=== PATIENT | male | born 1935 | race Caucasian/White ===

== ENCOUNTER 2018-08-02 17:05 | Inpatient (IN) | payer MEDICARE, OTHER ==
--- NOTE | 2018-08-02 17:33 | EDM.PDOC ---
ED HPI GENERAL MEDICAL PROBLEM - General Chief Complaint: General Stated Complaint: UNK Time Seen by Provider: 08/02/18 17:32 Source of Information: Reports: Patient History Limitations: Reports: No Limitations - History of Present Illness INITIAL COMMENTS - FREE TEXT/NARRATIVE: HISTORY AND PHYSICAL: History of present illness: Patient is an 83-year-old male presents to the ED today for concerns of generalized weakness. Patient seems morning when he woke up he was not able to walk because he felt so tired. He follows with Dr. Thomas in the cancer center would give him a liter of fluids and then some lab work from the cancer center. Dr. Thomas then told the patient to come to the ED to get admitted according to the patient. Patient states following the liter of fluid at the [facility] center he does feel better than he did this morning. Patient does have a history of colorectal cancer in which she is receiving chemotherapy. He denies fever, chills, abdominal pain, chest pain, shortness of breath, cough , nausea, vomiting. Review of systems: As per history of present illness and below otherwise all systems reviewed and negative. Past medical history: As per history of present illness and as reviewed below otherwise noncontributory. Surgical history: As per history of present illness and as reviewed below otherwise noncontributory. Social history: No reported history of drug or alcohol abuse. Family history: As per history of present illness and as reviewed below otherwise noncontributory. Physical exam: General: Patient sitting comfortably in no acute distress and nontoxic appearing HEENT: Atraumatic, normocephalic, pupils reactive, negative for conjunctival pallor or scleral icterus, mucous membranes moist, throat clear, neck supple, nontender, trachea midline. No meningeal signs. Lungs: Clear to auscultation, breath sounds equal bilaterally, chest nontender. Heart: S1S2, regular, negative for clicks, rubs. He does have a grade 3 systolic ejection murmur best heard at the right upper sternal border Abdomen: Soft, nondistended, nontender. Negative for masses or hepatosplenomegaly. Negative for costovertebral tenderness. No rigidity, rebound , guarding. Pelvis: Stable nontender. Genitourinary: Deferred. Rectal: Deferred. Extremities: Atraumatic, negative for cords or calf pain. Neurovascular unremarkable. Neuro: Awake, alert, oriented. Cranial nerves II through XII unremarkable. Cerebellum unremarkable. Motor and sensory unremarkable throughout. Exam nonfocal. Notes: His labs down at the cancer center showed hypokalemia. Will give potassium while here in the ER. Diagnostics: CBC, CMP, UA, EKG, chest x-ray, troponin Therapeutics: 1L Normal Saline 4mg Zofran IV 40mEq KlorCon PO Prescriptions: Impression: Hypokalemia Plan: [] Definitive disposition and diagnosis as appropriate pending reevaluation and review of above. - Related Data Allergies Allergy/AdvReac Type Severity Reaction Status Date / Time No Known Allergies Allergy Verified 08/02/18 17:36 Home Meds: Home Meds Losartan/Hydrochlorothiazide [Losartan-HCTZ 100-12.5 MG] 1 tab PO DAILY [History] Metoprolol Tartrate 50 mg PO BID 03/08/18 [History] Aspirin [Adult Aspirin] 81 mg PO ASDIRECTED 03/23/18 [History] Calcium Carbonate/Vitamin D3 [Calcium 600 + Vit D Tablet] 1 tab PO DAILY [History] Carboxymethylcellulos/Glycerin [Refresh Optive Gel Eye Drops] 1 applic EYEBOTH BEDTIME 03/23/18 [History] Dextran 70/Hypromellose [Artificial Tears] 1 drop EYEBOTH BID PRN 03/23/18 [ History] Erythromycin Base [Erythromycin 0.5% Ophth Oint] 1 applic EYEBOTH ASDIRECTED [History] Omeprazole 20 mg PO DAILY 03/23/18 [History] Potassium Chloride 8 meq PO DAILY 03/23/18 [History] hydroCHLOROthiazide [Hydrochlorothiazide] 100 mg PO BID 08/02/18 [History] Past Medical History HEENT History: Reports: Other (See Below) Other HEENT History: top and bottom denture Cardiovascular History: Reports: Heart Murmur, Hypertension Respiratory History: Reports: None Gastrointestinal History: Reports: None Genitourinary History: Reports: BPH, Prostate Disorder Musculoskeletal History: Reports: Other (See Below) Other Musculoskeletal History: polymyalgia rheumatica Neurological History: Reports: None Psychiatric History: Reports: None Endocrine/Metabolic History: Reports: None Hematologic History: Reports: Anemia Immunologic History: Reports: None Oncologic (Cancer) History: Reports: Basal Cell Carcinoma, Other (See Below) Other Oncologic History: 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 Dermatologic History: Reports: None - Infectious Disease History Infectious Disease History: Reports: Chicken Pox, Measles, Mumps - Past Surgical History Head Surgeries/Procedures: Reports: None HEENT Surgical History: Reports: Cataract Surgery Cardiovascular Surgical History: Reports: None GI Surgical History: Reports: Colonoscopy (x3), Hernia, Abdominal Male Surgical History: Reports: TURP-Transurethral Resection of Prostate, Vasectomy Dermatological Surgical History: Reports: Skin Biopsy Social & Family History - Family History Family Medical History: Unobtainable - Caffeine Use Caffeine Use: Reports: Coffee Course - Vital Signs Last Recorded V/S: Last Vital Signs Temp 98.1 F 08/02/18 17:32 Pulse 66 08/02/18 17:32 Resp 18 08/02/18 17:32 BP 109/40 L 08/02/18 17:32 Pulse Ox 98 08/02/18 17:32 - Orders/Labs/Meds Orders: Active Orders 24 hr Category Date Time Status EKG Documentation Completion [RC] STAT Care 08/02/18 17:43 Active Orthostatic Vital Signs [RC] ASDIRECTED Care 08/02/18 17:52 Active Chest 1V Frontal [CR] Stat Exams 08/02/18 17:46 Taken COMPREHENSIVE METABOLIC PN,CMP [CHEM] Stat Lab 08/02/18 18:14 Received TROPONIN I [CHEM] Stat Lab 08/02/18 18:14 Received UA RFX ANIBAL AND CULT IF INDIC [URIN] Stat Lab 08/02/18 17:52 Ordered Ondansetron [Zofran] Med 08/02/18 18:36 Once 4 mg IVPUSH ONETIME ONE Medication Orders Ondansetron HCl (Zofran) 4 mg IVPUSH ONETIME ONE Stop: 08/02/18 18:37 Labs: Laboratory Tests 08/02/18 Range/Units 18:14 WBC 4.15 (4.0-11.0) K/uL RBC 4.31 L (4.50-5.90) M/uL Hgb 9.8 L (13.0-17.0) g/dL Hct 30.6 L (38.0-50.0) % MCV 71.0 L (80.0-98.0) fL MCH 22.7 L (27.0-32.0) pg MCHC 32.0 (31.0-37.0) g/dL RDW Std Deviation 49.0 (28.0-62.0) fl RDW Coeff of Salvador 22 H (11.0-15.0) % Plt Count 236 (150-400) K/uL MPV 8.60 (7.40-12.00) fL Neut % (Auto) 69.3 (48.0-80.0) % Lymph % (Auto) 18.6 (16.0-40.0) % Schley % (Auto) 10.6 (0.0-15.0) % Eos % (Auto) 1.0 (0.0-7.0) % Baso % (Auto) 0.5 (0.0-1.5) % Neut # (Auto) 2.9 (1.4-5.7) K/uL Lymph # (Auto) 0.8 (0.6-2.4) K/uL Schley # (Auto) 0.4 (0.0-0.8) K/uL Eos # (Auto) 0.0 (0.0-0.7) K/uL Baso # (Auto) 0.0 (0.0-0.1) K/uL Nucleated RBC % 0.0 /100WBC Nucleated RBCs # 0 K/uL Meds: Medications Generic Name Dose Route Start Last Admin Trade Name Freq PRN Reason Stop Dose Admin Ondansetron HCl 4 mg 08/02/18 18:36 Zofran IVPUSH 08/02/18 18:37 ONETIME ONE Discontinued Medications Generic Name Dose Route Start Last Admin Trade Name Freq PRN Reason Stop Dose Admin Sodium Chloride 1,000 mls @ 999 mls/hr 08/02/18 17:37 08/02/18 18:32 Normal Saline IV 08/02/18 18:37 999 mls/hr STAT ONE Administration Potassium Chloride 40 meq 08/02/18 17:43 08/02/18 18:33 Klor-Con M20 PO 08/02/18 17:44 40 meq ONETIME ONE Administration Departure - Discharge Information Referrals: PCP,Unknown [Primary Care Provider] - Forms: ED Department Discharge - My Orders Last 24 Hours: My Active Orders 08/02/18 17:43 EKG Documentation Completion [RC] STAT 08/02/18 17:46 Chest 1V Frontal [CR] Stat 08/02/18 17:52 Orthostatic Vital Signs [RC] ASDIRECTED UA RFX ANIBAL AND CULT IF INDIC [URIN] Stat 08/02/18 18:14 COMPREHENSIVE METABOLIC PN,CMP [CHEM] Stat TROPONIN I [CHEM] Stat 08/02/18 18:36 Ondansetron [Zofran] 4 mg IVPUSH ONETIME ONE - Assessment/Plan Last 24 Hours: My Active Orders 08/02/18 17:43 EKG Documentation Completion [RC] STAT 08/02/18 17:46 Chest 1V Frontal [CR] Stat 08/02/18 17:52 Orthostatic Vital Signs [RC] ASDIRECTED UA RFX ANIBAL AND CULT IF INDIC [URIN] Stat 08/02/18 18:14 COMPREHENSIVE METABOLIC PN,CMP [CHEM] Stat TROPONIN I [CHEM] Stat 08/02/18 18:36 Ondansetron [Zofran] 4 mg IVPUSH ONETIME ONE
[2018-08-02] MEDS ORDERED: Sodium Chloride 0.9% 1,000 ML IV ONE (17:37)
[2018-08-02] MEDS ORDERED: Potassium Chloride 20 MEQ Tab.ER PO ONE (17:43)
[2018-08-02] MEDS ORDERED: Ondansetron 4 MG/2 ML SDV IVPUSH ONE (18:36)
--- NOTE | 2018-08-02 19:04 | CR ---
INDICATION: Pain and shortness of breath. TECHNIQUE: Chest 1 views COMPARISON: Chest x-ray 03/08/2018 FINDINGS: Cardiovascular and mediastinum: Normal heart size with atherosclerotic calcification. Lungs and pleural spaces: No pleural effusion or pneumothorax. Nodular density left midlung measuring 4 millimeters. This is indeterminate. Bones and soft tissues: No significant findings. IMPRESSION: No acute pulmonary consolidation. Incidental findings as noted above. Dictated by Horacio Hahn MD @ Aug 02 2018 7:02PM Signed by Dr. Horacio Hahn @ Aug 02 2018 7:03PM
[2018-08-02 19:28] LABS: CHLORIDE,CL 106 mmol/L (98-107); SODIUM,NA 142 mmol/L (136-148)
[2018-08-02] MEDS ORDERED: Potassium Chloride Riders 40 MEQ in Premix Bag 1 BAG IV ONE (19:31)
[2018-08-02] MEDS ORDERED: oxyCODONE 5 MG Tab PO PRN (20:34)
[2018-08-02] MEDS ORDERED: Acetaminophen 325 MG Tab PO PRN (20:34)
[2018-08-02] MEDS ORDERED: Temazepam 15 MG Cap PO PRN (20:35)
[2018-08-02] MEDS: Sodium Chloride 0.9% 1,000 ML IV SCH (20:56)
[2018-08-03] MEDS ORDERED: Potassium Chloride 20 MEQ Tab.ER PO ONE ×2 (08:25→12:00)
--- NOTE | 2018-08-03 08:32 | PCM.HP ---
<Kimberly Hinojosa - Last Filed: 08/03/18 08:27> H&P History of Present Illness - General Date of Service: 08/03/18 Admit Problem/Dx: Admission Diagnosis/Problem Admission Diagnosis/Problem Hypokalemia - History of Present Illness Initial Comments - Free Text/Narative: The patient is a 83 year old male who is undergoing chemotherapy for colorectal cancer who developed weakness, dizziness, and inability to walk yesterday. He was seen at the cancer center, where they lyubov labs and gave him 1 L of IVF. He was then sent to the ER for workup and treatment. He notes he has had trouble with weakness/ dizziness since starting his chemo pills 3 weeks ago but yesterday he was much worse. He also has associated nausea, vomiting, and diarrhea at times since starting that medication. He denies fever/chills, chest pain, shortness of breath, or abdominal pain. This morning he reports he feels a little better compared to yesterday. In the ER work up found MARGARITA, hypokalemia, and hyomagnesemia. He had a negative troponin. His CXR showed no acute cardiopulmonary process. He was started on IVF and he received a dose of potassium and Zofran. PCP-Dr. Watson Oncologist-Dr. Thomas - Related Data Allergies/Adverse Reactions: Allergies Allergy/AdvReac Type Severity Reaction Status Date / Time No Known Allergies Allergy Verified 08/02/18 17:36 Home Medications: Home Meds Losartan/Hydrochlorothiazide [Losartan-HCTZ 100-12.5 MG] 12.5 - 100 mg PO DAILY 03/08/18 [History] Metoprolol Tartrate 50 mg PO BID 03/08/18 [History] Aspirin [Adult Aspirin] 81 mg PO DAILY 03/23/18 [History] Calcium Carbonate/Vitamin D3 [Calcium 600 + Vit D Tablet] 1 tab PO DAILY [History] Carboxymethylcellulos/Glycerin [Refresh Optive Gel Eye Drops] 1 applic EYEBOTH BEDTIME 03/23/18 [History] Dextran 70/Hypromellose [Artificial Tears] 1 drop EYEBOTH BID PRN 03/23/18 [ History] Erythromycin Base [Erythromycin 0.5% Ophth Oint] 1 applic EYEBOTH ASDIRECTED [History] Omeprazole 20 mg PO DAILY 03/23/18 [History] Potassium Chloride 8 meq PO DAILY 03/23/18 [History] Loperamide [Imodium] 2 mg PO Q4H PRN 08/03/18 [History] Ondansetron [Zofran] 8 mg PO Q8H PRN 08/03/18 [History] Prochlorperazine [Compazine] 10 mg PO Q6H PRN 08/03/18 [History] hydrALAZINE [Apresoline] 100 mg PO BID 08/03/18 [History] Past Medical History HEENT History: Reports: Other (See Below) Other HEENT History: top and bottom denture Cardiovascular History: Reports: Heart Murmur, Hypertension Respiratory History: Reports: None Gastrointestinal History: Reports: None Genitourinary History: Reports: BPH, Prostate Disorder Musculoskeletal History: Reports: Other (See Below) Other Musculoskeletal History: polymyalgia rheumatica Neurological History: Reports: None Psychiatric History: Reports: None Endocrine/Metabolic History: Reports: None Hematologic History: Reports: Anemia Immunologic History: Reports: None Oncologic (Cancer) History: Reports: Basal Cell Carcinoma, Other (See Below) Other Oncologic History: 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 Dermatologic History: Reports: None - Infectious Disease History Infectious Disease History: Reports: Chicken Pox, Measles, Mumps - Past Surgical History Head Surgeries/Procedures: Reports: None HEENT Surgical History: Reports: Cataract Surgery Cardiovascular Surgical History: Reports: None GI Surgical History: Reports: Colonoscopy, Hernia, Abdominal Male Surgical History: Reports: TURP-Transurethral Resection of Prostate, Vasectomy Dermatological Surgical History: Reports: Skin Biopsy Social & Family History - Family History Family Medical History: Unobtainable - Tobacco Use Smoking Status *Q: Former Smoker Years of Tobacco use: 60 Packs/Tins Daily: 1 Used Tobacco, but Quit: Yes Month/Year Tobacco Last Used: 1963 - Caffeine Use Caffeine Use: Reports: Coffee - Recreational Drug Use Recreational Drug Use: No H&P Review of Systems - Review of Systems: Review Of Systems: See Below General: Reports: Weakness, Decreased Appetite. Denies: Fever, Chills HEENT: Reports: No Symptoms Pulmonary: Reports: No Symptoms Cardiovascular: Reports: No Symptoms Gastrointestinal: Reports: Diarrhea, Nausea, Vomiting. Denies: Abdominal Pain Genitourinary: Reports: No Symptoms Musculoskeletal: Reports: No Symptoms Skin: Reports: No Symptoms Psychiatric: Reports: No Symptoms Neurological: Reports: Dizziness Hematologic/Lymphatic: Reports: No Symptoms Immunologic: Reports: No Symptoms Exam - Exam Exam: See Below - Vital Signs Vital Signs: Last Vital Signs Temp 99.5 F 08/03/18 07:45 Pulse 109 H 08/03/18 07:45 Resp 18 08/03/18 07:45 BP 145/62 H 08/03/18 07:45 Pulse Ox 96 08/03/18 07:45 Orthostatic Blood Pressure [ 113/51 Standing] Orthostatic Blood Pressure [ 137/56 Sitting] Orthostatic Blood Pressure [ 137/54 Supine] Weight: 80.467 kg - Exam General: Alert, Oriented, Cooperative HEENT: Conjunctiva Clear, Mucosa Moist & [place], Posterior Pharynx Clear Neck: Supple Lungs: Clear to Auscultation, Normal Respiratory Effort Cardiovascular: Regular Rate, Regular Rhythm GI/Abdominal Exam: Normal Bowel Sounds, Soft, Non-Tender, No Distention Extremities: No Pedal Edema Skin: Warm, Dry Neuro Extensive - Mental Status: Alert, Oriented x3 Psychiatric: Alert, Normal Affect, Normal Mood - Patient Data Lab Results Last 24 hrs: Laboratory Results - last 24 hr 08/02/18 08/02/18 08/02/18 Range/Units 18:14 18:14 19:05 WBC 4.15 (4.0-11.0) K/uL RBC 4.31 L (4.50-5.90) M/uL Hgb 9.8 L (13.0-17.0) g/dL Hct 30.6 L (38.0-50.0) % MCV 71.0 L (80.0-98.0) fL MCH 22.7 L (27.0-32.0) pg MCHC 32.0 (31.0-37.0) g/dL RDW Std Deviation 49.0 (28.0-62.0) fl RDW Coeff of Salvador 22 H (11.0-15.0) % Plt Count 236 (150-400) K/uL MPV 8.60 (7.40-12.00) fL Neut % (Auto) 69.3 (48.0-80.0) % Lymph % (Auto) 18.6 (16.0-40.0) % Larue % (Auto) 10.6 (0.0-15.0) % Eos % (Auto) 1.0 (0.0-7.0) % Baso % (Auto) 0.5 (0.0-1.5) % Neut # (Auto) 2.9 (1.4-5.7) K/uL Lymph # (Auto) 0.8 (0.6-2.4) K/uL Larue # (Auto) 0.4 (0.0-0.8) K/uL Eos # (Auto) 0.0 (0.0-0.7) K/uL Baso # (Auto) 0.0 (0.0-0.1) K/uL Add Manual Diff Neutrophils % (Manual) (48.0-80.0) % Band Neutrophils % % Lymphocytes % (Manual) (16.0-40.0) % Monocytes % (Manual) (0.0-15.0) % Nucleated RBC % 0.0 /100WBC Absolute Seg Neuts (1.4-5.7) Band Neutrophils # Lymphocytes # (Manual) (0.6-2.4) Monocytes # (Manual) (0.0-0.8) Nucleated RBCs # 0 K/uL Sodium 142 (136-148) mmol/L Potassium 2.4 L* (3.5-5.1) mmol/L Chloride 106 (98-107) mmol/L Carbon Dioxide 22.6 (21.0-32.0) mmol/L BUN 36 H (7.0-18.0) mg/dL Creatinine 2.0 H (0.8-1.3) mg/dL Est Cr Clr Drug Dosing 27.99 mL/min Estimated GFR (MDRD) 32.1 ml/min Glucose 132 H (74-106) mg/dL Calcium 8.3 L (8.5-10.1) mg/dL Magnesium (1.8-2.4) mg/dL Total Bilirubin 0.5 (0.2-1.0) mg/dL AST 14 L (15-37) IU/L ALT 17 (14-63) IU/L Alkaline Phosphatase 62 (46-116) U/L Troponin I < 0.050 (0.000-0.056) ng/mL Total Protein 6.3 L (6.4-8.2) g/dL Albumin 2.6 L (3.4-5.0) g/dL Globulin 3.7 (2.6-4.0) g/dL Albumin/Globulin Ratio 0.7 L (0.9-1.6) Urine Color YELLOW Urine Appearance CLEAR Urine pH 5.5 (5.0-8.0) Ur Specific [place] 1.015 (1.001-1.035) Urine Protein 30 H (NEGATIVE) mg/dL Urine Glucose (UA) NEGATIVE (NEGATIVE) mg/dL Urine Ketones NEGATIVE (NEGATIVE) mg/dL Urine Occult Blood NEGATIVE (NEGATIVE) Urine Nitrite NEGATIVE (NEGATIVE) Urine Bilirubin NEGATIVE (NEGATIVE) Urine Urobilinogen 0.2 (<2.0) EU/dL Ur Leukocyte Esterase TRACE H (NEGATIVE) Urine RBC 3-5 (0-2/HPF) Urine WBC 6-8 (0-5/HPF) Ur Epithelial Cells MODERATE (NONE-FEW) Urine Bacteria FEW (NEGATIVE) 08/02/18 08/03/18 08/03/18 Range/Units 21:04 05:37 05:37 WBC 3.14 L (4.0-11.0) K/uL RBC 3.75 L (4.50-5.90) M/uL Hgb 8.6 L (13.0-17.0) g/dL Hct 26.9 L (38.0-50.0) % MCV 71.7 L (80.0-98.0) fL MCH 22.9 L (27.0-32.0) pg MCHC 32.0 (31.0-37.0) g/dL RDW Std Deviation 50.2 (28.0-62.0) fl RDW Coeff of Salvador 22 H (11.0-15.0) % Plt Count 175 (150-400) K/uL MPV 8.50 (7.40-12.00) fL Neut % (Auto) [employer] (48.0-80.0) % Lymph % (Auto) [employer] (16.0-40.0) % Larue % (Auto) [employer] (0.0-15.0) % Eos % (Auto) [employer] (0.0-7.0) % Baso % (Auto) [employer] (0.0-1.5) % Neut # (Auto) [employer] (1.4-5.7) K/uL Lymph # (Auto) [employer] (0.6-2.4) K/uL Larue # (Auto) [employer] (0.0-0.8) K/uL Eos # (Auto) [employer] (0.0-0.7) K/uL Baso # (Auto) [employer] (0.0-0.1) K/uL Add Manual Diff YES Neutrophils % (Manual) 29 L (48.0-80.0) % Band Neutrophils % 38 % Lymphocytes % (Manual) 20 (16.0-40.0) % Monocytes % (Manual) 13 (0.0-15.0) % Nucleated RBC % 0.0 /100WBC Absolute Seg Neuts 0.9 L (1.4-5.7) Band Neutrophils # 1.2 Lymphocytes # (Manual) 0.6 (0.6-2.4) Monocytes # (Manual) 0.4 (0.0-0.8) Nucleated RBCs # 0 K/uL Sodium 144 (136-148) mmol/L Potassium 2.6 L (3.5-5.1) mmol/L Chloride 110 H (98-107) mmol/L Carbon Dioxide 23.5 (21.0-32.0) mmol/L BUN 33 H (7.0-18.0) mg/dL Creatinine 1.7 H (0.8-1.3) mg/dL Est Cr Clr Drug Dosing 32.81 mL/min Estimated GFR (MDRD) 38.7 ml/min Glucose 127 H (74-106) mg/dL Calcium 7.7 L (8.5-10.1) mg/dL Magnesium 1.5 L 1.5 L (1.8-2.4) mg/dL Total Bilirubin (0.2-1.0) mg/dL AST (15-37) IU/L ALT (14-63) IU/L Alkaline Phosphatase (46-116) U/L Troponin I (0.000-0.056) ng/mL Total Protein (6.4-8.2) g/dL Albumin (3.4-5.0) g/dL Globulin (2.6-4.0) g/dL Albumin/Globulin Ratio (0.9-1.6) Urine Color Urine Appearance Urine pH (5.0-8.0) Ur Specific [place] (1.001-1.035) Urine Protein (NEGATIVE) mg/dL Urine Glucose (UA) (NEGATIVE) mg/dL Urine Ketones (NEGATIVE) mg/dL Urine Occult Blood (NEGATIVE) Urine Nitrite (NEGATIVE) Urine Bilirubin (NEGATIVE) Urine Urobilinogen (<2.0) EU/dL Ur Leukocyte Esterase (NEGATIVE) Urine RBC (0-2/HPF) Urine WBC (0-5/HPF) Ur Epithelial Cells (NONE-FEW) Urine Bacteria (NEGATIVE) Result Diagrams: 08/03/18 05:37 08/03/18 05:37 - Problem List (1) Hypomagnesemia SNOMED Code(s): 748128329 ICD Code: E83.42 - HYPOMAGNESEMIA Status: Acute Current Visit: Yes (2) Ambulatory dysfunction SNOMED Code(s): 104409505 ICD Code: R26.2 - DIFFICULTY IN WALKING, NOT ELSEWHERE CLASSIFIED Status: Acute Current Visit: Yes (3) MARGARITA (acute kidney injury) SNOMED Code(s): 07633212 ICD Code: N17.9 - ACUTE KIDNEY FAILURE, UNSPECIFIED Status: Acute Current Visit: Yes (4) Colorectal cancer SNOMED Code(s): 128929985 ICD Code: C19 - MALIGNANT NEOPLASM OF RECTOSIGMOID JUNCTION Status: Chronic Current Visit: No (5) Hypokalemia SNOMED Code(s): 55244342 ICD Code: E87.6 - HYPOKALEMIA Status: Acute Current Visit: Yes (6) Weakness generalized SNOMED Code(s): 90882812 ICD Code: R53.1 - WEAKNESS Status: Acute Current Visit: Yes Problem List Initiated/Reviewed/Updated: Yes Orders Last 24hrs: Active Orders 24 hr Category Date Time Status Patient Status [ADT] Stat ADT 08/02/18 19:36 Active EKG Documentation Completion [RC] STAT Care 08/02/18 17:43 Active Orthostatic Vital Signs [RC] ASDIRECTED Care 08/02/18 17:52 Active Telemetry Monitoring [Cardiac Monitoring] [RC] Q8H Care 08/02/18 20:35 Active Consult to Physical Therapy [PT Evaluation and Cons 08/03/18 08:26 Ordered Treatment] [CONS] Routine Regular Diet [DIET] Diet 08/03/18 Breakfast Active CULTURE URINE [RM] Stat Lab 08/02/18 19:05 Received Acetaminophen [Tylenol] Med 08/02/18 20:34 Active 650 mg PO Q4H PRN Potassium Chloride [Klor-Con M20] Med 08/03/18 08:25 Once 40 meq PO ONETIME ONE Potassium Chloride [Klor-Con M20] Med 08/03/18 12:00 Once 40 meq PO ONETIME ONE Sodium Chloride 0.9% [Normal Saline] 1,000 ml Med 08/02/18 20:45 Active IV ASDIRECTED Temazepam [Restoril] Med 08/02/18 20:35 Active 15 mg PO BEDTIME PRN oxyCODONE Med 08/02/18 20:34 Active 5 mg PO Q4H PRN Medication Orders Acetaminophen (Tylenol) 650 mg PO Q4H PRN PRN Reason: Pain Sodium Chloride (Normal Saline) 1,000 mls @ 75 mls/hr IV ASDIRECTED KATHERINE Last Admin: 08/02/18 20:56 Dose: 75 mls/hr Oxycodone HCl (Oxycodone) 5 mg PO Q4H PRN PRN Reason: Pain (moderate 4-6) Potassium Chloride (Klor-Con M20) 40 meq PO ONETIME ONE Stop: 08/03/18 08:26 Potassium Chloride (Klor-Con M20) 40 meq PO ONETIME ONE Stop: 08/03/18 12:01 Temazepam (Restoril) 15 mg PO BEDTIME PRN PRN Reason: Insomnia Assessment/Plan Comment:: 1. Admit observation 2. Code status- CPR ok, DNI 3. Vitals per routine 4. I/Os per routine 5. DVT prophylaxis with lovenox 6. Diet- regular 7. Weakness/ ambulatory dysfunction- PT evaluation/treatment ordered 8. Hypokalemia- will replace with 40 KCl now and 40 at noon. Recheck in AM 9. Hypomagnesemia- will replace with 2 grams today. Recheck in AM. 10. MARGARITA- continue IVF 11. Chronic conditions- HTN/GERD- hold HCTZ as that can cause hypokalemia but continue other home meds. <Srinivas Gresham - Last Filed: 08/03/18 12:58> H&P History of Present Illness - General Admit Problem/Dx: Admission Diagnosis/Problem Admission Diagnosis/Problem Hypokalemia - History of Present Illness Initial Comments - Free Text/Narative: I have examined the patient independently of Kimberly Hinojosa MD, medical center manager. I have discussed the case with her. I have reviewed and agree with the plan of care as outlined by her. Please see orders. Exam - Vital Signs Vital Signs: Last Vital Signs Temp 37.5 C 08/03/18 07:45 Pulse 109 H 08/03/18 10:13 Resp 18 08/03/18 07:45 BP 145/62 H 08/03/18 10:17 Pulse Ox 96 08/03/18 07:45 Orthostatic Blood Pressure [ 113/51 Standing] Orthostatic Blood Pressure [ 137/56 Sitting] Orthostatic Blood Pressure [ 137/54 Supine] - Patient Data Lab Results Last 24 hrs: Laboratory Results - last 24 hr 08/02/18 08/02/18 08/02/18 Range/Units 18:14 18:14 19:05 WBC 4.15 (4.0-11.0) K/uL RBC 4.31 L (4.50-5.90) M/uL Hgb 9.8 L (13.0-17.0) g/dL Hct 30.6 L (38.0-50.0) % MCV 71.0 L (80.0-98.0) fL MCH 22.7 L (27.0-32.0) pg MCHC 32.0 (31.0-37.0) g/dL RDW Std Deviation 49.0 (28.0-62.0) fl RDW Coeff of Salvador 22 H (11.0-15.0) % Plt Count 236 (150-400) K/uL MPV 8.60 (7.40-12.00) fL Neut % (Auto) 69.3 (48.0-80.0) % Lymph % (Auto) 18.6 (16.0-40.0) % Larue % (Auto) 10.6 (0.0-15.0) % Eos % (Auto) 1.0 (0.0-7.0) % Baso % (Auto) 0.5 (0.0-1.5) % Neut # (Auto) 2.9 (1.4-5.7) K/uL Lymph # (Auto) 0.8 (0.6-2.4) K/uL Larue # (Auto) 0.4 (0.0-0.8) K/uL Eos # (Auto) 0.0 (0.0-0.7) K/uL Baso # (Auto) 0.0 (0.0-0.1) K/uL Add Manual Diff Neutrophils % (Manual) (48.0-80.0) % Band Neutrophils % % Lymphocytes % (Manual) (16.0-40.0) % Monocytes % (Manual) (0.0-15.0) % Nucleated RBC % 0.0 /100WBC Absolute Seg Neuts (1.4-5.7) Band Neutrophils # Lymphocytes # (Manual) (0.6-2.4) Monocytes # (Manual) (0.0-0.8) Nucleated RBCs # 0 K/uL Sodium 142 (136-148) mmol/L Potassium 2.4 L* (3.5-5.1) mmol/L Chloride 106 (98-107) mmol/L Carbon Dioxide 22.6 (21.0-32.0) mmol/L BUN 36 H (7.0-18.0) mg/dL Creatinine 2.0 H (0.8-1.3) mg/dL Est Cr Clr Drug Dosing 27.99 mL/min Estimated GFR (MDRD) 32.1 ml/min Glucose 132 H (74-106) mg/dL Calcium 8.3 L (8.5-10.1) mg/dL Magnesium (1.8-2.4) mg/dL Total Bilirubin 0.5 (0.2-1.0) mg/dL AST 14 L (15-37) IU/L ALT 17 (14-63) IU/L Alkaline Phosphatase 62 (46-116) U/L Troponin I < 0.050 (0.000-0.056) ng/mL Total Protein 6.3 L (6.4-8.2) g/dL Albumin 2.6 L (3.4-5.0) g/dL Globulin 3.7 (2.6-4.0) g/dL Albumin/Globulin Ratio 0.7 L (0.9-1.6) Urine Color YELLOW Urine Appearance CLEAR Urine pH 5.5 (5.0-8.0) Ur Specific [place] 1.015 (1.001-1.035) Urine Protein 30 H (NEGATIVE) mg/dL Urine Glucose (UA) NEGATIVE (NEGATIVE) mg/dL Urine Ketones NEGATIVE (NEGATIVE) mg/dL Urine Occult Blood NEGATIVE (NEGATIVE) Urine Nitrite NEGATIVE (NEGATIVE) Urine Bilirubin NEGATIVE (NEGATIVE) Urine Urobilinogen 0.2 (<2.0) EU/dL Ur Leukocyte Esterase TRACE H (NEGATIVE) Urine RBC 3-5 (0-2/HPF) Urine WBC 6-8 (0-5/HPF) Ur Epithelial Cells MODERATE (NONE-FEW) Urine Bacteria FEW (NEGATIVE) 08/02/18 08/03/18 08/03/18 Range/Units 21:04 05:37 05:37 WBC 3.14 L (4.0-11.0) K/uL RBC 3.75 L (4.50-5.90) M/uL Hgb 8.6 L (13.0-17.0) g/dL Hct 26.9 L (38.0-50.0) % MCV 71.7 L (80.0-98.0) fL MCH 22.9 L (27.0-32.0) pg MCHC 32.0 (31.0-37.0) g/dL RDW Std Deviation 50.2 (28.0-62.0) fl RDW Coeff of Salvador 22 H (11.0-15.0) % Plt Count 175 (150-400) K/uL MPV 8.50 (7.40-12.00) fL Neut % (Auto) [employer] (48.0-80.0) % Lymph % (Auto) [employer] (16.0-40.0) % Larue % (Auto) [employer] (0.0-15.0) % Eos % (Auto) [employer] (0.0-7.0) % Baso % (Auto) [employer] (0.0-1.5) % Neut # (Auto) [employer] (1.4-5.7) K/uL Lymph # (Auto) [employer] (0.6-2.4) K/uL Larue # (Auto) [employer] (0.0-0.8) K/uL Eos # (Auto) [employer] (0.0-0.7) K/uL Baso # (Auto) [employer] (0.0-0.1) K/uL Add Manual Diff YES Neutrophils % (Manual) 29 L (48.0-80.0) % Band Neutrophils % 38 % Lymphocytes % (Manual) 20 (16.0-40.0) % Monocytes % (Manual) 13 (0.0-15.0) % Nucleated RBC % 0.0 /100WBC Absolute Seg Neuts 0.9 L (1.4-5.7) Band Neutrophils # 1.2 Lymphocytes # (Manual) 0.6 (0.6-2.4) Monocytes # (Manual) 0.4 (0.0-0.8) Nucleated RBCs # 0 K/uL Sodium 144 (136-148) mmol/L Potassium 2.6 L (3.5-5.1) mmol/L Chloride 110 H (98-107) mmol/L Carbon Dioxide 23.5 (21.0-32.0) mmol/L BUN 33 H (7.0-18.0) mg/dL Creatinine 1.7 H (0.8-1.3) mg/dL Est Cr Clr Drug Dosing 32.81 mL/min Estimated GFR (MDRD) 38.7 ml/min Glucose 127 H (74-106) mg/dL Calcium 7.7 L (8.5-10.1) mg/dL Magnesium 1.5 L 1.5 L (1.8-2.4) mg/dL Total Bilirubin (0.2-1.0) mg/dL AST (15-37) IU/L ALT (14-63) IU/L Alkaline Phosphatase (46-116) U/L Troponin I (0.000-0.056) ng/mL Total Protein (6.4-8.2) g/dL Albumin (3.4-5.0) g/dL Globulin (2.6-4.0) g/dL Albumin/Globulin Ratio (0.9-1.6) Urine Color Urine Appearance Urine pH (5.0-8.0) Ur Specific [place] (1.001-1.035) Urine Protein (NEGATIVE) mg/dL Urine Glucose (UA) (NEGATIVE) mg/dL Urine Ketones (NEGATIVE) mg/dL Urine Occult Blood (NEGATIVE) Urine Nitrite (NEGATIVE) Urine Bilirubin (NEGATIVE) Urine Urobilinogen (<2.0) EU/dL Ur Leukocyte Esterase (NEGATIVE) Urine RBC (0-2/HPF) Urine WBC (0-5/HPF) Ur Epithelial Cells (NONE-FEW) Urine Bacteria (NEGATIVE) Result Diagrams: 08/03/18 05:37 08/03/18 05:37 Orders Last 24hrs: Active Orders 24 hr Category Date Time Status Patient Status [ADT] Stat ADT 08/02/18 19:36 Active Intake and Output [RC] Q12H Care 08/03/18 10:52 Active Orthostatic Vital Signs [RC] ASDIRECTED Care 08/02/18 17:52 Active Telemetry Monitoring [Cardiac Monitoring] [RC] Q8H Care 08/02/18 20:35 Active Vital Signs [RC] Q4H Care 08/03/18 10:52 Active Consult to Physical Therapy [PT Evaluation and Cons 08/03/18 08:26 Active Treatment] [CONS] Routine Regular Diet [DIET] Diet 08/03/18 Breakfast Active BASIC METABOLIC PANEL,BMP [CHEM] AM Lab 08/04/18 05:11 Ordered CBC WITH AUTO DIFF [HEME] AM Lab 08/04/18 05:11 Ordered CDIFF TOX A+B [OP] Routine Lab 08/03/18 10:35 Received CULTURE STOOL + CAMPY+SHIGATOX [RM] Routine Lab 08/03/18 10:35 Received CULTURE URINE [RM] Stat Lab 08/02/18 19:05 Received MAGNESIUM [CHEM] AM Lab 08/04/18 05:11 Ordered WBC, STOOL [OP] Routine Lab 08/03/18 10:35 Received Acetaminophen [Tylenol] Med 08/02/18 20:34 Active 650 mg PO Q4H PRN Aspirin [Halfprin] Med 08/03/18 10:00 Active 81 mg PO DAILY Calcium Carbonate/Vitamin D3 [Caltrate 600+D 1500 MG- Med 08/03/18 09:00 Active 400 Units] 1 tab PO DAILY Carboxymethylcellulose Sodium [Refresh Plus 0.5%] Med 08/03/18 21:00 Active 0 each EYEBOTH BEDTIME Carboxymethylcellulose Sodium [Refresh Plus 0.5%] Med 08/03/18 08:38 Active 1 each EYEBOTH BID PRN Enoxaparin [Lovenox] Med 08/03/18 11:00 Active 30 mg SUBCUT Q24H Loperamide [Imodium] Med 08/03/18 10:44 Active 2 mg PO Q4H PRN Losartan [Cozaar] Med 08/03/18 09:00 Active 50 mg PO DAILY Metoprolol Tartrate [Lopressor] Med 08/03/18 09:00 Active 50 mg PO BID Omeprazole Med 08/03/18 09:00 Active 20 mg PO DAILY Ondansetron [Zofran] Med 08/03/18 10:46 Active 4 mg IVPUSH Q4H PRN Prochlorperazine [Compazine] Med 08/03/18 10:44 Active 10 mg PO Q6H PRN Sodium Chloride 0.9% [Normal Saline] 1,000 ml Med 08/02/18 20:45 Active IV ASDIRECTED Temazepam [Restoril] Med 08/02/18 20:35 Active 15 mg PO BEDTIME PRN oxyCODONE Med 08/02/18 20:34 Active 5 mg PO Q4H PRN Resuscitation Status Routine Resus Stat 08/03/18 10:52 Ordered Medication Orders Acetaminophen (Tylenol) 650 mg PO Q4H PRN PRN Reason: Pain Artificial Tears (Refresh Plus 0.5%) 0 each EYEBOTH BEDTIME KATHERINE Artificial Tears (Refresh Plus 0.5%) 1 each EYEBOTH BID PRN PRN Reason: Dry Eyes Aspirin (Halfprin) 81 mg PO DAILY [facility] Last Admin: 08/03/18 10:17 Dose: 81 mg Calcium Carbonate (Caltrate 600+D 1500 Mg-400 Units) 1 tab PO DAILY [facility] Last Admin: 08/03/18 10:16 Dose: 1 tab Enoxaparin Sodium (Lovenox) 30 mg SUBCUT Q24H [facility] Last Admin: 08/03/18 12:10 Dose: 30 mg Sodium Chloride (Normal Saline) 1,000 mls @ 75 mls/hr IV ASDIRECTED [facility] Last Admin: 08/03/18 12:14 Dose: 75 mls/hr Infusion: 08/03/18 10:16 Dose: 75 mls/hr Admin: 08/02/18 20:56 Dose: 75 mls/hr Loperamide HCl (Imodium) 2 mg PO Q4H PRN PRN Reason: Diarrhea Last Admin: 08/03/18 12:10 Dose: 2 mg Losartan Potassium (Cozaar) 50 mg PO DAILY [facility] Last Admin: 08/03/18 10:17 Dose: 50 mg Metoprolol Tartrate (Lopressor) 50 mg PO BID [facility] Last Admin: 08/03/18 10:13 Dose: 50 mg Omeprazole (Omeprazole) 20 mg PO DAILY [facility] Last Admin: 08/03/18 10:17 Dose: 20 mg Ondansetron HCl (Zofran) 4 mg IVPUSH Q4H PRN PRN Reason: Nausea/Vomiting Oxycodone HCl (Oxycodone) 5 mg PO Q4H PRN PRN Reason: Pain (moderate 4-6) Prochlorperazine Maleate (Compazine) 10 mg PO Q6H PRN PRN Reason: Nausea/Vomiting Temazepam (Restoril) 15 mg PO BEDTIME PRN PRN Reason: Insomnia
[2018-08-03] MEDS ORDERED: Aspirin 81 MG Tab.EC PO SCH (08:45)
[2018-08-03] MEDS: Metoprolol Tartrate 50 MG Tab PO SCH ×2 (10:13→21:12)
[2018-08-03] MEDS: Calcium Carbonate/Vitamin D3 1500 MG-400 Units Tab PO SCH (10:16)
[2018-08-03] MEDS: Losartan 50 MG Tab PO SCH (10:17)
[2018-08-03] MEDS: Aspirin 81 MG Tab.EC PO SCH (10:17)
[2018-08-03] MEDS: Omeprazole 20 MG Cap.CR PO SCH (10:17)
[2018-08-03] MEDS ORDERED: Prochlorperazine 10 MG Tab PO PRN (10:44)
[2018-08-03] MEDS: Loperamide 2 MG Cap PO PRN ×2 (12:10→17:52)
[2018-08-03] MEDS: Enoxaparin 30 MG/0.3 ML Syringe SUBCUT SCH (12:10)
[2018-08-03] MEDS: Sodium Chloride 0.9% 1,000 ML IV SCH (12:14)
[2018-08-03] MEDS ORDERED: Magnesium Sulfate/Water 2 GM in Premix Bag 1 BAG IV ONE (13:51)
[2018-08-03] MEDS: Ondansetron 4 MG/2 ML SDV IVPUSH PRN (14:42)
[2018-08-03] MEDS: Azithromycin 250 MG Tab PO SCH (15:49)
[2018-08-03] MEDS: Carboxymethylcellulose Sodium 0.5% Ophth Soln 0.4 ML UD Box of 30 EYEBOTH SCH (21:14)
[2018-08-04] MEDS: Sodium Chloride 0.9% 1,000 ML IV SCH ×2 (04:42→22:09)
[2018-08-04] MEDS ORDERED: Magnesium Sulfate/Water 2 GM in Premix Bag 1 BAG IV ONE (07:16)
--- NOTE | 2018-08-04 08:23 | PCM.PN ---
<Kimberly Hinojosa - Last Filed: 08/04/18 08:19> - General Info Date of Service: 08/04/18 Subjective Update: Patient reports he is feeling better. He still has diarrhea but he reports it has improved. He denies shortness of breath, chest pain, or abdominal pain. - Review of Systems General: Reports: No Symptoms HEENT: Reports: No Symptoms Pulmonary: Reports: No Symptoms Cardiovascular: Reports: No Symptoms Gastrointestinal: Reports: Diarrhea, Nausea. Denies: Abdominal Pain, Vomiting Genitourinary: Reports: No Symptoms Musculoskeletal: Reports: No Symptoms Skin: Reports: No Symptoms Neurological: Reports: No Symptoms Psychiatric: Reports: No Symptoms - Patient Data Vitals - Most Recent: Last Vital Signs Temp 99 F 08/04/18 04:00 Pulse 73 08/04/18 04:00 Resp 18 08/04/18 04:00 BP 141/72 H 08/04/18 04:00 Pulse Ox 96 08/04/18 04:00 Orthostatic Blood Pressure [ 113/51 Standing] Orthostatic Blood Pressure [ 137/56 Sitting] Orthostatic Blood Pressure [ 137/54 Supine] Weight - Most Recent: 80.467 kg I&O - Last 24 Hours: Intake & Output 08/03/18 08/04/18 08/04/18 22:59 06:59 14:59 Intake Total 800 1742 Output Total 600 600 Balance 200 1142 Lab Results Last 24 Hours: Laboratory Results - last 24 hr 08/04/18 08/04/18 Range/Units 04:55 04:55 WBC 3.38 L (4.0-11.0) K/uL RBC 3.70 L (4.50-5.90) M/uL Hgb 8.5 L (13.0-17.0) g/dL Hct 26.5 L (38.0-50.0) % MCV 71.6 L (80.0-98.0) fL MCH 23.0 L (27.0-32.0) pg MCHC 32.1 (31.0-37.0) g/dL RDW Std Deviation 49.9 (28.0-62.0) fl RDW Coeff of Salvador 22 H (11.0-15.0) % Plt Count 172 (150-400) K/uL MPV 8.20 (7.40-12.00) fL Add Manual Diff YES Neutrophils % (Manual) 27 L (48.0-80.0) % Band Neutrophils % 41 % Lymphocytes % (Manual) 28 (16.0-40.0) % Monocytes % (Manual) 3 (0.0-15.0) % Basophils % (Manual) 1 (0.0-1.5) % Nucleated RBC % 0.0 /100WBC Absolute Seg Neuts 0.9 L (1.4-5.7) Band Neutrophils # 1.4 Lymphocytes # (Manual) 0.9 (0.6-2.4) Monocytes # (Manual) 0.1 (0.0-0.8) Basophils # (Manual) 0.0 (0.0-0.1) Nucleated RBCs # 0 K/uL Sodium 143 (136-148) mmol/L Potassium 2.9 L (3.5-5.1) mmol/L Chloride 110 H (98-107) mmol/L Carbon Dioxide 23.4 (21.0-32.0) mmol/L BUN 23 H (7.0-18.0) mg/dL Creatinine 1.4 H (0.8-1.3) mg/dL Est Cr Clr Drug Dosing 39.85 mL/min Estimated GFR (MDRD) 48.4 ml/min Glucose 127 H (74-106) mg/dL Calcium 7.7 L (8.5-10.1) mg/dL Magnesium 1.7 L (1.8-2.4) mg/dL Hector Results Last 24 Hours: Microbiology 08/03/18 10:35 Campylobacter Antigen Assay - Final Stool / Feces Positive Campylobacter Ag Shiga Toxin I - Final NEGATIVE FOR SHIGA TOXIN 1 Shiga Toxin II - Final NEGATIVE FOR SHIGA TOXIN 2 08/03/18 10:35 Clostridium difficile Toxin A & B - Final Stool / Feces Negative for C.Diff Toxin/AG Stool for WBCs - Final POSITIVE FOR WBC'S Med Orders - Current: Current Medications Acetaminophen (Tylenol) 650 mg PO Q4H PRN PRN Reason: Pain Artificial Tears (Refresh Plus 0.5%) 0 each EYEBOTH BEDTIME KATHERINE Last Admin: 08/03/18 21:14 Dose: 1 drop Artificial Tears (Refresh Plus 0.5%) 1 each EYEBOTH BID PRN PRN Reason: Dry Eyes Aspirin (Halfprin) 81 mg PO DAILY KATHERINE Last Admin: 08/03/18 10:17 Dose: 81 mg Azithromycin (Zithromax) 500 mg PO Q24H [facility] Last Admin: 08/03/18 15:49 Dose: 500 mg Calcium Carbonate (Caltrate 600+D 1500 Mg-400 Units) 1 tab PO DAILY [facility] Last Admin: 08/03/18 10:16 Dose: 1 tab Enoxaparin Sodium (Lovenox) 30 mg SUBCUT Q24H [facility] Last Admin: 08/03/18 12:10 Dose: 30 mg Sodium Chloride (Normal Saline) 1,000 mls @ 75 mls/hr IV ASDIRECTED [facility] Last Admin: 08/04/18 04:42 Dose: 75 mls/hr Magnesium Sulfate 2 gm/ Premix 50 mls @ 25 mls/hr IV ONETIME ONE Stop: 08/04/18 09:15 Loperamide HCl (Imodium) 2 mg PO Q4H PRN PRN Reason: Diarrhea Last Admin: 08/03/18 17:52 Dose: 2 mg Losartan Potassium (Cozaar) 50 mg PO DAILY [facility] Last Admin: 08/03/18 10:17 Dose: 50 mg Metoprolol Tartrate (Lopressor) 50 mg PO BID [facility] Last Admin: 08/03/18 21:12 Dose: 50 mg Omeprazole (Omeprazole) 20 mg PO DAILY [facility] Last Admin: 08/03/18 10:17 Dose: 20 mg Ondansetron HCl (Zofran) 4 mg IVPUSH Q4H PRN PRN Reason: Nausea/Vomiting Last Admin: 08/03/18 14:42 Dose: 4 mg Oxycodone HCl (Oxycodone) 5 mg PO Q4H PRN PRN Reason: Pain (moderate 4-6) Potassium Chloride (Klor-Con M20) 40 meq PO ONETIME ONE Stop: 08/04/18 09:01 Potassium Chloride (Klor-Con M20) 40 meq PO ONETIME ONE Stop: 08/04/18 21:01 Prochlorperazine Maleate (Compazine) 10 mg PO Q6H PRN PRN Reason: Nausea/Vomiting Temazepam (Restoril) 15 mg PO BEDTIME PRN PRN Reason: Insomnia Discontinued Medications Aspirin (Halfprin) 81 mg PO ASDIRECTED [facility] Sodium Chloride (Normal Saline) 1,000 mls @ 999 mls/hr IV STAT ONE Stop: 08/02/18 18:37 Last Admin: 08/02/18 18:32 Dose: 999 mls/hr Potassium Chloride 40 meq/ (Premix) 100 mls @ 25 mls/hr IV ONETIME ONE Stop: 08/02/18 23:30 Last Admin: 08/02/18 20:55 Dose: 25 mls/hr Magnesium Sulfate 2 gm/ Premix 50 mls @ 25 mls/hr IV ONETIME ONE Stop: 08/03/18 15:50 Last Admin: 08/03/18 14:29 Dose: 25 mls/hr Ondansetron HCl (Zofran) 4 mg IVPUSH ONETIME ONE Stop: 08/02/18 18:37 Last Admin: 08/02/18 18:42 Dose: 4 mg Potassium Chloride (Klor-Con M20) 40 meq PO ONETIME ONE Stop: 08/02/18 17:44 Last Admin: 08/02/18 18:33 Dose: 40 meq Potassium Chloride (Klor-Con M20) 40 meq PO ONETIME ONE Stop: 08/03/18 08:26 Last Admin: 08/03/18 09:07 Dose: 40 meq Potassium Chloride (Klor-Con M20) 40 meq PO ONETIME ONE Stop: 08/03/18 12:01 Last Admin: 08/03/18 12:09 Dose: 40 meq Potassium Chloride (Klor-Con M20) 40 meq PO ONETIME ONE Stop: 08/04/18 15:01 - Exam General: Alert, Oriented, Cooperative Lungs: Clear to Auscultation, Normal Respiratory Effort Cardiovascular: Regular Rate, Regular Rhythm GI/Abdominal Exam: Normal Bowel Sounds, Soft, Non-Tender, No Distention Extremities: No Pedal Edema Skin: Warm, Dry Neurological: No New Focal Deficit Psy/Mental Status: Alert, Normal Affect, Normal Mood - Problem List & Annotations (1) Hypomagnesemia SNOMED Code(s): 740978874 Code(s): E83.42 - HYPOMAGNESEMIA Status: Acute Current Visit: Yes (2) Ambulatory dysfunction SNOMED Code(s): 200794319 Code(s): R26.2 - DIFFICULTY IN WALKING, NOT ELSEWHERE CLASSIFIED Status: Acute Current Visit: Yes (3) MARGARITA (acute kidney injury) SNOMED Code(s): 62171490 Code(s): N17.9 - ACUTE KIDNEY FAILURE, UNSPECIFIED Status: Acute Current Visit: Yes (4) Colorectal cancer SNOMED Code(s): 706887337 Code(s): C19 - MALIGNANT NEOPLASM OF RECTOSIGMOID JUNCTION Status: Chronic Current Visit: No (5) Hypokalemia SNOMED Code(s): 80073984 Code(s): E87.6 - HYPOKALEMIA Status: Acute Current Visit: Yes (6) Weakness generalized SNOMED Code(s): 47927273 Code(s): R53.1 - WEAKNESS Status: Acute Current Visit: Yes - Problem List Review Problem List Initiated/Reviewed/Updated: Yes - My Orders Last 24 Hours: My Active Orders 08/03/18 08:26 Consult to Physical Therapy [PT Evaluation and Treatment] [CONS] Routine 08/03/18 08:38 Carboxymethylcellulose Sodium [Refresh Plus 0.5%] 1 each EYEBOTH BID PRN 08/03/18 09:00 Calcium Carbonate/Vitamin D3 [Caltrate 600+D 1500 MG-400 Units] 1 tab PO DAILY Losartan [Cozaar] 50 mg PO DAILY Metoprolol Tartrate [Lopressor] 50 mg PO BID Omeprazole 20 mg PO DAILY 08/03/18 10:00 Aspirin [Halfprin] 81 mg PO DAILY 08/03/18 10:35 CULTURE STOOL + CAMPY+SHIGATOX [RM] Routine 08/03/18 10:44 Loperamide [Imodium] 2 mg PO Q4H PRN Prochlorperazine [Compazine] 10 mg PO Q6H PRN 08/03/18 10:46 Ondansetron [Zofran] 4 mg IVPUSH Q4H PRN 08/03/18 10:52 Intake and Output [RC] Q12H Vital Signs [RC] Q4H Resuscitation Status Routine 08/03/18 11:00 Enoxaparin [Lovenox] 30 mg SUBCUT Q24H 08/03/18 15:00 Azithromycin [Zithromax] 500 mg PO Q24H 08/03/18 21:00 Carboxymethylcellulose Sodium [Refresh Plus 0.5%] 0 each EYEBOTH BEDTIME 08/04/18 07:16 Magnesium Sulfate/Water [Magnesium Sulfate 2 GM in Water 50 ML] 2 gm Premix Bag 1 bag IV ONETIME 08/04/18 08:17 Patient Status [ADT] Routine 08/04/18 09:00 Potassium Chloride [Klor-Con M20] 40 meq PO ONETIME ONE 08/04/18 21:00 Potassium Chloride [Klor-Con M20] 40 meq PO ONETIME ONE - Plan Plan:: 1. Weakness/ ambulatory dysfunction- PT evaluation/treatment ordered 2. Hypokalemia- improved from 2.6 to 2.9, will replace with 40 mEq twice today and recheck in the AM. 3. Hypomagnesemia- improved from 1.5 to 1.7, will replace with 2 grams today. Recheck in AM. 4. MARGARITA- creatinine improved from 1.5 to 1.7, continue IVF 5. Diarrhea- positive for Campylobacter- treating with azithromycin 500 mg daily , Imodium for symptom control. 6. Chronic conditions- HTN/GERD- hold HCTZ as that can cause hypokalemia but continue other home meds. <Srinivas Gresham - Last Filed: 08/04/18 09:14> - General Info Subjective Update: I have examined the patient independently of Kimberly Hinojosa MD, resident. I have discussed the case with her. I have reviewed and agree with the plan of care as outlined by her. Please see orders. - Patient Data Vitals - Most Recent: Last Vital Signs Temp 37.1 C 08/04/18 08:00 Pulse 58 L 08/04/18 08:00 Resp 18 08/04/18 04:00 BP 126/59 L 08/04/18 08:32 Pulse Ox 97 08/04/18 08:00 Orthostatic Blood Pressure [ 113/51 Standing] Orthostatic Blood Pressure [ 137/56 Sitting] Orthostatic Blood Pressure [ 137/54 Supine] I&O - Last 24 Hours: Intake & Output 08/03/18 08/04/18 08/04/18 22:59 06:59 14:59 Intake Total 800 1742 50 Output Total 600 600 Balance 200 1142 50 Lab Results Last 24 Hours: Laboratory Results - last 24 hr 08/04/18 08/04/18 Range/Units 04:55 04:55 WBC 3.38 L (4.0-11.0) K/uL RBC 3.70 L (4.50-5.90) M/uL Hgb 8.5 L (13.0-17.0) g/dL Hct 26.5 L (38.0-50.0) % MCV 71.6 L (80.0-98.0) fL MCH 23.0 L (27.0-32.0) pg MCHC 32.1 (31.0-37.0) g/dL RDW Std Deviation 49.9 (28.0-62.0) fl RDW Coeff of Salvador 22 H (11.0-15.0) % Plt Count 172 (150-400) K/uL MPV 8.20 (7.40-12.00) fL Add Manual Diff YES Neutrophils % (Manual) 27 L (48.0-80.0) % Band Neutrophils % 41 % Lymphocytes % (Manual) 28 (16.0-40.0) % Monocytes % (Manual) 3 (0.0-15.0) % Basophils % (Manual) 1 (0.0-1.5) % Nucleated RBC % 0.0 /100WBC Absolute Seg Neuts 0.9 L (1.4-5.7) Band Neutrophils # 1.4 Lymphocytes # (Manual) 0.9 (0.6-2.4) Monocytes # (Manual) 0.1 (0.0-0.8) Basophils # (Manual) 0.0 (0.0-0.1) Nucleated RBCs # 0 K/uL Sodium 143 (136-148) mmol/L Potassium 2.9 L (3.5-5.1) mmol/L Chloride 110 H (98-107) mmol/L Carbon Dioxide 23.4 (21.0-32.0) mmol/L BUN 23 H (7.0-18.0) mg/dL Creatinine 1.4 H (0.8-1.3) mg/dL Est Cr Clr Drug Dosing 39.85 mL/min Estimated GFR (MDRD) 48.4 ml/min Glucose 127 H (74-106) mg/dL Calcium 7.7 L (8.5-10.1) mg/dL Magnesium 1.7 L (1.8-2.4) mg/dL Hector Results Last 24 Hours: Microbiology 08/02/18 19:05 Urine Culture - Final Urine, Clean Catch MIXED [place] 10,000-100,000 CFU/ML 08/03/18 10:35 Campylobacter Antigen Assay - Final Stool / Feces Positive Campylobacter Ag Shiga Toxin I - Final NEGATIVE FOR SHIGA TOXIN 1 Shiga Toxin II - Final NEGATIVE FOR SHIGA TOXIN 2 08/03/18 10:35 Clostridium difficile Toxin A & B - Final Stool / Feces Negative for C.Diff Toxin/AG Stool for WBCs - Final POSITIVE FOR WBC'S Med Orders - Current: Current Medications Acetaminophen (Tylenol) 650 mg PO Q4H PRN PRN Reason: Pain Artificial Tears (Refresh Plus 0.5%) 0 each EYEBOTH BEDTIME [facility] Last Admin: 08/03/18 21:14 Dose: 1 drop Artificial Tears (Refresh Plus 0.5%) 1 each EYEBOTH BID PRN PRN Reason: Dry Eyes Aspirin (Halfprin) 81 mg PO DAILY [facility] Last Admin: 08/04/18 08:28 Dose: 81 mg Azithromycin (Zithromax) 500 mg PO Q24H [facility] Last Admin: 08/03/18 15:49 Dose: 500 mg Calcium Carbonate (Caltrate 600+D 1500 Mg-400 Units) 1 tab PO DAILY [facility] Last Admin: 08/04/18 08:28 Dose: 1 tab Enoxaparin Sodium (Lovenox) 30 mg SUBCUT Q24H [facility] Last Admin: 08/03/18 12:10 Dose: 30 mg Sodium Chloride (Normal Saline) 1,000 mls @ 75 mls/hr IV ASDIRECTED [facility] Last Admin: 08/04/18 04:42 Dose: 75 mls/hr Magnesium Sulfate 2 gm/ Premix 50 mls @ 25 mls/hr IV ONETIME ONE Stop: 08/04/18 09:15 Last Admin: 08/04/18 08:29 Dose: 25 mls/hr Loperamide HCl (Imodium) 2 mg PO Q4H PRN PRN Reason: Diarrhea Last Admin: 08/03/18 17:52 Dose: 2 mg Losartan Potassium (Cozaar) 50 mg PO DAILY [facility] Last Admin: 08/04/18 08:32 Dose: 50 mg Metoprolol Tartrate (Lopressor) 50 mg PO BID [facility] Last Admin: 08/03/18 21:12 Dose: 50 mg Omeprazole (Omeprazole) 20 mg PO DAILY [facility] Last Admin: 08/04/18 08:28 Dose: 20 mg Ondansetron HCl (Zofran) 4 mg IVPUSH Q4H PRN PRN Reason: Nausea/Vomiting Last Admin: 08/03/18 14:42 Dose: 4 mg Oxycodone HCl (Oxycodone) 5 mg PO Q4H PRN PRN Reason: Pain (moderate 4-6) Potassium Chloride (Klor-Con M20) 40 meq PO ONETIME ONE Stop: 08/04/18 21:01 Prochlorperazine Maleate (Compazine) 10 mg PO Q6H PRN PRN Reason: Nausea/Vomiting Temazepam (Restoril) 15 mg PO BEDTIME PRN PRN Reason: Insomnia Discontinued Medications Aspirin (Halfprin) 81 mg PO ASDIRECTED KATHERINE Sodium Chloride (Normal Saline) 1,000 mls @ 999 mls/hr IV STAT ONE Stop: 08/02/18 18:37 Last Admin: 08/02/18 18:32 Dose: 999 mls/hr Potassium Chloride 40 meq/ (Premix) 100 mls @ 25 mls/hr IV ONETIME ONE Stop: 08/02/18 23:30 Last Admin: 08/02/18 20:55 Dose: 25 mls/hr Magnesium Sulfate 2 gm/ Premix 50 mls @ 25 mls/hr IV ONETIME ONE Stop: 08/03/18 15:50 Last Admin: 08/03/18 14:29 Dose: 25 mls/hr Ondansetron HCl (Zofran) 4 mg IVPUSH ONETIME ONE Stop: 08/02/18 18:37 Last Admin: 08/02/18 18:42 Dose: 4 mg Potassium Chloride (Klor-Con M20) 40 meq PO ONETIME ONE Stop: 08/02/18 17:44 Last Admin: 08/02/18 18:33 Dose: 40 meq Potassium Chloride (Klor-Con M20) 40 meq PO ONETIME ONE Stop: 08/03/18 08:26 Last Admin: 08/03/18 09:07 Dose: 40 meq Potassium Chloride (Klor-Con M20) 40 meq PO ONETIME ONE Stop: 08/03/18 12:01 Last Admin: 08/03/18 12:09 Dose: 40 meq Potassium Chloride (Klor-Con M20) 40 meq PO ONETIME ONE Stop: 08/04/18 09:01 Last Admin: 08/04/18 08:27 Dose: 40 meq Potassium Chloride (Klor-Con M20) 40 meq PO ONETIME ONE Stop: 08/04/18 15:01
[2018-08-04] MEDS: Calcium Carbonate/Vitamin D3 1500 MG-400 Units Tab PO SCH (08:28)
[2018-08-04] MEDS: Aspirin 81 MG Tab.EC PO SCH (08:28)
[2018-08-04] MEDS: Omeprazole 20 MG Cap.CR PO SCH (08:28)
[2018-08-04] MEDS: Losartan 50 MG Tab PO SCH (08:32)
[2018-08-04] MEDS ORDERED: Potassium Chloride 20 MEQ Tab.ER PO ONE ×3 (09:00→21:00)
--- NOTE | 2018-08-04 10:31 | PCM.SN ---
- Free Text/Narrative Note: Called by nursing as they have been unable to obtain PIV access. 20g PIV started to Rt AC. Secured with tape and tegaderm. Draws blood and flushes with ease. Pt tolerated placement well.
[2018-08-04] MEDS: Metoprolol Tartrate 50 MG Tab PO SCH ×3 (10:58→22:26)
[2018-08-04] MEDS: Enoxaparin 30 MG/0.3 ML Syringe SUBCUT SCH (11:11)
[2018-08-04] MEDS: Azithromycin 250 MG Tab PO SCH (14:46)
[2018-08-04] MEDS: Ondansetron 4 MG/2 ML SDV IVPUSH PRN ×2 (15:03→18:14)
[2018-08-04] MEDS: Loperamide 2 MG Cap PO PRN (16:01)
[2018-08-04] MEDS ORDERED: hydrALAZINE 20 MG/ML SDV IVPUSH PRN (18:28)
[2018-08-04] MEDS ORDERED: Promethazine 25 MG/ML SDV IM ONE ×2 (18:44→19:03)
[2018-08-04] MEDS: Carboxymethylcellulose Sodium 0.5% Ophth Soln 0.4 ML UD Box of 30 EYEBOTH SCH (20:31)
--- NOTE | 2018-08-05 07:59 | PCM.PN ---
<Kimberly Hinojosa - Last Filed: 08/05/18 08:10> - General Info Date of Service: 08/05/18 Subjective Update: Patient reports he is starting to fee better. Diarrhea is improving. He denies chest pain, shortness of breath but does have some occasional abdominal pain. He hasn't had much of an appetite but has been drinking Ensure clears. Doesn't think he is strong enough to go home yet. She has trouble getting up on his own and getting to the bathroom. - Review of Systems General: Reports: Weakness, Appetite. Denies: Fever HEENT: Reports: No Symptoms Pulmonary: Reports: No Symptoms Cardiovascular: Reports: No Symptoms Gastrointestinal: Reports: Abdominal Pain, Decreased Appetite, Diarrhea, Nausea Genitourinary: Reports: No Symptoms Musculoskeletal: Reports: No Symptoms Skin: Reports: No Symptoms Neurological: Reports: No Symptoms Psychiatric: Reports: No Symptoms - Patient Data Vitals - Most Recent: Last Vital Signs Temp 98.6 F 08/05/18 04:40 Pulse 63 08/05/18 04:40 Resp 19 08/05/18 04:40 BP 170/82 H 08/05/18 04:40 Pulse Ox 96 08/05/18 04:40 Orthostatic Blood Pressure [ 113/51 Standing] Orthostatic Blood Pressure [ 137/56 Sitting] Orthostatic Blood Pressure [ 137/54 Supine] Weight - Most Recent: 80.467 kg I&O - Last 24 Hours: Intake & Output 08/04/18 08/05/18 08/05/18 22:59 06:59 14:59 Intake Total 1092 1379 Output Total 450 100 Balance 642 1279 Lab Results Last 24 Hours: Laboratory Results - last 24 hr 08/05/18 08/05/18 Range/Units 06:10 06:10 WBC 5.30 (4.0-11.0) K/uL RBC 3.96 L (4.50-5.90) M/uL Hgb 9.0 L (13.0-17.0) g/dL Hct 28.4 L (38.0-50.0) % MCV 71.7 L (80.0-98.0) fL MCH 22.7 L (27.0-32.0) pg MCHC 31.7 (31.0-37.0) g/dL RDW Std Deviation 50.7 (28.0-62.0) fl RDW Coeff of Salvador 22 H (11.0-15.0) % Plt Count 217 (150-400) K/uL MPV 8.80 (7.40-12.00) fL Add Manual Diff YES Neutrophils % (Manual) 51 (48.0-80.0) % Band Neutrophils % 25 % Lymphocytes % (Manual) 21 (16.0-40.0) % Monocytes % (Manual) 3 (0.0-15.0) % Nucleated RBC % 0.0 /100WBC Absolute Seg Neuts 2.7 (1.4-5.7) Band Neutrophils # 1.3 Lymphocytes # (Manual) 1.1 (0.6-2.4) Monocytes # (Manual) 0.2 (0.0-0.8) Nucleated RBCs # 0 K/uL Sodium 147 (136-148) mmol/L Potassium 3.1 L (3.5-5.1) mmol/L Chloride 113 H (98-107) mmol/L Carbon Dioxide 24.0 (21.0-32.0) mmol/L BUN 19 H (7.0-18.0) mg/dL Creatinine 1.2 (0.8-1.3) mg/dL Est Cr Clr Drug Dosing 46.49 mL/min Estimated GFR (MDRD) 57.8 ml/min Glucose 138 H (74-106) mg/dL Calcium 7.9 L (8.5-10.1) mg/dL Magnesium 1.9 (1.8-2.4) mg/dL Hector Results Last 24 Hours: Microbiology 08/03/18 10:35 Stool Culture - Final Stool / Feces NO SALMONELLA, SHIGELLA,OR E.COLI O157 ISOLATED Campylobacter Antigen Assay - Final Positive Campylobacter Ag Shiga Toxin I - Final NEGATIVE FOR SHIGA TOXIN 1 Shiga Toxin II - Final NEGATIVE FOR SHIGA TOXIN 2 08/02/18 19:05 Urine Culture - Final Urine, Clean Catch MIXED CHAPINCITO 10,000-100,000 CFU/ML Med Orders - Current: Current Medications Acetaminophen (Tylenol) 650 mg PO Q4H PRN PRN Reason: Pain Artificial Tears (Refresh Plus 0.5%) 0 each EYEBOTH BEDTIME [facility]ATH[facility]INE Last Admin: 08/04/18 20:31 Dose: 1 drop Artificial Tears (Refresh Plus 0.5%) 1 each EYEBOTH BID PRN PRN Reason: Dry Eyes Aspirin (Halfprin) 81 mg PO DAILY [facility] Last Admin: 08/04/18 08:28 Dose: 81 mg Azithromycin (Zithromax) 500 mg PO Q24H [facility] Last Admin: 08/04/18 14:46 Dose: 500 mg Calcium Carbonate (Caltrate 600+D 1500 Mg-400 Units) 1 tab PO DAILY [facility] Last Admin: 08/04/18 08:28 Dose: 1 tab Enoxaparin Sodium (Lovenox) 30 mg SUBCUT Q24H [facility] Last Admin: 08/04/18 11:11 Dose: 30 mg Hydralazine HCl (Apresoline) 100 mg PO BID [facility] Sodium Chloride (Normal Saline) 1,000 mls @ 75 mls/hr IV ASDIRECTED [facility] Last Admin: 08/04/18 22:09 Dose: 75 mls/hr Loperamide HCl (Imodium) 2 mg PO Q4H PRN PRN Reason: Diarrhea Last Admin: 08/04/18 16:01 Dose: 2 mg Losartan Potassium (Cozaar) 50 mg PO DAILY [facility] Last Admin: 08/04/18 08:32 Dose: 50 mg Metoprolol Tartrate (Lopressor) 50 mg PO BID [facility] Last Admin: 08/04/18 22:26 Dose: 50 mg Omeprazole (Omeprazole) 20 mg PO DAILY [facility] Last Admin: 08/04/18 08:28 Dose: 20 mg Ondansetron HCl (Zofran) 4 mg IVPUSH Q4H PRN PRN Reason: Nausea/Vomiting Last Admin: 08/04/18 18:14 Dose: 4 mg Oxycodone HCl (Oxycodone) 5 mg PO Q4H PRN PRN Reason: Pain (moderate 4-6) Prochlorperazine Maleate (Compazine) 10 mg PO Q6H PRN PRN Reason: Nausea/Vomiting Temazepam (Restoril) 15 mg PO BEDTIME PRN PRN Reason: Insomnia Discontinued Medications Aspirin (Halfprin) 81 mg PO ASDIRECTED [facility] Hydralazine HCl (Apresoline) 10 mg IVPUSH Q4H PRN PRN Reason: Other Sodium Chloride (Normal Saline) 1,000 mls @ 999 mls/hr IV STAT ONE Stop: 08/02/18 18:37 Last Admin: 08/02/18 18:32 Dose: 999 mls/hr Potassium Chloride 40 meq/ (Premix) 100 mls @ 25 mls/hr IV ONETIME ONE Stop: 08/02/18 23:30 Last Admin: 08/02/18 20:55 Dose: 25 mls/hr Magnesium Sulfate 2 gm/ Premix 50 mls @ 25 mls/hr IV ONETIME ONE Stop: 08/03/18 15:50 Last Admin: 08/03/18 14:29 Dose: 25 mls/hr Magnesium Sulfate 2 gm/ Premix 50 mls @ 25 mls/hr IV ONETIME ONE Stop: 08/04/18 09:15 Last Admin: 08/04/18 08:29 Dose: 25 mls/hr Ondansetron HCl (Zofran) 4 mg IVPUSH ONETIME ONE Stop: 08/02/18 18:37 Last Admin: 08/02/18 18:42 Dose: 4 mg Potassium Chloride (Klor-Con M20) 40 meq PO ONETIME ONE Stop: 08/02/18 17:44 Last Admin: 08/02/18 18:33 Dose: 40 meq Potassium Chloride (Klor-Con M20) 40 meq PO ONETIME ONE Stop: 08/03/18 08:26 Last Admin: 08/03/18 09:07 Dose: 40 meq Potassium Chloride (Klor-Con M20) 40 meq PO ONETIME ONE Stop: 08/03/18 12:01 Last Admin: 08/03/18 12:09 Dose: 40 meq Potassium Chloride (Klor-Con M20) 40 meq PO ONETIME ONE Stop: 08/04/18 09:01 Last Admin: 08/04/18 08:27 Dose: 40 meq Potassium Chloride (Klor-Con M20) 40 meq PO ONETIME ONE Stop: 08/04/18 21:01 Last Admin: 08/04/18 20:30 Dose: 40 meq Potassium Chloride (Klor-Con M20) 40 meq PO ONETIME ONE Stop: 08/04/18 15:01 Promethazine HCl (Phenergan) 25 mg IM ONETIME ONE Stop: 08/04/18 18:45 Last Admin: 08/04/18 19:11 Dose: 25 mg Promethazine HCl (Phenergan) 25 mg IM ONETIME ONE Stop: 08/04/18 19:04 Last Admin: 08/04/18 19:13 Dose: Not Given - Exam General: Alert, Oriented, Cooperative Lungs: Clear to Auscultation, Normal Respiratory Effort Cardiovascular: Regular Rate, Regular Rhythm GI/Abdominal Exam: Normal Bowel Sounds, Soft, No Distention, Tender (slightly tender throughout) Extremities: No Pedal Edema Skin: Warm, Dry Neurological: No New Focal Deficit Psy/Mental Status: Alert, Normal Affect, Normal Mood - Problem List & Annotations (1) Hypomagnesemia SNOMED Code(s): 718162584 Code(s): E83.42 - HYPOMAGNESEMIA Status: Resolved Current Visit: Yes (2) Ambulatory dysfunction SNOMED Code(s): 225734588 Code(s): R26.2 - DIFFICULTY IN WALKING, NOT ELSEWHERE CLASSIFIED Status: Acute Current Visit: Yes (3) MARGARITA (acute kidney injury) SNOMED Code(s): 98889533 Code(s): N17.9 - ACUTE KIDNEY FAILURE, UNSPECIFIED Status: Resolved Current Visit: Yes (4) Colorectal cancer SNOMED Code(s): 120843611 Code(s): C19 - MALIGNANT NEOPLASM OF RECTOSIGMOID JUNCTION Status: Chronic Current Visit: No (5) Hypokalemia SNOMED Code(s): 14808744 Code(s): E87.6 - HYPOKALEMIA Status: Acute Current Visit: Yes (6) Weakness generalized SNOMED Code(s): 25700060 Code(s): R53.1 - WEAKNESS Status: Acute Current Visit: Yes - Problem List Review Problem List Initiated/Reviewed/Updated: Yes - My Orders Last 24 Hours: My Active Orders 08/04/18 08:17 Patient Status [ADT] Routine 08/05/18 09:00 hydrALAZINE [Apresoline] 100 mg PO BID 08/06/18 05:11 BASIC METABOLIC PANEL,BMP [CHEM] AM CBC WITH AUTO DIFF [HEME] AM MAGNESIUM [CHEM] AM 08/07/18 05:11 BASIC METABOLIC PANEL,BMP [CHEM] AM CBC WITH AUTO DIFF [HEME] AM MAGNESIUM [CHEM] AM - Plan Plan:: 1. Weakness/ ambulatory dysfunction- PT evaluation/treatment ordered 2. Hypokalemia- improved from 2.9 to 3.1, will replace with 40 mEq twice today and recheck in the AM. 3. Hypomagnesemia- resolved 4. MARGARITA- resolved 5. Diarrhea- positive for Campylobacter- improving-treating with azithromycin 500 mg daily, Imodium for symptom control. 6. Chronic conditions- HTN/GERD- hold HCTZ as that can cause hypokalemia but continue other home meds. Had some higher BPs, will restart some of his other home meds for better blood pressure control. <Srinivas Gresham - Last Filed: 08/05/18 10:42> - General Info Subjective Update: I have examined the patient independently of Kimberly Hinojosa DO, vice president medical affairs. I have discussed the case with her. I have reviewed and agree with the plan of care as outlined by her. Please see orders. Overall, improved. - Patient Data Vitals - Most Recent: Last Vital Signs Temp 37.0 C 08/05/18 04:40 Pulse 63 08/05/18 04:40 Resp 19 08/05/18 04:40 BP 170/82 H 08/05/18 04:40 Pulse Ox 96 08/05/18 04:40 Orthostatic Blood Pressure [ 113/51 Standing] Orthostatic Blood Pressure [ 137/56 Sitting] Orthostatic Blood Pressure [ 137/54 Supine] I&O - Last 24 Hours: Intake & Output 08/04/18 08/05/18 08/05/18 22:59 06:59 14:59 Intake Total 1092 1379 Output Total 450 100 Balance 642 1279 Lab Results Last 24 Hours: Laboratory Results - last 24 hr 08/05/18 08/05/18 Range/Units 06:10 06:10 WBC 5.30 (4.0-11.0) K/uL RBC 3.96 L (4.50-5.90) M/uL Hgb 9.0 L (13.0-17.0) g/dL Hct 28.4 L (38.0-50.0) % MCV 71.7 L (80.0-98.0) fL MCH 22.7 L (27.0-32.0) pg MCHC 31.7 (31.0-37.0) g/dL RDW Std Deviation 50.7 (28.0-62.0) fl RDW Coeff of Salvador 22 H (11.0-15.0) % Plt Count 217 (150-400) K/uL MPV 8.80 (7.40-12.00) fL Add Manual Diff YES Neutrophils % (Manual) 51 (48.0-80.0) % Band Neutrophils % 25 % Lymphocytes % (Manual) 21 (16.0-40.0) % Monocytes % (Manual) 3 (0.0-15.0) % Nucleated RBC % 0.0 /100WBC Absolute Seg Neuts 2.7 (1.4-5.7) Band Neutrophils # 1.3 Lymphocytes # (Manual) 1.1 (0.6-2.4) Monocytes # (Manual) 0.2 (0.0-0.8) Nucleated RBCs # 0 K/uL Sodium 147 (136-148) mmol/L Potassium 3.1 L (3.5-5.1) mmol/L Chloride 113 H (98-107) mmol/L Carbon Dioxide 24.0 (21.0-32.0) mmol/L BUN 19 H (7.0-18.0) mg/dL Creatinine 1.2 (0.8-1.3) mg/dL Est Cr Clr Drug Dosing 46.49 mL/min Estimated GFR (MDRD) 57.8 ml/min Glucose 138 H (74-106) mg/dL Calcium 7.9 L (8.5-10.1) mg/dL Magnesium 1.9 (1.8-2.4) mg/dL Hector Results Last 24 Hours: Microbiology 08/03/18 10:35 Stool Culture - Final Stool / Feces NO SALMONELLA, SHIGELLA,OR E.COLI O157 ISOLATED Campylobacter Antigen Assay - Final Positive Campylobacter Ag Shiga Toxin I - Final NEGATIVE FOR SHIGA TOXIN 1 Shiga Toxin II - Final NEGATIVE FOR SHIGA TOXIN 2 08/02/18 19:05 Urine Culture - Final Urine, Clean Catch MIXED [place]O 10,000-100,000 CFU/ML Med Orders - Current: Current Medications Acetaminophen (Tylenol) 650 mg PO Q4H PRN PRN Reason: Pain Artificial Tears (Refresh Plus 0.5%) 0 each EYEBOTH BEDTIME [facility] Last Admin: 08/04/18 20:31 Dose: 1 drop Artificial Tears (Refresh Plus 0.5%) 1 each EYEBOTH BID PRN PRN Reason: Dry Eyes Aspirin (Halfprin) 81 mg PO DAILY [facility] Last Admin: 08/04/18 08:28 Dose: 81 mg Azithromycin (Zithromax) 500 mg PO Q24H [facility] Last Admin: 08/04/18 14:46 Dose: 500 mg Calcium Carbonate (Caltrate 600+D 1500 Mg-400 Units) 1 tab PO DAILY [facility] Last Admin: 08/04/18 08:28 Dose: 1 tab Enoxaparin Sodium (Lovenox) 30 mg SUBCUT Q24H [facility] Last Admin: 08/04/18 11:11 Dose: 30 mg Hydralazine HCl (Apresoline) 100 mg PO BID [facility] Sodium Chloride (Normal Saline) 1,000 mls @ 75 mls/hr IV ASDIRECTED [facility] Last Admin: 08/04/18 22:09 Dose: 75 mls/hr Loperamide HCl (Imodium) 2 mg PO Q4H PRN PRN Reason: Diarrhea Last Admin: 08/04/18 16:01 Dose: 2 mg Losartan Potassium (Cozaar) 50 mg PO DAILY [facility] Last Admin: 08/04/18 08:32 Dose: 50 mg Metoprolol Tartrate (Lopressor) 50 mg PO BID [facility] Last Admin: 08/04/18 22:26 Dose: 50 mg Omeprazole (Omeprazole) 20 mg PO DAILY [facility] Last Admin: 08/04/18 08:28 Dose: 20 mg Ondansetron HCl (Zofran) 4 mg IVPUSH Q4H PRN PRN Reason: Nausea/Vomiting Last Admin: 08/05/18 08:55 Dose: 4 mg Oxycodone HCl (Oxycodone) 5 mg PO Q4H PRN PRN Reason: Pain (moderate 4-6) Potassium Chloride (Klor-Con M20) 40 meq PO ONETIME ONE Stop: 08/05/18 21:01 Prochlorperazine Maleate (Compazine) 10 mg PO Q6H PRN PRN Reason: Nausea/Vomiting Temazepam (Restoril) 15 mg PO BEDTIME PRN PRN Reason: Insomnia Discontinued Medications Aspirin (Halfprin) 81 mg PO ASDIRECTED [facility] Hydralazine HCl (Apresoline) 10 mg IVPUSH Q4H PRN PRN Reason: Other Sodium Chloride (Normal Saline) 1,000 mls @ 999 mls/hr IV STAT ONE Stop: 08/02/18 18:37 Last Admin: 08/02/18 18:32 Dose: 999 mls/hr Potassium Chloride 40 meq/ (Premix) 100 mls @ 25 mls/hr IV ONETIME ONE Stop: 08/02/18 23:30 Last Admin: 08/02/18 20:55 Dose: 25 mls/hr Magnesium Sulfate 2 gm/ Premix 50 mls @ 25 mls/hr IV ONETIME ONE Stop: 08/03/18 15:50 Last Admin: 08/03/18 14:29 Dose: 25 mls/hr Magnesium Sulfate 2 gm/ Premix 50 mls @ 25 mls/hr IV ONETIME ONE Stop: 08/04/18 09:15 Last Admin: 08/04/18 08:29 Dose: 25 mls/hr Ondansetron HCl (Zofran) 4 mg IVPUSH ONETIME ONE Stop: 08/02/18 18:37 Last Admin: 08/02/18 18:42 Dose: 4 mg Potassium Chloride (Klor-Con M20) 40 meq PO ONETIME ONE Stop: 08/02/18 17:44 Last Admin: 08/02/18 18:33 Dose: 40 meq Potassium Chloride (Klor-Con M20) 40 meq PO ONETIME ONE Stop: 08/03/18 08:26 Last Admin: 08/03/18 09:07 Dose: 40 meq Potassium Chloride (Klor-Con M20) 40 meq PO ONETIME ONE Stop: 08/03/18 12:01 Last Admin: 08/03/18 12:09 Dose: 40 meq Potassium Chloride (Klor-Con M20) 40 meq PO ONETIME ONE Stop: 08/04/18 09:01 Last Admin: 08/04/18 08:27 Dose: 40 meq Potassium Chloride (Klor-Con M20) 40 meq PO ONETIME ONE Stop: 08/04/18 21:01 Last Admin: 08/04/18 20:30 Dose: 40 meq Potassium Chloride (Klor-Con M20) 40 meq PO ONETIME ONE Stop: 08/04/18 15:01 Potassium Chloride (Klor-Con M20) 40 meq PO ONETIME ONE Stop: 08/05/18 09:01 Promethazine HCl (Phenergan) 25 mg IM ONETIME ONE Stop: 08/04/18 18:45 Last Admin: 08/04/18 19:11 Dose: 25 mg Promethazine HCl (Phenergan) 25 mg IM ONETIME ONE Stop: 08/04/18 19:04 Last Admin: 08/04/18 19:13 Dose: Not Given
[2018-08-05] MEDS: Ondansetron 4 MG/2 ML SDV IVPUSH PRN ×3 (08:55→21:01)
[2018-08-05] MEDS ORDERED: hydrALAZINE 25 MG Tab PO SCH (09:00)
[2018-08-05] MEDS ORDERED: Potassium Chloride 20 MEQ Tab.ER PO ONE (09:00)
[2018-08-05] MEDS: Omeprazole 20 MG Cap.CR PO SCH (11:38)
[2018-08-05] MEDS: Sodium Chloride 0.9% 1,000 ML IV SCH (11:46)
[2018-08-05] MEDS: Enoxaparin 30 MG/0.3 ML Syringe SUBCUT SCH (11:47)
[2018-08-05] MEDS: Loperamide 2 MG Cap PO PRN (11:47)
[2018-08-05] MEDS: Metoprolol Tartrate 50 MG Tab PO SCH ×2 (11:53→21:17)
[2018-08-05] MEDS: Calcium Carbonate/Vitamin D3 1500 MG-400 Units Tab PO SCH (11:59)
[2018-08-05] MEDS: Losartan 50 MG Tab PO SCH ×2 (12:00→12:19)
[2018-08-05] MEDS: Aspirin 81 MG Tab.EC PO SCH (12:00)
[2018-08-05] MEDS: Potassium Chloride 8 MEQ Tab.ER PO SCH (12:01)
[2018-08-05] MEDS: hydrALAZINE 20 MG/ML SDV IVPUSH PRN (14:37)
[2018-08-05] MEDS: Azithromycin 250 MG Tab PO SCH (15:43)
[2018-08-05] MEDS: Calcium Carbonate 500 MG Tab.Chew PO PRN ×2 (17:02→21:01)
[2018-08-05] MEDS ORDERED: Ondansetron 4 MG Tab.DIS PO PRN (19:57)
[2018-08-05] MEDS ORDERED: Potassium Chloride 8 MEQ Tab.ER PO ONE (21:00)
[2018-08-05] MEDS: Carboxymethylcellulose Sodium 0.5% Ophth Soln 0.4 ML UD Box of 30 EYEBOTH SCH (21:00)
[2018-08-06] MEDS: hydrALAZINE 20 MG/ML SDV IVPUSH PRN (04:13)
[2018-08-06 06:40] LABS: CHLORIDE,CL 114 mmol/L (98-107); SODIUM,NA 148 mmol/L (136-148)
[2018-08-06] MEDS: Omeprazole 20 MG Cap.CR PO SCH (06:41)
[2018-08-06] MEDS ORDERED: Magnesium Sulfate/Water 2 GM in Premix Bag 1 BAG IV ONE (06:43)
--- NOTE | 2018-08-06 07:53 | PCM.PN ---
- General Info Date of Service: 08/06/18 Admission Dx/Problem (Free Text): Admission Diagnosis/Problem Admission Diagnosis/Problem Hypokalemia, diarrhea, chemotherapy Subjective Update: The patient is an 83-year-old gentleman who was admitted to acute hospitalization on August 03, 2018 secondary to severe hypokalemia. The patient was also having significant issues with chemotherapy associated diarrhea. The patient was also found to be positive for Campylobacter and he is currently being treated with azithromycin. Today the patient says that he has lower abdominal pain however, his diarrhea is essentially resolved. The patient has denied any nausea or vomiting no dizziness or lightheadedness. Patient has been tolerating his diet. Functional Status: Reports: Pain Controlled. Denies: Tolerating Diet - Review of Systems General: Reports: Weakness, Fatigue HEENT: Reports: No Symptoms Pulmonary: Reports: No Symptoms Cardiovascular: Reports: No Symptoms Gastrointestinal: Reports: Abdominal Pain, Decreased Appetite Genitourinary: Reports: No Symptoms Musculoskeletal: Reports: No Symptoms Skin: Reports: No Symptoms Neurological: Reports: No Symptoms Psychiatric: Reports: No Symptoms - Patient Data Vitals - Most Recent: Last Vital Signs Temp 37.2 C 08/06/18 04:00 Pulse 71 08/06/18 04:00 Resp 18 08/06/18 04:00 BP 156/68 H 08/06/18 04:29 Pulse Ox 96 08/06/18 04:00 Orthostatic Blood Pressure [ 113/51 Standing] Orthostatic Blood Pressure [ 137/56 Sitting] Orthostatic Blood Pressure [ 137/54 Supine] Weight - Most Recent: 80.467 kg I&O - Last 24 Hours: Intake & Output 08/05/18 08/06/18 08/06/18 22:59 06:59 14:59 Intake Total 961 881 Output Total 400 500 Balance 561 381 Lab Results Last 24 Hours: Laboratory Results - last 24 hr 08/06/18 08/06/18 Range/Units 05:57 05:57 WBC 5.47 (4.0-11.0) K/uL RBC 4.26 L (4.50-5.90) M/uL Hgb 9.8 L (13.0-17.0) g/dL Hct 30.8 L (38.0-50.0) % MCV 72.3 L (80.0-98.0) fL MCH 23.0 L (27.0-32.0) pg MCHC 31.8 (31.0-37.0) g/dL RDW Std Deviation 52.7 (28.0-62.0) fl RDW Coeff of Salvador 23 H (11.0-15.0) % Plt Count 250 (150-400) K/uL MPV 9.10 (7.40-12.00) fL Add Manual Diff YES Neutrophils % (Manual) 60 (48.0-80.0) % Band Neutrophils % 15 % Lymphocytes % (Manual) 22 (16.0-40.0) % Monocytes % (Manual) 3 (0.0-15.0) % Nucleated RBC % 0.0 /100WBC Absolute Seg Neuts 3.3 (1.4-5.7) Band Neutrophils # 0.8 Lymphocytes # (Manual) 1.2 (0.6-2.4) Monocytes # (Manual) 0.2 (0.0-0.8) Nucleated RBCs # 0 K/uL Sodium 148 (136-148) mmol/L Potassium 3.7 (3.5-5.1) mmol/L Chloride 114 H (98-107) mmol/L Carbon Dioxide 25.6 (21.0-32.0) mmol/L BUN 21 H (7.0-18.0) mg/dL Creatinine 1.1 (0.8-1.3) mg/dL Est Cr Clr Drug Dosing 50.71 mL/min Estimated GFR (MDRD) > 60.0 ml/min Glucose 107 H (74-106) mg/dL Calcium 8.2 L (8.5-10.1) mg/dL Magnesium 1.7 L (1.8-2.4) mg/dL Hector Results Last 24 Hours: Microbiology 08/03/18 10:35 Stool Culture - Final Stool / Feces NO SALMONELLA, SHIGELLA,OR E.COLI O157 ISOLATED Campylobacter Antigen Assay - Final Positive Campylobacter Ag Shiga Toxin I - Final NEGATIVE FOR SHIGA TOXIN 1 Shiga Toxin II - Final NEGATIVE FOR SHIGA TOXIN 2 Med Orders - Current: Current Medications Acetaminophen (Tylenol) 650 mg PO Q4H PRN PRN Reason: Pain Last Admin: 08/06/18 04:24 Dose: 650 mg Artificial Tears (Refresh Plus 0.5%) 0 each EYEBOTH BEDTIME KATHERINE Last Admin: 08/05/18 21:00 Dose: 1 drop Artificial Tears (Refresh Plus 0.5%) 1 each EYEBOTH BID PRN PRN Reason: Dry Eyes Aspirin (Halfprin) 81 mg PO DAILY [facility] Last Admin: 08/05/18 12:00 Dose: Not Given Azithromycin (Zithromax) 500 mg PO Q24H [facility] Last Admin: 08/05/18 15:43 Dose: 500 mg Calcium Carbonate (Caltrate 600+D 1500 Mg-400 Units) 1 tab PO DAILY [facility] Last Admin: 08/05/18 11:59 Dose: Not Given Calcium Carbonate/Glycine (Tums) 1,000 mg PO Q2HR PRN PRN Reason: Indigestion Last Admin: 08/05/18 21:01 Dose: 1,000 mg Enoxaparin Sodium (Lovenox) 30 mg SUBCUT Q24H [facility] Last Admin: 08/05/18 11:47 Dose: 30 mg Hydralazine HCl (Apresoline) 10 mg IVPUSH Q4H PRN PRN Reason: Other Last Admin: 08/06/18 04:13 Dose: 10 mg Sodium Chloride (Normal Saline) 1,000 mls @ 75 mls/hr IV ASDIRECTED [facility] Last Admin: 08/05/18 11:46 Dose: 75 mls/hr Loperamide HCl (Imodium) 2 mg PO Q4H PRN PRN Reason: Diarrhea Last Admin: 08/05/18 11:47 Dose: 2 mg Losartan Potassium (Cozaar) 50 mg PO DAILY [facility] Last Admin: 08/05/18 12:19 Dose: 50 mg Metoprolol Tartrate (Lopressor) 50 mg PO BID [facility] Last Admin: 08/05/18 21:17 Dose: 50 mg Omeprazole (Omeprazole) 20 mg PO ACBREAKFAST [facility] Last Admin: 08/06/18 06:41 Dose: 20 mg Ondansetron HCl (Zofran) 4 mg IVPUSH Q4H PRN PRN Reason: Nausea/Vomiting Last Admin: 08/05/18 21:01 Dose: 4 mg Ondansetron HCl (Zofran Odt) 4 mg PO Q4H PRN PRN Reason: Nausea/Vomiting Oxycodone HCl (Oxycodone) 5 mg PO Q4H PRN PRN Reason: Pain (moderate 4-6) Potassium Chloride 8 (Meq Tab.Er) 5 each PO DAILY [facility] Last Admin: 08/05/18 12:01 Dose: 5 each Hydralazine 100 Mg (Tab) 1 each PO BID [facility] Last Admin: 08/05/18 21:00 Dose: 1 each Prochlorperazine Maleate (Compazine) 10 mg PO Q6H PRN PRN Reason: Nausea/Vomiting Temazepam (Restoril) 15 mg PO BEDTIME PRN PRN Reason: Insomnia Discontinued Medications Aspirin (Halfprin) 81 mg PO ASDIRECTED [facility] Hydralazine HCl (Apresoline) 10 mg IVPUSH Q4H PRN PRN Reason: Other Hydralazine HCl (Apresoline) 100 mg PO BID [facility] Last Admin: 08/05/18 11:55 Dose: 50 mg Sodium Chloride (Normal Saline) 1,000 mls @ 999 mls/hr IV STAT ONE Stop: 08/02/18 18:37 Last Admin: 08/02/18 18:32 Dose: 999 mls/hr Potassium Chloride 40 meq/ (Premix) 100 mls @ 25 mls/hr IV ONETIME ONE Stop: 08/02/18 23:30 Last Admin: 08/02/18 20:55 Dose: 25 mls/hr Magnesium Sulfate 2 gm/ Premix 50 mls @ 25 mls/hr IV ONETIME ONE Stop: 08/03/18 15:50 Last Admin: 08/03/18 14:29 Dose: 25 mls/hr Magnesium Sulfate 2 gm/ Premix 50 mls @ 25 mls/hr IV ONETIME ONE Stop: 08/04/18 09:15 Last Admin: 08/04/18 08:29 Dose: 25 mls/hr Magnesium Sulfate 2 gm/ Premix 50 mls @ 50 mls/hr IV ONETIME ONE Stop: 08/06/18 07:42 Omeprazole (Omeprazole) 20 mg PO DAILY [facility] Last Admin: 08/05/18 11:38 Dose: Not Given Ondansetron HCl (Zofran) 4 mg IVPUSH ONETIME ONE Stop: 08/02/18 18:37 Last Admin: 08/02/18 18:42 Dose: 4 mg Potassium Chloride 8 (Meq Tab.Er) 5 each PO ONETIME ONE Stop: 08/05/18 21:01 Last Admin: 08/05/18 21:00 Dose: 5 each Potassium Chloride (Klor-Con M20) 40 meq PO ONETIME ONE Stop: 08/02/18 17:44 Last Admin: 08/02/18 18:33 Dose: 40 meq Potassium Chloride (Klor-Con M20) 40 meq PO ONETIME ONE Stop: 08/03/18 08:26 Last Admin: 08/03/18 09:07 Dose: 40 meq Potassium Chloride (Klor-Con M20) 40 meq PO ONETIME ONE Stop: 08/03/18 12:01 Last Admin: 08/03/18 12:09 Dose: 40 meq Potassium Chloride (Klor-Con M20) 40 meq PO ONETIME ONE Stop: 08/04/18 09:01 Last Admin: 08/04/18 08:27 Dose: 40 meq Potassium Chloride (Klor-Con M20) 40 meq PO ONETIME ONE Stop: 08/04/18 21:01 Last Admin: 08/04/18 20:30 Dose: 40 meq Potassium Chloride (Klor-Con M20) 40 meq PO ONETIME ONE Stop: 08/04/18 15:01 Potassium Chloride (Klor-Con M20) 40 meq PO ONETIME ONE Stop: 08/05/18 09:01 Last Admin: 08/05/18 12:01 Dose: Not Given Promethazine HCl (Phenergan) 25 mg IM ONETIME ONE Stop: 08/04/18 18:45 Last Admin: 08/04/18 19:11 Dose: 25 mg Promethazine HCl (Phenergan) 25 mg IM ONETIME ONE Stop: 08/04/18 19:04 Last Admin: 08/04/18 19:13 Dose: Not Given - Exam Quality Assessment: No: Supplemental Oxygen General: Alert, Oriented, Cooperative, No Acute Distress HEENT: Pupils Equal, Pupils Reactive. No: Mucous Membr. Moist/Globe (Dry) Neck: Supple, Trachea Midline Lungs: Crackles Cardiovascular: Regular Rate, Regular Rhythm, Murmurs (Grade 3/6 holosystolic murmur) GI/Abdominal Exam: Normal Bowel Sounds, Soft, Non-Tender, No Distention (Male) Exam: Deferred Back Exam: No: Normal Inspection (Kyphosis, age-related changes) Extremities: Normal Inspection, No Pedal Edema Skin: Warm, Dry, Intact Neurological: No New Focal Deficit Psy/Mental Status: Alert, Normal Affect, Normal Mood - Problem List & Annotations (1) Campylobacter diarrhea SNOMED Code(s): 42151780 Code(s): A04.5 - CAMPYLOBACTER ENTERITIS Status: Acute Priority: High Current Visit: Yes (2) Hypomagnesemia SNOMED Code(s): 382337730 Code(s): E83.42 - HYPOMAGNESEMIA Status: Chronic Priority: High Current Visit: Yes Annotation/Comment:: Secondary to GI losses (3) MARGARITA (acute kidney injury) SNOMED Code(s): 48328269 Code(s): N17.9 - ACUTE KIDNEY FAILURE, UNSPECIFIED Status: Resolved Current Visit: Yes (4) Colorectal cancer SNOMED Code(s): 503741166 Code(s): C19 - MALIGNANT NEOPLASM OF RECTOSIGMOID JUNCTION Status: Chronic Priority: High Current Visit: No (5) Weakness generalized SNOMED Code(s): 79743195 Code(s): R53.1 - WEAKNESS Status: Chronic Priority: High Current Visit : Yes (6) Anemia of chronic disease SNOMED Code(s): 933820832 Code(s): D63.8 - ANEMIA IN OTHER CHRONIC DISEASES CLASSIFIED ELSEWHERE Status: Chronic Priority: High Current Visit: Yes - Problem List Review Problem List Initiated/Reviewed/Updated: Yes - Plan Plan:: 1. Weakness/ ambulatory dysfunction- PT evaluation/treatment ordered 2. Hypokalemia- improved from 2.9 to 3.1, will replace with 40 mEq twice today and recheck in the AM. 3. Hypomagnesemia- resolved 4. MARGARITA- resolved 5. Diarrhea- positive for Campylobacter- improving-treating with azithromycin 500 mg daily, Imodium for symptom control. 6. Chronic conditions- HTN/GERD- hold HCTZ as that can cause hypokalemia but continue other home meds. Had some higher BPs, will restart some of his other home meds for better blood pressure control. The patient is an 83-year-old gentleman who has been relatively slow to recover. He does have Campylobacter enteritis and he is still on azithromycin for this. The subcutaneous continued. Also the patient had been taking Imodium for diarrhea control and this is been discontinued as the patient is having some constipation. Because of his recent diarrhea I will hold any the laxatives for now. The patient also has been hypomagnesemic this morning and this has been replaced with 2 g of magnesium IV. Patient's renal function has improved significantly with resolution of his diarrhea. I will order plain films of the patient's abdomen to help exclude any concern for small bowel obstruction or worsening enteritis. The patient will be having his blood pressure and vital signs monitored every 4 hours his medication for his hypertension will be adjusted. The patient's hydrochlorothiazide is on hold for now. The patient is also anemic and a CBC and other laboratory testings have been ordered and the patient will be considered for transfusion if his hemoglobin drops below 7.0 g/ dL. The patient should be appropriate for discharge in 1-2 days depending upon symptomology.
[2018-08-06] MEDS: Metoprolol Tartrate 50 MG Tab PO SCH ×2 (09:44→22:00)
[2018-08-06] MEDS: Losartan 50 MG Tab PO SCH (09:45)
[2018-08-06] MEDS: Aspirin 81 MG Tab.EC PO SCH (09:46)
[2018-08-06] MEDS: Potassium Chloride 8 MEQ Tab.ER PO SCH (09:47)
[2018-08-06] MEDS: Calcium Carbonate/Vitamin D3 1500 MG-400 Units Tab PO SCH (09:47)
[2018-08-06] MEDS: Enoxaparin 30 MG/0.3 ML Syringe SUBCUT SCH (12:45)
[2018-08-06] MEDS: Azithromycin 250 MG Tab PO SCH (15:04)
[2018-08-06] MEDS: Sodium Chloride 0.9% 1,000 ML IV SCH (18:14)
--- NOTE | 2018-08-06 19:56 | CR ---
Indication: Abdominal pain Technique: KUB 2 view Comparison: None Findings/Impression: : Multiple loops of dilated small bowel reach a maximum diameter 4.0 cm. Findings are concerning for small bowel obstruction. No air seen within the colon. No free air or pneumatosis. Degenerative changes in the spine. Dictated by Stefani Beck MD @ Aug 06 2018 7:53PM Signed by Dr. Stefani Beck @ Aug 06 2018 7:55PM
[2018-08-06] MEDS: Ondansetron 4 MG/2 ML SDV IVPUSH PRN (21:57)
[2018-08-06] MEDS: Carboxymethylcellulose Sodium 0.5% Ophth Soln 0.4 ML UD Box of 30 EYEBOTH SCH (22:02)
[2018-08-07] MEDS: Ondansetron 4 MG/2 ML SDV IVPUSH PRN ×2 (02:25→23:10)
[2018-08-07] MEDS ORDERED: Furosemide 20 MG/2 ML VIAL IVPUSH ONE (05:48)
[2018-08-07] MEDS ORDERED: Clindamycin Phosphate in D5W 300 MG in Premix Bag 1 BAG IV SCH ×2 (06:00)
--- NOTE | 2018-08-07 06:04 | CR ---
INDICATION: Shortness of breath. Possible aspiration. COMPARISON: Portable chest dated 08/02/2018 TECHNIQUE: Portable AP erect chest performed at 5:24 a.m. FINDINGS: As compared to the recent exam dated 08/02/2018 there has been development of alveolar infiltrates within both lower lobes predominantly involving the superior segment and posterior basal segments. Lungs are otherwise clear. Radiographic findings could certainly indicate aspiration pneumonia. The heart, mediastinum and pulmonary vessels are of normal size. There is no evidence of pleural fluid. IMPRESSION: Lower lobe infiltrates consistent with aspiration pneumonia. Dictated by Villa Thompson MD @ Aug 07 2018 6:02AM Signed by Dr. Villa Thompson @ Aug 07 2018 6:02AM
[2018-08-07] MEDS: Omeprazole 20 MG Cap.CR PO SCH (06:38)
[2018-08-07] MEDS ORDERED: Piperacillin/Tazobactam 3.375 GM in Sodium Chloride 0.9% 50 ML IV SCH (07:00)
[2018-08-07] MEDS: Piperacillin/Tazobactam 3.375 GM in Sodium Chloride 0.9% 50 ML IV SCH ×3 (07:33→18:35)
[2018-08-07] MEDS ORDERED: Morphine 2 MG/ML Syringe IVPUSH PRN (07:35)
--- NOTE | 2018-08-07 08:31 | PCM.PN ---
<Kimberly Hinojosa - Last Filed: 08/07/18 08:32> - General Info Date of Service: 08/07/18 Subjective Update: The patient is a 83 year old male originally admitted for electrolyte imbalances , dehydration secondary to diarrhea and chemotherapy treatment. He was found to have Campylobacter and treated with Azithromycin. His diarrhea resolved and he states he hasn't had a bowel movement in the past 2 days. He thinks he was passing gas yesterday. He reports abdominal pain yesterday but better today. He was vomiting yesterday but none so far this morning. Yesterday x-ray of abdomen showed dilated small bowel loops. This morning, Dr. Gresham received a call from nursing about his vitals, he was hypotensive, tachycardiac, and now requiring oxygen. CXR was done and showed aspiration pneumonia. - Review of Systems General: Reports: No Symptoms HEENT: Reports: No Symptoms Pulmonary: Reports: Shortness of Breath Cardiovascular: Denies: Chest Pain Gastrointestinal: Reports: Abdominal Pain, Nausea. Denies: Diarrhea, Vomiting Genitourinary: Reports: No Symptoms Musculoskeletal: Reports: No Symptoms Skin: Reports: No Symptoms Neurological: Reports: No Symptoms Psychiatric: Reports: No Symptoms - Patient Data Vitals - Most Recent: Last Vital Signs Temp 97.8 F 08/07/18 07:12 Pulse 91 08/07/18 07:12 Resp 16 08/07/18 07:12 BP 104/56 L 08/07/18 07:12 Pulse Ox 97 08/07/18 07:12 Orthostatic Blood Pressure [ 113/51 Standing] Orthostatic Blood Pressure [ 137/56 Sitting] Orthostatic Blood Pressure [ 137/54 Supine] Weight - Most Recent: 80.467 kg I&O - Last 24 Hours: Intake & Output 08/06/18 08/07/18 08/07/18 22:59 06:59 14:59 Intake Total 850 1538 Output Total 800 830 Balance 50 708 Lab Results Last 24 Hours: Laboratory Results - last 24 hr 08/07/18 08/07/18 Range/Units 05:54 05:54 WBC 11.02 H (4.0-11.0) K/uL RBC 4.59 (4.50-5.90) M/uL Hgb 10.6 L (13.0-17.0) g/dL Hct 33.9 L (38.0-50.0) % MCV 73.9 L (80.0-98.0) fL MCH 23.1 L (27.0-32.0) pg MCHC 31.3 (31.0-37.0) g/dL RDW Std Deviation 52.7 (28.0-62.0) fl RDW Coeff of Salvador 24 H (11.0-15.0) % Plt Count 324 (150-400) K/uL MPV 9.40 (7.40-12.00) fL Add Manual Diff YES Neutrophils % (Manual) 47 L (48.0-80.0) % Band Neutrophils % 30 % Lymphocytes % (Manual) 20 (16.0-40.0) % Monocytes % (Manual) 2 (0.0-15.0) % Myelocytes % 1 % Nucleated RBC % 0.0 /100WBC Absolute Seg Neuts 5.2 (1.4-5.7) Band Neutrophils # 3.3 Lymphocytes # (Manual) 2.2 (0.6-2.4) Monocytes # (Manual) 0.2 (0.0-0.8) Absolute Myelocytes 0.1 Nucleated RBCs # 0 K/uL Sodium 149 H (136-148) mmol/L Potassium 4.2 (3.5-5.1) mmol/L Chloride 113 H (98-107) mmol/L Carbon Dioxide 23.8 (21.0-32.0) mmol/L BUN 29 H (7.0-18.0) mg/dL Creatinine 1.9 H (0.8-1.3) mg/dL Est Cr Clr Drug Dosing 29.36 mL/min Estimated GFR (MDRD) 34.0 ml/min Glucose 84 (74-106) mg/dL Calcium 8.2 L (8.5-10.1) mg/dL Magnesium 2.1 (1.8-2.4) mg/dL Med Orders - Current: Current Medications Acetaminophen (Tylenol) 650 mg PO Q4H PRN PRN Reason: Pain Last Admin: 08/06/18 04:24 Dose: 650 mg Artificial Tears (Refresh Plus 0.5%) 0 each EYEBOTH BEDTIME KATHERINE Last Admin: 08/06/18 22:02 Dose: 1 drop Artificial Tears (Refresh Plus 0.5%) 1 each EYEBOTH BID PRN PRN Reason: Dry Eyes Aspirin (Halfprin) 81 mg PO DAILY [facility] Last Admin: 08/06/18 09:46 Dose: 81 mg Calcium Carbonate (Caltrate 600+D 1500 Mg-400 Units) 1 tab PO DAILY [facility] Last Admin: 08/06/18 09:47 Dose: 1 tab Calcium Carbonate/Glycine (Tums) 1,000 mg PO Q2HR PRN PRN Reason: Indigestion Last Admin: 08/05/18 21:01 Dose: 1,000 mg Enoxaparin Sodium (Lovenox) 30 mg SUBCUT Q24H [facility] Last Admin: 08/06/18 12:45 Dose: 30 mg Hydralazine HCl (Apresoline) 10 mg IVPUSH Q4H PRN PRN Reason: Other Last Admin: 08/06/18 04:13 Dose: 10 mg Piperacillin Sod/Tazobactam (Sod 3.375 gm/ Sodium Chloride) 50 mls @ 100 mls/ hr IV Q6H [facility] Last Admin: 08/07/18 07:33 Dose: 100 mls/hr Clindamycin Phosphate 600 mg/ (Premix) 50 mls @ 150 mls/hr IV Q8H [facility] Sodium Chloride (Normal Saline) 1,000 mls @ 100 mls/hr IV STAT [facility] Losartan Potassium (Cozaar) 50 mg PO DAILY [facility] Last Admin: 08/06/18 09:45 Dose: 50 mg Metoprolol Tartrate (Lopressor) 50 mg PO BID [facility] Last Admin: 08/06/18 22:00 Dose: 50 mg Morphine Sulfate (Morphine) 2 mg IVPUSH Q2H PRN PRN Reason: Abdominal Pain Omeprazole (Omeprazole) 20 mg PO ACBREAKFAST [facility] Last Admin: 08/07/18 06:38 Dose: 20 mg Ondansetron HCl (Zofran) 4 mg IVPUSH Q4H PRN PRN Reason: Nausea/Vomiting Last Admin: 08/07/18 02:25 Dose: 4 mg Ondansetron HCl (Zofran Odt) 4 mg PO Q4H PRN PRN Reason: Nausea/Vomiting Oxycodone HCl (Oxycodone) 5 mg PO Q4H PRN PRN Reason: Pain (moderate 4-6) Potassium Chloride 8 (Meq Tab.Er) 5 each PO DAILY [facility] Last Admin: 08/06/18 09:47 Dose: 5 each Hydralazine 100 Mg (Tab) 1 each PO BID [facility] Last Admin: 08/06/18 22:01 Dose: 1 each Prochlorperazine Maleate (Compazine) 10 mg PO Q6H PRN PRN Reason: Nausea/Vomiting Temazepam (Restoril) 15 mg PO BEDTIME PRN PRN Reason: Insomnia Discontinued Medications Aspirin (Halfprin) 81 mg PO ASDIRECTED [facility] Azithromycin (Zithromax) 500 mg PO Q24H [facility] Last Admin: 08/06/18 15:04 Dose: 500 mg Furosemide (Lasix) 20 mg IVPUSH ONETIME ONE Stop: 08/07/18 05:49 Last Admin: 08/07/18 06:06 Dose: 20 mg Hydralazine HCl (Apresoline) 10 mg IVPUSH Q4H PRN PRN Reason: Other Hydralazine HCl (Apresoline) 100 mg PO BID [facility] Last Admin: 08/05/18 11:55 Dose: 50 mg Sodium Chloride (Normal Saline) 1,000 mls @ 999 mls/hr IV STAT ONE Stop: 08/02/18 18:37 Last Admin: 08/02/18 18:32 Dose: 999 mls/hr Potassium Chloride 40 meq/ (Premix) 100 mls @ 25 mls/hr IV ONETIME ONE Stop: 08/02/18 23:30 Last Admin: 08/02/18 20:55 Dose: 25 mls/hr Sodium Chloride (Normal Saline) 1,000 mls @ 75 mls/hr IV ASDIRECTED [facility] Last Admin: 08/06/18 18:14 Dose: 75 mls/hr Magnesium Sulfate 2 gm/ Premix 50 mls @ 25 mls/hr IV ONETIME ONE Stop: 08/03/18 15:50 Last Admin: 08/03/18 14:29 Dose: 25 mls/hr Magnesium Sulfate 2 gm/ Premix 50 mls @ 25 mls/hr IV ONETIME ONE Stop: 08/04/18 09:15 Last Admin: 08/04/18 08:29 Dose: 25 mls/hr Magnesium Sulfate 2 gm/ Premix 50 mls @ 50 mls/hr IV ONETIME ONE Stop: 08/06/18 07:42 Last Admin: 08/06/18 09:34 Dose: 50 mls/hr Piperacillin Sod/Tazobactam (Sod 3.375 gm/ Sodium Chloride) 50 mls @ 100 mls/ hr IV Q8H [facility] Clindamycin Phosphate 300 mg/ (Premix) 50 mls @ 150 mls/hr IV Q8H [facility] Last Admin: 08/07/18 06:42 Dose: 150 mls/hr Loperamide HCl (Imodium) 2 mg PO Q4H PRN PRN Reason: Diarrhea Last Admin: 08/05/18 11:47 Dose: 2 mg Omeprazole (Omeprazole) 20 mg PO DAILY [facility] Last Admin: 08/05/18 11:38 Dose: Not Given Ondansetron HCl (Zofran) 4 mg IVPUSH ONETIME ONE Stop: 08/02/18 18:37 Last Admin: 08/02/18 18:42 Dose: 4 mg Potassium Chloride 8 (Meq Tab.Er) 5 each PO ONETIME ONE Stop: 08/05/18 21:01 Last Admin: 08/05/18 21:00 Dose: 5 each Potassium Chloride (Klor-Con M20) 40 meq PO ONETIME ONE Stop: 08/02/18 17:44 Last Admin: 08/02/18 18:33 Dose: 40 meq Potassium Chloride (Klor-Con M20) 40 meq PO ONETIME ONE Stop: 08/03/18 08:26 Last Admin: 08/03/18 09:07 Dose: 40 meq Potassium Chloride (Klor-Con M20) 40 meq PO ONETIME ONE Stop: 08/03/18 12:01 Last Admin: 08/03/18 12:09 Dose: 40 meq Potassium Chloride (Klor-Con M20) 40 meq PO ONETIME ONE Stop: 08/04/18 09:01 Last Admin: 08/04/18 08:27 Dose: 40 meq Potassium Chloride (Klor-Con M20) 40 meq PO ONETIME ONE Stop: 08/04/18 21:01 Last Admin: 08/04/18 20:30 Dose: 40 meq Potassium Chloride (Klor-Con M20) 40 meq PO ONETIME ONE Stop: 08/04/18 15:01 Potassium Chloride (Klor-Con M20) 40 meq PO ONETIME ONE Stop: 08/05/18 09:01 Last Admin: 08/05/18 12:01 Dose: Not Given Promethazine HCl (Phenergan) 25 mg IM ONETIME ONE Stop: 08/04/18 18:45 Last Admin: 08/04/18 19:11 Dose: 25 mg Promethazine HCl (Phenergan) 25 mg IM ONETIME ONE Stop: 08/04/18 19:04 Last Admin: 08/04/18 19:13 Dose: Not Given - Exam Quality Assessment: Supplemental Oxygen General: Alert, Oriented, Cooperative Lungs: Normal Respiratory Effort, Rhonchi (left base) Cardiovascular: Regular Rate, Regular Rhythm, Murmurs GI/Abdominal Exam: Other (hypoactive bowel sounds in lower right quadrant, mildly tender to palpation) Skin: Warm, Dry Neurological: No New Focal Deficit Psy/Mental Status: Alert, Normal Affect, Normal Mood - Problem List & Annotations (1) Hypomagnesemia SNOMED Code(s): 582828906 Code(s): E83.42 - HYPOMAGNESEMIA Status: Chronic Priority: High Current Visit: Yes Annotation/Comment:: Secondary to GI losses (2) Ambulatory dysfunction SNOMED Code(s): 187792067 Code(s): R26.2 - DIFFICULTY IN WALKING, NOT ELSEWHERE CLASSIFIED Status: Acute Current Visit: Yes (3) MARGARITA (acute kidney injury) SNOMED Code(s): 08005554 Code(s): N17.9 - ACUTE KIDNEY FAILURE, UNSPECIFIED Status: Resolved Current Visit: Yes (4) Colorectal cancer SNOMED Code(s): 396548601 Code(s): C19 - MALIGNANT NEOPLASM OF RECTOSIGMOID JUNCTION Status: Chronic Priority: High Current Visit: No (5) Hypokalemia SNOMED Code(s): 22316803 Code(s): E87.6 - HYPOKALEMIA Status: Acute Current Visit: Yes (6) Weakness generalized SNOMED Code(s): 61736582 Code(s): R53.1 - WEAKNESS Status: Chronic Priority: High Current Visit : Yes (7) Dilated bowel SNOMED Code(s): 69487090 Code(s): CDC3289 - Status: Acute Current Visit: Yes (8) Aspiration pneumonia due to vomit SNOMED Code(s): 000147128 Code(s): J69.0 - PNEUMONITIS DUE TO INHALATION OF FOOD AND VOMIT Status: Acute Current Visit: Yes - Problem List Review Problem List Initiated/Reviewed/Updated: Yes - My Orders Last 24 Hours: My Active Orders 08/06/18 07:30 Omeprazole 20 mg PO ACBREAKFAST 08/07/18 07:35 Morphine 2 mg IVPUSH Q2H PRN 08/07/18 07:36 Notify Provider Consults [RC] ASDIRECTED Consult to Physician [CONS] Routine 08/07/18 07:45 Sodium Chloride 0.9% [Normal Saline] 1,000 ml IV STAT 08/07/18 08:00 Abdomen Pelvis wo Cont [CT] Stat 08/07/18 Lunch NPO Now [Nothing per Oral Now Diet] [DIET] - Plan Plan:: 1. Aspiration pneumonia- continue with Clindamycin and Zosyn, oxygen as needed. 2. Dilated small bowel loops concerning for obstruction vs ileus- will keep NPO , restart on IVF, IV morphine for pain and IV Zofran for nausea. Dr. Sewell consulted. Last bowel movement was 2 days ago but he thinks he was passing gas yesterday. Per Dr. Sewell's recommendation we will get a CT of the abdomen today. 3. Hypokalemia- resolved 4. Hypomagnesemia- resolved 5. MARGARITA- restart IVF 6. Diarrhea- positive for Campylobacter- resolved 7. Chronic conditions- HTN/GERD- <Srinivas Gresham - Last Filed: 08/07/18 12:19> - General Info Subjective Update: I have examined the patient independently of Kimberly Hinojosa DO, medical field representative. I have discussed the case with her. I have reviewed and agree with the plan of care as outlined by her. Will now treat for aspiration pneumonia and SBO. Change of antibiotics to Zosyn and clindamycin Please see orders. - Patient Data Vitals - Most Recent: Last Vital Signs Temp 36.7 C 08/07/18 11:17 Pulse 90 08/07/18 11:17 Resp 16 08/07/18 11:17 BP 118/74 08/07/18 11:17 Pulse Ox 98 08/07/18 11:17 Orthostatic Blood Pressure [ 113/51 Standing] Orthostatic Blood Pressure [ 137/56 Sitting] Orthostatic Blood Pressure [ 137/54 Supine] I&O - Last 24 Hours: Intake & Output 08/06/18 08/07/18 08/07/18 22:59 06:59 14:59 Intake Total 850 1538 Output Total 800 830 Balance 50 708 Lab Results Last 24 Hours: Laboratory Results - last 24 hr 08/07/18 08/07/18 Range/Units 05:54 05:54 WBC 11.02 H (4.0-11.0) K/uL RBC 4.59 (4.50-5.90) M/uL Hgb 10.6 L (13.0-17.0) g/dL Hct 33.9 L (38.0-50.0) % MCV 73.9 L (80.0-98.0) fL MCH 23.1 L (27.0-32.0) pg MCHC 31.3 (31.0-37.0) g/dL RDW Std Deviation 52.7 (28.0-62.0) fl RDW Coeff of Salvador 24 H (11.0-15.0) % Plt Count 324 (150-400) K/uL MPV 9.40 (7.40-12.00) fL Add Manual Diff YES Neutrophils % (Manual) 47 L (48.0-80.0) % Band Neutrophils % 30 % Lymphocytes % (Manual) 20 (16.0-40.0) % Monocytes % (Manual) 2 (0.0-15.0) % Myelocytes % 1 % Nucleated RBC % 0.0 /100WBC Absolute Seg Neuts 5.2 (1.4-5.7) Band Neutrophils # 3.3 Lymphocytes # (Manual) 2.2 (0.6-2.4) Monocytes # (Manual) 0.2 (0.0-0.8) Absolute Myelocytes 0.1 Nucleated RBCs # 0 K/uL Sodium 149 H (136-148) mmol/L Potassium 4.2 (3.5-5.1) mmol/L Chloride 113 H (98-107) mmol/L Carbon Dioxide 23.8 (21.0-32.0) mmol/L BUN 29 H (7.0-18.0) mg/dL Creatinine 1.9 H (0.8-1.3) mg/dL Est Cr Clr Drug Dosing 29.36 mL/min Estimated GFR (MDRD) 34.0 ml/min Glucose 84 (74-106) mg/dL Calcium 8.2 L (8.5-10.1) mg/dL Magnesium 2.1 (1.8-2.4) mg/dL Med Orders - Current: Current Medications Acetaminophen (Tylenol) 650 mg PO Q4H PRN PRN Reason: Pain Last Admin: 08/06/18 04:24 Dose: 650 mg Artificial Tears (Refresh Plus 0.5%) 0 each EYEBOTH BEDTIME [facility] Last Admin: 08/06/18 22:02 Dose: 1 drop Artificial Tears (Refresh Plus 0.5%) 1 each EYEBOTH BID PRN PRN Reason: Dry Eyes Aspirin (Halfprin) 81 mg PO DAILY [facility] Last Admin: 08/07/18 09:54 Dose: Not Given Calcium Carbonate/Glycine (Tums) 1,000 mg PO Q2HR PRN PRN Reason: Indigestion Last Admin: 08/05/18 21:01 Dose: 1,000 mg Calcium Citrate (Calcitrate + Vit D Cap (315 Mg/250 Units)) 2 each PO DAILY [facility] Enoxaparin Sodium (Lovenox) 30 mg SUBCUT Q24H [facility] Last Admin: 08/07/18 11:10 Dose: 30 mg Hydralazine HCl (Apresoline) 10 mg IVPUSH Q4H PRN PRN Reason: Other Last Admin: 08/06/18 04:13 Dose: 10 mg Piperacillin Sod/Tazobactam (Sod 3.375 gm/ Sodium Chloride) 50 mls @ 100 mls/ hr IV Q6H [facility] Last Admin: 08/07/18 07:33 Dose: 100 mls/hr Clindamycin Phosphate 600 mg/ (Premix) 50 mls @ 150 mls/hr IV Q8H [facility] Sodium Chloride (Normal Saline) 1,000 mls @ 100 mls/hr IV STAT [facility] Last Admin: 08/07/18 08:57 Dose: 100 mls/hr Losartan Potassium (Cozaar) 50 mg PO DAILY [facility] Last Admin: 08/07/18 09:53 Dose: Not Given Metoprolol Tartrate (Lopressor) 50 mg PO BID [facility] Last Admin: 08/07/18 09:55 Dose: Not Given Morphine Sulfate (Morphine) 2 mg IVPUSH Q2H PRN PRN Reason: Abdominal Pain Omeprazole (Omeprazole) 20 mg PO ACBREAKFAST [facility] Last Admin: 08/07/18 06:38 Dose: 20 mg Ondansetron HCl (Zofran) 4 mg IVPUSH Q4H PRN PRN Reason: Nausea/Vomiting Last Admin: 08/07/18 02:25 Dose: 4 mg Ondansetron HCl (Zofran Odt) 4 mg PO Q4H PRN PRN Reason: Nausea/Vomiting Oxycodone HCl (Oxycodone) 5 mg PO Q4H PRN PRN Reason: Pain (moderate 4-6) Potassium Chloride 8 (Meq Tab.Er) 5 each PO DAILY [facility] Last Admin: 08/07/18 09:56 Dose: Not Given Hydralazine 100 Mg (Tab) 1 each PO BID [facility] Last Admin: 08/07/18 09:55 Dose: Not Given Prochlorperazine Maleate (Compazine) 10 mg PO Q6H PRN PRN Reason: Nausea/Vomiting Temazepam (Restoril) 15 mg PO BEDTIME PRN PRN Reason: Insomnia Discontinued Medications Aspirin (Halfprin) 81 mg PO ASDIRECTED [facility] Azithromycin (Zithromax) 500 mg PO Q24H [facility] Last Admin: 08/06/18 15:04 Dose: 500 mg Calcium Carbonate (Caltrate 600+D 1500 Mg-400 Units) 1 tab PO DAILY [facility] Last Admin: 08/07/18 10:55 Dose: Not Given Furosemide (Lasix) 20 mg IVPUSH ONETIME ONE Stop: 08/07/18 05:49 Last Admin: 08/07/18 06:06 Dose: 20 mg Hydralazine HCl (Apresoline) 10 mg IVPUSH Q4H PRN PRN Reason: Other Hydralazine HCl (Apresoline) 100 mg PO BID [facility] Last Admin: 08/05/18 11:55 Dose: 50 mg Sodium Chloride (Normal Saline) 1,000 mls @ 999 mls/hr IV STAT ONE Stop: 08/02/18 18:37 Last Admin: 08/02/18 18:32 Dose: 999 mls/hr Potassium Chloride 40 meq/ (Premix) 100 mls @ 25 mls/hr IV ONETIME ONE Stop: 08/02/18 23:30 Last Admin: 08/02/18 20:55 Dose: 25 mls/hr Sodium Chloride (Normal Saline) 1,000 mls @ 75 mls/hr IV ASDIRECTED [facility] Last Admin: 08/06/18 18:14 Dose: 75 mls/hr Magnesium Sulfate 2 gm/ Premix 50 mls @ 25 mls/hr IV ONETIME ONE Stop: 08/03/18 15:50 Last Admin: 08/03/18 14:29 Dose: 25 mls/hr Magnesium Sulfate 2 gm/ Premix 50 mls @ 25 mls/hr IV ONETIME ONE Stop: 08/04/18 09:15 Last Admin: 08/04/18 08:29 Dose: 25 mls/hr Magnesium Sulfate 2 gm/ Premix 50 mls @ 50 mls/hr IV ONETIME ONE Stop: 08/06/18 07:42 Last Admin: 08/06/18 09:34 Dose: 50 mls/hr Piperacillin Sod/Tazobactam (Sod 3.375 gm/ Sodium Chloride) 50 mls @ 100 mls/ hr IV Q8H [facility] Last Admin: 08/07/18 09:50 Dose: Not Given Clindamycin Phosphate 300 mg/ (Premix) 50 mls @ 150 mls/hr IV Q8H [facility] Last Admin: 08/07/18 06:42 Dose: 150 mls/hr Loperamide HCl (Imodium) 2 mg PO Q4H PRN PRN Reason: Diarrhea Last Admin: 08/05/18 11:47 Dose: 2 mg Omeprazole (Omeprazole) 20 mg PO DAILY [facility] Last Admin: 08/05/18 11:38 Dose: Not Given Ondansetron HCl (Zofran) 4 mg IVPUSH ONETIME ONE Stop: 08/02/18 18:37 Last Admin: 08/02/18 18:42 Dose: 4 mg Potassium Chloride 8 (Meq Tab.Er) 5 each PO ONETIME ONE Stop: 08/05/18 21:01 Last Admin: 08/05/18 21:00 Dose: 5 each Potassium Chloride (Klor-Con M20) 40 meq PO ONETIME ONE Stop: 08/02/18 17:44 Last Admin: 08/02/18 18:33 Dose: 40 meq Potassium Chloride (Klor-Con M20) 40 meq PO ONETIME ONE Stop: 08/03/18 08:26 Last Admin: 08/03/18 09:07 Dose: 40 meq Potassium Chloride (Klor-Con M20) 40 meq PO ONETIME ONE Stop: 08/03/18 12:01 Last Admin: 08/03/18 12:09 Dose: 40 meq Potassium Chloride (Klor-Con M20) 40 meq PO ONETIME ONE Stop: 08/04/18 09:01 Last Admin: 08/04/18 08:27 Dose: 40 meq Potassium Chloride (Klor-Con M20) 40 meq PO ONETIME ONE Stop: 08/04/18 21:01 Last Admin: 08/04/18 20:30 Dose: 40 meq Potassium Chloride (Klor-Con M20) 40 meq PO ONETIME ONE Stop: 08/04/18 15:01 Potassium Chloride (Klor-Con M20) 40 meq PO ONETIME ONE Stop: 08/05/18 09:01 Last Admin: 08/05/18 12:01 Dose: Not Given Promethazine HCl (Phenergan) 25 mg IM ONETIME ONE Stop: 08/04/18 18:45 Last Admin: 08/04/18 19:11 Dose: 25 mg Promethazine HCl (Phenergan) 25 mg IM ONETIME ONE Stop: 08/04/18 19:04 Last Admin: 08/04/18 19:13 Dose: Not Given - Problem List & Annotations (1) Campylobacter diarrhea SNOMED Code(s): 48958767 Code(s): A04.5 - CAMPYLOBACTER ENTERITIS Status: Acute Priority: High Current Visit: Yes (2) Hypomagnesemia SNOMED Code(s): 342749218 Code(s): E83.42 - HYPOMAGNESEMIA Status: Chronic Priority: High Current Visit: Yes Annotation/Comment:: Secondary to GI losses (3) MARGARITA (acute kidney injury) SNOMED Code(s): 15662610 Code(s): N17.9 - ACUTE KIDNEY FAILURE, UNSPECIFIED Status: Resolved Current Visit: Yes (4) Colorectal cancer SNOMED Code(s): 164605036 Code(s): C19 - MALIGNANT NEOPLASM OF RECTOSIGMOID JUNCTION Status: Chronic Priority: High Current Visit: No (5) Weakness generalized SNOMED Code(s): 58811661 Code(s): R53.1 - WEAKNESS Status: Chronic Priority: High Current Visit : Yes (6) Anemia of chronic disease SNOMED Code(s): 027312747 Code(s): D63.8 - ANEMIA IN OTHER CHRONIC DISEASES CLASSIFIED ELSEWHERE Status: Chronic Priority: High Current Visit: Yes - My Orders Last 24 Hours: My Active Orders 08/07/18 04:56 EKG 12 Lead [EKG Documentation Completion] [RC] STAT 08/07/18 07:30 Piperacillin/Tazobactam [Piperacil-Tazobact] 3.375 gm Sodium Chloride 0.9% [ Normal Saline] 50 ml IV Q6H 08/07/18 14:00 Clindamycin Phosphate in D5W [Cleocin in D5W] 600 mg Premix Bag 1 bag IV Q8H
[2018-08-07] MEDS: Sodium Chloride 0.9% 1,000 ML IV SCH ×2 (08:57→20:30)
--- NOTE | 2018-08-07 09:04 | CT ---
CT of the abdomen and pelvis without contrast. HISTORY: Pain TECHNIQUE: Axial CT images were obtained of the abdomen and pelvis without contrast. Coronal and sagittal reconstructions obtained. Mild motion artifact noted throughout the abdomen. FINDINGS: Patchy infiltrate is noted within the lung bases with trace bilateral pleural effusions. Bilateral gynecomastia. The liver, spleen, adrenal glands, and pancreas appear unremarkable for noncontrast examination. The gallbladder appears normal. There is no bulky retroperitoneal lymphadenopathy. There is a small amount of abdominal ascites and free pelvic fluid. There are no calcifications noted within the kidneys or along the courses of the ureters bilaterally. There is moderately dilated small bowel measuring up to 3.8 cm. A definitive transition point is not noted. Anastomosis changes are noted at the ileocecal junction however there is a moderate amount of fluid and gas distal to this point. There is no bulky pelvic lymphadenopathy. The urinary bladder appears normal. The prostate is mildly prominent. The visualized osseous structures appear intact. IMPRESSION: 1. Moderately dilated loops of small bowel, most likely representing an ileus or partial bowel obstruction. 2. Small amount of abdominal ascites. 3. Infiltrate within the lung bases with small bilateral pleural effusions. Given the distribution consider aspiration pneumonitis.
[2018-08-07] MEDS: Losartan 50 MG Tab PO SCH (09:53)
[2018-08-07] MEDS: Aspirin 81 MG Tab.EC PO SCH (09:54)
[2018-08-07] MEDS: Metoprolol Tartrate 50 MG Tab PO SCH ×2 (09:55→20:39)
[2018-08-07] MEDS: Potassium Chloride 8 MEQ Tab.ER PO SCH (09:56)
[2018-08-07] MEDS: Calcium Carbonate/Vitamin D3 1500 MG-400 Units Tab PO SCH (10:55)
--- NOTE | 2018-08-07 11:08 | PCM.CONS ---
H&P History of Present Illness - General Date of Service: 08/07/18 Admit Problem/Dx: Admission Diagnosis/Problem Admission Diagnosis/Problem Hypokalemia, diarrhea, chemotherapy Source of Information: Patient History Limitations: Reports: No Limitations - History of Present Illness Initial Comments - Free Text/Narative: Patient is an 83-year-old male with a past medical history significant for colorectal cancer status post robotic-assisted left hemicolectomy. He tolerated the procedure well and did not need an ostomy. He had positive lymph nodes and so he is now taking adjuvant chemotherapy. He was on a second round of chemotherapy when he developed diarrhea. He was admitted to the medicine service with hypokalemia, hypomagnesemia, MARGARITA, and camphylobacter. He developed abdominal pain and vomiting yesterday and a 2 view KUB was performed. This showed dilated loops of bowel suggesting a possible SBO. CXR showed aspiration pneumonia. His last bowel movement was yesterday. He believes he was passing gas yesterday. This morning he feels better. He denies any abdominal pain. He has not passed gas or had a bowel movement. 0 Pain Score (Numeric/FACES): 0 - Related Data Allergies/Adverse Reactions: Allergies Allergy/AdvReac Type Severity Reaction Status Date / Time No Known Allergies Allergy Verified 08/02/18 17:36 Home Medications: Home Meds Losartan/Hydrochlorothiazide [Losartan-HCTZ 100-12.5 MG] 12.5 - 100 mg PO DAILY 03/08/18 [History] Metoprolol Tartrate 50 mg PO BID 03/08/18 [History] Aspirin [Adult Aspirin] 81 mg PO DAILY 03/23/18 [History] Calcium Carbonate/Vitamin D3 [Calcium 600 + Vit D Tablet] 1 tab PO DAILY [History] Carboxymethylcellulos/Glycerin [Refresh Optive Gel Eye Drops] 1 applic EYEBOTH BEDTIME 03/23/18 [History] Dextran 70/Hypromellose [Artificial Tears] 1 drop EYEBOTH BID PRN 03/23/18 [ History] Erythromycin Base [Erythromycin 0.5% Ophth Oint] 1 applic EYEBOTH ASDIRECTED [History] Omeprazole 20 mg PO DAILY 03/23/18 [History] Potassium Chloride 8 meq PO DAILY 03/23/18 [History] Loperamide [Imodium] 2 mg PO Q4H PRN 08/03/18 [History] Ondansetron [Zofran] 8 mg PO Q8H PRN 08/03/18 [History] Prochlorperazine [Compazine] 10 mg PO Q6H PRN 08/03/18 [History] hydrALAZINE [Apresoline] 100 mg PO BID 08/03/18 [History] Past Medical History HEENT History: Reports: Other (See Below) Other HEENT History: top and bottom denture Cardiovascular History: Reports: Heart Murmur, Hypertension Respiratory History: Reports: None Gastrointestinal History: Reports: None Genitourinary History: Reports: BPH, Prostate Disorder Musculoskeletal History: Reports: Other (See Below) Other Musculoskeletal History: polymyalgia rheumatica Neurological History: Reports: None Psychiatric History: Reports: None Endocrine/Metabolic History: Reports: None Hematologic History: Reports: Anemia Immunologic History: Reports: None Oncologic (Cancer) History: Reports: Basal Cell Carcinoma, Other (See Below) Other Oncologic History: 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 Dermatologic History: Reports: None - Infectious Disease History Infectious Disease History: Reports: Chicken Pox, Measles, Mumps - Past Surgical History Head Surgeries/Procedures: Reports: None HEENT Surgical History: Reports: Cataract Surgery Cardiovascular Surgical History: Reports: None GI Surgical History: Reports: Colonoscopy, Hernia, Abdominal Male Surgical History: Reports: TURP-Transurethral Resection of Prostate, Vasectomy Dermatological Surgical History: Reports: Skin Biopsy Social & Family History - Family History Family Medical History: Unobtainable - Tobacco Use Smoking Status *Q: Former Smoker Years of Tobacco use: 60 Packs/Tins Daily: 1 Used Tobacco, but Quit: Yes Month/Year Tobacco Last Used: 1963 - Caffeine Use Caffeine Use: Reports: Coffee - Recreational Drug Use Recreational Drug Use: No H&P Review of Systems - Review of Systems: Review Of Systems: ROS reveals no pertinent complaints other than HPI. Exam - Exam Exam: See Below - Vital Signs Vital Signs: Last Vital Signs Temp 36.6 C 08/07/18 10:26 Pulse 78 08/07/18 10:26 Resp 18 08/07/18 10:26 BP 102/52 L 08/07/18 10:26 Pulse Ox 98 08/07/18 10:26 Orthostatic Blood Pressure [ 113/51 Standing] Orthostatic Blood Pressure [ 137/56 Sitting] Orthostatic Blood Pressure [ 137/54 Supine] Weight: 80.467 kg - Exam General: Alert, Oriented HEENT: Conjunctiva Clear, Mucosa Moist & [place], Posterior Pharynx Clear Lungs: Clear to Auscultation, Normal Respiratory Effort Cardiovascular: Regular Rate, Regular Rhythm GI/Abdominal Exam: Soft, Non-Tender, No Distention, No Mass Extremities: Normal Inspection - Patient Data Lab Results Last 24 hrs: Laboratory Results - last 24 hr 08/07/18 08/07/18 Range/Units 05:54 05:54 WBC 11.02 H (4.0-11.0) K/uL RBC 4.59 (4.50-5.90) M/uL Hgb 10.6 L (13.0-17.0) g/dL Hct 33.9 L (38.0-50.0) % MCV 73.9 L (80.0-98.0) fL MCH 23.1 L (27.0-32.0) pg MCHC 31.3 (31.0-37.0) g/dL RDW Std Deviation 52.7 (28.0-62.0) fl RDW Coeff of [place] 24 H (11.0-15.0) % Plt Count 324 (150-400) K/uL MPV 9.40 (7.40-12.00) fL Add Manual Diff YES Neutrophils % (Manual) 47 L (48.0-80.0) % Band Neutrophils % 30 % Lymphocytes % (Manual) 20 (16.0-40.0) % Monocytes % (Manual) 2 (0.0-15.0) % Myelocytes % 1 % Nucleated RBC % 0.0 /100WBC Absolute Seg Neuts 5.2 (1.4-5.7) Band Neutrophils # 3.3 Lymphocytes # (Manual) 2.2 (0.6-2.4) Monocytes # (Manual) 0.2 (0.0-0.8) Absolute Myelocytes 0.1 Nucleated RBCs # 0 K/uL Sodium 149 H (136-148) mmol/L Potassium 4.2 (3.5-5.1) mmol/L Chloride 113 H (98-107) mmol/L Carbon Dioxide 23.8 (21.0-32.0) mmol/L BUN 29 H (7.0-18.0) mg/dL Creatinine 1.9 H (0.8-1.3) mg/dL Est Cr Clr Drug Dosing 29.36 mL/min Estimated GFR (MDRD) 34.0 ml/min Glucose 84 (74-106) mg/dL Calcium 8.2 L (8.5-10.1) mg/dL Magnesium 2.1 (1.8-2.4) mg/dL Result Diagrams: 08/07/18 05:54 08/07/18 05:54 Consult PN Assessment/Plan Procedures: Procedures ASSAY OF AMYLASE (03/08/18) ASSAY OF FERRITIN (06/14/18) ASSAY OF LIPASE (03/08/18) ASSAY OF TROPONIN QUANT (03/08/18) BLOOD CULTURE FOR BACTERIA (03/08/18) CARCINOEMBRYONIC ANTIGEN (06/14/18) COLONOSCOPY AND BIOPSY (03/28/18) COMPLETE CBC W/AUTO DIFF WBC (06/14/18) COMPREHEN METABOLIC PANEL (06/14/18) CT ANGIOGRAPHY CHEST (03/08/18) CT HEAD/BRAIN W/O DYE (03/08/18) EGD BIOPSY SINGLE/MULTIPLE (03/28/18) ELECTROCARDIOGRAM TRACING (03/08/18) EMERGENCY DEPT VISIT (03/08/18) FIBRIN DEGRADATION QUANT (03/08/18) GAIT TRAINING THERAPY (05/05/17) HYDRATE IV INFUSION ADD-ON (03/08/18) IRON BINDING TEST (06/14/18) MANUAL THERAPY 1/> REGIONS (05/05/17) METABOLIC PANEL TOTAL CA (03/08/18) PROTHROMBIN TIME (03/08/18) PT EVAL MOD COMPLEX 30 MIN (05/05/17) ROUTINE VENIPUNCTURE (06/14/18) THER/PROPH/DIAG INJ IV PUSH (03/08/18) THERAPEUTIC EXERCISES (05/05/17) TISSUE EXAM BY PATHOLOGIST (01/03/17) TX/PRO/DX INJ NEW DRUG ADDON (03/08/18) URINALYSIS AUTO W/SCOPE (03/08/18) X-RAY EXAM CHEST 1 VIEW (03/08/18) (1) Ileus SNOMED Code(s): 011834915 Code(s): K56.7 - ILEUS, UNSPECIFIED Current Visit: Yes Problem List Initiated/Reviewed/Updated: Yes Plan: CT scan of the abdomen pelvis show moderately dilated loops of bowel consistent with an ileus or partial small bowel obstruction. I reviewed the images myself and do not see a transition point. His anastomotic line appears widely patent. Given the patient's electrolyte abnormalities and concurrent infections, I feel he most likely has an ileus. Either way the patient should be treated with nothing by mouth, continued IV fluids, and ongoing electrolyte replacement. Once he starts passing gas and or having a bowel movement his diet can be advanced as tolerated. He is not vomiting at this time so does not require an NG tube. We'll continue to follow along.
[2018-08-07] MEDS: Enoxaparin 30 MG/0.3 ML Syringe SUBCUT SCH (11:10)
[2018-08-07] MEDS: Clindamycin Phosphate in D5W 600 MG in Premix Bag 1 BAG IV SCH ×4 (15:01→22:50)
[2018-08-07] MEDS ORDERED: Sodium Chloride 0.65% Nasal Spray 45 ML Bottle NAS PRN (19:25)
[2018-08-07] MEDS: Carboxymethylcellulose Sodium 0.5% Ophth Soln 0.4 ML UD Box of 30 EYEBOTH SCH (20:42)
[2018-08-08] MEDS: Piperacillin/Tazobactam 3.375 GM in Sodium Chloride 0.9% 50 ML IV SCH ×2 (01:30→07:30)
[2018-08-08] MEDS: Clindamycin Phosphate in D5W 600 MG in Premix Bag 1 BAG IV SCH ×2 (05:45)
[2018-08-08] MEDS: Omeprazole 20 MG Cap.CR PO SCH (07:35)
--- NOTE | 2018-08-08 08:38 | PCM.PN ---
- General Info Date of Service: 08/08/18 Subjective Update: The patient is a 83 year old male who over the weekend developed aspiration pneumonia and ileus vs partial bowel obstruction. He is down from 3 L of oxygen to 1 L. He denies chest pain, shortness of breath, or abdominal pain. He has had 2 bowel movements since yesterday. He does report that he feels weak. Later I was walking by his room, and found him on the ground, he was alert and oriented. He stated he was trying to get from the chair to the bed and fell. He denies hitting his head, losing consciousness, or any pain anywhere. With nursing assistance, we got him back up into the bed. - Review of Systems General: Reports: Weakness HEENT: Reports: No Symptoms Pulmonary: Reports: Wheezing Cardiovascular: Reports: No Symptoms Gastrointestinal: Denies: Abdominal Pain, Nausea, Vomiting Genitourinary: Reports: No Symptoms Musculoskeletal: Reports: No Symptoms Skin: Reports: No Symptoms Neurological: Reports: No Symptoms Psychiatric: Reports: No Symptoms - Patient Data Vitals - Most Recent: Last Vital Signs Temp 97.2 F 08/08/18 07:42 Pulse 121 H 08/08/18 07:42 Resp 26 H 08/08/18 07:42 BP 97/55 L 08/08/18 07:42 Pulse Ox 94 L 08/08/18 07:42 Orthostatic Blood Pressure [ 113/51 Standing] Orthostatic Blood Pressure [ 137/56 Sitting] Orthostatic Blood Pressure [ 137/54 Supine] Weight - Most Recent: 80.467 kg I&O - Last 24 Hours: Intake & Output 08/07/18 08/08/18 08/08/18 22:59 06:59 14:59 Intake Total 1092 200 Output Total 100 50 Balance 992 150 Lab Results Last 24 Hours: Laboratory Results - last 24 hr 08/08/18 08/08/18 Range/Units 05:20 05:20 WBC 6.05 (4.0-11.0) K/uL RBC 3.85 L (4.50-5.90) M/uL Hgb 8.9 L (13.0-17.0) g/dL Hct 28.3 L (38.0-50.0) % MCV 73.5 L (80.0-98.0) fL MCH 23.1 L (27.0-32.0) pg MCHC 31.4 (31.0-37.0) g/dL RDW Std Deviation 53.4 (28.0-62.0) fl RDW Coeff of [place] 24 H (11.0-15.0) % Plt Count 233 (150-400) K/uL MPV 8.80 (7.40-12.00) fL Add Manual Diff YES Neutrophils % (Manual) 23 L (48.0-80.0) % Band Neutrophils % 39 % Lymphocytes % (Manual) 26 (16.0-40.0) % Monocytes % (Manual) 9 (0.0-15.0) % Eosinophils % (Manual) 3 (0.0-7.0) % Nucleated RBC % 0.0 /100WBC Absolute Seg Neuts 1.4 (1.4-5.7) Band Neutrophils # 2.4 Lymphocytes # (Manual) 1.6 (0.6-2.4) Monocytes # (Manual) 0.5 (0.0-0.8) Eosinophils # (Manual) 0.2 (0.0-0.7) Nucleated RBCs # 0 K/uL Sodium 149 H (136-148) mmol/L Potassium 4.2 (3.5-5.1) mmol/L Chloride 114 H (98-107) mmol/L Carbon Dioxide 24.0 (21.0-32.0) mmol/L BUN 44 H (7.0-18.0) mg/dL Creatinine 2.1 H (0.8-1.3) mg/dL Est Cr Clr Drug Dosing 24.86 mL/min Estimated GFR (MDRD) 30.3 ml/min Glucose 92 (74-106) mg/dL Calcium 8.0 L (8.5-10.1) mg/dL Magnesium 2.1 (1.8-2.4) mg/dL Med Orders - Current: Current Medications Acetaminophen (Tylenol) 650 mg PO Q4H PRN PRN Reason: Pain Last Admin: 08/06/18 04:24 Dose: 650 mg Albuterol/Ipratropium (Duoneb 3.0-0.5 Mg/3 Ml) 3 ml NEB Q4HRRT KATHERINE Artificial Tears (Refresh Plus 0.5%) 0 each EYEBOTH BEDTIME KATHERINE Last Admin: 08/07/18 20:42 Dose: 1 drop Artificial Tears (Refresh Plus 0.5%) 1 each EYEBOTH BID PRN PRN Reason: Dry Eyes Aspirin (Halfprin) 81 mg PO DAILY [facility] Last Admin: 08/07/18 09:54 Dose: Not Given Calcium Carbonate/Glycine (Tums) 1,000 mg PO Q2HR PRN PRN Reason: Indigestion Last Admin: 08/05/18 21:01 Dose: 1,000 mg Calcium Citrate (Calcitrate + Vit D Cap (315 Mg/250 Units)) 2 each PO DAILY [facility] Enoxaparin Sodium (Lovenox) 30 mg SUBCUT Q24H [facility] Last Admin: 08/07/18 11:10 Dose: 30 mg Piperacillin Sod/Tazobactam (Sod 3.375 gm/ Sodium Chloride) 50 mls @ 100 mls/ hr IV Q6H [facility] Last Admin: 08/08/18 07:30 Dose: 100 mls/hr Clindamycin Phosphate 600 mg/ (Premix) 50 mls @ 150 mls/hr IV Q8H [facility] Last Admin: 08/08/18 05:45 Dose: 150 mls/hr Sodium Chloride (Normal Saline) 1,000 mls @ 100 mls/hr IV STAT [facility] Last Admin: 08/07/18 20:30 Dose: 100 mls/hr Losartan Potassium (Cozaar) 50 mg PO DAILY [facility] Last Admin: 08/07/18 09:53 Dose: Not Given Metoprolol Tartrate (Lopressor) 50 mg PO BID [facility] Last Admin: 08/07/18 20:39 Dose: 50 mg Morphine Sulfate (Morphine) 2 mg IVPUSH Q2H PRN PRN Reason: Abdominal Pain Omeprazole (Omeprazole) 20 mg PO ACBREAKFAST [facility] Last Admin: 08/08/18 07:35 Dose: Not Given Ondansetron HCl (Zofran) 4 mg IVPUSH Q4H PRN PRN Reason: Nausea/Vomiting Last Admin: 08/07/18 23:10 Dose: 4 mg Ondansetron HCl (Zofran Odt) 4 mg PO Q4H PRN PRN Reason: Nausea/Vomiting Oxycodone HCl (Oxycodone) 5 mg PO Q4H PRN PRN Reason: Pain (moderate 4-6) Potassium Chloride 8 (Meq Tab.Er) 5 each PO DAILY [facility] Last Admin: 08/07/18 09:56 Dose: Not Given Hydralazine 100 Mg (Tab) 1 each PO BID [facility] Last Admin: 08/07/18 20:43 Dose: 1 each Prochlorperazine Maleate (Compazine) 10 mg PO Q6H PRN PRN Reason: Nausea/Vomiting Sodium Chloride ([place] Nasal [facility]) 0 ml ANUEL DAILY PRN PRN Reason: Nasal Dryness Temazepam (Restoril) 15 mg PO BEDTIME PRN PRN Reason: Insomnia Discontinued Medications Aspirin (Halfprin) 81 mg PO ASDIRECTED [facility] Azithromycin (Zithromax) 500 mg PO Q24H [facility] Last Admin: 08/06/18 15:04 Dose: 500 mg Calcium Carbonate (Caltrate 600+D 1500 Mg-400 Units) 1 tab PO DAILY [facility] Last Admin: 08/07/18 10:55 Dose: Not Given Furosemide (Lasix) 20 mg IVPUSH ONETIME ONE Stop: 08/07/18 05:49 Last Admin: 08/07/18 06:06 Dose: 20 mg Hydralazine HCl (Apresoline) 10 mg IVPUSH Q4H PRN PRN Reason: Other Hydralazine HCl (Apresoline) 100 mg PO BID [facility] Last Admin: 08/05/18 11:55 Dose: 50 mg Hydralazine HCl (Apresoline) 10 mg IVPUSH Q4H PRN PRN Reason: Other Last Admin: 08/06/18 04:13 Dose: 10 mg Sodium Chloride (Normal Saline) 1,000 mls @ 999 mls/hr IV STAT ONE Stop: 08/02/18 18:37 Last Admin: 08/02/18 18:32 Dose: 999 mls/hr Potassium Chloride 40 meq/ (Premix) 100 mls @ 25 mls/hr IV ONETIME ONE Stop: 08/02/18 23:30 Last Admin: 08/02/18 20:55 Dose: 25 mls/hr Sodium Chloride (Normal Saline) 1,000 mls @ 75 mls/hr IV ASDIRECTED [facility] Last Admin: 08/06/18 18:14 Dose: 75 mls/hr Magnesium Sulfate 2 gm/ Premix 50 mls @ 25 mls/hr IV ONETIME ONE Stop: 08/03/18 15:50 Last Admin: 03/28/19 14:29 Dose: 25 mls/hr Magnesium Sulfate 2 gm/ Premix 50 mls @ 25 mls/hr IV ONETIME ONE Stop: 08/04/18 09:15 Last Admin: 08/04/18 08:29 Dose: 25 mls/hr Magnesium Sulfate 2 gm/ Premix 50 mls @ 50 mls/hr IV ONETIME ONE Stop: 08/06/18 07:42 Last Admin: 08/06/18 09:34 Dose: 50 mls/hr Piperacillin Sod/Tazobactam (Sod 3.375 gm/ Sodium Chloride) 50 mls @ 100 mls/ hr IV Q8H [facility] Last Admin: 08/07/18 09:50 Dose: Not Given Clindamycin Phosphate 300 mg/ (Premix) 50 mls @ 150 mls/hr IV Q8H KATHERINE Last Admin: 08/07/18 06:42 Dose: 150 mls/hr Loperamide HCl (Imodium) 2 mg PO Q4H PRN PRN Reason: Diarrhea Last Admin: 08/05/18 11:47 Dose: 2 mg Omeprazole (Omeprazole) 20 mg PO DAILY [facility] Last Admin: 08/05/18 11:38 Dose: Not Given Ondansetron HCl (Zofran) 4 mg IVPUSH ONETIME ONE Stop: 08/02/18 18:37 Last Admin: 08/02/18 18:42 Dose: 4 mg Potassium Chloride 8 (Meq Tab.Er) 5 each PO ONETIME ONE Stop: 08/05/18 21:01 Last Admin: 08/05/18 21:00 Dose: 5 each Potassium Chloride (Klor-Con M20) 40 meq PO ONETIME ONE Stop: 08/02/18 17:44 Last Admin: 08/02/18 18:33 Dose: 40 meq Potassium Chloride (Klor-Con M20) 40 meq PO ONETIME ONE Stop: 08/03/18 08:26 Last Admin: 08/03/18 09:07 Dose: 40 meq Potassium Chloride (Klor-Con M20) 40 meq PO ONETIME ONE Stop: 08/03/18 12:01 Last Admin: 08/03/18 12:09 Dose: 40 meq Potassium Chloride (Klor-Con M20) 40 meq PO ONETIME ONE Stop: 08/04/18 09:01 Last Admin: 08/04/18 08:27 Dose: 40 meq Potassium Chloride (Klor-Con M20) 40 meq PO ONETIME ONE Stop: 08/04/18 21:01 Last Admin: 08/04/18 20:30 Dose: 40 meq Potassium Chloride (Klor-Con M20) 40 meq PO ONETIME ONE Stop: 08/04/18 15:01 Potassium Chloride (Klor-Con M20) 40 meq PO ONETIME ONE Stop: 08/05/18 09:01 Last Admin: 08/05/18 12:01 Dose: Not Given Promethazine HCl (Phenergan) 25 mg IM ONETIME ONE Stop: 08/04/18 18:45 Last Admin: 08/04/18 19:11 Dose: 25 mg Promethazine HCl (Phenergan) 25 mg IM ONETIME ONE Stop: 08/04/18 19:04 Last Admin: 08/04/18 19:13 Dose: Not Given - Exam Quality Assessment: Supplemental Oxygen General: Alert, Oriented, Cooperative Lungs: Rhonchi, Wheezing. No: Normal Respiratory Effort Cardiovascular: Regular Rate, Regular Rhythm GI/Abdominal Exam: Normal Bowel Sounds, Soft, Non-Tender, No Distention Extremities: No Pedal Edema Skin: Warm, Dry Neurological: No New Focal Deficit Psy/Mental Status: Alert, Normal Affect, Normal Mood - Problem List & Annotations (1) Hypomagnesemia SNOMED Code(s): 499977424 Code(s): E83.42 - HYPOMAGNESEMIA Status: Chronic Priority: High Current Visit: Yes Annotation/Comment:: Secondary to GI losses (2) Ambulatory dysfunction SNOMED Code(s): 512077155 Code(s): R26.2 - DIFFICULTY IN WALKING, NOT ELSEWHERE CLASSIFIED Status: Acute Current Visit: Yes (3) MARGARITA (acute kidney injury) SNOMED Code(s): 91221862 Code(s): N17.9 - ACUTE KIDNEY FAILURE, UNSPECIFIED Status: Resolved Current Visit: Yes (4) Colorectal cancer SNOMED Code(s): 830755799 Code(s): C19 - MALIGNANT NEOPLASM OF RECTOSIGMOID JUNCTION Status: Chronic Priority: High Current Visit: No (5) Hypokalemia SNOMED Code(s): 32664938 Code(s): E87.6 - HYPOKALEMIA Status: Acute Current Visit: Yes (6) Weakness generalized SNOMED Code(s): 35291603 Code(s): R53.1 - WEAKNESS Status: Chronic Priority: High Current Visit : Yes (7) Dilated bowel SNOMED Code(s): 66500571 Code(s): UDW6736 - Status: Acute Current Visit: Yes (8) Aspiration pneumonia due to vomit SNOMED Code(s): 154627563 Code(s): J69.0 - PNEUMONITIS DUE TO INHALATION OF FOOD AND VOMIT Status: Acute Current Visit: Yes - Problem List Review Problem List Initiated/Reviewed/Updated: Yes - My Orders Last 24 Hours: My Active Orders 08/07/18 07:35 Morphine 2 mg IVPUSH Q2H PRN 08/07/18 07:36 Notify Provider Consults [RC] ASDIRECTED Consult to Physician [CONS] Routine 08/07/18 07:45 Sodium Chloride 0.9% [Normal Saline] 1,000 ml IV STAT 08/07/18 Lunch NPO Now [Nothing per Oral Now Diet] [DIET] 08/08/18 08:21 RT Aerosol Therapy [RC] ASDIRECTED 08/08/18 09:00 Calcium Citrate/Vitamin D3 [Calcitrate + Vit D Cap (315 MG/250 UNITS)] 2 each PO DAILY 08/08/18 10:00 Albuterol/Ipratropium [DuoNeb 3.0-0.5 MG/3 ML] 3 ml NEB Q4HRRT 08/09/18 05:11 BASIC METABOLIC PANEL,BMP [CHEM] AM CBC WITH AUTO DIFF [HEME] AM 08/10/18 05:11 BASIC METABOLIC PANEL,BMP [CHEM] AM CBC WITH AUTO DIFF [HEME] AM 08/11/18 05:11 BASIC METABOLIC PANEL,BMP [CHEM] AM CBC WITH AUTO DIFF [HEME] AM - Plan Plan:: 1. Aspiration pneumonia- will switch from Zosyn and Clindamycin to Flagyl and Rocephin, oxygen as needed. He was wheezing on exam so I will add duonebs. 2. Dilated small bowel loops concerning for obstruction vs ileus- resolved, patient has had 2 bowel movements, and denies abdominal pain. Will advance diet as tolerated. 3. MARGARITA- worsening, creatinine up from 1.9 to 2.1 and BUN up from 29 to 44, despite IVF yesterday. Nursing reports large amount of urine incontinent diapers but estimate total volume of 150. CT yesterday of ab/pelvis saw a mildly prominent prostate, no hydronephrosis, or problems with bladder. His kidney function may be worse from hypotension, will stop nephrotoxic agents. 4. Fall from chair- patient was evaluated post fall and was alert and oriented. He denies any pain. Will monitor for acute changes. 5. HTN- holding blood pressure meds at current due to low pressure readings
[2018-08-08] MEDS ORDERED: cefTRIAXone 1 GM in Premix Bag 1 BAG IV SCH (10:00)
[2018-08-08] MEDS ORDERED: metroNIDAZOLE/Normal Saline 500 MG in Premix Bag 1 BAG IV SCH (12:00)
[2018-08-08] MEDS: Calcium Citrate/Vitamin D3 Tablet PO SCH (12:23)
[2018-08-08] MEDS: Potassium Chloride 8 MEQ Tab.ER PO SCH (12:25)
[2018-08-08] MEDS: Albuterol/Ipratropium 3.0-0.5 MG/3 ML Neb Soln NEB SCH ×4 (12:50→21:05)
[2018-08-08] MEDS: Aspirin 81 MG Tab.EC PO SCH (12:54)
[2018-08-08] MEDS: Metoprolol Tartrate 50 MG Tab PO SCH (15:25)
[2018-08-08] MEDS: Losartan 50 MG Tab PO SCH (15:25)
[2018-08-08] MEDS: Heparin Sodium 5,000 Units/ML Vial SUBCUT SCH ×2 (15:26→21:08)
[2018-08-08] MEDS: cefTRIAXone 1 GM in Premix Bag 1 BAG IV SCH (17:10)
[2018-08-08] MEDS: metroNIDAZOLE/Normal Saline 500 MG in Premix Bag 1 BAG IV SCH (18:31)
[2018-08-08] MEDS: Carboxymethylcellulose Sodium 0.5% Ophth Soln 0.4 ML UD Box of 30 EYEBOTH SCH (21:00)
[2018-08-08] MEDS: Sodium Chloride 0.9% 1,000 ML IV SCH (22:55)
[2018-08-09] MEDS: Albuterol/Ipratropium 3.0-0.5 MG/3 ML Neb Soln NEB SCH ×6 (01:33→21:19)
[2018-08-09] MEDS: metroNIDAZOLE/Normal Saline 500 MG in Premix Bag 1 BAG IV SCH ×3 (02:00→18:24)
[2018-08-09] MEDS: Heparin Sodium 5,000 Units/ML Vial SUBCUT SCH ×3 (05:20→21:22)
[2018-08-09] MEDS: Metoprolol Tartrate 50 MG Tab PO SCH ×3 (05:24→21:20)
[2018-08-09] MEDS: Omeprazole 20 MG Cap.CR PO SCH (06:30)
[2018-08-09] MEDS: Calcium Citrate/Vitamin D3 Tablet PO SCH (08:06)
[2018-08-09] MEDS: Aspirin 81 MG Tab.EC PO SCH ×2 (08:07→08:12)
--- NOTE | 2018-08-09 08:30 | PCM.PN ---
- General Info Date of Service: 08/09/18 Subjective Update: The patient reports he feels much better today. Overnight his HR increased to the 120-130s. EKG was done and showed sinus tachy with PVC and RBBB. Yesterday he had lower blood pressure so his blood pressure meds were held. His blood pressure is climbing. He is still requiring oxygen but states he doesn't feel as short of breath. The patient, for the first time in days feels like eating. Speech therapy needs to evaluate him due to his risk of aspirating. He denies chest pain, abdominal pain, or fever/chills. - Review of Systems General: Reports: No Symptoms HEENT: Reports: No Symptoms Pulmonary: Reports: Cough. Denies: Shortness of Breath Cardiovascular: Reports: No Symptoms Gastrointestinal: Reports: No Symptoms Genitourinary: Reports: No Symptoms Musculoskeletal: Reports: No Symptoms Skin: Reports: No Symptoms Neurological: Reports: No Symptoms Psychiatric: Reports: No Symptoms - Patient Data Vitals - Most Recent: Last Vital Signs Temp 97 F 08/09/18 07:20 Pulse 96 08/09/18 08:07 Resp 16 08/09/18 07:20 BP 177/72 H 08/09/18 08:07 Pulse Ox 98 08/09/18 07:20 Orthostatic Blood Pressure [ 113/51 Standing] Orthostatic Blood Pressure [ 137/56 Sitting] Orthostatic Blood Pressure [ 137/54 Supine] Weight - Most Recent: 80.467 kg I&O - Last 24 Hours: Intake & Output 08/08/18 08/09/18 08/09/18 22:59 06:59 14:59 Intake Total 200 Output Total 150 Balance 50 Lab Results Last 24 Hours: Laboratory Results - last 24 hr 08/09/18 08/09/18 Range/Units 05:38 05:38 WBC 4.39 (4.0-11.0) K/uL RBC 3.33 L (4.50-5.90) M/uL Hgb 7.7 L (13.0-17.0) g/dL Hct 24.3 L (38.0-50.0) % MCV 73.0 L (80.0-98.0) fL MCH 23.1 L (27.0-32.0) pg MCHC 31.7 (31.0-37.0) g/dL RDW Std Deviation 53.7 (28.0-62.0) fl RDW Coeff of [place] 24 H (11.0-15.0) % Plt Count 225 (150-400) K/uL MPV 8.60 (7.40-12.00) fL Add Manual Diff YES Neutrophils % (Manual) 29 L (48.0-80.0) % Band Neutrophils % 23 % Lymphocytes % (Manual) 34 (16.0-40.0) % Monocytes % (Manual) 13 (0.0-15.0) % Eosinophils % (Manual) 1 (0.0-7.0) % Nucleated RBC % 0.0 /100WBC Absolute Seg Neuts 1.3 L (1.4-5.7) Band Neutrophils # 1.0 Lymphocytes # (Manual) 1.5 (0.6-2.4) Monocytes # (Manual) 0.6 (0.0-0.8) Eosinophils # (Manual) 0.0 (0.0-0.7) Nucleated RBCs # 0 K/uL Sodium 152 H (136-148) mmol/L Potassium 3.5 (3.5-5.1) mmol/L Chloride 116 H (98-107) mmol/L Carbon Dioxide 21.5 (21.0-32.0) mmol/L BUN 40 H (7.0-18.0) mg/dL Creatinine 1.8 H (0.8-1.3) mg/dL Est Cr Clr Drug Dosing 29.00 mL/min Estimated GFR (MDRD) 36.2 ml/min Glucose 91 (74-106) mg/dL Calcium 7.3 L (8.5-10.1) mg/dL Med Orders - Current: Current Medications Acetaminophen (Tylenol) 650 mg PO Q4H PRN PRN Reason: Pain Last Admin: 08/06/18 04:24 Dose: 650 mg Albuterol/Ipratropium (Duoneb 3.0-0.5 Mg/3 Ml) 3 ml NEB Q4HRRT KATHERINE Last Admin: 08/09/18 05:44 Dose: 3 ml Artificial Tears (Refresh Plus 0.5%) 0 each EYEBOTH BEDTIME KATHERINE Last Admin: 08/08/18 21:00 Dose: 1 drop Artificial Tears (Refresh Plus 0.5%) 1 each EYEBOTH BID PRN PRN Reason: Dry Eyes Aspirin (Halfprin) 81 mg PO DAILY [facility] Last Admin: 08/09/18 08:12 Dose: Not Given Calcium Carbonate/Glycine (Tums) 1,000 mg PO Q2HR PRN PRN Reason: Indigestion Last Admin: 08/05/18 21:01 Dose: 1,000 mg Calcium Citrate (Calcitrate + Vit D Cap (315 Mg/250 Units)) 2 each PO DAILY [facility] Last Admin: 08/09/18 08:06 Dose: Not Given Heparin Sodium (Porcine) (Heparin Sodium) 5,000 units SUBCUT Q8H [facility] Last Admin: 08/09/18 05:20 Dose: 5,000 units Sodium Chloride (Normal Saline) 1,000 mls @ 100 mls/hr IV STAT [facility] Last Admin: 08/08/18 22:55 Dose: 100 mls/hr Ceftriaxone Sodium/Dextrose 1 (gm/ Premix) 50 mls @ 100 mls/hr IV Q24H [facility] Last Admin: 08/08/18 17:10 Dose: 100 mls/hr Metronidazole 500 mg/ Premix 100 mls @ 100 mls/hr IV Q8H [facility] Last Admin: 08/09/18 02:00 Dose: 100 mls/hr Metoprolol Tartrate (Lopressor) 50 mg PO BID [facility] Last Admin: 08/09/18 08:07 Dose: 50 mg Morphine Sulfate (Morphine) 2 mg IVPUSH Q2H PRN PRN Reason: Abdominal Pain Omeprazole (Omeprazole) 20 mg PO ACBREAKFAST [facility] Last Admin: 08/09/18 06:30 Dose: Not Given Ondansetron HCl (Zofran) 4 mg IVPUSH Q4H PRN PRN Reason: Nausea/Vomiting Last Admin: 08/07/18 23:10 Dose: 4 mg Ondansetron HCl (Zofran Odt) 4 mg PO Q4H PRN PRN Reason: Nausea/Vomiting Oxycodone HCl (Oxycodone) 5 mg PO Q4H PRN PRN Reason: Pain (moderate 4-6) Potassium Chloride 8 (Meq Tab.Er) 5 each PO DAILY [facility] Last Admin: 08/08/18 12:25 Dose: Not Given Hydralazine 100 Mg (Tab) 1 each PO BID [facility] Last Admin: 08/09/18 08:08 Dose: 1 each Prochlorperazine Maleate (Compazine) 10 mg PO Q6H PRN PRN Reason: Nausea/Vomiting Sodium Chloride ([place] Nasal [place]) 0 ml ANUEL DAILY PRN PRN Reason: Nasal Dryness Temazepam (Restoril) 15 mg PO BEDTIME PRN PRN Reason: Insomnia Discontinued Medications Aspirin (Halfprin) 81 mg PO ASDIRECTED [facility] Azithromycin (Zithromax) 500 mg PO Q24H [facility] Last Admin: 08/06/18 15:04 Dose: 500 mg Calcium Carbonate (Caltrate 600+D 1500 Mg-400 Units) 1 tab PO DAILY [facility] Last Admin: 08/07/18 10:55 Dose: Not Given Enoxaparin Sodium (Lovenox) 30 mg SUBCUT Q24H [facility] Last Admin: 08/07/18 11:10 Dose: 30 mg Furosemide (Lasix) 20 mg IVPUSH ONETIME ONE Stop: 08/07/18 05:49 Last Admin: 08/07/18 06:06 Dose: 20 mg Hydralazine HCl (Apresoline) 10 mg IVPUSH Q4H PRN PRN Reason: Other Hydralazine HCl (Apresoline) 100 mg PO BID [facility] Last Admin: 08/05/18 11:55 Dose: 50 mg Hydralazine HCl (Apresoline) 10 mg IVPUSH Q4H PRN PRN Reason: Other Last Admin: 08/06/18 04:13 Dose: 10 mg Sodium Chloride (Normal Saline) 1,000 mls @ 999 mls/hr IV STAT ONE Stop: 08/02/18 18:37 Last Admin: 08/02/18 18:32 Dose: 999 mls/hr Potassium Chloride 40 meq/ (Premix) 100 mls @ 25 mls/hr IV ONETIME ONE Stop: 08/02/18 23:30 Last Admin: 08/02/18 20:55 Dose: 25 mls/hr Sodium Chloride (Normal Saline) 1,000 mls @ 75 mls/hr IV ASDIRECTED [facility] Last Admin: 08/06/18 18:14 Dose: 75 mls/hr Magnesium Sulfate 2 gm/ Premix 50 mls @ 25 mls/hr IV ONETIME ONE Stop: 08/03/18 15:50 Last Admin: 08/03/18 14:29 Dose: 25 mls/hr Magnesium Sulfate 2 gm/ Premix 50 mls @ 25 mls/hr IV ONETIME ONE Stop: 08/04/18 09:15 Last Admin: 08/04/18 08:29 Dose: 25 mls/hr Magnesium Sulfate 2 gm/ Premix 50 mls @ 50 mls/hr IV ONETIME ONE Stop: 08/06/18 07:42 Last Admin: 08/06/18 09:34 Dose: 50 mls/hr Piperacillin Sod/Tazobactam (Sod 3.375 gm/ Sodium Chloride) 50 mls @ 100 mls/ hr IV Q8H [facility] Last Admin: 08/07/18 09:50 Dose: Not Given Clindamycin Phosphate 300 mg/ (Premix) 50 mls @ 150 mls/hr IV Q8H [facility] Last Admin: 08/07/18 06:42 Dose: 150 mls/hr Piperacillin Sod/Tazobactam (Sod 3.375 gm/ Sodium Chloride) 50 mls @ 100 mls/ hr IV Q6H [facility] Last Admin: 08/08/18 07:30 Dose: 100 mls/hr Clindamycin Phosphate 600 mg/ (Premix) 50 mls @ 150 mls/hr IV Q8H [facility] Last Admin: 08/08/18 05:45 Dose: 150 mls/hr Ceftriaxone Sodium/Dextrose 1 (gm/ Premix) 50 mls @ 100 mls/hr IV Q24H [facility] Last Admin: 08/08/18 17:49 Dose: Not Given Metronidazole 500 mg/ Premix 100 mls @ 100 mls/hr IV Q8H [facility] Last Admin: 08/08/18 17:49 Dose: Not Given Loperamide HCl (Imodium) 2 mg PO Q4H PRN PRN Reason: Diarrhea Last Admin: 08/05/18 11:47 Dose: 2 mg Losartan Potassium (Cozaar) 50 mg PO DAILY [facility] Last Admin: 08/08/18 15:25 Dose: Not Given Metoprolol Tartrate (Lopressor) 50 mg PO BID [facility] Last Admin: 08/08/18 15:25 Dose: Not Given Omeprazole (Omeprazole) 20 mg PO DAILY [facility] Last Admin: 08/05/18 11:38 Dose: Not Given Ondansetron HCl (Zofran) 4 mg IVPUSH ONETIME ONE Stop: 08/02/18 18:37 Last Admin: 08/02/18 18:42 Dose: 4 mg Potassium Chloride 8 (Meq Tab.Er) 5 each PO ONETIME ONE Stop: 08/05/18 21:01 Last Admin: 08/05/18 21:00 Dose: 5 each Potassium Chloride (Klor-Con M20) 40 meq PO ONETIME ONE Stop: 08/02/18 17:44 Last Admin: 08/02/18 18:33 Dose: 40 meq Potassium Chloride (Klor-Con M20) 40 meq PO ONETIME ONE Stop: 08/03/18 08:26 Last Admin: 08/03/18 09:07 Dose: 40 meq Potassium Chloride (Klor-Con M20) 40 meq PO ONETIME ONE Stop: 08/03/18 12:01 Last Admin: 08/03/18 12:09 Dose: 40 meq Potassium Chloride (Klor-Con M20) 40 meq PO ONETIME ONE Stop: 08/04/18 09:01 Last Admin: 08/04/18 08:27 Dose: 40 meq Potassium Chloride (Klor-Con M20) 40 meq PO ONETIME ONE Stop: 08/04/18 21:01 Last Admin: 08/04/18 20:30 Dose: 40 meq Potassium Chloride (Klor-Con M20) 40 meq PO ONETIME ONE Stop: 08/04/18 15:01 Potassium Chloride (Klor-Con M20) 40 meq PO ONETIME ONE Stop: 08/05/18 09:01 Last Admin: 08/05/18 12:01 Dose: Not Given Promethazine HCl (Phenergan) 25 mg IM ONETIME ONE Stop: 08/04/18 18:45 Last Admin: 08/04/18 19:11 Dose: 25 mg Promethazine HCl (Phenergan) 25 mg IM ONETIME ONE Stop: 08/04/18 19:04 Last Admin: 08/04/18 19:13 Dose: Not Given - Exam Quality Assessment: Supplemental Oxygen General: Alert, Oriented, Cooperative Lungs: Normal Respiratory Effort, Rhonchi (bases right>left) Cardiovascular: Regular Rate, Regular Rhythm GI/Abdominal Exam: Normal Bowel Sounds, Soft, Non-Tender, No Distention Extremities: No Pedal Edema Skin: Warm, Dry Neurological: No New Focal Deficit Psy/Mental Status: Alert, Normal Affect, Normal Mood - Problem List & Annotations (1) Hypomagnesemia SNOMED Code(s): 770483928 Code(s): E83.42 - HYPOMAGNESEMIA Status: Chronic Priority: High Current Visit: Yes Annotation/Comment:: Secondary to GI losses (2) Ambulatory dysfunction SNOMED Code(s): 948943865 Code(s): R26.2 - DIFFICULTY IN WALKING, NOT ELSEWHERE CLASSIFIED Status: Acute Current Visit: Yes (3) MARGARITA (acute kidney injury) SNOMED Code(s): 24860980 Code(s): N17.9 - ACUTE KIDNEY FAILURE, UNSPECIFIED Status: Resolved Current Visit: Yes (4) Colorectal cancer SNOMED Code(s): 036596794 Code(s): C19 - MALIGNANT NEOPLASM OF RECTOSIGMOID JUNCTION Status: Chronic Priority: High Current Visit: No (5) Hypokalemia SNOMED Code(s): 89852237 Code(s): E87.6 - HYPOKALEMIA Status: Acute Current Visit: Yes (6) Weakness generalized SNOMED Code(s): 05613528 Code(s): R53.1 - WEAKNESS Status: Chronic Priority: High Current Visit : Yes (7) Dilated bowel SNOMED Code(s): 43301835 Code(s): DUX6385 - Status: Acute Current Visit: Yes (8) Aspiration pneumonia due to vomit SNOMED Code(s): 299773217 Code(s): J69.0 - PNEUMONITIS DUE TO INHALATION OF FOOD AND VOMIT Status: Acute Current Visit: Yes - Problem List Review Problem List Initiated/Reviewed/Updated: Yes - My Orders Last 24 Hours: My Active Orders 08/08/18 08:21 RT Aerosol Therapy [RC] ASDIRECTED 08/08/18 09:00 Calcium Citrate/Vitamin D3 [Calcitrate + Vit D Cap (315 MG/250 UNITS)] 2 each PO DAILY 08/08/18 10:00 Albuterol/Ipratropium [DuoNeb 3.0-0.5 MG/3 ML] 3 ml NEB Q4HRRT 08/08/18 11:15 PICC Line Insertion [CR] Routine 08/08/18 13:51 Consult to Speech Language Pathology [[employer]ES [employer]ENT Evaluation and Treatment] [CONS] Routine 08/10/18 05:11 BASIC METABOLIC PANEL,BMP [CHEM] AM CBC WITH AUTO DIFF [HEME] AM 08/11/18 05:11 BASIC METABOLIC PANEL,BMP [CHEM] AM CBC WITH AUTO DIFF [HEME] AM - Plan Plan:: 1. Aspiration pneumonia- continue Flagyl and Rocephin, oxygen as needed. Will have speech therapy evaluate him for aspiration risk. 2. MARGARITA- improving creatinine down from 2.1 to 1.8 and BUN down from 44 to 40. He is becoming hypernatremic and hyperchloremic- so we will switch fluids to D5W and recheck BMP this evening. 3. HTN- Blood pressure increased from yesterday. Metoprolol restarted, will continue to monitor BP and HR 4. Anemia- will check iron studies, if low will start on iron supplementation. We watch H/H and transfuse if Hgb drops below 7.
--- NOTE | 2018-08-09 08:33 | CR ---
EXAMINATION: Fluoro and ultrasound guided left-sided PICC line placement. HISTORY: PICC line. TECHNIQUE/FINDINGS: After written informed consent was obtained from the patient using ultrasound and Fluoro guidance under aseptic conditions utilizing 1% lidocaine as local anesthesia left cephalic vein was accessed and 5 [place] PICC catheter was deployed with its tip in the distal superior vena cava. The catheter flushes and withdraws blood well. The catheter is flushed with the diluted heparin. The catheter secured well. IMPRESSION: Successful Fluoro and ultrasound guided PICC line placement.
[2018-08-09] MEDS: Dextrose 5% in Water 1,000 ML IV SCH ×2 (09:15→23:32)
[2018-08-09] MEDS: Potassium Chloride 8 MEQ Tab.ER PO SCH (09:17)
[2018-08-09] MEDS: Carboxymethylcellulose Sodium 0.5% Ophth Soln 0.4 ML UD Box of 30 EYEBOTH PRN (09:30)
[2018-08-09] MEDS: Ferrous Sulfate 325 MG Tab PO SCH ×2 (11:53→16:42)
--- NOTE | 2018-08-09 14:23 | CR ---
EXAMINATION: Oropharyngeal video swallow study. HISTORY: Aspiration pneumonia COMPARISON: None TECHNIQUE: Lateral images obtained, speech pathologist present, various barium consistencies provided. FINDINGS: There is adequate bolus formation and transfer. There is decreased epiglottic inversion with adequate tracheal elevation. There is deep penetration with thin and thick liquids without definite aspiration. This did not improve with the chin to technique. Honey thickened collections were better tolerated as were solids and applesauce. IMPRESSION: 1. Deep penetration noted with with thinner consistencies. Please see speech pathology report for full details.
[2018-08-09] MEDS: cefTRIAXone 1 GM in Premix Bag 1 BAG IV SCH (16:38)
[2018-08-09] MEDS: Carboxymethylcellulose Sodium 0.5% Ophth Soln 0.4 ML UD Box of 30 EYEBOTH SCH (21:21)
[2018-08-10] MEDS: Albuterol/Ipratropium 3.0-0.5 MG/3 ML Neb Soln NEB SCH ×5 (02:52→23:29)
[2018-08-10] MEDS: metroNIDAZOLE/Normal Saline 500 MG in Premix Bag 1 BAG IV SCH ×3 (02:52→18:12)
[2018-08-10] MEDS: Heparin Sodium 5,000 Units/ML Vial SUBCUT SCH ×3 (05:02→21:07)
[2018-08-10] MEDS: Omeprazole 20 MG Cap.CR PO SCH (06:51)
[2018-08-10] MEDS: Metoprolol Tartrate 50 MG Tab PO SCH ×2 (08:06→20:49)
[2018-08-10] MEDS: Ferrous Sulfate 325 MG Tab PO SCH ×3 (08:06→16:42)
[2018-08-10] MEDS: Aspirin 81 MG Tab.EC PO SCH (08:07)
[2018-08-10] MEDS: Potassium Chloride 8 MEQ Tab.ER PO SCH (08:07)
[2018-08-10] MEDS: Calcium Citrate/Vitamin D3 Tablet PO SCH (08:37)
--- NOTE | 2018-08-10 08:49 | PCM.PN ---
- General Info Date of Service: 08/10/18 Subjective Update: The patient reports he feels much better today. He was sitting up in his chair off oxygen. He denies chest pain, shortness of breath, or abdominal pain. His only complaint today is diarrhea. - Review of Systems General: Reports: No Symptoms HEENT: Reports: No Symptoms Pulmonary: Reports: No Symptoms Cardiovascular: Reports: No Symptoms Gastrointestinal: Reports: Diarrhea Genitourinary: Reports: No Symptoms Musculoskeletal: Reports: No Symptoms Skin: Reports: No Symptoms Neurological: Reports: No Symptoms Psychiatric: Reports: No Symptoms - Patient Data Vitals - Most Recent: Last Vital Signs Temp 97 F 08/10/18 08:03 Pulse 89 08/10/18 08:06 Resp 20 08/10/18 08:03 BP 108/64 08/10/18 08:06 Pulse Ox 98 08/10/18 08:03 Orthostatic Blood Pressure [ 113/51 Standing] Orthostatic Blood Pressure [ 137/56 Sitting] Orthostatic Blood Pressure [ 137/54 Supine] Weight - Most Recent: 80.467 kg I&O - Last 24 Hours: Intake & Output 08/09/18 08/10/18 08/10/18 22:59 06:59 14:59 Intake Total 728 1289 Output Total 20 Balance 708 1289 Lab Results Last 24 Hours: Laboratory Results - last 24 hr 08/09/18 08/09/18 08/09/18 Range/Units 05:37 08:22 16:15 WBC (4.0-11.0) K/uL RBC (4.50-5.90) M/uL Hgb (13.0-17.0) g/dL Hct (38.0-50.0) % MCV (80.0-98.0) fL MCH (27.0-32.0) pg MCHC (31.0-37.0) g/dL RDW Std Deviation (28.0-62.0) fl RDW Coeff of Salvador (11.0-15.0) % Plt Count (150-400) K/uL MPV (7.40-12.00) fL Add Manual Diff Neutrophils % (Manual) (48.0-80.0) % Band Neutrophils % % Lymphocytes % (Manual) (16.0-40.0) % Monocytes % (Manual) (0.0-15.0) % Eosinophils % (Manual) (0.0-7.0) % Nucleated RBC % /100WBC Absolute Seg Neuts (1.4-5.7) Band Neutrophils # Lymphocytes # (Manual) (0.6-2.4) Monocytes # (Manual) (0.0-0.8) Eosinophils # (Manual) (0.0-0.7) Nucleated RBCs # K/uL Sodium Cancelled 150 H Potassium Cancelled 3.7 Chloride Cancelled 115 H Carbon Dioxide Cancelled 21.7 BUN Cancelled 37 H Creatinine Cancelled 1.8 H Est Cr Clr Drug Dosing Cancelled 29.00 Estimated GFR (MDRD) Cancelled 36.2 Glucose Cancelled 131 H Calcium Cancelled 7.8 L Magnesium (1.8-2.4) mg/dL Iron 7 L (50-175) ug/dL TIBC 137 L (250-450) ug/dL % Saturation 5.11 L (20-55) % Ferritin 327 (26-388) ng/mL 08/10/18 08/10/18 08/10/18 Range/Units 05:00 05:00 05:00 WBC 5.31 (4.0-11.0) K/uL RBC 3.26 L (4.50-5.90) M/uL Hgb 7.5 L (13.0-17.0) g/dL Hct 23.8 L (38.0-50.0) % MCV 73.0 L (80.0-98.0) fL MCH 23.0 L (27.0-32.0) pg MCHC 31.5 (31.0-37.0) g/dL RDW Std Deviation 56.5 (28.0-62.0) fl RDW Coeff of Salvador 24 H (11.0-15.0) % Plt Count 217 (150-400) K/uL MPV 8.70 (7.40-12.00) fL Add Manual Diff YES Neutrophils % (Manual) 45 L (48.0-80.0) % Band Neutrophils % 24 % Lymphocytes % (Manual) 20 (16.0-40.0) % Monocytes % (Manual) 9 (0.0-15.0) % Eosinophils % (Manual) 2 (0.0-7.0) % Nucleated RBC % 0.0 /100WBC Absolute Seg Neuts 2.4 (1.4-5.7) Band Neutrophils # 1.3 Lymphocytes # (Manual) 1.1 (0.6-2.4) Monocytes # (Manual) 0.5 (0.0-0.8) Eosinophils # (Manual) 0.1 (0.0-0.7) Nucleated RBCs # 0 K/uL Sodium 148 Potassium 3.2 L Chloride 115 H Carbon Dioxide 22.8 BUN 31 H Creatinine 1.5 H Est Cr Clr Drug Dosing 34.80 Estimated GFR (MDRD) 44.7 Glucose 142 H Calcium 7.5 L Magnesium 2.0 (1.8-2.4) mg/dL Iron (50-175) ug/dL TIBC (250-450) ug/dL % Saturation (20-55) % Ferritin (26-388) ng/mL Hector Results Last 24 Hours: Microbiology 08/09/18 23:44 Clostridium difficile Toxin A & B - Final Stool / Feces Negative for C.Diff Toxin/AG Stool for WBCs - Final POSITIVE FOR WBC'S 08/09/18 23:44 Campylobacter Antigen Assay - Final Stool / Feces NEGATIVE [facility] Med Orders - Current: Current Medications Acetaminophen (Tylenol) 650 mg PO Q4H PRN PRN Reason: Pain Last Admin: 08/06/18 04:24 Dose: 650 mg Albuterol/Ipratropium (Duoneb 3.0-0.5 Mg/3 Ml) 3 ml NEB Q4HRRT [facility] Last Admin: 08/10/18 05:02 Dose: 3 ml Artificial Tears (Refresh Plus 0.5%) 0 each EYEBOTH BEDTIME [facility] Last Admin: 08/09/18 21:21 Dose: 1 drop Artificial Tears (Refresh Plus 0.5%) 1 each EYEBOTH BID PRN PRN Reason: Dry Eyes Last Admin: 08/09/18 09:30 Dose: 1 drop Aspirin (Halfprin) 81 mg PO DAILY [facility] Last Admin: 08/10/18 08:07 Dose: 81 mg Calcium Carbonate/Glycine (Tums) 1,000 mg PO Q2HR PRN PRN Reason: Indigestion Last Admin: 08/05/18 21:01 Dose: 1,000 mg Calcium Citrate (Calcitrate + Vit D Cap (315 Mg/250 Units)) 2 each PO DAILY [facility] Last Admin: 08/10/18 08:37 Dose: Not Given Ferrous Sulfate (Ferrous Sulfate) 325 mg PO TIDMEALS [facility] Last Admin: 08/10/18 08:06 Dose: 325 mg Heparin Sodium (Porcine) (Heparin Sodium) 5,000 units SUBCUT Q8H [facility] Last Admin: 08/10/18 05:02 Dose: 5,000 units Ceftriaxone Sodium/Dextrose 1 (gm/ Premix) 50 mls @ 100 mls/hr IV Q24H [facility] Last Admin: 08/09/18 16:38 Dose: 100 mls/hr Metronidazole 500 mg/ Premix 100 mls @ 100 mls/hr IV Q8H [facility] Last Admin: 08/10/18 02:52 Dose: 100 mls/hr Dextrose/Water (Dextrose 5% In Water) 1,000 mls @ 100 mls/hr IV ASDIRECTED [facility] Last Admin: 08/09/18 23:32 Dose: 100 mls/hr Metoprolol Tartrate (Lopressor) 50 mg PO BID [facility] Last Admin: 08/10/18 08:06 Dose: 50 mg Morphine Sulfate (Morphine) 2 mg IVPUSH Q2H PRN PRN Reason: Abdominal Pain Omeprazole (Omeprazole) 20 mg PO ACBREAKFAST [facility] Last Admin: 08/10/18 06:51 Dose: 20 mg Ondansetron HCl (Zofran) 4 mg IVPUSH Q4H PRN PRN Reason: Nausea/Vomiting Last Admin: 08/07/18 23:10 Dose: 4 mg Ondansetron HCl (Zofran Odt) 4 mg PO Q4H PRN PRN Reason: Nausea/Vomiting Oxycodone HCl (Oxycodone) 5 mg PO Q4H PRN PRN Reason: Pain (moderate 4-6) Potassium Chloride 8 (Meq Tab.Er) 5 each PO DAILY [facility] Last Admin: 08/10/18 08:07 Dose: 5 each Prochlorperazine Maleate (Compazine) 10 mg PO Q6H PRN PRN Reason: Nausea/Vomiting Last Admin: 08/09/18 12:06 Dose: 10 mg Sodium Chloride ([place] Nasal [place]) 0 ml ANUEL DAILY PRN PRN Reason: Nasal Dryness Temazepam (Restoril) 15 mg PO BEDTIME PRN PRN Reason: Insomnia Discontinued Medications Aspirin (Halfprin) 81 mg PO ASDIRECTED [facility] Azithromycin (Zithromax) 500 mg PO Q24H [facility] Last Admin: 08/06/18 15:04 Dose: 500 mg Calcium Carbonate (Caltrate 600+D 1500 Mg-400 Units) 1 tab PO DAILY [facility] Last Admin: 08/07/18 10:55 Dose: Not Given Enoxaparin Sodium (Lovenox) 30 mg SUBCUT Q24H [facility] Last Admin: 08/07/18 11:10 Dose: 30 mg Furosemide (Lasix) 20 mg IVPUSH ONETIME ONE Stop: 08/07/18 05:49 Last Admin: 08/07/18 06:06 Dose: 20 mg Hydralazine HCl (Apresoline) 10 mg IVPUSH Q4H PRN PRN Reason: Other Hydralazine HCl (Apresoline) 100 mg PO BID [facility] Last Admin: 08/05/18 11:55 Dose: 50 mg Hydralazine HCl (Apresoline) 10 mg IVPUSH Q4H PRN PRN Reason: Other Last Admin: 08/06/18 04:13 Dose: 10 mg Sodium Chloride (Normal Saline) 1,000 mls @ 999 mls/hr IV STAT ONE Stop: 08/02/18 18:37 Last Admin: 08/02/18 18:32 Dose: 999 mls/hr Potassium Chloride 40 meq/ (Premix) 100 mls @ 25 mls/hr IV ONETIME ONE Stop: 08/02/18 23:30 Last Admin: 08/02/18 20:55 Dose: 25 mls/hr Sodium Chloride (Normal Saline) 1,000 mls @ 75 mls/hr IV ASDIRECTED [facility] Last Admin: 08/06/18 18:14 Dose: 75 mls/hr Magnesium Sulfate 2 gm/ Premix 50 mls @ 25 mls/hr IV ONETIME ONE Stop: 08/03/18 15:50 Last Admin: 08/03/18 14:29 Dose: 25 mls/hr Magnesium Sulfate 2 gm/ Premix 50 mls @ 25 mls/hr IV ONETIME ONE Stop: 08/04/18 09:15 Last Admin: 08/04/18 08:29 Dose: 25 mls/hr Magnesium Sulfate 2 gm/ Premix 50 mls @ 50 mls/hr IV ONETIME ONE Stop: 08/06/18 07:42 Last Admin: 08/06/18 09:34 Dose: 50 mls/hr Piperacillin Sod/Tazobactam (Sod 3.375 gm/ Sodium Chloride) 50 mls @ 100 mls/ hr IV Q8H [facility] Last Admin: 08/07/18 09:50 Dose: Not Given Clindamycin Phosphate 300 mg/ (Premix) 50 mls @ 150 mls/hr IV Q8H [facility] Last Admin: 08/07/18 06:42 Dose: 150 mls/hr Piperacillin Sod/Tazobactam (Sod 3.375 gm/ Sodium Chloride) 50 mls @ 100 mls/ hr IV Q6H [facility] Last Admin: 08/08/18 07:30 Dose: 100 mls/hr Clindamycin Phosphate 600 mg/ (Premix) 50 mls @ 150 mls/hr IV Q8H [facility] Last Admin: 08/08/18 05:45 Dose: 150 mls/hr Sodium Chloride (Normal Saline) 1,000 mls @ 100 mls/hr IV STAT [facility] Last Admin: 08/08/18 22:55 Dose: 100 mls/hr Ceftriaxone Sodium/Dextrose 1 (gm/ Premix) 50 mls @ 100 mls/hr IV Q24H [facility] Last Admin: 08/08/18 17:49 Dose: Not Given Metronidazole 500 mg/ Premix 100 mls @ 100 mls/hr IV Q8H [facility] Last Admin: 08/08/18 17:49 Dose: Not Given Loperamide HCl (Imodium) 2 mg PO Q4H PRN PRN Reason: Diarrhea Last Admin: 08/05/18 11:47 Dose: 2 mg Losartan Potassium (Cozaar) 50 mg PO DAILY [facility] Last Admin: 08/08/18 15:25 Dose: Not Given Metoprolol Tartrate (Lopressor) 50 mg PO BID [facility] Last Admin: 08/08/18 15:25 Dose: Not Given Omeprazole (Omeprazole) 20 mg PO DAILY [facility] Last Admin: 08/05/18 11:38 Dose: Not Given Ondansetron HCl (Zofran) 4 mg IVPUSH ONETIME ONE Stop: 08/02/18 18:37 Last Admin: 08/02/18 18:42 Dose: 4 mg Potassium Chloride 8 (Meq Tab.Er) 5 each PO ONETIME ONE Stop: 08/05/18 21:01 Last Admin: 08/05/18 21:00 Dose: 5 each Hydralazine 100 Mg (Tab) 1 each PO BID [facility]ATHERINE Last Admin: 08/10/18 08:26 Dose: Not Given Potassium Chloride (Klor-Con M20) 40 meq PO ONETIME ONE Stop: 08/02/18 17:44 Last Admin: 08/02/18 18:33 Dose: 40 meq Potassium Chloride (Klor-Con M20) 40 meq PO ONETIME ONE Stop: 08/03/18 08:26 Last Admin: 08/03/18 09:07 Dose: 40 meq Potassium Chloride (Klor-Con M20) 40 meq PO ONETIME ONE Stop: 08/03/18 12:01 Last Admin: 08/03/18 12:09 Dose: 40 meq Potassium Chloride (Klor-Con M20) 40 meq PO ONETIME ONE Stop: 08/04/18 09:01 Last Admin: 08/04/18 08:27 Dose: 40 meq Potassium Chloride (Klor-Con M20) 40 meq PO ONETIME ONE Stop: 08/04/18 21:01 Last Admin: 08/04/18 20:30 Dose: 40 meq Potassium Chloride (Klor-Con M20) 40 meq PO ONETIME ONE Stop: 08/04/18 15:01 Potassium Chloride (Klor-Con M20) 40 meq PO ONETIME ONE Stop: 08/05/18 09:01 Last Admin: 08/05/18 12:01 Dose: Not Given Promethazine HCl (Phenergan) 25 mg IM ONETIME ONE Stop: 08/04/18 18:45 Last Admin: 08/04/18 19:11 Dose: 25 mg Promethazine HCl (Phenergan) 25 mg IM ONETIME ONE Stop: 08/04/18 19:04 Last Admin: 08/04/18 19:13 Dose: Not Given - Exam General: Alert, Oriented, Cooperative Lungs: Normal Respiratory Effort, Rhonchi (left base) Cardiovascular: Regular Rate, Regular Rhythm GI/Abdominal Exam: Normal Bowel Sounds, Soft, Non-Tender, No Distention Extremities: No Pedal Edema Skin: Warm, Dry, Intact Neurological: No New Focal Deficit Psy/Mental Status: Alert, Normal Affect, Normal Mood - Problem List & Annotations (1) Hypomagnesemia SNOMED Code(s): 316503617 Code(s): E83.42 - HYPOMAGNESEMIA Status: Chronic Priority: High Current Visit: Yes Annotation/Comment:: Secondary to GI losses (2) Ambulatory dysfunction SNOMED Code(s): 829586851 Code(s): R26.2 - DIFFICULTY IN WALKING, NOT ELSEWHERE CLASSIFIED Status: Acute Current Visit: Yes (3) MARGARITA (acute kidney injury) SNOMED Code(s): 30016002 Code(s): N17.9 - ACUTE KIDNEY FAILURE, UNSPECIFIED Status: Resolved Current Visit: Yes (4) Colorectal cancer SNOMED Code(s): 681438501 Code(s): C19 - MALIGNANT NEOPLASM OF RECTOSIGMOID JUNCTION Status: Chronic Priority: High Current Visit: No (5) Hypokalemia SNOMED Code(s): 45114919 Code(s): E87.6 - HYPOKALEMIA Status: Acute Current Visit: Yes (6) Weakness generalized SNOMED Code(s): 39187060 Code(s): R53.1 - WEAKNESS Status: Chronic Priority: High Current Visit : Yes (7) Dilated bowel SNOMED Code(s): 05069577 Code(s): DMB3492 - Status: Acute Current Visit: Yes (8) Aspiration pneumonia due to vomit SNOMED Code(s): 157166161 Code(s): J69.0 - PNEUMONITIS DUE TO INHALATION OF FOOD AND VOMIT Status: Acute Current Visit: Yes - Problem List Review Problem List Initiated/Reviewed/Updated: Yes - My Orders Last 24 Hours: My Active Orders 08/09/18 12:00 Ferrous Sulfate 325 mg PO TIDMEALS 08/09/18 23:44 CULTURE STOOL + CAMPY+SHIGATOX [RM] Routine 08/11/18 05:11 BASIC METABOLIC PANEL,BMP [CHEM] AM CBC WITH AUTO DIFF [HEME] AM - Plan Plan:: 1. Aspiration pneumonia- continue Flagyl and Rocephin, patient is off oxygen. Speech therapy evaluated him and he had a barium swallow study. It was recommended that he have a regular diet with honey thickened liquids and take pills with applesauce. They recommended repeat barium swallow study in 2-3 weeks to reassess. 2. MARGARITA- improving creatinine down from1.8 to 1.5 and BUN down from 40 to 31. Continue D5W until hypernatremia and hyperchloremia resolves. It is improving. 3. HTN- Metoprolol ordered, will continue to monitor BP and HR 4. Anemia-H/H stable, continue iron supplements. We watch H/H and transfuse if Hgb drops below 7. 5. Diarrhea- rechecked stool studies, positive for WBCs but negative for C.diff and Campylobacter. Shiga still pending. 6. Hypokalemia- will check a magnesium level. He was given his home dose of potassium this morning. He missed his dose yesterday as he was being evaluated for aspiration.
[2018-08-10] MEDS: Dextrose 5% in Water 1,000 ML IV SCH ×2 (11:04→23:29)
[2018-08-10] MEDS ORDERED: Loperamide 2 MG Cap PO PRN (11:19)
[2018-08-10] MEDS: Carboxymethylcellulose Sodium 0.5% Ophth Soln 0.4 ML UD Box of 30 EYEBOTH PRN (16:42)
[2018-08-10] MEDS: cefTRIAXone 1 GM in Premix Bag 1 BAG IV SCH (16:45)
[2018-08-10] MEDS: Carboxymethylcellulose Sodium 0.5% Ophth Soln 0.4 ML UD Box of 30 EYEBOTH SCH (20:50)
[2018-08-11] MEDS: metroNIDAZOLE/Normal Saline 500 MG in Premix Bag 1 BAG IV SCH ×3 (03:19→17:52)
[2018-08-11] MEDS: Albuterol/Ipratropium 3.0-0.5 MG/3 ML Neb Soln NEB SCH ×4 (06:09→23:43)
[2018-08-11] MEDS: Heparin Sodium 5,000 Units/ML Vial SUBCUT SCH ×3 (06:12→22:55)
[2018-08-11] MEDS: Omeprazole 20 MG Cap.CR PO SCH ×2 (06:38→08:41)
[2018-08-11] MEDS: Metoprolol Tartrate 50 MG Tab PO SCH ×2 (08:41→21:02)
[2018-08-11] MEDS: Calcium Citrate/Vitamin D3 Tablet PO SCH (08:42)
[2018-08-11] MEDS: Potassium Chloride 8 MEQ Tab.ER PO SCH (08:42)
[2018-08-11] MEDS: Aspirin 81 MG Tab.EC PO SCH (08:42)
[2018-08-11] MEDS: Ferrous Sulfate 325 MG Tab PO SCH ×3 (08:42→17:19)
--- NOTE | 2018-08-11 09:00 | PCM.PN ---
- General Info Date of Service: 08/11/18 Subjective Update: The patient feels worse today, he had diarrhea all day yesterday and last night and he started vomiting this morning. He denies abdominal pain, shortness of breath, or chest pain. He feels like his abdomen is a little more distended and he doesn't think he has had a bowel movement since last night. Per nursing overnight he had 4 bowel movements. On labs this morning it appears that his glucose was 523 but they did not flush his PICC where D5W was running. Bedside accucheck showed a blood sugar of 132. - Review of Systems General: Reports: No Symptoms HEENT: Reports: No Symptoms Pulmonary: Reports: No Symptoms Cardiovascular: Reports: No Symptoms Gastrointestinal: Reports: Diarrhea, Vomiting. Denies: Abdominal Pain Genitourinary: Reports: No Symptoms Musculoskeletal: Reports: No Symptoms Skin: Reports: No Symptoms Neurological: Reports: No Symptoms Psychiatric: Reports: No Symptoms - Patient Data Vitals - Most Recent: Last Vital Signs Temp 97.6 F 08/11/18 08:00 Pulse 106 H 08/11/18 08:41 Resp 19 08/11/18 08:00 BP 146/77 H 08/11/18 08:41 Pulse Ox 97 08/11/18 08:00 Orthostatic Blood Pressure [ 113/51 Standing] Orthostatic Blood Pressure [ 137/56 Sitting] Orthostatic Blood Pressure [ 137/54 Supine] Weight - Most Recent: 80.467 kg I&O - Last 24 Hours: Intake & Output 08/10/18 08/11/18 08/11/18 22:59 06:59 14:59 Intake Total 749 1035 Balance 749 1035 Lab Results Last 24 Hours: Laboratory Results - last 24 hr 08/11/18 08/11/18 08/11/18 Range/Units 05:58 05:58 05:58 WBC 9.39 (4.0-11.0) K/uL RBC 3.58 L (4.50-5.90) M/uL Hgb 8.2 L (13.0-17.0) g/dL Hct 26.5 L (38.0-50.0) % MCV 74.0 L (80.0-98.0) fL MCH 22.9 L (27.0-32.0) pg MCHC 30.9 L (31.0-37.0) g/dL RDW Std Deviation 59.8 (28.0-62.0) fl RDW Coeff of [place] 24 H (11.0-15.0) % Plt Count 221 (150-400) K/uL MPV 9.40 (7.40-12.00) fL Add Manual Diff YES Neutrophils % (Manual) 63 (48.0-80.0) % Band Neutrophils % 20 % Lymphocytes % (Manual) 6 L (16.0-40.0) % Monocytes % (Manual) 10 (0.0-15.0) % Eosinophils % (Manual) 1 (0.0-7.0) % Nucleated RBC % 0.0 /100WBC Absolute Seg Neuts 5.9 H (1.4-5.7) Band Neutrophils # 1.9 Lymphocytes # (Manual) 0.6 (0.6-2.4) Monocytes # (Manual) 0.9 H (0.0-0.8) Eosinophils # (Manual) 0.1 (0.0-0.7) Nucleated RBCs # 0 K/uL Sodium 132 L (136-148) mmol/L Potassium 3.2 L (3.5-5.1) mmol/L Chloride 103 (98-107) mmol/L Carbon Dioxide 20.0 L (21.0-32.0) mmol/L BUN 18 (7.0-18.0) mg/dL Creatinine 1.5 H (0.8-1.3) mg/dL Est Cr Clr Drug Dosing 34.80 mL/min Estimated GFR (MDRD) 44.7 ml/min Glucose 523 H* (74-106) mg/dL Calcium 7.1 L (8.5-10.1) mg/dL Magnesium 1.7 L (1.8-2.4) mg/dL Hector Results Last 24 Hours: Microbiology 08/09/18 23:44 Campylobacter Antigen Assay - Final Stool / Feces NEGATIVE CAMPYLOBACTER AG Shiga Toxin I - Final NEGATIVE FOR SHIGA TOXIN 1 Shiga Toxin II - Final NEGATIVE FOR SHIGA TOXIN 2 Med Orders - Current: Current Medications Acetaminophen (Tylenol) 650 mg PO Q4H PRN PRN Reason: Pain Last Admin: 08/06/18 04:24 Dose: 650 mg Albuterol/Ipratropium (Duoneb 3.0-0.5 Mg/3 Ml) 3 ml NEB Q6HRRT [facility] Last Admin: 08/11/18 06:09 Dose: 3 ml Artificial Tears (Refresh Plus 0.5%) 0 each EYEBOTH BEDTIME [facility] Last Admin: 08/10/18 20:50 Dose: 1 drop Artificial Tears (Refresh Plus 0.5%) 1 each EYEBOTH BID PRN PRN Reason: Dry Eyes Last Admin: 08/10/18 16:42 Dose: 1 drop Aspirin (Halfprin) 81 mg PO DAILY [facility] Last Admin: 08/11/18 08:42 Dose: 81 mg Calcium Carbonate/Glycine (Tums) 1,000 mg PO Q2HR PRN PRN Reason: Indigestion Last Admin: 08/05/18 21:01 Dose: 1,000 mg Calcium Citrate (Calcitrate + Vit D Cap (315 Mg/250 Units)) 2 each PO DAILY [facility] Last Admin: 08/11/18 08:42 Dose: Not Given Ferrous Sulfate (Ferrous Sulfate) 325 mg PO TIDMEALS [facility] Last Admin: 08/11/18 08:42 Dose: 325 mg Heparin Sodium (Porcine) (Heparin Sodium) 5,000 units SUBCUT Q8H [facility] Last Admin: 08/11/18 06:12 Dose: 5,000 units Ceftriaxone Sodium/Dextrose 1 (gm/ Premix) 50 mls @ 100 mls/hr IV Q24H [facility] Last Admin: 08/10/18 16:45 Dose: 100 mls/hr Metronidazole 500 mg/ Premix 100 mls @ 100 mls/hr IV Q8H [facility] Last Admin: 08/11/18 03:19 Dose: 100 mls/hr Loperamide HCl (Imodium) 2 mg PO BID PRN PRN Reason: Diarrhea Last Admin: 08/10/18 11:46 Dose: 2 mg Metoprolol Tartrate (Lopressor) 50 mg PO BID [facility] Last Admin: 08/11/18 08:41 Dose: 50 mg Morphine Sulfate (Morphine) 2 mg IVPUSH Q2H PRN PRN Reason: Abdominal Pain Omeprazole (Omeprazole) 20 mg PO ACBREAKFAST [facility] Last Admin: 08/11/18 08:41 Dose: 20 mg Ondansetron HCl (Zofran) 4 mg IVPUSH Q4H PRN PRN Reason: Nausea/Vomiting Last Admin: 08/07/18 23:10 Dose: 4 mg Ondansetron HCl (Zofran Odt) 4 mg PO Q4H PRN PRN Reason: Nausea/Vomiting Oxycodone HCl (Oxycodone) 5 mg PO Q4H PRN PRN Reason: Pain (moderate 4-6) Potassium Chloride 8 (Meq Tab.Er) 5 each PO DAILY [facility] Last Admin: 08/11/18 08:42 Dose: 5 each Prochlorperazine Maleate (Compazine) 10 mg PO Q6H PRN PRN Reason: Nausea/Vomiting Last Admin: 08/09/18 12:06 Dose: 10 mg Sodium Chloride ([place] Nasal [place]) 0 ml ANUEL DAILY PRN PRN Reason: Nasal Dryness Temazepam (Restoril) 15 mg PO BEDTIME PRN PRN Reason: Insomnia Discontinued Medications Albuterol/Ipratropium (Duoneb 3.0-0.5 Mg/3 Ml) 3 ml NEB Q4HRRT [facility] Last Admin: 08/10/18 10:10 Dose: 3 ml Aspirin (Halfprin) 81 mg PO ASDIRECTED [facility] Azithromycin (Zithromax) 500 mg PO Q24H [facility] Last Admin: 08/06/18 15:04 Dose: 500 mg Calcium Carbonate (Caltrate 600+D 1500 Mg-400 Units) 1 tab PO DAILY [facility] Last Admin: 08/07/18 10:55 Dose: Not Given Enoxaparin Sodium (Lovenox) 30 mg SUBCUT Q24H [facility] Last Admin: 08/07/18 11:10 Dose: 30 mg Furosemide (Lasix) 20 mg IVPUSH ONETIME ONE Stop: 08/07/18 05:49 Last Admin: 08/07/18 06:06 Dose: 20 mg Hydralazine HCl (Apresoline) 10 mg IVPUSH Q4H PRN PRN Reason: Other Hydralazine HCl (Apresoline) 100 mg PO BID [facility] Last Admin: 08/05/18 11:55 Dose: 50 mg Hydralazine HCl (Apresoline) 10 mg IVPUSH Q4H PRN PRN Reason: Other Last Admin: 08/06/18 04:13 Dose: 10 mg Sodium Chloride (Normal Saline) 1,000 mls @ 999 mls/hr IV STAT ONE Stop: 08/02/18 18:37 Last Admin: 08/02/18 18:32 Dose: 999 mls/hr Potassium Chloride 40 meq/ (Premix) 100 mls @ 25 mls/hr IV ONETIME ONE Stop: 08/02/18 23:30 Last Admin: 08/02/18 20:55 Dose: 25 mls/hr Sodium Chloride (Normal Saline) 1,000 mls @ 75 mls/hr IV ASDIRECTED [facility] Last Admin: 08/06/18 18:14 Dose: 75 mls/hr Magnesium Sulfate 2 gm/ Premix 50 mls @ 25 mls/hr IV ONETIME ONE Stop: 08/03/18 15:50 Last Admin: 08/03/18 14:29 Dose: 25 mls/hr Magnesium Sulfate 2 gm/ Premix 50 mls @ 25 mls/hr IV ONETIME ONE Stop: 08/04/18 09:15 Last Admin: 08/04/18 08:29 Dose: 25 mls/hr Magnesium Sulfate 2 gm/ Premix 50 mls @ 50 mls/hr IV ONETIME ONE Stop: 08/06/18 07:42 Last Admin: 08/06/18 09:34 Dose: 50 mls/hr Piperacillin Sod/Tazobactam (Sod 3.375 gm/ Sodium Chloride) 50 mls @ 100 mls/ hr IV Q8H [facility] Last Admin: 08/07/18 09:50 Dose: Not Given Clindamycin Phosphate 300 mg/ (Premix) 50 mls @ 150 mls/hr IV Q8H [facility] Last Admin: 08/07/18 06:42 Dose: 150 mls/hr Piperacillin Sod/Tazobactam (Sod 3.375 gm/ Sodium Chloride) 50 mls @ 100 mls/ hr IV Q6H [facility] Last Admin: 08/08/18 07:30 Dose: 100 mls/hr Clindamycin Phosphate 600 mg/ (Premix) 50 mls @ 150 mls/hr IV Q8H [facility] Last Admin: 08/08/18 05:45 Dose: 150 mls/hr Sodium Chloride (Normal Saline) 1,000 mls @ 100 mls/hr IV STAT [facility] Last Admin: 08/08/18 22:55 Dose: 100 mls/hr Ceftriaxone Sodium/Dextrose 1 (gm/ Premix) 50 mls @ 100 mls/hr IV Q24H [facility] Last Admin: 08/08/18 17:49 Dose: Not Given Metronidazole 500 mg/ Premix 100 mls @ 100 mls/hr IV Q8H [facility] Last Admin: 08/08/18 17:49 Dose: Not Given Dextrose/Water (Dextrose 5% In Water) 1,000 mls @ 100 mls/hr IV ASDIRECTED [facility] Last Admin: 08/10/18 23:29 Dose: 100 mls/hr Loperamide HCl (Imodium) 2 mg PO Q4H PRN PRN Reason: Diarrhea Last Admin: 08/05/18 11:47 Dose: 2 mg Losartan Potassium (Cozaar) 50 mg PO DAILY [facility] Last Admin: 08/08/18 15:25 Dose: Not Given Metoprolol Tartrate (Lopressor) 50 mg PO BID [facility] Last Admin: 08/08/18 15:25 Dose: Not Given Omeprazole (Omeprazole) 20 mg PO DAILY [facility] Last Admin: 08/05/18 11:38 Dose: Not Given Ondansetron HCl (Zofran) 4 mg IVPUSH ONETIME ONE Stop: 08/02/18 18:37 Last Admin: 08/02/18 18:42 Dose: 4 mg Potassium Chloride 8 (Meq Tab.Er) 5 each PO ONETIME ONE Stop: 08/05/18 21:01 Last Admin: 08/05/18 21:00 Dose: 5 each Hydralazine 100 Mg (Tab) 1 each PO BID [facility] Last Admin: 08/10/18 08:26 Dose: Not Given Potassium Chloride (Klor-Con M20) 40 meq PO ONETIME ONE Stop: 08/02/18 17:44 Last Admin: 08/02/18 18:33 Dose: 40 meq Potassium Chloride (Klor-Con M20) 40 meq PO ONETIME ONE Stop: 08/03/18 08:26 Last Admin: 08/03/18 09:07 Dose: 40 meq Potassium Chloride (Klor-Con M20) 40 meq PO ONETIME ONE Stop: 08/03/18 12:01 Last Admin: 08/03/18 12:09 Dose: 40 meq Potassium Chloride (Klor-Con M20) 40 meq PO ONETIME ONE Stop: 08/04/18 09:01 Last Admin: 08/04/18 08:27 Dose: 40 meq Potassium Chloride (Klor-Con M20) 40 meq PO ONETIME ONE Stop: 08/04/18 21:01 Last Admin: 08/04/18 20:30 Dose: 40 meq Potassium Chloride (Klor-Con M20) 40 meq PO ONETIME ONE Stop: 08/04/18 15:01 Potassium Chloride (Klor-Con M20) 40 meq PO ONETIME ONE Stop: 08/05/18 09:01 Last Admin: 08/05/18 12:01 Dose: Not Given Promethazine HCl (Phenergan) 25 mg IM ONETIME ONE Stop: 08/04/18 18:45 Last Admin: 08/04/18 19:11 Dose: 25 mg Promethazine HCl (Phenergan) 25 mg IM ONETIME ONE Stop: 08/04/18 19:04 Last Admin: 08/04/18 19:13 Dose: Not Given - Exam General: Alert, Oriented, Cooperative Lungs: Clear to Auscultation, Normal Respiratory Effort Cardiovascular: Regular Rate, Regular Rhythm GI/Abdominal Exam: Normal Bowel Sounds, Non-Tender, Distended Extremities: No Pedal Edema Skin: Warm, Dry Neurological: No New Focal Deficit Psy/Mental Status: Alert, Normal Affect, Normal Mood - Problem List & Annotations (1) Hypomagnesemia SNOMED Code(s): 014229562 Code(s): E83.42 - HYPOMAGNESEMIA Status: Chronic Priority: High Current Visit: Yes Annotation/Comment:: Secondary to GI losses (2) Ambulatory dysfunction SNOMED Code(s): 210604018 Code(s): R26.2 - DIFFICULTY IN WALKING, NOT ELSEWHERE CLASSIFIED Status: Acute Current Visit: Yes (3) MARGARITA (acute kidney injury) SNOMED Code(s): 43094802 Code(s): N17.9 - ACUTE KIDNEY FAILURE, UNSPECIFIED Status: Resolved Current Visit: Yes (4) Colorectal cancer SNOMED Code(s): 689015497 Code(s): C19 - MALIGNANT NEOPLASM OF RECTOSIGMOID JUNCTION Status: Chronic Priority: High Current Visit: No (5) Hypokalemia SNOMED Code(s): 19026810 Code(s): E87.6 - HYPOKALEMIA Status: Acute Current Visit: Yes (6) Weakness generalized SNOMED Code(s): 87187028 Code(s): R53.1 - WEAKNESS Status: Chronic Priority: High Current Visit : Yes (7) Dilated bowel SNOMED Code(s): 98363243 Code(s): NQH4888 - Status: Acute Current Visit: Yes (8) Aspiration pneumonia due to vomit SNOMED Code(s): 352651818 Code(s): J69.0 - PNEUMONITIS DUE TO INHALATION OF FOOD AND VOMIT Status: Acute Current Visit: Yes - Problem List Review Problem List Initiated/Reviewed/Updated: Yes - My Orders Last 24 Hours: My Active Orders 08/10/18 11:19 Loperamide [Imodium] 2 mg PO BID PRN 08/10/18 18:00 Albuterol/Ipratropium [DuoNeb 3.0-0.5 MG/3 ML] 3 ml NEB Q6HRRT - Plan Plan:: 1. Aspiration pneumonia- continue Flagyl and Rocephin, patient is off oxygen. Speech therapy evaluated him and he had a barium swallow study. It was recommended that he have a regular diet with honey thickened liquids and take pills with applesauce. They recommended repeat barium swallow study in 2-3 weeks to reassess. 2. MARGARITA- worsening, Cr increased from 1.5 to 1.7. Hypernatremia/hyperchloremia improved so we will switch him back to normal saline. 3. HTN- Metoprolol ordered, will continue to monitor BP and HR 4. Anemia-H/H stable, continue iron supplements. We watch H/H and transfuse if Hgb drops below 7. 5. Diarrhea- resolved,rechecked stool studies, positive for WBCs but negative for C.diff, Camplyobacter, and Shiga. He now reports he hasn't had a bowel movement since yesterday and his abdomen is more distended, will get a x-ray of the abdomen.
--- NOTE | 2018-08-11 14:27 | CR ---
EXAMINATION: Abdomen HISTORY: Pain COMPARISON: CT 08/07/2018 TECHNIQUE: AP and upright views FINDINGS: There are prominently dilated loops of small bowel noted. There is a small amount of stool and gas within the colon and rectum. Gaseous distention of the stomach. No free air under the diaphragm. No organomegaly. No abnormal calcifications project over the kidneys. Diverticulosis. IMPRESSION: 1. Notably dilated loops of small bowel consistent with a bowel obstruction or possibly an ileus.
--- NOTE | 2018-08-11 16:33 | PCM.CONSN ---
- General Info Date of Service: 08/11/18 Admission Dx/Problem (Free Text): Patient seen earlier this week by Dr. Sewell for a possible SBO. Was admitted with acute kidney injury, dehydration and diarrhea. Has had an up and down course since admission. Diarrhea has subsided but patient became more distended today. +/- increasing abdominal pain. Patient states he is passing gas. Asked to see him today because of increasing distension. X-rays today show a very dilated stomach and dilated small bowel. Differential diagnosis offered was SBO vs ileus. Functional Status: Reports: Pain Controlled, Ambulating (poorly) - Review of Systems General: Reports: Weakness, Fatigue, Malaise. Denies: Fever, Chills HEENT: Reports: No Symptoms Pulmonary: Reports: Shortness of Breath, Cough (recently had developed an aspiration pneumonia) Cardiovascular: Denies: Chest Pain Gastrointestinal: Reports: Decreased Appetite, Diarrhea, Difficulty Swallowing, Flatus. Denies: Constipation, Hematochezia, Melena Genitourinary: Reports: No Symptoms Musculoskeletal: Reports: No Symptoms Skin: Reports: Pallor. Denies: Cyanosis, Jaundice, Mottled, Diaphoresis Neurological: Denies: Confusion, Dizziness Psychiatric: Denies: Confusion, Depression - Patient Data Vitals - Most Recent: Last Vital Signs Temp 96.7 F 08/11/18 12:00 Pulse 102 H 08/11/18 12:00 Resp 18 08/11/18 12:00 BP 128/67 08/11/18 12:00 Pulse Ox 95 08/11/18 12:00 Orthostatic Blood Pressure [ 113/51 Standing] Orthostatic Blood Pressure [ 137/56 Sitting] Orthostatic Blood Pressure [ 137/54 Supine] Weight - Most Recent: 177 lb 6.4 oz I&O - Last 24 Hours: Intake & Output 08/11/18 08/11/18 08/11/18 03:59 11:59 19:59 Intake Total 1035 0 Output Total 700 Balance 1035 -700 Lab Results Last 24 Hours: Laboratory Results - last 24 hr 08/11/18 08/11/18 08/11/18 Range/Units 05:58 05:58 05:58 WBC 9.39 (4.0-11.0) K/uL RBC 3.58 L (4.50-5.90) M/uL Hgb 8.2 L (13.0-17.0) g/dL Hct 26.5 L (38.0-50.0) % MCV 74.0 L (80.0-98.0) fL MCH 22.9 L (27.0-32.0) pg MCHC 30.9 L (31.0-37.0) g/dL RDW Std Deviation 59.8 (28.0-62.0) fl RDW Coeff of Salvador 24 H (11.0-15.0) % Plt Count 221 (150-400) K/uL MPV 9.40 (7.40-12.00) fL Add Manual Diff YES Neutrophils % (Manual) 63 (48.0-80.0) % Band Neutrophils % 20 % Lymphocytes % (Manual) 6 L (16.0-40.0) % Monocytes % (Manual) 10 (0.0-15.0) % Eosinophils % (Manual) 1 (0.0-7.0) % Nucleated RBC % 0.0 /100WBC Absolute Seg Neuts 5.9 H (1.4-5.7) Band Neutrophils # 1.9 Lymphocytes # (Manual) 0.6 (0.6-2.4) Monocytes # (Manual) 0.9 H (0.0-0.8) Eosinophils # (Manual) 0.1 (0.0-0.7) Nucleated RBCs # 0 K/uL Sodium 132 L (136-148) mmol/L Potassium 3.2 L (3.5-5.1) mmol/L Chloride 103 (98-107) mmol/L Carbon Dioxide 20.0 L (21.0-32.0) mmol/L BUN 18 (7.0-18.0) mg/dL Creatinine 1.5 H (0.8-1.3) mg/dL Est Cr Clr Drug Dosing 34.80 mL/min Estimated GFR (MDRD) 44.7 ml/min Glucose 523 H* (74-106) mg/dL POC Glucose (60-110) mg/dL Calcium 7.1 L (8.5-10.1) mg/dL Magnesium 1.7 L (1.8-2.4) mg/dL 08/11/18 08/11/18 Range/Units 07:01 11:31 WBC (4.0-11.0) K/uL RBC (4.50-5.90) M/uL Hgb (13.0-17.0) g/dL Hct (38.0-50.0) % MCV (80.0-98.0) fL MCH (27.0-32.0) pg MCHC (31.0-37.0) g/dL RDW Std Deviation (28.0-62.0) fl RDW Coeff of Salvador (11.0-15.0) % Plt Count (150-400) K/uL MPV (7.40-12.00) fL Add Manual Diff Neutrophils % (Manual) (48.0-80.0) % Band Neutrophils % % Lymphocytes % (Manual) (16.0-40.0) % Monocytes % (Manual) (0.0-15.0) % Eosinophils % (Manual) (0.0-7.0) % Nucleated RBC % /100WBC Absolute Seg Neuts (1.4-5.7) Band Neutrophils # Lymphocytes # (Manual) (0.6-2.4) Monocytes # (Manual) (0.0-0.8) Eosinophils # (Manual) (0.0-0.7) Nucleated RBCs # K/uL Sodium 144 (136-148) mmol/L Potassium 3.8 (3.5-5.1) mmol/L Chloride 113 H (98-107) mmol/L Carbon Dioxide 20.5 L (21.0-32.0) mmol/L BUN 21 H (7.0-18.0) mg/dL Creatinine 1.7 H (0.8-1.3) mg/dL Est Cr Clr Drug Dosing 30.71 mL/min Estimated GFR (MDRD) 38.7 ml/min Glucose 107 H (74-106) mg/dL POC Glucose 133 H (60-110) mg/dL Calcium 7.6 L (8.5-10.1) mg/dL Magnesium (1.8-2.4) mg/dL Hector Results Last 24 Hours: Microbiology 08/09/18 23:44 Stool Culture - Final Stool / Feces NO SALMONELLA, SHIGELLA,OR E.COLI O157 ISOLATED Campylobacter Antigen Assay - Final NEGATIVE CAMPYLOBACTER AG Shiga Toxin I - Final NEGATIVE FOR SHIGA TOXIN 1 Shiga Toxin II - Final NEGATIVE FOR SHIGA TOXIN 2 Med Orders - Current: Current Medications Acetaminophen (Tylenol) 650 mg PO Q4H PRN PRN Reason: Pain Last Admin: 08/06/18 04:24 Dose: 650 mg Albuterol/Ipratropium (Duoneb 3.0-0.5 Mg/3 Ml) 3 ml NEB Q6HRRT [facility] Last Admin: 08/11/18 12:13 Dose: 3 ml Artificial Tears (Refresh Plus 0.5%) 0 each EYEBOTH BEDTIME [facility] Last Admin: 08/10/18 20:50 Dose: 1 drop Artificial Tears (Refresh Plus 0.5%) 1 each EYEBOTH BID PRN PRN Reason: Dry Eyes Last Admin: 08/10/18 16:42 Dose: 1 drop Aspirin (Halfprin) 81 mg PO DAILY [facility] Last Admin: 08/11/18 08:42 Dose: 81 mg Calcium Carbonate/Glycine (Tums) 1,000 mg PO Q2HR PRN PRN Reason: Indigestion Last Admin: 08/05/18 21:01 Dose: 1,000 mg Calcium Citrate (Calcitrate + Vit D Cap (315 Mg/250 Units)) 2 each PO DAILY [facility] Last Admin: 08/11/18 08:42 Dose: Not Given Ferrous Sulfate (Ferrous Sulfate) 325 mg PO TIDMEALS [facility] Last Admin: 08/11/18 12:30 Dose: 325 mg Heparin Sodium (Porcine) (Heparin Sodium) 5,000 units SUBCUT Q8H [facility] Last Admin: 08/11/18 14:33 Dose: 5,000 units Ceftriaxone Sodium/Dextrose 1 (gm/ Premix) 50 mls @ 100 mls/hr IV Q24H [facility] Last Admin: 08/10/18 16:45 Dose: 100 mls/hr Metronidazole 500 mg/ Premix 100 mls @ 100 mls/hr IV Q8H [facility] Last Admin: 08/11/18 09:58 Dose: 100 mls/hr Metoprolol Tartrate (Lopressor) 50 mg PO BID [facility] Last Admin: 08/11/18 08:41 Dose: 50 mg Morphine Sulfate (Morphine) 2 mg IVPUSH Q2H PRN PRN Reason: Abdominal Pain Omeprazole (Omeprazole) 20 mg PO ACBREAKFAST [facility] Last Admin: 08/11/18 08:41 Dose: 20 mg Ondansetron HCl (Zofran) 4 mg IVPUSH Q4H PRN PRN Reason: Nausea/Vomiting Last Admin: 08/07/18 23:10 Dose: 4 mg Ondansetron HCl (Zofran Odt) 4 mg PO Q4H PRN PRN Reason: Nausea/Vomiting Oxycodone HCl (Oxycodone) 5 mg PO Q4H PRN PRN Reason: Pain (moderate 4-6) Potassium Chloride 8 (Meq Tab.Er) 5 each PO DAILY [facility] Last Admin: 08/11/18 08:42 Dose: 5 each Prochlorperazine Maleate (Compazine) 10 mg PO Q6H PRN PRN Reason: Nausea/Vomiting Last Admin: 08/09/18 12:06 Dose: 10 mg Sodium Chloride (Sylvarena Nasal Gepp) 0 ml ANUEL DAILY PRN PRN Reason: Nasal Dryness Temazepam (Restoril) 15 mg PO BEDTIME PRN PRN Reason: Insomnia Discontinued Medications Albuterol/Ipratropium (Duoneb 3.0-0.5 Mg/3 Ml) 3 ml NEB Q4HRRT [facility] Last Admin: 08/10/18 10:10 Dose: 3 ml Aspirin (Halfprin) 81 mg PO ASDIRECTED [facility] Azithromycin (Zithromax) 500 mg PO Q24H [facility] Last Admin: 08/06/18 15:04 Dose: 500 mg Calcium Carbonate (Caltrate 600+D 1500 Mg-400 Units) 1 tab PO DAILY [facility] Last Admin: 08/07/18 10:55 Dose: Not Given Enoxaparin Sodium (Lovenox) 30 mg SUBCUT Q24H [facility] Last Admin: 08/07/18 11:10 Dose: 30 mg Furosemide (Lasix) 20 mg IVPUSH ONETIME ONE Stop: 08/07/18 05:49 Last Admin: 08/07/18 06:06 Dose: 20 mg Hydralazine HCl (Apresoline) 10 mg IVPUSH Q4H PRN PRN Reason: Other Hydralazine HCl (Apresoline) 100 mg PO BID [facility] Last Admin: 08/05/18 11:55 Dose: 50 mg Hydralazine HCl (Apresoline) 10 mg IVPUSH Q4H PRN PRN Reason: Other Last Admin: 08/06/18 04:13 Dose: 10 mg Sodium Chloride (Normal Saline) 1,000 mls @ 999 mls/hr IV STAT ONE Stop: 08/02/18 18:37 Last Admin: 08/02/18 18:32 Dose: 999 mls/hr Potassium Chloride 40 meq/ (Premix) 100 mls @ 25 mls/hr IV ONETIME ONE Stop: 08/02/18 23:30 Last Admin: 08/02/18 20:55 Dose: 25 mls/hr Sodium Chloride (Normal Saline) 1,000 mls @ 75 mls/hr IV ASDIRECTED [facility] Last Admin: 08/06/18 18:14 Dose: 75 mls/hr Magnesium Sulfate 2 gm/ Premix 50 mls @ 25 mls/hr IV ONETIME ONE Stop: 08/03/18 15:50 Last Admin: 08/03/18 14:29 Dose: 25 mls/hr Magnesium Sulfate 2 gm/ Premix 50 mls @ 25 mls/hr IV ONETIME ONE Stop: 08/04/18 09:15 Last Admin: 08/04/18 08:29 Dose: 25 mls/hr Magnesium Sulfate 2 gm/ Premix 50 mls @ 50 mls/hr IV ONETIME ONE Stop: 08/06/18 07:42 Last Admin: 08/06/18 09:34 Dose: 50 mls/hr Piperacillin Sod/Tazobactam (Sod 3.375 gm/ Sodium Chloride) 50 mls @ 100 mls/ hr IV Q8H [facility] Last Admin: 08/07/18 09:50 Dose: Not Given Clindamycin Phosphate 300 mg/ (Premix) 50 mls @ 150 mls/hr IV Q8H [facility] Last Admin: 08/07/18 06:42 Dose: 150 mls/hr Piperacillin Sod/Tazobactam (Sod 3.375 gm/ Sodium Chloride) 50 mls @ 100 mls/ hr IV Q6H [facility] Last Admin: 08/08/18 07:30 Dose: 100 mls/hr Clindamycin Phosphate 600 mg/ (Premix) 50 mls @ 150 mls/hr IV Q8H [facility] Last Admin: 08/08/18 05:45 Dose: 150 mls/hr Sodium Chloride (Normal Saline) 1,000 mls @ 100 mls/hr IV STAT [facility] Last Admin: 08/08/18 22:55 Dose: 100 mls/hr Ceftriaxone Sodium/Dextrose 1 (gm/ Premix) 50 mls @ 100 mls/hr IV Q24H [facility] Last Admin: 08/08/18 17:49 Dose: Not Given Metronidazole 500 mg/ Premix 100 mls @ 100 mls/hr IV Q8H [facility] Last Admin: 08/08/18 17:49 Dose: Not Given Dextrose/Water (Dextrose 5% In Water) 1,000 mls @ 100 mls/hr IV ASDIRECTED [facility] Last Admin: 08/10/18 23:29 Dose: 100 mls/hr Loperamide HCl (Imodium) 2 mg PO Q4H PRN PRN Reason: Diarrhea Last Admin: 08/05/18 11:47 Dose: 2 mg Loperamide HCl (Imodium) 2 mg PO BID PRN PRN Reason: Diarrhea Last Admin: 08/10/18 11:46 Dose: 2 mg Losartan Potassium (Cozaar) 50 mg PO DAILY [facility] Last Admin: 08/08/18 15:25 Dose: Not Given Metoprolol Tartrate (Lopressor) 50 mg PO BID [facility] Last Admin: 08/08/18 15:25 Dose: Not Given Omeprazole (Omeprazole) 20 mg PO DAILY [facility] Last Admin: 08/05/18 11:38 Dose: Not Given Ondansetron HCl (Zofran) 4 mg IVPUSH ONETIME ONE Stop: 08/02/18 18:37 Last Admin: 08/02/18 18:42 Dose: 4 mg Potassium Chloride 8 (Meq Tab.Er) 5 each PO ONETIME ONE Stop: 08/05/18 21:01 Last Admin: 08/05/18 21:00 Dose: 5 each Hydralazine 100 Mg (Tab) 1 each PO BID [facility] Last Admin: 08/10/18 08:26 Dose: Not Given Potassium Chloride (Klor-Con M20) 40 meq PO ONETIME ONE Stop: 08/02/18 17:44 Last Admin: 08/02/18 18:33 Dose: 40 meq Potassium Chloride (Klor-Con M20) 40 meq PO ONETIME ONE Stop: 08/03/18 08:26 Last Admin: 08/03/18 09:07 Dose: 40 meq Potassium Chloride (Klor-Con M20) 40 meq PO ONETIME ONE Stop: 08/03/18 12:01 Last Admin: 08/03/18 12:09 Dose: 40 meq Potassium Chloride (Klor-Con M20) 40 meq PO ONETIME ONE Stop: 08/04/18 09:01 Last Admin: 08/04/18 08:27 Dose: 40 meq Potassium Chloride (Klor-Con M20) 40 meq PO ONETIME ONE Stop: 08/04/18 21:01 Last Admin: 08/04/18 20:30 Dose: 40 meq Potassium Chloride (Klor-Con M20) 40 meq PO ONETIME ONE Stop: 08/04/18 15:01 Potassium Chloride (Klor-Con M20) 40 meq PO ONETIME ONE Stop: 08/05/18 09:01 Last Admin: 08/05/18 12:01 Dose: Not Given Promethazine HCl (Phenergan) 25 mg IM ONETIME ONE Stop: 08/04/18 18:45 Last Admin: 08/04/18 19:11 Dose: 25 mg Promethazine HCl (Phenergan) 25 mg IM ONETIME ONE Stop: 08/04/18 19:04 Last Admin: 08/04/18 19:13 Dose: Not Given - Exam Quality Assessment: Supplemental Oxygen, Central Line/PICC General: Alert, Oriented, Cooperative, Mild Distress HEENT: Pupils Equal, Pupils Reactive. No: Scleral Icterus Neck: Supple Lungs: Crackles (breath sounds are shallow) Cardiovascular: Regular Rate, Regular Rhythm, Tachycardia GI/Abdominal Exam: Soft, Non-Tender, Distended, Abnormal Bowel Sounds (very hypoactive. No rushes or tinkles.). No: Guarding, Rigid, Rebound (Male) Exam: No Hernia Back Exam: Normal Inspection Extremities: Normal Inspection Skin: Warm, Dry, Intact Wound/Incisions: Healing Well Neurological: No New Focal Deficit Psy/Mental Status: Alert, Normal Affect, Normal Mood Consult PN Assessment/Plan Procedures: Procedures ASSAY OF AMYLASE (03/08/18) ASSAY OF FERRITIN (06/14/18) ASSAY OF LIPASE (03/08/18) ASSAY OF TROPONIN QUANT (03/08/18) BLOOD CULTURE FOR BACTERIA (03/08/18) CARCINOEMBRYONIC ANTIGEN (06/14/18) COLONOSCOPY AND BIOPSY (03/28/18) COMPLETE CBC W/AUTO DIFF WBC (07/19/18) COMPREHEN METABOLIC PANEL (07/19/18) CT ANGIOGRAPHY CHEST (03/08/18) CT HEAD/BRAIN W/O DYE (03/08/18) EGD BIOPSY SINGLE/MULTIPLE (03/28/18) ELECTROCARDIOGRAM TRACING (03/08/18) EMERGENCY DEPT VISIT (03/08/18) FIBRIN DEGRADATION QUANT (03/08/18) GAIT TRAINING THERAPY (05/05/17) HYDRATE IV INFUSION ADD-ON (03/08/18) IRON BINDING TEST (06/14/18) MANUAL THERAPY 1/> REGIONS (05/05/17) METABOLIC PANEL TOTAL CA (03/08/18) PROTHROMBIN TIME (03/08/18) PT EVAL MOD COMPLEX 30 MIN (05/05/17) ROUTINE VENIPUNCTURE (07/19/18) THER/PROPH/DIAG INJ IV PUSH (03/08/18) THERAPEUTIC EXERCISES (05/05/17) TISSUE EXAM BY PATHOLOGIST (01/03/17) TX/PRO/DX INJ NEW DRUG ADDON (03/08/18) URINALYSIS AUTO W/SCOPE (03/08/18) X-RAY EXAM CHEST 1 VIEW (03/08/18) (1) Ambulatory dysfunction SNOMED Code(s): 437904513 Code(s): R26.2 - DIFFICULTY IN WALKING, NOT ELSEWHERE CLASSIFIED Priority: Medium Current Visit: Yes (2) Dilated bowel SNOMED Code(s): 74730340 Code(s): BWV1847 - Priority: High Current Visit: Yes (3) Ileus SNOMED Code(s): 118135574 Code(s): K56.7 - ILEUS, UNSPECIFIED Priority: High Current Visit: Yes Problem List Initiated/Reviewed/Updated: Yes Plan: At this time, I favor the diagnosis of an ileus. His stomach is quite distended and I think would benefit from placement of an NG tube. Would hold off on a CT scan for the time being. Would recheck lab and x-ray in the morning. Patient is a very poor surgical candidate and not likely to be a candidate for surgery here if that becomes necessary.
[2018-08-11] MEDS ORDERED: Phenol 1.4% Oral Spray 177 ML Bottle MUCMEM PRN (17:04)
[2018-08-11] MEDS: cefTRIAXone 1 GM in Premix Bag 1 BAG IV SCH (17:05)
--- NOTE | 2018-08-11 18:05 | CR ---
Indication: NG-tube placement. Technique: An AP view of the abdomen was obtained. The current study is dated 1720 hours. Comparison: Study from earlier today. Findings: A feeding tube is now identified with the tip overlying the distal stomach/proximal duodenum. The visualized bowel gas pattern is nonobstructive. Impression: NG tube identified with its tip at the level of the distal stomach/proximal duodenum. Dictated by Martina Salinas MD @ Aug 11 2018 6:02PM Signed by Dr. Martina Salinas @ Aug 11 2018 6:03PM
[2018-08-11] MEDS: Sodium Chloride 0.9% 1,000 ML IV SCH (21:08)
[2018-08-11] MEDS: Carboxymethylcellulose Sodium 0.5% Ophth Soln 0.4 ML UD Box of 30 EYEBOTH SCH (21:10)
[2018-08-12] MEDS: metroNIDAZOLE/Normal Saline 500 MG in Premix Bag 1 BAG IV SCH ×3 (03:38→18:32)
[2018-08-12] MEDS: Albuterol/Ipratropium 3.0-0.5 MG/3 ML Neb Soln NEB SCH ×4 (06:09→23:40)
[2018-08-12] MEDS: Heparin Sodium 5,000 Units/ML Vial SUBCUT SCH ×3 (06:29→21:37)
[2018-08-12] MEDS: Sodium Chloride 0.9% 1,000 ML IV SCH (08:19)
[2018-08-12] MEDS: Omeprazole 20 MG Cap.CR PO SCH ×2 (09:15→15:43)
[2018-08-12] MEDS: Ferrous Sulfate 325 MG Tab PO SCH ×5 (09:15→18:34)
[2018-08-12] MEDS: Metoprolol Tartrate 50 MG Tab PO SCH ×3 (09:15→21:35)
[2018-08-12] MEDS: Aspirin 81 MG Tab.EC PO SCH ×2 (09:15→15:43)
[2018-08-12] MEDS: Potassium Chloride 8 MEQ Tab.ER PO SCH ×2 (09:17→15:44)
[2018-08-12] MEDS: Calcium Citrate/Vitamin D3 Tablet PO SCH (09:19)
--- NOTE | 2018-08-12 09:27 | PCM.PN ---
- General Info Date of Service: 08/12/18 Subjective Update: Yesterday the patient developed vomiting and abdominal distension again. X-ray found an ileus vs obstruction. Dr. Shanks was consulted and recommended placing a NG tube. This was placed and produced 700 mL of gastric contents overnight. Patient reports improvement in nausea,vomiting and abdominal distention today. Nursing reports several small bowel movements overnight. Patient denies chest pain or shortness of breath. - Review of Systems General: Reports: No Symptoms HEENT: Reports: No Symptoms Pulmonary: Reports: No Symptoms Cardiovascular: Reports: No Symptoms Gastrointestinal: Reports: No Symptoms Genitourinary: Reports: No Symptoms Musculoskeletal: Reports: No Symptoms Skin: Reports: No Symptoms Neurological: Reports: No Symptoms Psychiatric: Reports: No Symptoms - Patient Data Vitals - Most Recent: Last Vital Signs Temp 97.8 F 08/12/18 08:00 Pulse 94 08/12/18 09:15 Resp 18 08/12/18 08:00 BP 119/57 L 08/12/18 09:15 Pulse Ox 95 08/12/18 08:00 Orthostatic Blood Pressure [ 113/51 Standing] Orthostatic Blood Pressure [ 137/56 Sitting] Orthostatic Blood Pressure [ 137/54 Supine] Weight - Most Recent: 80.467 kg I&O - Last 24 Hours: Intake & Output 08/11/18 08/12/18 08/12/18 22:59 06:59 14:59 Intake Total 0 100 Output Total 700 700 Balance -700 -600 Lab Results Last 24 Hours: Laboratory Results - last 24 hr 08/11/18 08/11/18 Range/Units 07:01 11:31 Sodium 144 (136-148) mmol/L Potassium 3.8 (3.5-5.1) mmol/L Chloride 113 H (98-107) mmol/L Carbon Dioxide 20.5 L (21.0-32.0) mmol/L BUN 21 H (7.0-18.0) mg/dL Creatinine 1.7 H (0.8-1.3) mg/dL Est Cr Clr Drug Dosing 30.71 mL/min Estimated GFR (MDRD) 38.7 ml/min Glucose 107 H (74-106) mg/dL POC Glucose 133 H (60-110) mg/dL Calcium 7.6 L (8.5-10.1) mg/dL Hector Results Last 24 Hours: Microbiology 08/09/18 23:44 Stool Culture - Final Stool / Feces NO SALMONELLA, SHIGELLA,OR E.COLI O157 ISOLATED Campylobacter Antigen Assay - Final NEGATIVE CAMPYLOBACTER AG Shiga Toxin I - Final NEGATIVE FOR SHIGA TOXIN 1 Shiga Toxin II - Final NEGATIVE FOR SHIGA TOXIN 2 Med Orders - Current: Current Medications Acetaminophen (Tylenol) 650 mg PO Q4H PRN PRN Reason: Pain Last Admin: 08/06/18 04:24 Dose: 650 mg Albuterol/Ipratropium (Duoneb 3.0-0.5 Mg/3 Ml) 3 ml NEB Q6HRRT [facility] Last Admin: 08/12/18 06:09 Dose: 3 ml Artificial Tears (Refresh Plus 0.5%) 0 each EYEBOTH BEDTIME [facility] Last Admin: 08/11/18 21:10 Dose: 1 drop Artificial Tears (Refresh Plus 0.5%) 1 each EYEBOTH BID PRN PRN Reason: Dry Eyes Last Admin: 08/10/18 16:42 Dose: 1 drop Aspirin (Halfprin) 81 mg PO DAILY [facility] Last Admin: 08/12/18 09:15 Dose: 81 mg Calcium Carbonate/Glycine (Tums) 1,000 mg PO Q2HR PRN PRN Reason: Indigestion Last Admin: 08/05/18 21:01 Dose: 1,000 mg Calcium Citrate (Calcitrate + Vit D Cap (315 Mg/250 Units)) 2 each PO DAILY [facility] Last Admin: 08/12/18 09:19 Dose: Not Given Ferrous Sulfate (Ferrous Sulfate) 325 mg PO TIDMEALS [facility] Last Admin: 08/12/18 09:15 Dose: 325 mg Heparin Sodium (Porcine) (Heparin Sodium) 5,000 units SUBCUT Q8H [facility] Last Admin: 08/12/18 06:29 Dose: 5,000 units Ceftriaxone Sodium/Dextrose 1 (gm/ Premix) 50 mls @ 100 mls/hr IV Q24H [facility] Last Admin: 08/11/18 17:05 Dose: 100 mls/hr Metronidazole 500 mg/ Premix 100 mls @ 100 mls/hr IV Q8H [facility] Last Admin: 08/12/18 03:38 Dose: 100 mls/hr Sodium Chloride (Normal Saline) 1,000 mls @ 100 mls/hr IV ASDIRECTED [facility] Last Admin: 08/12/18 08:19 Dose: 100 mls/hr Metoprolol Tartrate (Lopressor) 50 mg PO BID [facility] Last Admin: 08/12/18 09:15 Dose: 50 mg Morphine Sulfate (Morphine) 2 mg IVPUSH Q2H PRN PRN Reason: Abdominal Pain Omeprazole (Omeprazole) 20 mg PO ACBREAKFAST [facility] Last Admin: 08/12/18 09:15 Dose: 20 mg Ondansetron HCl (Zofran) 4 mg IVPUSH Q4H PRN PRN Reason: Nausea/Vomiting Last Admin: 08/07/18 23:10 Dose: 4 mg Ondansetron HCl (Zofran Odt) 4 mg PO Q4H PRN PRN Reason: Nausea/Vomiting Oxycodone HCl (Oxycodone) 5 mg PO Q4H PRN PRN Reason: Pain (moderate 4-6) Potassium Chloride 8 (Meq Tab.Er) 5 each PO DAILY [facility] Last Admin: 08/12/18 09:17 Dose: 5 each Phenol/Menthol (Chloraseptic Throat [place]) 5 ml MUCMEM Q2H PRN PRN Reason: sore throat Last Admin: 08/11/18 18:00 Dose: 2 sprays Prochlorperazine Maleate (Compazine) 10 mg PO Q6H PRN PRN Reason: Nausea/Vomiting Last Admin: 08/09/18 12:06 Dose: 10 mg Sodium Chloride ([place] Nasal [place]) 0 ml ANUEL DAILY PRN PRN Reason: Nasal Dryness Temazepam (Restoril) 15 mg PO BEDTIME PRN PRN Reason: Insomnia Discontinued Medications Albuterol/Ipratropium (Duoneb 3.0-0.5 Mg/3 Ml) 3 ml NEB Q4HRRT [facility] Last Admin: 08/10/18 10:10 Dose: 3 ml Aspirin (Halfprin) 81 mg PO ASDIRECTED [facility] Azithromycin (Zithromax) 500 mg PO Q24H [facility] Last Admin: 08/06/18 15:04 Dose: 500 mg Calcium Carbonate (Caltrate 600+D 1500 Mg-400 Units) 1 tab PO DAILY [facility] Last Admin: 08/07/18 10:55 Dose: Not Given Enoxaparin Sodium (Lovenox) 30 mg SUBCUT Q24H [facility] Last Admin: 08/07/18 11:10 Dose: 30 mg Furosemide (Lasix) 20 mg IVPUSH ONETIME ONE Stop: 08/07/18 05:49 Last Admin: 08/07/18 06:06 Dose: 20 mg Hydralazine HCl (Apresoline) 10 mg IVPUSH Q4H PRN PRN Reason: Other Hydralazine HCl (Apresoline) 100 mg PO BID [facility] Last Admin: 08/05/18 11:55 Dose: 50 mg Hydralazine HCl (Apresoline) 10 mg IVPUSH Q4H PRN PRN Reason: Other Last Admin: 08/06/18 04:13 Dose: 10 mg Sodium Chloride (Normal Saline) 1,000 mls @ 999 mls/hr IV STAT ONE Stop: 08/02/18 18:37 Last Admin: 08/02/18 18:32 Dose: 999 mls/hr Potassium Chloride 40 meq/ (Premix) 100 mls @ 25 mls/hr IV ONETIME ONE Stop: 08/02/18 23:30 Last Admin: 08/02/18 20:55 Dose: 25 mls/hr Sodium Chloride (Normal Saline) 1,000 mls @ 75 mls/hr IV ASDIRECTED [facility] Last Admin: 08/06/18 18:14 Dose: 75 mls/hr Magnesium Sulfate 2 gm/ Premix 50 mls @ 25 mls/hr IV ONETIME ONE Stop: 08/03/18 15:50 Last Admin: 08/03/18 14:29 Dose: 25 mls/hr Magnesium Sulfate 2 gm/ Premix 50 mls @ 25 mls/hr IV ONETIME ONE Stop: 08/04/18 09:15 Last Admin: 08/04/18 08:29 Dose: 25 mls/hr Magnesium Sulfate 2 gm/ Premix 50 mls @ 50 mls/hr IV ONETIME ONE Stop: 08/06/18 07:42 Last Admin: 08/06/18 09:34 Dose: 50 mls/hr Piperacillin Sod/Tazobactam (Sod 3.375 gm/ Sodium Chloride) 50 mls @ 100 mls/ hr IV Q8H [facility] Last Admin: 08/07/18 09:50 Dose: Not Given Clindamycin Phosphate 300 mg/ (Premix) 50 mls @ 150 mls/hr IV Q8H [facility] Last Admin: 08/07/18 06:42 Dose: 150 mls/hr Piperacillin Sod/Tazobactam (Sod 3.375 gm/ Sodium Chloride) 50 mls @ 100 mls/ hr IV Q6H [facility] Last Admin: 08/08/18 07:30 Dose: 100 mls/hr Clindamycin Phosphate 600 mg/ (Premix) 50 mls @ 150 mls/hr IV Q8H [facility] Last Admin: 08/08/18 05:45 Dose: 150 mls/hr Sodium Chloride (Normal Saline) 1,000 mls @ 100 mls/hr IV STAT [facility] Last Admin: 08/08/18 22:55 Dose: 100 mls/hr Ceftriaxone Sodium/Dextrose 1 (gm/ Premix) 50 mls @ 100 mls/hr IV Q24H [facility] Last Admin: 08/08/18 17:49 Dose: Not Given Metronidazole 500 mg/ Premix 100 mls @ 100 mls/hr IV Q8H [facility] Last Admin: 08/08/18 17:49 Dose: Not Given Dextrose/Water (Dextrose 5% In Water) 1,000 mls @ 100 mls/hr IV ASDIRECTED [facility] Last Admin: 08/10/18 23:29 Dose: 100 mls/hr Loperamide HCl (Imodium) 2 mg PO Q4H PRN PRN Reason: Diarrhea Last Admin: 08/05/18 11:47 Dose: 2 mg Loperamide HCl (Imodium) 2 mg PO BID PRN PRN Reason: Diarrhea Last Admin: 08/10/18 11:46 Dose: 2 mg Losartan Potassium (Cozaar) 50 mg PO DAILY [facility] Last Admin: 08/08/18 15:25 Dose: Not Given Metoprolol Tartrate (Lopressor) 50 mg PO BID [facility] Last Admin: 08/08/18 15:25 Dose: Not Given Omeprazole (Omeprazole) 20 mg PO DAILY [facility] Last Admin: 08/05/18 11:38 Dose: Not Given Ondansetron HCl (Zofran) 4 mg IVPUSH ONETIME ONE Stop: 08/02/18 18:37 Last Admin: 08/02/18 18:42 Dose: 4 mg Potassium Chloride 8 (Meq Tab.Er) 5 each PO ONETIME ONE Stop: 08/05/18 21:01 Last Admin: 08/05/18 21:00 Dose: 5 each Hydralazine 100 Mg (Tab) 1 each PO BID [facility] Last Admin: 08/10/18 08:26 Dose: Not Given Potassium Chloride (Klor-Con M20) 40 meq PO ONETIME ONE Stop: 08/02/18 17:44 Last Admin: 08/02/18 18:33 Dose: 40 meq Potassium Chloride (Klor-Con M20) 40 meq PO ONETIME ONE Stop: 08/03/18 08:26 Last Admin: 08/03/18 09:07 Dose: 40 meq Potassium Chloride (Klor-Con M20) 40 meq PO ONETIME ONE Stop: 08/03/18 12:01 Last Admin: 08/03/18 12:09 Dose: 40 meq Potassium Chloride (Klor-Con M20) 40 meq PO ONETIME ONE Stop: 08/04/18 09:01 Last Admin: 08/04/18 08:27 Dose: 40 meq Potassium Chloride (Klor-Con M20) 40 meq PO ONETIME ONE Stop: 08/04/18 21:01 Last Admin: 08/04/18 20:30 Dose: 40 meq Potassium Chloride (Klor-Con M20) 40 meq PO ONETIME ONE Stop: 08/04/18 15:01 Potassium Chloride (Klor-Con M20) 40 meq PO ONETIME ONE Stop: 08/05/18 09:01 Last Admin: 08/05/18 12:01 Dose: Not Given Promethazine HCl (Phenergan) 25 mg IM ONETIME ONE Stop: 08/04/18 18:45 Last Admin: 08/04/18 19:11 Dose: 25 mg Promethazine HCl (Phenergan) 25 mg IM ONETIME ONE Stop: 08/04/18 19:04 Last Admin: 08/04/18 19:13 Dose: Not Given - Exam Quality Assessment: No: Supplemental Oxygen General: Alert, Oriented, Cooperative HEENT: Other (NG in place) Lungs: Normal Respiratory Effort, Rhonchi (bases) Cardiovascular: Regular Rate, Regular Rhythm GI/Abdominal Exam: Soft, Non-Tender, No Distention, Abnormal Bowel Sounds (no bowel sounds in upper [place] but present in lower quadrants) Extremities: No Pedal Edema Skin: Warm, Dry Neurological: No New Focal Deficit Psy/Mental Status: Alert, Normal Affect, Normal Mood - Problem List & Annotations (1) Hypomagnesemia SNOMED Code(s): 816407022 Code(s): E83.42 - HYPOMAGNESEMIA Status: Chronic Priority: High Current Visit: Yes Annotation/Comment:: Secondary to GI losses (2) Ambulatory dysfunction SNOMED Code(s): 211547493 Code(s): R26.2 - DIFFICULTY IN WALKING, NOT ELSEWHERE CLASSIFIED Status: Acute Priority: Medium Current Visit: Yes (3) MARGARITA (acute kidney injury) SNOMED Code(s): 37396934 Code(s): N17.9 - ACUTE KIDNEY FAILURE, UNSPECIFIED Status: Resolved Current Visit: Yes (4) Colorectal cancer SNOMED Code(s): 064318671 Code(s): C19 - MALIGNANT NEOPLASM OF RECTOSIGMOID JUNCTION Status: Chronic Priority: High Current Visit: No (5) Hypokalemia SNOMED Code(s): 21389535 Code(s): E87.6 - HYPOKALEMIA Status: Acute Current Visit: Yes (6) Weakness generalized SNOMED Code(s): 57802988 Code(s): R53.1 - WEAKNESS Status: Chronic Priority: High Current Visit : Yes (7) Dilated bowel SNOMED Code(s): 48024953 Code(s): HUT7548 - Status: Acute Priority: High Current Visit: Yes (8) Aspiration pneumonia due to vomit SNOMED Code(s): 640365090 Code(s): J69.0 - PNEUMONITIS DUE TO INHALATION OF FOOD AND VOMIT Status: Acute Current Visit: Yes - Problem List Review Problem List Initiated/Reviewed/Updated: Yes - My Orders Last 24 Hours: My Active Orders 08/11/18 15:22 Notify Provider Consults [RC] ASDIRECTED Consult to Physician [CONS] Routine 08/11/18 15:47 NG [Nasogastric Orogastric Tube Insertion] [OM.PC] Routine 08/11/18 17:04 Phenol [Chloraseptic Throat [place]] 5 ml MUCMEM Q2H PRN 08/11/18 18:30 Sodium Chloride 0.9% [Normal Saline] 1,000 ml IV ASDIRECTED 08/11/18 Dinner NPO Now [Nothing per Oral Now Diet] [DIET] 08/12/18 08:00 Abdomen 2V AP Flat Upright [CR] Timed 08/12/18 08:50 BASIC METABOLIC PANEL,BMP [CHEM] Urgent CBC WITH AUTO DIFF [HEME] Urgent MAGNESIUM [CHEM] Urgent - Plan Plan:: 1. Aspiration pneumonia- continue Flagyl and Rocephin, patient is off oxygen. Speech therapy evaluated him and he had a barium swallow study. It was recommended that he have a regular diet with honey thickened liquids and take pills with applesauce. They recommended repeat barium swallow study in 2-3 weeks to reassess. 2. Dilated small bowel loops concerning for ileus- Dr. Shanks saw the patient this morning and believes we can discontinue the NG tube and restart diet. Patient has an aspiration risk so he will be started on full liquid diet with honey thickened liquids. Will advance slowly. 3. MARGARITA- no improvement in BUN/Cr but patient became hypernatremia and hyperchloremic again, will switch from NS to D5W 4. HTN- Metoprolol ordered, will continue to monitor BP and HR 5. Anemia-H/H stable, continue iron supplements. We watch H/H and transfuse if Hgb drops below 7.
--- NOTE | 2018-08-12 09:32 | CR ---
Indication: Follow-up ileus versus obstruction. Technique: AP supine and upright views of the abdomen and pelvis were obtained. Comparison: August 11, 2014. Findings: An NG tube is identified with the tip most likely within the duodenum. Contrast is identified within the stomach. Again, gas-filled loops of small large bowel are identified. These findings are most suggestive of an ileus. Air is identified within the rectal vault. No free air is identified. Impression: Findings most consistent with an ileus. Dictated by Martina Salinas MD @ Aug 12 2018 9:30AM Signed by Dr. Martina Salinas @ Aug 12 2018 9:31AM
--- NOTE | 2018-08-12 11:24 | PCM.CONSN ---
- General Info Date of Service: 08/12/18 Admission Dx/Problem (Free Text): Abdominal distension. MARGARITA. Dehydration. Subjective Update: Patient states he feels "75%" better than yesterday. States he is passing gas per rectum. NG tube in place. Functional Status: Reports: Pain Controlled - Review of Systems General: Reports: Weakness, Fatigue, Appetite. Denies: Fever, Malaise, Chills, Night Sweats HEENT: Reports: No Symptoms Pulmonary: Denies: Shortness of Breath, Pleuritic Chest Pain, Cough Cardiovascular: Denies: Chest Pain Gastrointestinal: Reports: Decreased Appetite, Flatus. Denies: Abdominal Pain, Constipation, Diarrhea, Difficulty Swallowing, Hematochezia, Melena, Nausea, Vomiting Genitourinary: Reports: No Symptoms Musculoskeletal: Reports: No Symptoms Skin: Reports: No Symptoms Neurological: Reports: No Symptoms Psychiatric: Reports: No Symptoms - Patient Data Vitals - Most Recent: Last Vital Signs Temp 97.8 F 08/12/18 08:00 Pulse 94 08/12/18 08:00 Resp 18 08/12/18 08:00 BP 119/57 L 08/12/18 08:00 Pulse Ox 95 08/12/18 08:00 Orthostatic Blood Pressure [ 113/51 Standing] Orthostatic Blood Pressure [ 137/56 Sitting] Orthostatic Blood Pressure [ 137/54 Supine] Weight - Most Recent: 177 lb 6.4 oz I&O - Last 24 Hours: Intake & Output 08/11/18 08/12/18 08/12/18 19:59 03:59 11:59 Intake Total 0 100 Output Total 700 700 Balance -700 -600 Lab Results Last 24 Hours: Laboratory Results - last 24 hr 08/11/18 08/11/18 08/12/18 Range/Units 07:01 11:31 08:50 WBC 5.79 (4.0-11.0) K/uL RBC 3.21 L (4.50-5.90) M/uL Hgb 7.4 L (13.0-17.0) g/dL Hct 24.0 L (38.0-50.0) % MCV 74.8 L (80.0-98.0) fL MCH 23.1 L (27.0-32.0) pg MCHC 30.8 L (31.0-37.0) g/dL RDW Std Deviation 63.0 H (28.0-62.0) fl RDW Coeff of Salvador 25 H (11.0-15.0) % Plt Count 164 (150-400) K/uL MPV 9.30 (7.40-12.00) fL Add Manual Diff YES Neutrophils % (Manual) 74 (48.0-80.0) % Band Neutrophils % 7 % Lymphocytes % (Manual) 10 L (16.0-40.0) % Monocytes % (Manual) 6 (0.0-15.0) % Eosinophils % (Manual) 3 (0.0-7.0) % Nucleated RBC % 0.0 /100WBC Absolute Seg Neuts 4.3 (1.4-5.7) Band Neutrophils # 0.4 Lymphocytes # (Manual) 0.6 (0.6-2.4) Monocytes # (Manual) 0.3 (0.0-0.8) Eosinophils # (Manual) 0.2 (0.0-0.7) Nucleated RBCs # 0 K/uL Sodium 144 (136-148) mmol/L Potassium 3.8 (3.5-5.1) mmol/L Chloride 113 H (98-107) mmol/L Carbon Dioxide 20.5 L (21.0-32.0) mmol/L BUN 21 H (7.0-18.0) mg/dL Creatinine 1.7 H (0.8-1.3) mg/dL Est Cr Clr Drug Dosing 30.71 mL/min Estimated GFR (MDRD) 38.7 ml/min Glucose 107 H (74-106) mg/dL POC Glucose 133 H (60-110) mg/dL Calcium 7.6 L (8.5-10.1) mg/dL Magnesium (1.8-2.4) mg/dL 08/12/18 Range/Units 08:50 WBC (4.0-11.0) K/uL RBC (4.50-5.90) M/uL Hgb (13.0-17.0) g/dL Hct (38.0-50.0) % MCV (80.0-98.0) fL MCH (27.0-32.0) pg MCHC (31.0-37.0) g/dL RDW Std Deviation (28.0-62.0) fl RDW Coeff of Salvador (11.0-15.0) % Plt Count (150-400) K/uL MPV (7.40-12.00) fL Add Manual Diff Neutrophils % (Manual) (48.0-80.0) % Band Neutrophils % % Lymphocytes % (Manual) (16.0-40.0) % Monocytes % (Manual) (0.0-15.0) % Eosinophils % (Manual) (0.0-7.0) % Nucleated RBC % /100WBC Absolute Seg Neuts (1.4-5.7) Band Neutrophils # Lymphocytes # (Manual) (0.6-2.4) Monocytes # (Manual) (0.0-0.8) Eosinophils # (Manual) (0.0-0.7) Nucleated RBCs # K/uL Sodium 150 H (136-148) mmol/L Potassium 3.7 (3.5-5.1) mmol/L Chloride 117 H (98-107) mmol/L Carbon Dioxide 21.3 (21.0-32.0) mmol/L BUN 24 H (7.0-18.0) mg/dL Creatinine 1.7 H (0.8-1.3) mg/dL Est Cr Clr Drug Dosing 30.71 mL/min Estimated GFR (MDRD) 38.7 ml/min Glucose 93 (74-106) mg/dL POC Glucose (60-110) mg/dL Calcium 7.5 L (8.5-10.1) mg/dL Magnesium 1.8 (1.8-2.4) mg/dL Hector Results Last 24 Hours: Microbiology 08/09/18 23:44 Stool Culture - Final Stool / Feces NO SALMONELLA, SHIGELLA,OR E.COLI O157 ISOLATED Campylobacter Antigen Assay - Final NEGATIVE CAMPYLOBACTER AG Shiga Toxin I - Final NEGATIVE FOR SHIGA TOXIN 1 Shiga Toxin II - Final NEGATIVE FOR SHIGA TOXIN 2 Med Orders - Current: Current Medications Acetaminophen (Tylenol) 650 mg PO Q4H PRN PRN Reason: Pain Last Admin: 08/06/18 04:24 Dose: 650 mg Albuterol/Ipratropium (Duoneb 3.0-0.5 Mg/3 Ml) 3 ml NEB Q6HRRT KATHERINE Last Admin: 08/12/18 06:09 Dose: 3 ml Artificial Tears (Refresh Plus 0.5%) 0 each EYEBOTH BEDTIME [facility] Last Admin: 08/11/18 21:10 Dose: 1 drop Artificial Tears (Refresh Plus 0.5%) 1 each EYEBOTH BID PRN PRN Reason: Dry Eyes Last Admin: 08/10/18 16:42 Dose: 1 drop Aspirin (Halfprin) 81 mg PO DAILY [facility] Last Admin: 08/11/18 08:42 Dose: 81 mg Calcium Carbonate/Glycine (Tums) 1,000 mg PO Q2HR PRN PRN Reason: Indigestion Last Admin: 08/05/18 21:01 Dose: 1,000 mg Calcium Citrate (Calcitrate + Vit D Cap (315 Mg/250 Units)) 2 each PO DAILY [facility] Last Admin: 08/12/18 09:19 Dose: Not Given Ferrous Sulfate (Ferrous Sulfate) 325 mg PO TIDMEALS [facility] Last Admin: 08/11/18 17:19 Dose: Not Given Heparin Sodium (Porcine) (Heparin Sodium) 5,000 units SUBCUT Q8H [facility] Last Admin: 08/12/18 06:29 Dose: 5,000 units Ceftriaxone Sodium/Dextrose 1 (gm/ Premix) 50 mls @ 100 mls/hr IV Q24H [facility] Last Admin: 08/11/18 17:05 Dose: 100 mls/hr Metronidazole 500 mg/ Premix 100 mls @ 100 mls/hr IV Q8H [facility] Last Admin: 08/12/18 10:18 Dose: 100 mls/hr Dextrose/Water (Dextrose 5% In Water) 1,000 mls @ 100 mls/hr IV ASDIRECTED [facility] Metoprolol Tartrate (Lopressor) 50 mg PO BID [facility] Last Admin: 08/11/18 21:02 Dose: Not Given Morphine Sulfate (Morphine) 2 mg IVPUSH Q2H PRN PRN Reason: Abdominal Pain Omeprazole (Omeprazole) 20 mg PO ACBREAKFAST [facility] Last Admin: 08/11/18 08:41 Dose: 20 mg Ondansetron HCl (Zofran) 4 mg IVPUSH Q4H PRN PRN Reason: Nausea/Vomiting Last Admin: 08/07/18 23:10 Dose: 4 mg Ondansetron HCl (Zofran Odt) 4 mg PO Q4H PRN PRN Reason: Nausea/Vomiting Oxycodone HCl (Oxycodone) 5 mg PO Q4H PRN PRN Reason: Pain (moderate 4-6) Potassium Chloride 8 (Meq Tab.Er) 5 each PO DAILY [facility] Last Admin: 08/11/18 08:42 Dose: 5 each Phenol/Menthol (Chloraseptic Throat [place]) 5 ml MUCMEM Q2H PRN PRN Reason: sore throat Last Admin: 08/11/18 18:00 Dose: 2 sprays Prochlorperazine Maleate (Compazine) 10 mg PO Q6H PRN PRN Reason: Nausea/Vomiting Last Admin: 08/09/18 12:06 Dose: 10 mg Sodium Chloride ([place] Nasal [place]) 0 ml ANUEL DAILY PRN PRN Reason: Nasal Dryness Temazepam (Restoril) 15 mg PO BEDTIME PRN PRN Reason: Insomnia Discontinued Medications Albuterol/Ipratropium (Duoneb 3.0-0.5 Mg/3 Ml) 3 ml NEB Q4HRRT [facility] Last Admin: 08/10/18 10:10 Dose: 3 ml Aspirin (Halfprin) 81 mg PO ASDIRECTED [facility] Azithromycin (Zithromax) 500 mg PO Q24H [facility] Last Admin: 08/06/18 15:04 Dose: 500 mg Calcium Carbonate (Caltrate 600+D 1500 Mg-400 Units) 1 tab PO DAILY [facility] Last Admin: 08/07/18 10:55 Dose: Not Given Enoxaparin Sodium (Lovenox) 30 mg SUBCUT Q24H [facility] Last Admin: 08/07/18 11:10 Dose: 30 mg Furosemide (Lasix) 20 mg IVPUSH ONETIME ONE Stop: 08/07/18 05:49 Last Admin: 08/07/18 06:06 Dose: 20 mg Hydralazine HCl (Apresoline) 10 mg IVPUSH Q4H PRN PRN Reason: Other Hydralazine HCl (Apresoline) 100 mg PO BID [facility] Last Admin: 08/05/18 11:55 Dose: 50 mg Hydralazine HCl (Apresoline) 10 mg IVPUSH Q4H PRN PRN Reason: Other Last Admin: 08/06/18 04:13 Dose: 10 mg Sodium Chloride (Normal Saline) 1,000 mls @ 999 mls/hr IV STAT ONE Stop: 08/02/18 18:37 Last Admin: 08/02/18 18:32 Dose: 999 mls/hr Potassium Chloride 40 meq/ (Premix) 100 mls @ 25 mls/hr IV ONETIME ONE Stop: 08/02/18 23:30 Last Admin: 08/02/18 20:55 Dose: 25 mls/hr Sodium Chloride (Normal Saline) 1,000 mls @ 75 mls/hr IV ASDIRECTED [facility] Last Admin: 08/06/18 18:14 Dose: 75 mls/hr Magnesium Sulfate 2 gm/ Premix 50 mls @ 25 mls/hr IV ONETIME ONE Stop: 08/03/18 15:50 Last Admin: 08/03/18 14:29 Dose: 25 mls/hr Magnesium Sulfate 2 gm/ Premix 50 mls @ 25 mls/hr IV ONETIME ONE Stop: 08/04/18 09:15 Last Admin: 08/04/18 08:29 Dose: 25 mls/hr Magnesium Sulfate 2 gm/ Premix 50 mls @ 50 mls/hr IV ONETIME ONE Stop: 08/06/18 07:42 Last Admin: 08/06/18 09:34 Dose: 50 mls/hr Piperacillin Sod/Tazobactam (Sod 3.375 gm/ Sodium Chloride) 50 mls @ 100 mls/ hr IV Q8H [facility] Last Admin: 08/07/18 09:50 Dose: Not Given Clindamycin Phosphate 300 mg/ (Premix) 50 mls @ 150 mls/hr IV Q8H [facility] Last Admin: 08/07/18 06:42 Dose: 150 mls/hr Piperacillin Sod/Tazobactam (Sod 3.375 gm/ Sodium Chloride) 50 mls @ 100 mls/ hr IV Q6H [facility] Last Admin: 08/08/18 07:30 Dose: 100 mls/hr Clindamycin Phosphate 600 mg/ (Premix) 50 mls @ 150 mls/hr IV Q8H [facility] Last Admin: 08/08/18 05:45 Dose: 150 mls/hr Sodium Chloride (Normal Saline) 1,000 mls @ 100 mls/hr IV STAT [facility] Last Admin: 08/08/18 22:55 Dose: 100 mls/hr Ceftriaxone Sodium/Dextrose 1 (gm/ Premix) 50 mls @ 100 mls/hr IV Q24H [facility] Last Admin: 04/02/19 17:49 Dose: Not Given Metronidazole 500 mg/ Premix 100 mls @ 100 mls/hr IV Q8H [facility] Last Admin: 08/08/18 17:49 Dose: Not Given Dextrose/Water (Dextrose 5% In Water) 1,000 mls @ 100 mls/hr IV ASDIRECTED [facility] Last Admin: 08/10/18 23:29 Dose: 100 mls/hr Sodium Chloride (Normal Saline) 1,000 mls @ 100 mls/hr IV ASDIRECTED [facility] Last Admin: 08/12/18 08:19 Dose: 100 mls/hr Loperamide HCl (Imodium) 2 mg PO Q4H PRN PRN Reason: Diarrhea Last Admin: 08/05/18 11:47 Dose: 2 mg Loperamide HCl (Imodium) 2 mg PO BID PRN PRN Reason: Diarrhea Last Admin: 08/10/18 11:46 Dose: 2 mg Losartan Potassium (Cozaar) 50 mg PO DAILY [facility] Last Admin: 08/08/18 15:25 Dose: Not Given Metoprolol Tartrate (Lopressor) 50 mg PO BID [facility] Last Admin: 08/08/18 15:25 Dose: Not Given Omeprazole (Omeprazole) 20 mg PO DAILY [facility] Last Admin: 08/05/18 11:38 Dose: Not Given Ondansetron HCl (Zofran) 4 mg IVPUSH ONETIME ONE Stop: 08/02/18 18:37 Last Admin: 08/02/18 18:42 Dose: 4 mg Potassium Chloride 8 (Meq Tab.Er) 5 each PO ONETIME ONE Stop: 08/05/18 21:01 Last Admin: 08/05/18 21:00 Dose: 5 each Hydralazine 100 Mg (Tab) 1 each PO BID [facility] Last Admin: 08/10/18 08:26 Dose: Not Given Potassium Chloride (Klor-Con M20) 40 meq PO ONETIME ONE Stop: 08/02/18 17:44 Last Admin: 08/02/18 18:33 Dose: 40 meq Potassium Chloride (Klor-Con M20) 40 meq PO ONETIME ONE Stop: 08/03/18 08:26 Last Admin: 08/03/18 09:07 Dose: 40 meq Potassium Chloride (Klor-Con M20) 40 meq PO ONETIME ONE Stop: 08/03/18 12:01 Last Admin: 08/03/18 12:09 Dose: 40 meq Potassium Chloride (Klor-Con M20) 40 meq PO ONETIME ONE Stop: 08/04/18 09:01 Last Admin: 08/04/18 08:27 Dose: 40 meq Potassium Chloride (Klor-Con M20) 40 meq PO ONETIME ONE Stop: 08/04/18 21:01 Last Admin: 08/04/18 20:30 Dose: 40 meq Potassium Chloride (Klor-Con M20) 40 meq PO ONETIME ONE Stop: 08/04/18 15:01 Potassium Chloride (Klor-Con M20) 40 meq PO ONETIME ONE Stop: 08/05/18 09:01 Last Admin: 08/05/18 12:01 Dose: Not Given Promethazine HCl (Phenergan) 25 mg IM ONETIME ONE Stop: 08/04/18 18:45 Last Admin: 08/04/18 19:11 Dose: 25 mg Promethazine HCl (Phenergan) 25 mg IM ONETIME ONE Stop: 08/04/18 19:04 Last Admin: 08/04/18 19:13 Dose: Not Given - Exam General: Alert, Oriented, Cooperative, No Acute Distress HEENT: Pupils Equal, Pupils Reactive. No: Scleral Icterus Neck: Supple Lungs: Clear to Auscultation, Normal Respiratory Effort Cardiovascular: Regular Rate, Regular Rhythm, No Murmurs. No: Tachycardia GI/Abdominal Exam: Soft, Non-Tender, No Distention, Abnormal Bowel Sounds ( still quite hypoactive). No: Guarding, Rigid, Rebound (Male) Exam: No Hernia Back Exam: Normal Inspection, Full Range of Motion Extremities: Normal Inspection, Normal Range of Motion Skin: Warm, Dry, Intact Neurological: No New Focal Deficit Psy/Mental Status: Alert, Normal Affect, Normal Mood Consult PN Assessment/Plan Procedures: Procedures ASSAY OF AMYLASE (03/08/18) ASSAY OF FERRITIN (06/14/18) ASSAY OF LIPASE (03/08/18) ASSAY OF TROPONIN QUANT (03/08/18) BLOOD CULTURE FOR BACTERIA (03/08/18) CARCINOEMBRYONIC ANTIGEN (06/14/18) COLONOSCOPY AND BIOPSY (03/28/18) COMPLETE CBC W/AUTO DIFF WBC (07/19/18) COMPREHEN METABOLIC PANEL (07/19/18) CT ANGIOGRAPHY CHEST (03/08/18) CT HEAD/BRAIN W/O DYE (03/08/18) EGD BIOPSY SINGLE/MULTIPLE (03/28/18) ELECTROCARDIOGRAM TRACING (03/08/18) EMERGENCY DEPT VISIT (03/08/18) FIBRIN DEGRADATION QUANT (03/08/18) GAIT TRAINING THERAPY (05/05/17) HYDRATE IV INFUSION ADD-ON (03/08/18) IRON BINDING TEST (06/14/18) MANUAL THERAPY 1/> REGIONS (05/05/17) METABOLIC PANEL TOTAL CA (03/08/18) PROTHROMBIN TIME (03/08/18) PT EVAL MOD COMPLEX 30 MIN (05/05/17) ROUTINE VENIPUNCTURE (07/19/18) THER/PROPH/DIAG INJ IV PUSH (03/08/18) THERAPEUTIC EXERCISES (05/05/17) TISSUE EXAM BY PATHOLOGIST (01/03/17) TX/PRO/DX INJ NEW DRUG ADDON (03/08/18) URINALYSIS AUTO W/SCOPE (03/08/18) X-RAY EXAM CHEST 1 VIEW (03/08/18) (1) Ambulatory dysfunction SNOMED Code(s): 134478857 Code(s): R26.2 - DIFFICULTY IN WALKING, NOT ELSEWHERE CLASSIFIED Priority: Medium Current Visit: Yes (2) Dilated bowel SNOMED Code(s): 62598539 Code(s): VAL2520 - Priority: High Current Visit: Yes (3) Ileus SNOMED Code(s): 193346262 Code(s): K56.7 - ILEUS, UNSPECIFIED Priority: High Current Visit: Yes Problem List Initiated/Reviewed/Updated: Yes Plan: Abdominal films reviewed--there is air in the transverse colon and rectum. No significant gastric distension. Still has some dilated loops of small bowel but improved from yesterday. Note Hgb down to 7.4. NG output 700 mls. Clinically he does appear improved. Consider removing his NG tube and starting diet recommended given his recent aspiration.
[2018-08-12] MEDS: Dextrose 5% in Water 1,000 ML IV SCH (11:38)
[2018-08-12] MEDS: cefTRIAXone 1 GM in Premix Bag 1 BAG IV SCH (15:44)
[2018-08-12] MEDS: Carboxymethylcellulose Sodium 0.5% Ophth Soln 0.4 ML UD Box of 30 EYEBOTH SCH (21:36)
[2018-08-13] MEDS: metroNIDAZOLE/Normal Saline 500 MG in Premix Bag 1 BAG IV SCH ×3 (02:39→18:25)
[2018-08-13] MEDS: Albuterol/Ipratropium 3.0-0.5 MG/3 ML Neb Soln NEB SCH ×3 (06:05→17:21)
[2018-08-13] MEDS: Omeprazole 20 MG Cap.CR PO SCH (06:43)
[2018-08-13] MEDS: Heparin Sodium 5,000 Units/ML Vial SUBCUT SCH ×3 (06:43→21:04)
[2018-08-13] MEDS: Metoprolol Tartrate 50 MG Tab PO SCH ×2 (08:10→20:57)
[2018-08-13] MEDS: Aspirin 81 MG Tab.EC PO SCH (08:11)
[2018-08-13] MEDS: Potassium Chloride 8 MEQ Tab.ER PO SCH (08:11)
[2018-08-13] MEDS: Calcium Citrate/Vitamin D3 Tablet PO SCH (08:11)
[2018-08-13] MEDS: Ferrous Sulfate 325 MG Tab PO SCH ×3 (08:11→17:04)
[2018-08-13] MEDS ORDERED: Potassium Chloride 20 MEQ Tab.ER PO ONE (09:18)
[2018-08-13] MEDS ORDERED: Magnesium Sulfate/Water 2 GM in Premix Bag 1 BAG IV ONE (09:18)
[2018-08-13] MEDS: Dextrose 5% in Water 1,000 ML IV SCH (10:10)
--- NOTE | 2018-08-13 10:14 | PCM.PN ---
- General Info Date of Service: 08/13/18 - Review of Systems Systems Review Comment:: had several loose stools last night. Feeling better. no abdominal pain. - Patient Data Vitals - Most Recent: Last Vital Signs Temp 36.5 C 08/13/18 08:00 Pulse 72 08/13/18 08:10 Resp 18 08/13/18 08:00 BP 127/60 08/13/18 08:10 Pulse Ox 94 L 08/13/18 04:00 Orthostatic Blood Pressure [ 113/51 Standing] Orthostatic Blood Pressure [ 137/56 Sitting] Orthostatic Blood Pressure [ 137/54 Supine] Weight - Most Recent: 80.467 kg I&O - Last 24 Hours: Intake & Output 08/12/18 08/13/18 08/13/18 22:59 06:59 14:59 Intake Total 300 1429 Output Total 550 1006 Balance -250 423 Lab Results Last 24 Hours: Laboratory Results - last 24 hr 08/13/18 08/13/18 Range/Units 06:20 06:20 WBC 7.10 (4.0-11.0) K/uL RBC 3.24 L (4.50-5.90) M/uL Hgb 7.4 L (13.0-17.0) g/dL Hct 24.1 L (38.0-50.0) % MCV 74.4 L (80.0-98.0) fL MCH 22.8 L (27.0-32.0) pg MCHC 30.7 L (31.0-37.0) g/dL RDW Std Deviation 65.6 H (28.0-62.0) fl RDW Coeff of [place] 25 H (11.0-15.0) % Plt Count 157 (150-400) K/uL MPV 9.20 (7.40-12.00) fL Add Manual Diff YES Neutrophils % (Manual) 66 (48.0-80.0) % Band Neutrophils % 10 % Lymphocytes % (Manual) 19 (16.0-40.0) % Monocytes % (Manual) 5 (0.0-15.0) % Nucleated RBC % 0.0 /100WBC Absolute Seg Neuts 4.7 (1.4-5.7) Band Neutrophils # 0.7 Lymphocytes # (Manual) 1.3 (0.6-2.4) Monocytes # (Manual) 0.4 (0.0-0.8) Nucleated RBCs # 0 K/uL Sodium 144 (136-148) mmol/L Potassium 3.3 L (3.5-5.1) mmol/L Chloride 113 H (98-107) mmol/L Carbon Dioxide 23.8 (21.0-32.0) mmol/L BUN 15 (7.0-18.0) mg/dL Creatinine 1.4 H (0.8-1.3) mg/dL Est Cr Clr Drug Dosing 37.29 mL/min Estimated GFR (MDRD) 48.4 ml/min Glucose 129 H (74-106) mg/dL Calcium 7.2 L (8.5-10.1) mg/dL Magnesium 1.5 L (1.8-2.4) mg/dL Med Orders - Current: Current Medications Acetaminophen (Tylenol) 650 mg PO Q4H PRN PRN Reason: Pain Last Admin: 08/06/18 04:24 Dose: 650 mg Albuterol/Ipratropium (Duoneb 3.0-0.5 Mg/3 Ml) 3 ml NEB Q6HRRT [facility] Last Admin: 08/13/18 06:05 Dose: 3 ml Artificial Tears (Refresh Plus 0.5%) 0 each EYEBOTH BEDTIME [facility] Last Admin: 08/12/18 21:36 Dose: 1 drop Artificial Tears (Refresh Plus 0.5%) 1 each EYEBOTH BID PRN PRN Reason: Dry Eyes Last Admin: 08/10/18 16:42 Dose: 1 drop Aspirin (Halfprin) 81 mg PO DAILY [facility] Last Admin: 08/13/18 08:11 Dose: 81 mg Calcium Carbonate/Glycine (Tums) 1,000 mg PO Q2HR PRN PRN Reason: Indigestion Last Admin: 08/05/18 21:01 Dose: 1,000 mg Calcium Citrate (Calcitrate + Vit D Cap (315 Mg/250 Units)) 2 each PO DAILY [facility] Last Admin: 08/13/18 08:11 Dose: Not Given Ferrous Sulfate (Ferrous Sulfate) 325 mg PO TIDMEALS [facility] Last Admin: 08/13/18 08:11 Dose: 325 mg Heparin Sodium (Porcine) (Heparin Sodium) 5,000 units SUBCUT Q8H [facility] Last Admin: 08/13/18 06:43 Dose: 5,000 units Ceftriaxone Sodium/Dextrose 1 (gm/ Premix) 50 mls @ 100 mls/hr IV Q24H [facility] Last Admin: 08/12/18 15:44 Dose: 100 mls/hr Metronidazole 500 mg/ Premix 100 mls @ 100 mls/hr IV Q8H [facility] Last Admin: 08/13/18 02:39 Dose: 100 mls/hr Dextrose/Water (Dextrose 5% In Water) 1,000 mls @ 100 mls/hr IV ASDIRECTED [facility] Last Infusion: 08/12/18 23:23 Dose: Infused Magnesium Sulfate 2 gm/ Premix 50 mls @ 50 mls/hr IV ONETIME ONE Stop: 08/13/18 10:17 Last Admin: 08/13/18 10:04 Dose: 50 mls/hr Metoprolol Tartrate (Lopressor) 50 mg PO BID [facility] Last Admin: 08/13/18 08:10 Dose: 50 mg Morphine Sulfate (Morphine) 2 mg IVPUSH Q2H PRN PRN Reason: Abdominal Pain Omeprazole (Omeprazole) 20 mg PO ACBREAKFAST [facility] Last Admin: 08/13/18 06:43 Dose: 20 mg Ondansetron HCl (Zofran) 4 mg IVPUSH Q4H PRN PRN Reason: Nausea/Vomiting Last Admin: 08/07/18 23:10 Dose: 4 mg Ondansetron HCl (Zofran Odt) 4 mg PO Q4H PRN PRN Reason: Nausea/Vomiting Oxycodone HCl (Oxycodone) 5 mg PO Q4H PRN PRN Reason: Pain (moderate 4-6) Potassium Chloride 8 (Meq Tab.Er) 5 each PO DAILY [facility] Last Admin: 08/13/18 08:11 Dose: 5 each Phenol/Menthol (Chloraseptic Throat [place]) 5 ml MUCMEM Q2H PRN PRN Reason: sore throat Last Admin: 08/11/18 18:00 Dose: 2 sprays Prochlorperazine Maleate (Compazine) 10 mg PO Q6H PRN PRN Reason: Nausea/Vomiting Last Admin: 08/09/18 12:06 Dose: 10 mg Sodium Chloride ([place] Nasal [place]) 0 ml ANULE DAILY PRN PRN Reason: Nasal Dryness Temazepam (Restoril) 15 mg PO BEDTIME PRN PRN Reason: Insomnia Discontinued Medications Albuterol/Ipratropium (Duoneb 3.0-0.5 Mg/3 Ml) 3 ml NEB Q4HRRT [facility] Last Admin: 08/10/18 10:10 Dose: 3 ml Aspirin (Halfprin) 81 mg PO ASDIRECTED [facility] Azithromycin (Zithromax) 500 mg PO Q24H [facility] Last Admin: 08/06/18 15:04 Dose: 500 mg Calcium Carbonate (Caltrate 600+D 1500 Mg-400 Units) 1 tab PO DAILY [facility] Last Admin: 08/07/18 10:55 Dose: Not Given Enoxaparin Sodium (Lovenox) 30 mg SUBCUT Q24H [facility] Last Admin: 08/07/18 11:10 Dose: 30 mg Furosemide (Lasix) 20 mg IVPUSH ONETIME ONE Stop: 08/07/18 05:49 Last Admin: 08/07/18 06:06 Dose: 20 mg Hydralazine HCl (Apresoline) 10 mg IVPUSH Q4H PRN PRN Reason: Other Hydralazine HCl (Apresoline) 100 mg PO BID [facility] Last Admin: 08/05/18 11:55 Dose: 50 mg Hydralazine HCl (Apresoline) 10 mg IVPUSH Q4H PRN PRN Reason: Other Last Admin: 08/06/18 04:13 Dose: 10 mg Sodium Chloride (Normal Saline) 1,000 mls @ 999 mls/hr IV STAT ONE Stop: 08/02/18 18:37 Last Admin: 08/02/18 18:32 Dose: 999 mls/hr Potassium Chloride 40 meq/ (Premix) 100 mls @ 25 mls/hr IV ONETIME ONE Stop: 08/02/18 23:30 Last Admin: 08/02/18 20:55 Dose: 25 mls/hr Sodium Chloride (Normal Saline) 1,000 mls @ 75 mls/hr IV ASDIRECTED [facility] Last Admin: 08/06/18 18:14 Dose: 75 mls/hr Magnesium Sulfate 2 gm/ Premix 50 mls @ 25 mls/hr IV ONETIME ONE Stop: 08/03/18 15:50 Last Admin: 08/03/18 14:29 Dose: 25 mls/hr Magnesium Sulfate 2 gm/ Premix 50 mls @ 25 mls/hr IV ONETIME ONE Stop: 08/04/18 09:15 Last Admin: 08/04/18 08:29 Dose: 25 mls/hr Magnesium Sulfate 2 gm/ Premix 50 mls @ 50 mls/hr IV ONETIME ONE Stop: 08/06/18 07:42 Last Admin: 08/06/18 09:34 Dose: 50 mls/hr Piperacillin Sod/Tazobactam (Sod 3.375 gm/ Sodium Chloride) 50 mls @ 100 mls/ hr IV Q8H [facility] Last Admin: 08/07/18 09:50 Dose: Not Given Clindamycin Phosphate 300 mg/ (Premix) 50 mls @ 150 mls/hr IV Q8H [facility] Last Admin: 08/07/18 06:42 Dose: 150 mls/hr Piperacillin Sod/Tazobactam (Sod 3.375 gm/ Sodium Chloride) 50 mls @ 100 mls/ hr IV Q6H [facility] Last Admin: 08/08/18 07:30 Dose: 100 mls/hr Clindamycin Phosphate 600 mg/ (Premix) 50 mls @ 150 mls/hr IV Q8H [facility] Last Admin: 08/08/18 05:45 Dose: 150 mls/hr Sodium Chloride (Normal Saline) 1,000 mls @ 100 mls/hr IV STAT [facility] Last Admin: 08/08/18 22:55 Dose: 100 mls/hr Ceftriaxone Sodium/Dextrose 1 (gm/ Premix) 50 mls @ 100 mls/hr IV Q24H [facility] Last Admin: 08/08/18 17:49 Dose: Not Given Metronidazole 500 mg/ Premix 100 mls @ 100 mls/hr IV Q8H [facility] Last Admin: 08/08/18 17:49 Dose: Not Given Dextrose/Water (Dextrose 5% In Water) 1,000 mls @ 100 mls/hr IV ASDIRECTED [facility] Last Admin: 08/10/18 23:29 Dose: 100 mls/hr Sodium Chloride (Normal Saline) 1,000 mls @ 100 mls/hr IV ASDIRECTED [facility] Last Admin: 08/12/18 08:19 Dose: 100 mls/hr Loperamide HCl (Imodium) 2 mg PO Q4H PRN PRN Reason: Diarrhea Last Admin: 08/05/18 11:47 Dose: 2 mg Loperamide HCl (Imodium) 2 mg PO BID PRN PRN Reason: Diarrhea Last Admin: 08/10/18 11:46 Dose: 2 mg Losartan Potassium (Cozaar) 50 mg PO DAILY [facility] Last Admin: 08/08/18 15:25 Dose: Not Given Metoprolol Tartrate (Lopressor) 50 mg PO BID [facility] Last Admin: 08/08/18 15:25 Dose: Not Given Omeprazole (Omeprazole) 20 mg PO DAILY [facility] Last Admin: 08/05/18 11:38 Dose: Not Given Ondansetron HCl (Zofran) 4 mg IVPUSH ONETIME ONE Stop: 08/02/18 18:37 Last Admin: 08/02/18 18:42 Dose: 4 mg Potassium Chloride 8 (Meq Tab.Er) 5 each PO ONETIME ONE Stop: 08/05/18 21:01 Last Admin: 08/05/18 21:00 Dose: 5 each Hydralazine 100 Mg (Tab) 1 each PO BID [facility] Last Admin: 08/10/18 08:26 Dose: Not Given Potassium Chloride (Klor-Con M20) 40 meq PO ONETIME ONE Stop: 08/02/18 17:44 Last Admin: 08/02/18 18:33 Dose: 40 meq Potassium Chloride (Klor-Con M20) 40 meq PO ONETIME ONE Stop: 08/03/18 08:26 Last Admin: 08/03/18 09:07 Dose: 40 meq Potassium Chloride (Klor-Con M20) 40 meq PO ONETIME ONE Stop: 08/03/18 12:01 Last Admin: 08/03/18 12:09 Dose: 40 meq Potassium Chloride (Klor-Con M20) 40 meq PO ONETIME ONE Stop: 08/04/18 09:01 Last Admin: 08/04/18 08:27 Dose: 40 meq Potassium Chloride (Klor-Con M20) 40 meq PO ONETIME ONE Stop: 08/04/18 21:01 Last Admin: 08/04/18 20:30 Dose: 40 meq Potassium Chloride (Klor-Con M20) 40 meq PO ONETIME ONE Stop: 08/04/18 15:01 Potassium Chloride (Klor-Con M20) 40 meq PO ONETIME ONE Stop: 08/05/18 09:01 Last Admin: 08/05/18 12:01 Dose: Not Given Potassium Chloride (Klor-Con M20) 40 meq PO ONETIME ONE Stop: 08/13/18 09:19 Last Admin: 08/13/18 10:01 Dose: 40 meq Promethazine HCl (Phenergan) 25 mg IM ONETIME ONE Stop: 08/04/18 18:45 Last Admin: 08/04/18 19:11 Dose: 25 mg Promethazine HCl (Phenergan) 25 mg IM ONETIME ONE Stop: 08/04/18 19:04 Last Admin: 08/04/18 19:13 Dose: Not Given - Exam General: Alert, Oriented Lungs: Clear to Auscultation, Normal Respiratory Effort Cardiovascular: Regular Rate, Regular Rhythm GI/Abdominal Exam: Normal Bowel Sounds, Soft, Non-Tender Extremities: Non-Tender, No Pedal Edema Skin: Warm, Dry, Intact - Problem List Review Problem List Initiated/Reviewed/Updated: Yes - My Orders Last 24 Hours: My Active Orders 08/13/18 09:18 Magnesium Sulfate/Water [Magnesium Sulfate 2 GM in Water 50 ML] 2 gm Premix Bag 1 bag IV ONETIME 08/13/18 Lunch Regular Diet [DIET] - Plan Plan:: 1. Aspiration pneumonia- continue Flagyl and Rocephin, patient is off oxygen. 2. Dilated small bowel loops concerning for ileus- resolving, will advance to regular diet 3. MARGARITA- continue IV fluids will switch to 1/2NS 5. Anemia-H/H stable, continue iron supplements. We watch H/H and transfuse if Hgb drops below 7.
--- NOTE | 2018-08-13 11:33 | PCM.CONSN ---
- General Info Date of Service: 08/13/18 Admission Dx/Problem (Free Text): Abdominal distension. MARGARITA. Dehydration. Subjective Update: Patient states he is feeling much better. He denies nausea or vomiting. He is passing gas and has had multiple diarrheal stools. No bleeding. Functional Status: Reports: Pain Controlled, Tolerating Diet, Ambulating, Urinating. Denies: New Symptoms - Review of Systems General: Reports: Weakness, Appetite (Slowly improving). Denies: Fever, Chills , Night Sweats HEENT: Reports: No Symptoms Pulmonary: Denies: Shortness of Breath, Cough Cardiovascular: Denies: Chest Pain Gastrointestinal: Reports: Diarrhea, Flatus. Denies: Abdominal Pain, Constipation, Decreased Appetite, Difficulty Swallowing, Hematochezia, Melena, Nausea, Vomiting Genitourinary: Denies: Dysuria, Frequency, Burning, Pain, Urgency Musculoskeletal: Reports: No Symptoms Skin: Reports: No Symptoms Neurological: Reports: No Symptoms Psychiatric: Reports: No Symptoms - Patient Data Vitals - Most Recent: Last Vital Signs Temp 97.7 F 08/13/18 08:00 Pulse 72 08/13/18 08:10 Resp 18 08/13/18 08:00 BP 127/60 08/13/18 08:10 Pulse Ox 94 L 08/13/18 04:00 Orthostatic Blood Pressure [ 113/51 Standing] Orthostatic Blood Pressure [ 137/56 Sitting] Orthostatic Blood Pressure [ 137/54 Supine] Weight - Most Recent: 177 lb 6.4 oz I&O - Last 24 Hours: Intake & Output 08/12/18 08/13/18 08/13/18 19:59 03:59 11:59 Intake Total 300 2479 Output Total 550 1006 Balance -250 1473 Lab Results Last 24 Hours: Laboratory Results - last 24 hr 08/13/18 08/13/18 Range/Units 06:20 06:20 WBC 7.10 (4.0-11.0) K/uL RBC 3.24 L (4.50-5.90) M/uL Hgb 7.4 L (13.0-17.0) g/dL Hct 24.1 L (38.0-50.0) % MCV 74.4 L (80.0-98.0) fL MCH 22.8 L (27.0-32.0) pg MCHC 30.7 L (31.0-37.0) g/dL RDW Std Deviation 65.6 H (28.0-62.0) fl RDW Coeff of [place] 25 H (11.0-15.0) % Plt Count 157 (150-400) K/uL MPV 9.20 (7.40-12.00) fL Add Manual Diff YES Neutrophils % (Manual) 66 (48.0-80.0) % Band Neutrophils % 10 % Lymphocytes % (Manual) 19 (16.0-40.0) % Monocytes % (Manual) 5 (0.0-15.0) % Nucleated RBC % 0.0 /100WBC Absolute Seg Neuts 4.7 (1.4-5.7) Band Neutrophils # 0.7 Lymphocytes # (Manual) 1.3 (0.6-2.4) Monocytes # (Manual) 0.4 (0.0-0.8) Nucleated RBCs # 0 K/uL Sodium 144 (136-148) mmol/L Potassium 3.3 L (3.5-5.1) mmol/L Chloride 113 H (98-107) mmol/L Carbon Dioxide 23.8 (21.0-32.0) mmol/L BUN 15 (7.0-18.0) mg/dL Creatinine 1.4 H (0.8-1.3) mg/dL Est Cr Clr Drug Dosing 37.29 mL/min Estimated GFR (MDRD) 48.4 ml/min Glucose 129 H (74-106) mg/dL Calcium 7.2 L (8.5-10.1) mg/dL Magnesium 1.5 L (1.8-2.4) mg/dL Med Orders - Current: Current Medications Acetaminophen (Tylenol) 650 mg PO Q4H PRN PRN Reason: Pain Last Admin: 08/06/18 04:24 Dose: 650 mg Albuterol/Ipratropium (Duoneb 3.0-0.5 Mg/3 Ml) 3 ml NEB Q6HRRT KATHERINE Last Admin: 08/13/18 06:05 Dose: 3 ml Artificial Tears (Refresh Plus 0.5%) 0 each EYEBOTH BEDTIME KATHERINE Last Admin: 08/12/18 21:36 Dose: 1 drop Artificial Tears (Refresh Plus 0.5%) 1 each EYEBOTH BID PRN PRN Reason: Dry Eyes Last Admin: 08/10/18 16:42 Dose: 1 drop Aspirin (Halfprin) 81 mg PO DAILY [facility] Last Admin: 08/13/18 08:11 Dose: 81 mg Calcium Carbonate/Glycine (Tums) 1,000 mg PO Q2HR PRN PRN Reason: Indigestion Last Admin: 08/05/18 21:01 Dose: 1,000 mg Calcium Citrate (Calcitrate + Vit D Cap (315 Mg/250 Units)) 2 each PO DAILY [facility] Last Admin: 08/13/18 08:11 Dose: Not Given Ferrous Sulfate (Ferrous Sulfate) 325 mg PO TIDMEALS [facility] Last Admin: 08/13/18 11:26 Dose: 325 mg Heparin Sodium (Porcine) (Heparin Sodium) 5,000 units SUBCUT Q8H [facility] Last Admin: 08/13/18 06:43 Dose: 5,000 units Ceftriaxone Sodium/Dextrose 1 (gm/ Premix) 50 mls @ 100 mls/hr IV Q24H [facility] Last Admin: 08/12/18 15:44 Dose: 100 mls/hr Metronidazole 500 mg/ Premix 100 mls @ 100 mls/hr IV Q8H [facility] Last Admin: 08/13/18 11:24 Dose: 100 mls/hr Sodium Chloride (Sodium Chloride 0.45%) 1,000 mls @ 50 mls/hr IV ASDIRECTED [facility] Metoprolol Tartrate (Lopressor) 50 mg PO BID [facility] Last Admin: 08/13/18 08:10 Dose: 50 mg Morphine Sulfate (Morphine) 2 mg IVPUSH Q2H PRN PRN Reason: Abdominal Pain Omeprazole (Omeprazole) 20 mg PO ACBREAKFAST [facility] Last Admin: 08/13/18 06:43 Dose: 20 mg Ondansetron HCl (Zofran) 4 mg IVPUSH Q4H PRN PRN Reason: Nausea/Vomiting Last Admin: 08/07/18 23:10 Dose: 4 mg Ondansetron HCl (Zofran Odt) 4 mg PO Q4H PRN PRN Reason: Nausea/Vomiting Oxycodone HCl (Oxycodone) 5 mg PO Q4H PRN PRN Reason: Pain (moderate 4-6) Potassium Chloride 8 (Meq Tab.Er) 5 each PO DAILY [facility] Last Admin: 08/13/18 08:11 Dose: 5 each Phenol/Menthol (Chloraseptic Throat [place]) 5 ml MUCMEM Q2H PRN PRN Reason: sore throat Last Admin: 08/11/18 18:00 Dose: 2 sprays Prochlorperazine Maleate (Compazine) 10 mg PO Q6H PRN PRN Reason: Nausea/Vomiting Last Admin: 08/09/18 12:06 Dose: 10 mg Sodium Chloride ([place] Nasal [place]) 0 ml ANUEL DAILY PRN PRN Reason: Nasal Dryness Temazepam (Restoril) 15 mg PO BEDTIME PRN PRN Reason: Insomnia Discontinued Medications Albuterol/Ipratropium (Duoneb 3.0-0.5 Mg/3 Ml) 3 ml NEB Q4HRRT [facility] Last Admin: 08/10/18 10:10 Dose: 3 ml Aspirin (Halfprin) 81 mg PO ASDIRECTED [facility] Azithromycin (Zithromax) 500 mg PO Q24H [facility] Last Admin: 08/06/18 15:04 Dose: 500 mg Calcium Carbonate (Caltrate 600+D 1500 Mg-400 Units) 1 tab PO DAILY [facility] Last Admin: 08/07/18 10:55 Dose: Not Given Enoxaparin Sodium (Lovenox) 30 mg SUBCUT Q24H [facility] Last Admin: 08/07/18 11:10 Dose: 30 mg Furosemide (Lasix) 20 mg IVPUSH ONETIME ONE Stop: 08/07/18 05:49 Last Admin: 08/07/18 06:06 Dose: 20 mg Hydralazine HCl (Apresoline) 10 mg IVPUSH Q4H PRN PRN Reason: Other Hydralazine HCl (Apresoline) 100 mg PO BID [facility] Last Admin: 08/05/18 11:55 Dose: 50 mg Hydralazine HCl (Apresoline) 10 mg IVPUSH Q4H PRN PRN Reason: Other Last Admin: 08/06/18 04:13 Dose: 10 mg Sodium Chloride (Normal Saline) 1,000 mls @ 999 mls/hr IV STAT ONE Stop: 08/02/18 18:37 Last Admin: 08/02/18 18:32 Dose: 999 mls/hr Potassium Chloride 40 meq/ (Premix) 100 mls @ 25 mls/hr IV ONETIME ONE Stop: 08/02/18 23:30 Last Admin: 08/02/18 20:55 Dose: 25 mls/hr Sodium Chloride (Normal Saline) 1,000 mls @ 75 mls/hr IV ASDIRECTED [facility] Last Admin: 08/06/18 18:14 Dose: 75 mls/hr Magnesium Sulfate 2 gm/ Premix 50 mls @ 25 mls/hr IV ONETIME ONE Stop: 08/03/18 15:50 Last Admin: 08/03/18 14:29 Dose: 25 mls/hr Magnesium Sulfate 2 gm/ Premix 50 mls @ 25 mls/hr IV ONETIME ONE Stop: 08/04/18 09:15 Last Admin: 08/04/18 08:29 Dose: 25 mls/hr Magnesium Sulfate 2 gm/ Premix 50 mls @ 50 mls/hr IV ONETIME ONE Stop: 08/06/18 07:42 Last Admin: 08/06/18 09:34 Dose: 50 mls/hr Piperacillin Sod/Tazobactam (Sod 3.375 gm/ Sodium Chloride) 50 mls @ 100 mls/ hr IV Q8H [facility] Last Admin: 08/07/18 09:50 Dose: Not Given Clindamycin Phosphate 300 mg/ (Premix) 50 mls @ 150 mls/hr IV Q8H [facility] Last Admin: 08/07/18 06:42 Dose: 150 mls/hr Piperacillin Sod/Tazobactam (Sod 3.375 gm/ Sodium Chloride) 50 mls @ 100 mls/ hr IV Q6H [facility] Last Admin: 08/08/18 07:30 Dose: 100 mls/hr Clindamycin Phosphate 600 mg/ (Premix) 50 mls @ 150 mls/hr IV Q8H [facility] Last Admin: 08/08/18 05:45 Dose: 150 mls/hr Sodium Chloride (Normal Saline) 1,000 mls @ 100 mls/hr IV STAT [facility] Last Admin: 08/08/18 22:55 Dose: 100 mls/hr Ceftriaxone Sodium/Dextrose 1 (gm/ Premix) 50 mls @ 100 mls/hr IV Q24H [facility] Last Admin: 08/08/18 17:49 Dose: Not Given Metronidazole 500 mg/ Premix 100 mls @ 100 mls/hr IV Q8H [facility] Last Admin: 08/08/18 17:49 Dose: Not Given Dextrose/Water (Dextrose 5% In Water) 1,000 mls @ 100 mls/hr IV ASDIRECTED [facility] Last Admin: 08/10/18 23:29 Dose: 100 mls/hr Sodium Chloride (Normal Saline) 1,000 mls @ 100 mls/hr IV ASDIRECTED [facility] Last Admin: 08/12/18 08:19 Dose: 100 mls/hr Dextrose/Water (Dextrose 5% In Water) 1,000 mls @ 50 mls/hr IV ASDIRECTED [facility] Last Admin: 08/13/18 10:10 Dose: 100 mls/hr Magnesium Sulfate 2 gm/ Premix 50 mls @ 50 mls/hr IV ONETIME ONE Stop: 08/13/18 10:17 Last Admin: 08/13/18 10:04 Dose: 50 mls/hr Loperamide HCl (Imodium) 2 mg PO Q4H PRN PRN Reason: Diarrhea Last Admin: 08/05/18 11:47 Dose: 2 mg Loperamide HCl (Imodium) 2 mg PO BID PRN PRN Reason: Diarrhea Last Admin: 08/10/18 11:46 Dose: 2 mg Losartan Potassium (Cozaar) 50 mg PO DAILY [facility] Last Admin: 08/08/18 15:25 Dose: Not Given Metoprolol Tartrate (Lopressor) 50 mg PO BID [facility] Last Admin: 08/08/18 15:25 Dose: Not Given Omeprazole (Omeprazole) 20 mg PO DAILY [facility] Last Admin: 08/05/18 11:38 Dose: Not Given Ondansetron HCl (Zofran) 4 mg IVPUSH ONETIME ONE Stop: 08/02/18 18:37 Last Admin: 08/02/18 18:42 Dose: 4 mg Potassium Chloride 8 (Meq Tab.Er) 5 each PO ONETIME ONE Stop: 08/05/18 21:01 Last Admin: 08/05/18 21:00 Dose: 5 each Hydralazine 100 Mg (Tab) 1 each PO BID [facility] Last Admin: 08/10/18 08:26 Dose: Not Given Potassium Chloride (Klor-Con M20) 40 meq PO ONETIME ONE Stop: 08/02/18 17:44 Last Admin: 08/02/18 18:33 Dose: 40 meq Potassium Chloride (Klor-Con M20) 40 meq PO ONETIME ONE Stop: 08/03/18 08:26 Last Admin: 08/03/18 09:07 Dose: 40 meq Potassium Chloride (Klor-Con M20) 40 meq PO ONETIME ONE Stop: 08/03/18 12:01 Last Admin: 08/03/18 12:09 Dose: 40 meq Potassium Chloride (Klor-Con M20) 40 meq PO ONETIME ONE Stop: 08/04/18 09:01 Last Admin: 08/04/18 08:27 Dose: 40 meq Potassium Chloride (Klor-Con M20) 40 meq PO ONETIME ONE Stop: 08/04/18 21:01 Last Admin: 08/04/18 20:30 Dose: 40 meq Potassium Chloride (Klor-Con M20) 40 meq PO ONETIME ONE Stop: 08/04/18 15:01 Potassium Chloride (Klor-Con M20) 40 meq PO ONETIME ONE Stop: 08/05/18 09:01 Last Admin: 08/05/18 12:01 Dose: Not Given Potassium Chloride (Klor-Con M20) 40 meq PO ONETIME ONE Stop: 08/13/18 09:19 Last Admin: 08/13/18 10:01 Dose: 40 meq Promethazine HCl (Phenergan) 25 mg IM ONETIME ONE Stop: 08/04/18 18:45 Last Admin: 08/04/18 19:11 Dose: 25 mg Promethazine HCl (Phenergan) 25 mg IM ONETIME ONE Stop: 08/04/18 19:04 Last Admin: 08/04/18 19:13 Dose: Not Given - Exam Quality Assessment: DVT Prophylaxis. No: Supplemental Oxygen General: Alert, Oriented, Cooperative, No Acute Distress HEENT: Pupils Equal, Pupils Reactive. No: Scleral Icterus Neck: Supple Lungs: Clear to Auscultation, Normal Respiratory Effort Cardiovascular: Regular Rate, Regular Rhythm, No Murmurs GI/Abdominal Exam: Soft, Non-Tender, No Distention, Abnormal Bowel Sounds ( Bowel sounds are slowly improving. No high-pitched tinkles or rushes.). No: Guarding, Rigid, Rebound (Male) Exam: No Hernia Back Exam: Normal Inspection Extremities: Normal Inspection Skin: Warm, Dry, Intact Neurological: No New Focal Deficit Psy/Mental Status: Alert, Normal Affect, Normal Mood Consult PN Assessment/Plan Procedures: Procedures ASSAY OF AMYLASE (03/08/18) ASSAY OF FERRITIN (06/14/18) ASSAY OF LIPASE (03/08/18) ASSAY OF TROPONIN QUANT (03/08/18) BLOOD CULTURE FOR BACTERIA (03/08/18) CARCINOEMBRYONIC ANTIGEN (06/14/18) COLONOSCOPY AND BIOPSY (03/28/18) COMPLETE CBC W/AUTO DIFF WBC (07/19/18) COMPREHEN METABOLIC PANEL (07/19/18) CT ANGIOGRAPHY CHEST (03/08/18) CT HEAD/BRAIN W/O DYE (03/08/18) EGD BIOPSY SINGLE/MULTIPLE (03/28/18) ELECTROCARDIOGRAM TRACING (03/08/18) EMERGENCY DEPT VISIT (03/08/18) FIBRIN DEGRADATION QUANT (03/08/18) GAIT TRAINING THERAPY (05/05/17) HYDRATE IV INFUSION ADD-ON (03/08/18) IRON BINDING TEST (06/14/18) MANUAL THERAPY 1/> REGIONS (05/05/17) METABOLIC PANEL TOTAL CA (03/08/18) PROTHROMBIN TIME (03/08/18) PT EVAL MOD COMPLEX 30 MIN (05/05/17) ROUTINE VENIPUNCTURE (07/19/18) THER/PROPH/DIAG INJ IV PUSH (03/08/18) THERAPEUTIC EXERCISES (05/05/17) TISSUE EXAM BY PATHOLOGIST (01/03/17) TX/PRO/DX INJ NEW DRUG ADDON (03/08/18) URINALYSIS AUTO W/SCOPE (03/08/18) X-RAY EXAM CHEST 1 VIEW (03/08/18) (1) Ambulatory dysfunction SNOMED Code(s): 014287451 Code(s): R26.2 - DIFFICULTY IN WALKING, NOT ELSEWHERE CLASSIFIED Priority: Medium Current Visit: Yes (2) Dilated bowel SNOMED Code(s): 70305543 Code(s): KRS9006 - Priority: High Current Visit: Yes (3) Ileus SNOMED Code(s): 531673115 Code(s): K56.7 - ILEUS, UNSPECIFIED Priority: High Current Visit: Yes Problem List Initiated/Reviewed/Updated: Yes Plan: Patient does seem to be slowly improving. No further episodes of nausea or vomiting. States he is passing gas and has had several loose stools. Agree with advancing his diet and his activity level. At this point, I see no indication that he will require surgical intervention.
[2018-08-13] MEDS: Sodium Chloride 0.45% 1,000 ML IV SCH (13:25)
[2018-08-13] MEDS: cefTRIAXone 1 GM in Premix Bag 1 BAG IV SCH (17:05)
[2018-08-13] MEDS: Carboxymethylcellulose Sodium 0.5% Ophth Soln 0.4 ML UD Box of 30 EYEBOTH SCH (20:57)
[2018-08-14] MEDS: Albuterol/Ipratropium 3.0-0.5 MG/3 ML Neb Soln NEB SCH ×3 (00:38→11:12)
[2018-08-14] MEDS: metroNIDAZOLE/Normal Saline 500 MG in Premix Bag 1 BAG IV SCH ×3 (02:48→18:15)
[2018-08-14] MEDS: Heparin Sodium 5,000 Units/ML Vial SUBCUT SCH ×3 (06:38→21:31)
[2018-08-14] MEDS: Omeprazole 20 MG Cap.CR PO SCH (06:38)
--- NOTE | 2018-08-14 07:15 | PCM.PN ---
- General Info Date of Service: 08/14/18 - Review of Systems Systems Review Comment:: patient had four loose stools in past 12 hours, feeling better. - Patient Data Vitals - Most Recent: Last Vital Signs Temp 36.2 C 08/14/18 03:35 Pulse 72 08/14/18 03:35 Resp 20 08/14/18 03:35 BP 126/52 L 08/14/18 03:35 Pulse Ox 93 L 08/14/18 03:35 Orthostatic Blood Pressure [ 113/51 Standing] Orthostatic Blood Pressure [ 137/56 Sitting] Orthostatic Blood Pressure [ 137/54 Supine] Weight - Most Recent: 80.467 kg I&O - Last 24 Hours: Intake & Output 08/13/18 08/14/18 08/14/18 22:59 06:59 14:59 Intake Total 550 961 Balance 550 961 Lab Results Last 24 Hours: Laboratory Results - last 24 hr 08/13/18 08/14/18 08/14/18 Range/Units 06:20 05:53 05:53 WBC 7.10 5.48 (4.0-11.0) K/uL RBC 3.24 L 3.21 L (4.50-5.90) M/uL Hgb 7.4 L 7.4 L (13.0-17.0) g/dL Hct 24.1 L 24.0 L (38.0-50.0) % MCV 74.4 L 74.8 L (80.0-98.0) fL MCH 22.8 L 23.1 L (27.0-32.0) pg MCHC 30.7 L 30.8 L (31.0-37.0) g/dL RDW Std Deviation 65.6 H 66.7 H (28.0-62.0) fl RDW Coeff of Salvador 25 H 26 H (11.0-15.0) % Plt Count 157 158 (150-400) K/uL MPV 9.20 9.00 (7.40-12.00) fL Add Manual Diff YES YES Neutrophils % (Manual) 66 78 (48.0-80.0) % Band Neutrophils % 10 % Lymphocytes % (Manual) 19 16 (16.0-40.0) % Monocytes % (Manual) 5 5 (0.0-15.0) % Eosinophils % (Manual) 1 (0.0-7.0) % Nucleated RBC % 0.0 0.0 /100WBC Absolute Seg Neuts 4.7 4.3 (1.4-5.7) Band Neutrophils # 0.7 Lymphocytes # (Manual) 1.3 0.9 (0.6-2.4) Monocytes # (Manual) 0.4 0.3 (0.0-0.8) Eosinophils # (Manual) 0.1 (0.0-0.7) Nucleated RBCs # 0 0 K/uL Sodium 144 (136-148) mmol/L Potassium 3.9 (3.5-5.1) mmol/L Chloride 114 H (98-107) mmol/L Carbon Dioxide 23.0 (21.0-32.0) mmol/L BUN 11 (7.0-18.0) mg/dL Creatinine 1.4 H (0.8-1.3) mg/dL Est Cr Clr Drug Dosing 37.29 mL/min Estimated GFR (MDRD) 48.4 ml/min Glucose 115 H (74-106) mg/dL Calcium 7.3 L (8.5-10.1) mg/dL Med Orders - Current: Current Medications Acetaminophen (Tylenol) 650 mg PO Q4H PRN PRN Reason: Pain Last Admin: 08/06/18 04:24 Dose: 650 mg Albuterol/Ipratropium (Duoneb 3.0-0.5 Mg/3 Ml) 3 ml NEB Q6HRRT [facility] Last Admin: 08/14/18 06:09 Dose: 3 ml Artificial Tears (Refresh Plus 0.5%) 0 each EYEBOTH BEDTIME [facility] Last Admin: 08/13/18 20:57 Dose: 1 drop Artificial Tears (Refresh Plus 0.5%) 1 each EYEBOTH BID PRN PRN Reason: Dry Eyes Last Admin: 08/10/18 16:42 Dose: 1 drop Aspirin (Halfprin) 81 mg PO DAILY [facility] Last Admin: 08/13/18 08:11 Dose: 81 mg Calcium Carbonate/Glycine (Tums) 1,000 mg PO Q2HR PRN PRN Reason: Indigestion Last Admin: 08/05/18 21:01 Dose: 1,000 mg Calcium Citrate (Calcitrate + Vit D Cap (315 Mg/250 Units)) 2 each PO DAILY [facility] Last Admin: 08/13/18 08:11 Dose: Not Given Ferrous Sulfate (Ferrous Sulfate) 325 mg PO TIDMEALS [facility] Last Admin: 08/13/18 17:04 Dose: 325 mg Heparin Sodium (Porcine) (Heparin Sodium) 5,000 units SUBCUT Q8H [facility] Last Admin: 08/14/18 06:38 Dose: 5,000 units Ceftriaxone Sodium/Dextrose 1 (gm/ Premix) 50 mls @ 100 mls/hr IV Q24H [facility] Last Admin: 08/13/18 17:05 Dose: 100 mls/hr Metronidazole 500 mg/ Premix 100 mls @ 100 mls/hr IV Q8H [facility] Last Admin: 08/14/18 02:48 Dose: 100 mls/hr Sodium Chloride (Sodium Chloride 0.45%) 1,000 mls @ 50 mls/hr IV ASDIRECTED [facility] Last Admin: 08/13/18 13:25 Dose: 50 mls/hr Metoprolol Tartrate (Lopressor) 50 mg PO BID [facility] Last Admin: 08/13/18 20:57 Dose: 50 mg Morphine Sulfate (Morphine) 2 mg IVPUSH Q2H PRN PRN Reason: Abdominal Pain Omeprazole (Omeprazole) 20 mg PO ACBREAKFAST [facility] Last Admin: 08/14/18 06:38 Dose: 20 mg Ondansetron HCl (Zofran) 4 mg IVPUSH Q4H PRN PRN Reason: Nausea/Vomiting Last Admin: 08/07/18 23:10 Dose: 4 mg Ondansetron HCl (Zofran Odt) 4 mg PO Q4H PRN PRN Reason: Nausea/Vomiting Oxycodone HCl (Oxycodone) 5 mg PO Q4H PRN PRN Reason: Pain (moderate 4-6) Potassium Chloride 8 (Meq Tab.Er) 5 each PO DAILY [facility] Last Admin: 08/13/18 08:11 Dose: 5 each Phenol/Menthol (Chloraseptic Throat Capron) 5 ml MUCMEM Q2H PRN PRN Reason: sore throat Last Admin: 08/11/18 18:00 Dose: 2 sprays Prochlorperazine Maleate (Compazine) 10 mg PO Q6H PRN PRN Reason: Nausea/Vomiting Last Admin: 08/09/18 12:06 Dose: 10 mg Sodium Chloride ([place]ina Nasal Capron) 0 ml ANUEL DAILY PRN PRN Reason: Nasal Dryness Temazepam (Restoril) 15 mg PO BEDTIME PRN PRN Reason: Insomnia Discontinued Medications Albuterol/Ipratropium (Duoneb 3.0-0.5 Mg/3 Ml) 3 ml NEB Q4HRRT [facility] Last Admin: 08/10/18 10:10 Dose: 3 ml Aspirin (Halfprin) 81 mg PO ASDIRECTED [facility] Azithromycin (Zithromax) 500 mg PO Q24H [facility] Last Admin: 08/06/18 15:04 Dose: 500 mg Calcium Carbonate (Caltrate 600+D 1500 Mg-400 Units) 1 tab PO DAILY [facility] Last Admin: 08/07/18 10:55 Dose: Not Given Enoxaparin Sodium (Lovenox) 30 mg SUBCUT Q24H [facility] Last Admin: 08/07/18 11:10 Dose: 30 mg Furosemide (Lasix) 20 mg IVPUSH ONETIME ONE Stop: 08/07/18 05:49 Last Admin: 08/07/18 06:06 Dose: 20 mg Hydralazine HCl (Apresoline) 10 mg IVPUSH Q4H PRN PRN Reason: Other Hydralazine HCl (Apresoline) 100 mg PO BID [facility] Last Admin: 08/05/18 11:55 Dose: 50 mg Hydralazine HCl (Apresoline) 10 mg IVPUSH Q4H PRN PRN Reason: Other Last Admin: 08/06/18 04:13 Dose: 10 mg Sodium Chloride (Normal Saline) 1,000 mls @ 999 mls/hr IV STAT ONE Stop: 08/02/18 18:37 Last Admin: 08/02/18 18:32 Dose: 999 mls/hr Potassium Chloride 40 meq/ (Premix) 100 mls @ 25 mls/hr IV ONETIME ONE Stop: 08/02/18 23:30 Last Admin: 08/02/18 20:55 Dose: 25 mls/hr Sodium Chloride (Normal Saline) 1,000 mls @ 75 mls/hr IV ASDIRECTED [facility] Last Admin: 08/06/18 18:14 Dose: 75 mls/hr Magnesium Sulfate 2 gm/ Premix 50 mls @ 25 mls/hr IV ONETIME ONE Stop: 08/03/18 15:50 Last Admin: 08/03/18 14:29 Dose: 25 mls/hr Magnesium Sulfate 2 gm/ Premix 50 mls @ 25 mls/hr IV ONETIME ONE Stop: 08/04/18 09:15 Last Admin: 08/04/18 08:29 Dose: 25 mls/hr Magnesium Sulfate 2 gm/ Premix 50 mls @ 50 mls/hr IV ONETIME ONE Stop: 08/06/18 07:42 Last Admin: 08/06/18 09:34 Dose: 50 mls/hr Piperacillin Sod/Tazobactam (Sod 3.375 gm/ Sodium Chloride) 50 mls @ 100 mls/ hr IV Q8H [facility] Last Admin: 08/07/18 09:50 Dose: Not Given Clindamycin Phosphate 300 mg/ (Premix) 50 mls @ 150 mls/hr IV Q8H [facility] Last Admin: 08/07/18 06:42 Dose: 150 mls/hr Piperacillin Sod/Tazobactam (Sod 3.375 gm/ Sodium Chloride) 50 mls @ 100 mls/ hr IV Q6H [facility] Last Admin: 08/08/18 07:30 Dose: 100 mls/hr Clindamycin Phosphate 600 mg/ (Premix) 50 mls @ 150 mls/hr IV Q8H [facility] Last Admin: 08/08/18 05:45 Dose: 150 mls/hr Sodium Chloride (Normal Saline) 1,000 mls @ 100 mls/hr IV STAT [facility] Last Admin: 08/08/18 22:55 Dose: 100 mls/hr Ceftriaxone Sodium/Dextrose 1 (gm/ Premix) 50 mls @ 100 mls/hr IV Q24H [facility] Last Admin: 08/08/18 17:49 Dose: Not Given Metronidazole 500 mg/ Premix 100 mls @ 100 mls/hr IV Q8H [facility] Last Admin: 08/08/18 17:49 Dose: Not Given Dextrose/Water (Dextrose 5% In Water) 1,000 mls @ 100 mls/hr IV ASDIRECTED [facility] Last Admin: 08/10/18 23:29 Dose: 100 mls/hr Sodium Chloride (Normal Saline) 1,000 mls @ 100 mls/hr IV ASDIRECTED [facility] Last Admin: 08/12/18 08:19 Dose: 100 mls/hr Dextrose/Water (Dextrose 5% In Water) 1,000 mls @ 50 mls/hr IV ASDIRECTED [facility] Last Admin: 08/13/18 10:10 Dose: 100 mls/hr Magnesium Sulfate 2 gm/ Premix 50 mls @ 50 mls/hr IV ONETIME ONE Stop: 08/13/18 10:17 Last Admin: 08/13/18 10:04 Dose: 50 mls/hr Loperamide HCl (Imodium) 2 mg PO Q4H PRN PRN Reason: Diarrhea Last Admin: 08/05/18 11:47 Dose: 2 mg Loperamide HCl (Imodium) 2 mg PO BID PRN PRN Reason: Diarrhea Last Admin: 08/10/18 11:46 Dose: 2 mg Losartan Potassium (Cozaar) 50 mg PO DAILY [facility] Last Admin: 08/08/18 15:25 Dose: Not Given Metoprolol Tartrate (Lopressor) 50 mg PO BID [facility] Last Admin: 08/08/18 15:25 Dose: Not Given Omeprazole (Omeprazole) 20 mg PO DAILY [facility] Last Admin: 08/05/18 11:38 Dose: Not Given Ondansetron HCl (Zofran) 4 mg IVPUSH ONETIME ONE Stop: 08/02/18 18:37 Last Admin: 08/02/18 18:42 Dose: 4 mg Potassium Chloride 8 (Meq Tab.Er) 5 each PO ONETIME ONE Stop: 08/05/18 21:01 Last Admin: 08/05/18 21:00 Dose: 5 each Hydralazine 100 Mg (Tab) 1 each PO BID [facility] Last Admin: 08/10/18 08:26 Dose: Not Given Potassium Chloride (Klor-Con M20) 40 meq PO ONETIME ONE Stop: 08/02/18 17:44 Last Admin: 08/02/18 18:33 Dose: 40 meq Potassium Chloride (Klor-Con M20) 40 meq PO ONETIME ONE Stop: 08/03/18 08:26 Last Admin: 08/03/18 09:07 Dose: 40 meq Potassium Chloride (Klor-Con M20) 40 meq PO ONETIME ONE Stop: 08/03/18 12:01 Last Admin: 08/03/18 12:09 Dose: 40 meq Potassium Chloride (Klor-Con M20) 40 meq PO ONETIME ONE Stop: 08/04/18 09:01 Last Admin: 08/04/18 08:27 Dose: 40 meq Potassium Chloride (Klor-Con M20) 40 meq PO ONETIME ONE Stop: 08/04/18 21:01 Last Admin: 08/04/18 20:30 Dose: 40 meq Potassium Chloride (Klor-Con M20) 40 meq PO ONETIME ONE Stop: 08/04/18 15:01 Potassium Chloride (Klor-Con M20) 40 meq PO ONETIME ONE Stop: 08/05/18 09:01 Last Admin: 08/05/18 12:01 Dose: Not Given Potassium Chloride (Klor-Con M20) 40 meq PO ONETIME ONE Stop: 08/13/18 09:19 Last Admin: 08/13/18 10:01 Dose: 40 meq Promethazine HCl (Phenergan) 25 mg IM ONETIME ONE Stop: 08/04/18 18:45 Last Admin: 08/04/18 19:11 Dose: 25 mg Promethazine HCl (Phenergan) 25 mg IM ONETIME ONE Stop: 08/04/18 19:04 Last Admin: 08/04/18 19:13 Dose: Not Given - Exam General: Alert, Oriented Lungs: Clear to Auscultation, Normal Respiratory Effort Cardiovascular: Regular Rate, Regular Rhythm GI/Abdominal Exam: Normal Bowel Sounds, Soft, Non-Tender, No Distention Extremities: Non-Tender, No Pedal Edema Skin: Warm, Dry, Intact - Problem List Review Problem List Initiated/Reviewed/Updated: Yes - My Orders Last 24 Hours: My Active Orders 08/13/18 10:15 Sodium Chloride 0.45% 1,000 ml IV ASDIRECTED 08/13/18 15:34 May Shower [RC] ASDIRECTED 08/13/18 20:32 Discontinue Telemetry Monitoring [Cardiac Monitoring Discontinue] [RC] Click to Edit 08/13/18 Lunch Regular Diet [DIET] 08/15/18 05:11 BASIC METABOLIC PANEL,BMP [CHEM] AM CBC WITH AUTO DIFF [HEME] AM 08/16/18 05:11 BASIC METABOLIC PANEL,BMP [CHEM] AM CBC WITH AUTO DIFF [HEME] AM - Plan Plan:: 83 yo male who was admitted for dehydration, MARGARITA likely from diarrhea illness with campylobacter with complications of aspiration pneumonia and ileus. Will continue antibiotics for his pneumonia. His ileus is resolving but would avoid antimotility agents if his diarrhea would return. Patient is on IV fluids of 1/ 2NS. Discharge to [facility] is likely in the next few days.
[2018-08-14] MEDS: Ferrous Sulfate 325 MG Tab PO SCH ×3 (08:37→17:17)
[2018-08-14] MEDS: Aspirin 81 MG Tab.EC PO SCH (08:38)
[2018-08-14] MEDS: Metoprolol Tartrate 50 MG Tab PO SCH ×2 (08:38→21:30)
[2018-08-14] MEDS: Potassium Chloride 8 MEQ Tab.ER PO SCH (08:42)
[2018-08-14] MEDS: Calcium Citrate 950 MG Tab PO SCH (11:04)
[2018-08-14] MEDS ORDERED: Albuterol/Ipratropium 3.0-0.5 MG/3 ML Neb Soln NEB PRN (12:10)
[2018-08-14] MEDS: Calcium Citrate/Vitamin D3 Tablet PO SCH (14:37)
[2018-08-14] MEDS: Sodium Chloride 0.45% 1,000 ML IV SCH (15:31)
[2018-08-14] MEDS: cefTRIAXone 1 GM in Premix Bag 1 BAG IV SCH (17:09)
[2018-08-14] MEDS: Carboxymethylcellulose Sodium 0.5% Ophth Soln 0.4 ML UD Box of 30 EYEBOTH SCH (21:32)
[2018-08-15] MEDS ORDERED: metroNIDAZOLE/Normal Saline 0 ML ONE (02:22)
[2018-08-15] MEDS: metroNIDAZOLE/Normal Saline 500 MG in Premix Bag 1 BAG IV SCH ×3 (03:26→17:45)
[2018-08-15] MEDS: Heparin Sodium 5,000 Units/ML Vial SUBCUT SCH ×3 (06:29→21:36)
[2018-08-15] MEDS: Omeprazole 20 MG Cap.CR PO SCH (06:29)
[2018-08-15] MEDS: Ferrous Sulfate 325 MG Tab PO SCH ×3 (08:14→17:45)
[2018-08-15] MEDS: Aspirin 81 MG Tab.EC PO SCH (08:15)
[2018-08-15] MEDS: Metoprolol Tartrate 50 MG Tab PO SCH ×3 (08:16→21:40)
[2018-08-15] MEDS: Calcium Citrate 950 MG Tab PO SCH (08:17)
[2018-08-15] MEDS: Potassium Chloride 8 MEQ Tab.ER PO SCH (08:18)
--- NOTE | 2018-08-15 11:04 | PCM.PN ---
- General Info Date of Service: 08/15/18 Admission Dx/Problem (Free Text): Complicated medical history. aspiration PNA, SBO/ileus. Subjective Update: Still with diarrhea and loose stools. The patient is very weak. The patient's daughter also says that he has not wanting to move much or get into chair. Functional Status: Reports: Pain Controlled - Review of Systems General: Reports: Weakness, Fatigue, Malaise HEENT: Reports: No Symptoms Pulmonary: Reports: No Symptoms Cardiovascular: Reports: No Symptoms Gastrointestinal: Reports: Diarrhea Genitourinary: Reports: No Symptoms Musculoskeletal: Reports: No Symptoms Skin: Reports: No Symptoms Neurological: Reports: Weakness (Generalized) Psychiatric: Reports: No Symptoms - Patient Data Vitals - Most Recent: Last Vital Signs Temp 36.7 C 08/15/18 07:41 Pulse 74 08/15/18 10:36 Resp 16 08/15/18 07:41 BP 142/60 H 08/15/18 10:36 Pulse Ox 94 L 08/15/18 07:41 Orthostatic Blood Pressure [ 113/51 Standing] Orthostatic Blood Pressure [ 137/56 Sitting] Orthostatic Blood Pressure [ 137/54 Supine] Weight - Most Recent: 80.467 kg I&O - Last 24 Hours: Intake & Output 08/14/18 08/15/18 08/15/18 22:59 06:59 14:59 Intake Total 977 1039 Output Total 200 Balance 777 1039 Lab Results Last 24 Hours: Laboratory Results - last 24 hr 08/15/18 08/15/18 Range/Units 06:27 06:27 WBC 7.70 (4.0-11.0) K/uL RBC 3.57 L (4.50-5.90) M/uL Hgb 8.4 L (13.0-17.0) g/dL Hct 27.2 L (38.0-50.0) % MCV 76.2 L (80.0-98.0) fL MCH 23.5 L (27.0-32.0) pg MCHC 30.9 L (31.0-37.0) g/dL RDW Std Deviation 69.2 H (28.0-62.0) fl RDW Coeff of Salvador 26 H (11.0-15.0) % Plt Count 201 (150-400) K/uL MPV 9.30 (7.40-12.00) fL Add Manual Diff YES Neutrophils % (Manual) 62 (48.0-80.0) % Band Neutrophils % 15 % Lymphocytes % (Manual) 18 (16.0-40.0) % Monocytes % (Manual) 2 (0.0-15.0) % Basophils % (Manual) 1 (0.0-1.5) % Metamyelocytes % 2 % Nucleated RBC % 0.0 /100WBC Absolute Seg Neuts 4.8 (1.4-5.7) Band Neutrophils # 1.2 Lymphocytes # (Manual) 1.4 (0.6-2.4) Monocytes # (Manual) 0.2 (0.0-0.8) Basophils # (Manual) 0.1 (0.0-0.1) Absolute Metamyelocyte 0.2 Nucleated RBCs # 0 K/uL Sodium 146 (136-148) mmol/L Potassium 4.0 (3.5-5.1) mmol/L Chloride 114 H (98-107) mmol/L Carbon Dioxide 24.2 (21.0-32.0) mmol/L BUN 8 (7.0-18.0) mg/dL Creatinine 1.4 H (0.8-1.3) mg/dL Est Cr Clr Drug Dosing 37.29 mL/min Estimated GFR (MDRD) 48.4 ml/min Glucose 136 H (74-106) mg/dL Calcium 7.5 L (8.5-10.1) mg/dL Med Orders - Current: Current Medications Acetaminophen (Tylenol) 650 mg PO Q4H PRN PRN Reason: Pain Last Admin: 08/06/18 04:24 Dose: 650 mg Albuterol/Ipratropium (Duoneb 3.0-0.5 Mg/3 Ml) 3 ml NEB Q6HRRT PRN PRN Reason: SOB/wheezing Artificial Tears (Refresh Plus 0.5%) 0 each EYEBOTH BEDTIME KATHERINE Last Admin: 08/14/18 21:32 Dose: 1 drop Artificial Tears (Refresh Plus 0.5%) 1 each EYEBOTH BID PRN PRN Reason: Dry Eyes Last Admin: 08/10/18 16:42 Dose: 1 drop Aspirin (Halfprin) 81 mg PO DAILY KATHERINE Last Admin: 08/15/18 08:15 Dose: 81 mg Calcium Carbonate/Glycine (Tums) 1,000 mg PO Q2HR PRN PRN Reason: Indigestion Last Admin: 08/05/18 21:01 Dose: 1,000 mg Calcium Citrate (Calcitrate) 1,900 mg PO DAILY [facility] Last Admin: 08/15/18 08:17 Dose: 1,900 mg Cholestyramine Resin (Cholestyramine Light) 4 gm PO BID [facility] Ferrous Sulfate (Ferrous Sulfate) 325 mg PO TIDMEALS [facility] Last Admin: 08/15/18 08:14 Dose: 325 mg Heparin Sodium (Porcine) (Heparin Sodium) 5,000 units SUBCUT Q8H [facility] Last Admin: 08/15/18 06:29 Dose: 5,000 units Ceftriaxone Sodium/Dextrose 1 (gm/ Premix) 50 mls @ 100 mls/hr IV Q24H [facility] Last Admin: 08/14/18 17:09 Dose: 100 mls/hr Metronidazole 500 mg/ Premix 100 mls @ 100 mls/hr IV Q8H [facility] Last Admin: 08/15/18 10:37 Dose: 100 mls/hr Sodium Chloride (Sodium Chloride 0.45%) 1,000 mls @ 50 mls/hr IV ASDIRECTED [facility] Last Admin: 08/14/18 15:31 Dose: 50 mls/hr Metoprolol Tartrate (Lopressor) 50 mg PO BID [facility] Last Admin: 08/15/18 10:36 Dose: 50 mg Morphine Sulfate (Morphine) 2 mg IVPUSH Q2H PRN PRN Reason: Abdominal Pain Omeprazole (Omeprazole) 20 mg PO ACBREAKFAST [facility] Last Admin: 08/15/18 06:29 Dose: 20 mg Ondansetron HCl (Zofran) 4 mg IVPUSH Q4H PRN PRN Reason: Nausea/Vomiting Last Admin: 08/07/18 23:10 Dose: 4 mg Ondansetron HCl (Zofran Odt) 4 mg PO Q4H PRN PRN Reason: Nausea/Vomiting Oxycodone HCl (Oxycodone) 5 mg PO Q4H PRN PRN Reason: Pain (moderate 4-6) Potassium Chloride 8 (Meq Tab.Er) 5 each PO DAILY [facility] Last Admin: 08/15/18 08:18 Dose: 5 each Phenol/Menthol (Chloraseptic Throat [place]) 5 ml MUCMEM Q2H PRN PRN Reason: sore throat Last Admin: 08/11/18 18:00 Dose: 2 sprays Prochlorperazine Maleate (Compazine) 10 mg PO Q6H PRN PRN Reason: Nausea/Vomiting Last Admin: 08/09/18 12:06 Dose: 10 mg Sodium Chloride ([place] Nasal [place]) 0 ml ANUEL DAILY PRN PRN Reason: Nasal Dryness Temazepam (Restoril) 15 mg PO BEDTIME PRN PRN Reason: Insomnia Discontinued Medications Albuterol/Ipratropium (Duoneb 3.0-0.5 Mg/3 Ml) 3 ml NEB Q4HRRT [facility] Last Admin: 08/10/18 10:10 Dose: 3 ml Albuterol/Ipratropium (Duoneb 3.0-0.5 Mg/3 Ml) 3 ml NEB Q6HRRT [facility] Last Admin: 08/14/18 11:12 Dose: 3 ml Aspirin (Halfprin) 81 mg PO ASDIRECTED [facility] Azithromycin (Zithromax) 500 mg PO Q24H [facility] Last Admin: 08/06/18 15:04 Dose: 500 mg Calcium Carbonate (Caltrate 600+D 1500 Mg-400 Units) 1 tab PO DAILY [facility] Last Admin: 08/07/18 10:55 Dose: Not Given Calcium Citrate (Calcitrate + Vit D Cap (315 Mg/250 Units)) 2 each PO DAILY [facility] Last Admin: 08/14/18 14:37 Dose: Not Given Enoxaparin Sodium (Lovenox) 30 mg SUBCUT Q24H [facility] Last Admin: 08/07/18 11:10 Dose: 30 mg Furosemide (Lasix) 20 mg IVPUSH ONETIME ONE Stop: 08/07/18 05:49 Last Admin: 08/07/18 06:06 Dose: 20 mg Hydralazine HCl (Apresoline) 10 mg IVPUSH Q4H PRN PRN Reason: Other Hydralazine HCl (Apresoline) 100 mg PO BID [facility] Last Admin: 08/05/18 11:55 Dose: 50 mg Hydralazine HCl (Apresoline) 10 mg IVPUSH Q4H PRN PRN Reason: Other Last Admin: 08/06/18 04:13 Dose: 10 mg Sodium Chloride (Normal Saline) 1,000 mls @ 999 mls/hr IV STAT ONE Stop: 08/02/18 18:37 Last Admin: 08/02/18 18:32 Dose: 999 mls/hr Potassium Chloride 40 meq/ (Premix) 100 mls @ 25 mls/hr IV ONETIME ONE Stop: 08/02/18 23:30 Last Admin: 08/02/18 20:55 Dose: 25 mls/hr Sodium Chloride (Normal Saline) 1,000 mls @ 75 mls/hr IV ASDIRECTED [facility] Last Admin: 08/06/18 18:14 Dose: 75 mls/hr Magnesium Sulfate 2 gm/ Premix 50 mls @ 25 mls/hr IV ONETIME ONE Stop: 08/03/18 15:50 Last Admin: 08/03/18 14:29 Dose: 25 mls/hr Magnesium Sulfate 2 gm/ Premix 50 mls @ 25 mls/hr IV ONETIME ONE Stop: 08/04/18 09:15 Last Admin: 08/04/18 08:29 Dose: 25 mls/hr Magnesium Sulfate 2 gm/ Premix 50 mls @ 50 mls/hr IV ONETIME ONE Stop: 08/06/18 07:42 Last Admin: 08/06/18 09:34 Dose: 50 mls/hr Piperacillin Sod/Tazobactam (Sod 3.375 gm/ Sodium Chloride) 50 mls @ 100 mls/ hr IV Q8H [facility] Last Admin: 08/07/18 09:50 Dose: Not Given Clindamycin Phosphate 300 mg/ (Premix) 50 mls @ 150 mls/hr IV Q8H [facility] Last Admin: 08/07/18 06:42 Dose: 150 mls/hr Piperacillin Sod/Tazobactam (Sod 3.375 gm/ Sodium Chloride) 50 mls @ 100 mls/ hr IV Q6H [facility] Last Admin: 08/08/18 07:30 Dose: 100 mls/hr Clindamycin Phosphate 600 mg/ (Premix) 50 mls @ 150 mls/hr IV Q8H [facility] Last Admin: 08/08/18 05:45 Dose: 150 mls/hr Sodium Chloride (Normal Saline) 1,000 mls @ 100 mls/hr IV STAT [facility] Last Admin: 08/08/18 22:55 Dose: 100 mls/hr Ceftriaxone Sodium/Dextrose 1 (gm/ Premix) 50 mls @ 100 mls/hr IV Q24H [facility] Last Admin: 08/08/18 17:49 Dose: Not Given Metronidazole 500 mg/ Premix 100 mls @ 100 mls/hr IV Q8H [facility] Last Admin: 08/08/18 17:49 Dose: Not Given Dextrose/Water (Dextrose 5% In Water) 1,000 mls @ 100 mls/hr IV ASDIRECTED [facility] Last Admin: 08/10/18 23:29 Dose: 100 mls/hr Sodium Chloride (Normal Saline) 1,000 mls @ 100 mls/hr IV ASDIRECTED [facility] Last Admin: 08/12/18 08:19 Dose: 100 mls/hr Dextrose/Water (Dextrose 5% In Water) 1,000 mls @ 50 mls/hr IV ASDIRECTED [facility] Last Admin: 08/13/18 10:10 Dose: 100 mls/hr Magnesium Sulfate 2 gm/ Premix 50 mls @ 50 mls/hr IV ONETIME ONE Stop: 08/13/18 10:17 Last Admin: 08/13/18 10:04 Dose: 50 mls/hr Metronidazole (Flagyl 500 Mg In Ns 100 Ml) Confirm Administered Dose 100 mls @ as directed .ROUTE .STK-MED ONE Stop: 08/15/18 02:23 Last Admin: 08/15/18 04:44 Dose: Not Given Loperamide HCl (Imodium) 2 mg PO Q4H PRN PRN Reason: Diarrhea Last Admin: 08/05/18 11:47 Dose: 2 mg Loperamide HCl (Imodium) 2 mg PO BID PRN PRN Reason: Diarrhea Last Admin: 08/10/18 11:46 Dose: 2 mg Losartan Potassium (Cozaar) 50 mg PO DAILY [facility] Last Admin: 08/08/18 15:25 Dose: Not Given Metoprolol Tartrate (Lopressor) 50 mg PO BID [facility] Last Admin: 08/08/18 15:25 Dose: Not Given Omeprazole (Omeprazole) 20 mg PO DAILY [facility] Last Admin: 08/05/18 11:38 Dose: Not Given Ondansetron HCl (Zofran) 4 mg IVPUSH ONETIME ONE Stop: 08/02/18 18:37 Last Admin: 08/02/18 18:42 Dose: 4 mg Potassium Chloride 8 (Meq Tab.Er) 5 each PO ONETIME ONE Stop: 08/05/18 21:01 Last Admin: 08/05/18 21:00 Dose: 5 each Hydralazine 100 Mg (Tab) 1 each PO BID KATHERINE Last Admin: 08/10/18 08:26 Dose: Not Given Potassium Chloride (Klor-Con M20) 40 meq PO ONETIME ONE Stop: 08/02/18 17:44 Last Admin: 08/02/18 18:33 Dose: 40 meq Potassium Chloride (Klor-Con M20) 40 meq PO ONETIME ONE Stop: 08/03/18 08:26 Last Admin: 08/03/18 09:07 Dose: 40 meq Potassium Chloride (Klor-Con M20) 40 meq PO ONETIME ONE Stop: 08/03/18 12:01 Last Admin: 08/03/18 12:09 Dose: 40 meq Potassium Chloride (Klor-Con M20) 40 meq PO ONETIME ONE Stop: 08/04/18 09:01 Last Admin: 08/04/18 08:27 Dose: 40 meq Potassium Chloride (Klor-Con M20) 40 meq PO ONETIME ONE Stop: 08/04/18 21:01 Last Admin: 08/04/18 20:30 Dose: 40 meq Potassium Chloride (Klor-Con M20) 40 meq PO ONETIME ONE Stop: 08/04/18 15:01 Potassium Chloride (Klor-Con M20) 40 meq PO ONETIME ONE Stop: 08/05/18 09:01 Last Admin: 08/05/18 12:01 Dose: Not Given Potassium Chloride (Klor-Con M20) 40 meq PO ONETIME ONE Stop: 08/13/18 09:19 Last Admin: 08/13/18 10:01 Dose: 40 meq Promethazine HCl (Phenergan) 25 mg IM ONETIME ONE Stop: 08/04/18 18:45 Last Admin: 08/04/18 19:11 Dose: 25 mg Promethazine HCl (Phenergan) 25 mg IM ONETIME ONE Stop: 08/04/18 19:04 Last Admin: 08/04/18 19:13 Dose: Not Given - Exam Quality Assessment: No: Supplemental Oxygen General: Alert, Oriented, Cooperative, Other (Eating) HEENT: Pupils Equal, Pupils Reactive. No: Mucous Membr. Moist/[place] (Dry) Neck: Supple, Trachea Midline Lungs: Clear to Auscultation, Normal Respiratory Effort Cardiovascular: Regular Rate, Regular Rhythm GI/Abdominal Exam: Normal Bowel Sounds, Soft, Non-Tender, No Distention (Male) Exam: Deferred Back Exam: No: Normal Inspection (Kyphosis) Extremities: Normal Inspection, No Pedal Edema Skin: Warm, Dry, Intact Neurological: No New Focal Deficit Psy/Mental Status: Alert, Normal Affect - Problem List & Annotations (1) Diarrhea of presumed infectious origin SNOMED Code(s): 14366001 Code(s): R19.7 - DIARRHEA, UNSPECIFIED Status: Chronic Priority: High Current Visit: Yes Annotation/Comment:: Fecal WBCs noted (2) Campylobacter diarrhea SNOMED Code(s): 23772003 Code(s): A04.5 - CAMPYLOBACTER ENTERITIS Status: Resolved Priority: High Current Visit: Yes (3) Hypomagnesemia SNOMED Code(s): 061203138 Code(s): E83.42 - HYPOMAGNESEMIA Status: Chronic Priority: High Current Visit: Yes Annotation/Comment:: Secondary to GI losses (4) MARGARITA (acute kidney injury) SNOMED Code(s): 69788841 Code(s): N17.9 - ACUTE KIDNEY FAILURE, UNSPECIFIED Status: Resolved Current Visit: Yes (5) Colorectal cancer SNOMED Code(s): 907283856 Code(s): C19 - MALIGNANT NEOPLASM OF RECTOSIGMOID [place]CTION Status: Chronic Priority: High Current Visit: No (6) Weakness generalized SNOMED Code(s): 87331271 Code(s): R53.1 - WEAKNESS Status: Chronic Priority: High Current Visit : Yes (7) Anemia of chronic disease SNOMED Code(s): 056117385 Code(s): D63.8 - ANEMIA IN OTHER CHRONIC DISEASES CLASSIFIED ELSEWHERE Status: Chronic Priority: High Current Visit: Yes - Problem List Review Problem List Initiated/Reviewed/Updated: Yes - My Orders Last 24 Hours: My Active Orders 08/15/18 21:00 Cholestyramine/Aspartame [Cholestyramine Light] 4 gm PO BID - Plan Plan:: The patient is an 83 year-old man who was admitted two weeks ago secondary to severe diarrhea with electrolyte abnormalities including severe hypokalemia. He also has had multiple medical problems including aspiration PNA and small bowel obstruction. He is still having problems with diarrhea and antimotiltity agents are not recommended. I have chosen Questran to help with bowel secretions to slow stool. The patient's repeat Campylobacter antigen is negative. The patient' s diarrhea or loose stools can be secondary to his chemotherapy. The patient should be transferred to [facility] in order to help improve his physical conditioning prior to returning home. Laboratory studies been ordered.
[2018-08-15] MEDS: Sodium Chloride 0.45% 1,000 ML IV SCH (13:43)
[2018-08-15] MEDS: cefTRIAXone 1 GM in Premix Bag 1 BAG IV SCH (16:33)
[2018-08-15] MEDS: Carboxymethylcellulose Sodium 0.5% Ophth Soln 0.4 ML UD Box of 30 EYEBOTH SCH (21:41)
[2018-08-15] MEDS: Cholestyramine/Aspartame Powder 239.4 GM Jar PO SCH (22:15)
[2018-08-16] MEDS: metroNIDAZOLE/Normal Saline 500 MG in Premix Bag 1 BAG IV SCH ×2 (02:05→10:23)
[2018-08-16] MEDS: Heparin Sodium 5,000 Units/ML Vial SUBCUT SCH ×2 (06:36→14:46)
[2018-08-16] MEDS: Omeprazole 20 MG Cap.CR PO SCH (06:37)
--- NOTE | 2018-08-16 08:53 | PCM.DCSUM1 ---
Discharge Summary - Hospital Course HPI Initial Comments: Was admitted due to diarrhea and electrolyte abnormalities. Diagnosis: Stroke: No - Discharge Data Discharge Date: 08/16/18 Discharge Disposition: DC/Tfer to SNF 03 Condition: Fair - Discharge Diagnosis/Problem(s) (1) Anemia of chronic disease SNOMED Code(s): 224284574 ICD Code: D63.8 - ANEMIA IN OTHER CHRONIC DISEASES CLASSIFIED ELSEWHERE Status: Chronic Priority: High Current Visit: Yes (2) Weakness generalized SNOMED Code(s): 14912433 ICD Code: R53.1 - WEAKNESS Status: Chronic Priority: High Current Visit : Yes (3) Diarrhea of presumed infectious origin SNOMED Code(s): 46910320 ICD Code: R19.7 - DIARRHEA, UNSPECIFIED Status: Chronic Priority: High Current Visit: Yes (4) Campylobacter diarrhea SNOMED Code(s): 13814767 ICD Code: A04.5 - CAMPYLOBACTER ENTERITIS Status: Resolved Priority: High Current Visit: Yes (5) Hypomagnesemia SNOMED Code(s): 128614317 ICD Code: E83.42 - HYPOMAGNESEMIA Status: Chronic Priority: High Current Visit: Yes Problem Details: Secondary to GI losses (6) Colorectal cancer SNOMED Code(s): 961806410 ICD Code: C19 - MALIGNANT NEOPLASM OF RECTOSIGMOID JUNCTION Status: Chronic Priority: High Current Visit: No (7) CKD stage G3b/A2, GFR 30-44 and albumin creatinine ratio 30-299 mg/g SNOMED Code(s): 261542204, 257961374 ICD Code: N18.3 - CHRONIC KIDNEY DISEASE, STAGE 3 (MODERATE) Status: Chronic Priority: High Current Visit: Yes - Patient Summary/Data Consults: Consultations 08/03/18 08:26 Consult to Physical Therapy [PT Evaluation and Treatment] [CONS] Routine 08/07/18 07:36 Consult to Physician [CONS] Routine 08/08/18 13:51 Consult to Speech Language Pathology [WAREHOUSE ORDER PULLER Evaluation and Treatment] [CONS] Routine 08/11/18 15:22 Consult to Physician [CONS] Routine Hospital Course: The patient is an 83-year-old gentleman who was admitted on August 03, 2018 primarily secondary to severe hypokalemia. The patient had been undergoing chemotherapy for colorectal cancer and he also has developed severe diarrhea and he had multiple electrolyte abnormalities that were secondary to GI loss. He otherwise is medically complex. Throughout the entire course of hospitalization the patient had remained weak and fatigued and had difficulty in ambulating secondary to weakness. Initially the patient had been seen in the cancer center and had been given the patient 1 L of fluids to help him and he was sent to the emergency department for workup and had been subsequently admitted through the emergency department. Additionally, the patient's potassium was noted to be at 2.4 mmol per liter with EKG changes and he had been kept on telemetry for this. The patient's magnesium had also been replaced as this had remained low to normal throughout the hospitalization. Due to the fluid loss for the diarrhea the patient was also noted to be dehydrated and he had been fluid resuscitated using normal saline. The patient had stool samples which were tested improved to be negative for C. difficile colitis however, there were positive for Campylobacter. The patient had been treated with azithromycin as had been recommended in the literature. He also had been provided Imodium initially to help with his symptom control. On August 07, 2018 the patient was consulted with surgeon secondary to abdominal pain and dilated loops of bowel on x-ray suggesting a possible small bowel obstruction. The patient then was treated nothing by mouth and did not require an NG tube for decompression. The patient also had been vomiting at one point and had aspirated and as a result of this he had been treated for aspiration pneumonia. The patient tolerated antibiotics for the aspiration pneumonia. His white blood cell count had remained normal. Video swallow study was obtained on August 09, 2018 which showed deep penetration with some thinner consistencies. The patient also had been on a mechanically soft diet because of this. He tolerated this well and did not have any further incidences of aspiration. Evaluation by surgeon with regards to possible small bowel obstruction had indicated that this had resolved and Imodium would not be used to control his symptoms. Questran was ordered to help slow the patient's secretory diarrhea. This was thought to be secondary to chemotherapy. The patient overall had some improvement in his symptoms. As a result of this his diet was tolerated when advanced. The patient had been anemic through hospitalization and he had not required blood transfusion. The patient's hemoglobin on discharge was 7.7 g/dL and he was asymptomatic with this. The patient previously had been on iron at 325 mg and this was continued. A follow-up of the patient's Campylobacter showed that the antigen was negative. He was also slightly hypomagnesemic and he had been placed on magnesium oxide 400 mg by mouth daily. The patient is to continue to follow-up with his primary care physician as well as his oncologist. The patient also had been hemodynamically stable through his 2 weeks of hospitalization. The patient also had been referred to physical/ occupational therapy in order to improve his ADLs as well as strengthening. The patient had been tolerating his diet and he has been recommended to continue with his diet as tolerated to be soft and mechanical. He is also to work with physical therapy for activity as tolerated. The patient is stable and he has been recommended for transfer to [facility] for rehabilitation and eventual return to home. The patient is also listed as a full resuscitative code. - Patient Instructions Diet: GI Soft/Low Residue/Low Fiber Fluid Restriction: 2000 mL Activity: As Tolerated Notify Provider of: Fever, Increased Pain - Discharge Plan *PRESCRIPTION DRUG MONITORING PROGRAM REVIEWED*: No *COPY OF PRESCRIPTION DRUG MONITORING REPORT IN PATIENT TYSHAWN: No Prescriptions/Med Rec: Cholestyramine/Aspartame [Cholestyramine Light] 4 gm PO BID #60 jar Magnesium Oxide [Magnesium] 200 mg PO DAILY #30 tab.chew Home Medications: Home Meds Losartan/Hydrochlorothiazide [Losartan-HCTZ 100-12.5 MG] 12.5 - 100 mg PO DAILY 03/08/18 [History] Metoprolol Tartrate 50 mg PO BID 03/08/18 [History] Calcium Carbonate/Vitamin D3 [Calcium 600 + Vit D Tablet] 1 tab PO DAILY [History] Carboxymethylcellulos/Glycerin [Refresh Optive Gel Eye Drops] 1 applic EYEBOTH BEDTIME 03/23/18 [History] Dextran 70/Hypromellose [Artificial Tears] 1 drop EYEBOTH BID PRN 03/23/18 [ History] Erythromycin Base [Erythromycin 0.5% Ophth Oint] 1 applic EYEBOTH ASDIRECTED [History] Potassium Chloride 8 meq PO DAILY 03/23/18 [History] hydrALAZINE [Apresoline] 100 mg PO BID 08/03/18 [History] Albuterol/Ipratropium [DuoNeb 3.0-0.5 MG/3 ML] 3 ml NEB Q6HRRT PRN neb [Rx] Aspirin [Halfprin] 81 mg PO DAILY tab.ec 08/16/18 [Rx] Cholestyramine/Aspartame [Cholestyramine Light] 4 gm PO BID #60 jar 08/16/18 [Rx ] Ferrous Sulfate 325 mg PO TIDMEALS tablet 08/16/18 [Rx] Magnesium Oxide [Magnesium] 200 mg PO DAILY #30 tab.chew 08/16/18 [Rx] Metoprolol Tartrate [Lopressor] 50 mg PO BID tablet 08/16/18 [Rx] Omeprazole 20 mg PO ACBREAKFAST cap.cr 08/16/18 [Rx] Phenol [Chloraseptic Throat [place]] 5 ml MUCMEM Q2H PRN bottle 08/16/18 [Rx] Other Amb Orders: OT Evaluation and Treatment [CONS] Location: None Selected PT Evaluation and Treatment [CONS] Location: None Selected Oxygen Therapy Mode: Room Air Referrals: [facility] [Outside] Cole Watson MD [Ordering Only Provider] - 08/23/18 2:00 pm (Arrive 15 minutes early with a photo ID and insurance card) - Discharge Summary/Plan Comment DC Time >30 min.: Yes - General Info Date of Service: 08/16/18 Admission Dx/Problem (Free Text: Diarrhea along with severe metabolic abnormalities Subjective Update: Better, weak Functional Status: Reports: Pain Controlled, Tolerating Diet - Review of Systems General: Reports: Weakness, Fatigue HEENT: Reports: No Symptoms Pulmonary: Reports: No Symptoms Cardiovascular: Reports: No Symptoms Gastrointestinal: Reports: No Symptoms Genitourinary: Reports: No Symptoms Musculoskeletal: Reports: No Symptoms Skin: Reports: No Symptoms Neurological: Reports: No Symptoms Psychiatric: Reports: No Symptoms - Patient Data Vitals - Most Recent: Last Vital Signs Temp 36.4 C 08/16/18 04:00 Pulse 61 08/16/18 04:00 Resp 20 08/16/18 04:00 BP 112/57 L 08/16/18 04:00 Pulse Ox 94 L 08/16/18 04:00 Orthostatic Blood Pressure [ 113/51 Standing] Orthostatic Blood Pressure [ 137/56 Sitting] Orthostatic Blood Pressure [ 137/54 Supine] Weight - Most Recent: 80.467 kg I&O - Last 24 hours: Intake & Output 08/15/18 08/16/18 08/16/18 22:59 06:59 14:59 Intake Total 980 500 Output Total 400 219 Balance 580 281 Lab Results - Last 24 hrs: Laboratory Results - last 24 hr 08/16/18 08/16/18 Range/Units 04:37 04:37 WBC 6.45 (4.0-11.0) K/uL RBC 3.32 L (4.50-5.90) M/uL Hgb 7.7 L (13.0-17.0) g/dL Hct 25.9 L (38.0-50.0) % MCV 78.0 L (80.0-98.0) fL MCH 23.2 L (27.0-32.0) pg MCHC 29.7 L (31.0-37.0) g/dL RDW Std Deviation 71.3 H (28.0-62.0) fl RDW Coeff of Salvador 26 H (11.0-15.0) % Plt Count 207 (150-400) K/uL MPV 9.60 (7.40-12.00) fL Add Manual Diff YES Neutrophils % (Manual) 53 (48.0-80.0) % Band Neutrophils % 17 % Lymphocytes % (Manual) 19 (16.0-40.0) % Monocytes % (Manual) 6 (0.0-15.0) % Eosinophils % (Manual) 2 (0.0-7.0) % Basophils % (Manual) 1 (0.0-1.5) % Metamyelocytes % 1 % Myelocytes % 1 % Nucleated RBC % 0.0 /100WBC Absolute Seg Neuts 3.4 (1.4-5.7) Band Neutrophils # 1.1 Lymphocytes # (Manual) 1.2 (0.6-2.4) Monocytes # (Manual) 0.4 (0.0-0.8) Eosinophils # (Manual) 0.1 (0.0-0.7) Basophils # (Manual) 0.1 (0.0-0.1) Absolute Metamyelocyte 0.1 Absolute Myelocytes 0.1 Nucleated RBCs # 0 K/uL Sodium 147 (136-148) mmol/L Potassium 4.0 (3.5-5.1) mmol/L Chloride 115 H (98-107) mmol/L Carbon Dioxide 25.7 (21.0-32.0) mmol/L BUN 8 (7.0-18.0) mg/dL Creatinine 1.4 H (0.8-1.3) mg/dL Est Cr Clr Drug Dosing 37.29 mL/min Estimated GFR (MDRD) 48.4 ml/min Glucose 120 H (74-106) mg/dL Calcium 7.5 L (8.5-10.1) mg/dL Med Orders - Current: Current Medications Acetaminophen (Tylenol) 650 mg PO Q4H PRN PRN Reason: Pain Last Admin: 08/06/18 04:24 Dose: 650 mg Albuterol/Ipratropium (Duoneb 3.0-0.5 Mg/3 Ml) 3 ml NEB Q6HRRT PRN PRN Reason: SOB/wheezing Artificial Tears (Refresh Plus 0.5%) 0 each EYEBOTH BEDTIME [facility] Last Admin: 08/15/18 21:41 Dose: 1 drop Artificial Tears (Refresh Plus 0.5%) 1 each EYEBOTH BID PRN PRN Reason: Dry Eyes Last Admin: 08/10/18 16:42 Dose: 1 drop Aspirin (Halfprin) 81 mg PO DAILY [facility] Last Admin: 08/15/18 08:15 Dose: 81 mg Calcium Carbonate/Glycine (Tums) 1,000 mg PO Q2HR PRN PRN Reason: Indigestion Last Admin: 08/05/18 21:01 Dose: 1,000 mg Calcium Citrate (Calcitrate) 1,900 mg PO DAILY [facility] Last Admin: 08/15/18 08:17 Dose: 1,900 mg Cholestyramine Resin (Cholestyramine Light) 4 gm PO BID [facility] Last Admin: 08/15/18 22:15 Dose: 4 gram Ferrous Sulfate (Ferrous Sulfate) 325 mg PO TIDMEALS [facility] Last Admin: 08/15/18 17:45 Dose: 325 mg Heparin Sodium (Porcine) (Heparin Sodium) 5,000 units SUBCUT Q8H [facility] Last Admin: 08/16/18 06:36 Dose: 5,000 units Ceftriaxone Sodium/Dextrose 1 (gm/ Premix) 50 mls @ 100 mls/hr IV Q24H [facility] Last Admin: 08/15/18 16:33 Dose: 100 mls/hr Metronidazole 500 mg/ Premix 100 mls @ 100 mls/hr IV Q8H [facility] Last Admin: 08/16/18 02:05 Dose: 100 mls/hr Sodium Chloride (Sodium Chloride 0.45%) 1,000 mls @ 50 mls/hr IV ASDIRECTED [facility] Last Admin: 08/15/18 13:43 Dose: 50 mls/hr Metoprolol Tartrate (Lopressor) 50 mg PO BID [facility] Last Admin: 08/15/18 21:40 Dose: 50 mg Morphine Sulfate (Morphine) 2 mg IVPUSH Q2H PRN PRN Reason: Abdominal Pain Omeprazole (Omeprazole) 20 mg PO ACBREAKFAST [facility] Last Admin: 08/16/18 06:37 Dose: 20 mg Ondansetron HCl (Zofran) 4 mg IVPUSH Q4H PRN PRN Reason: Nausea/Vomiting Last Admin: 08/07/18 23:10 Dose: 4 mg Ondansetron HCl (Zofran Odt) 4 mg PO Q4H PRN PRN Reason: Nausea/Vomiting Oxycodone HCl (Oxycodone) 5 mg PO Q4H PRN PRN Reason: Pain (moderate 4-6) Potassium Chloride 8 (Meq Tab.Er) 5 each PO DAILY [facility] Last Admin: 08/15/18 08:18 Dose: 5 each Phenol/Menthol (Chloraseptic Throat [place]) 5 ml MUCMEM Q2H PRN PRN Reason: sore throat Last Admin: 08/11/18 18:00 Dose: 2 sprays Prochlorperazine Maleate (Compazine) 10 mg PO Q6H PRN PRN Reason: Nausea/Vomiting Last Admin: 08/09/18 12:06 Dose: 10 mg Sodium Chloride ([place] Nasal [place]) 0 ml ANUEL DAILY PRN PRN Reason: Nasal Dryness Temazepam (Restoril) 15 mg PO BEDTIME PRN PRN Reason: Insomnia Discontinued Medications Albuterol/Ipratropium (Duoneb 3.0-0.5 Mg/3 Ml) 3 ml NEB Q4HRRT [facility] Last Admin: 08/10/18 10:10 Dose: 3 ml Albuterol/Ipratropium (Duoneb 3.0-0.5 Mg/3 Ml) 3 ml NEB Q6HRRT [facility] Last Admin: 08/14/18 11:12 Dose: 3 ml Aspirin (Halfprin) 81 mg PO ASDIRECTED [facility] Azithromycin (Zithromax) 500 mg PO Q24H [facility] Last Admin: 08/06/18 15:04 Dose: 500 mg Calcium Carbonate (Caltrate 600+D 1500 Mg-400 Units) 1 tab PO DAILY [facility] Last Admin: 08/07/18 10:55 Dose: Not Given Calcium Citrate (Calcitrate + Vit D Cap (315 Mg/250 Units)) 2 each PO DAILY [facility] Last Admin: 08/14/18 14:37 Dose: Not Given Enoxaparin Sodium (Lovenox) 30 mg SUBCUT Q24H [facility] Last Admin: 08/07/18 11:10 Dose: 30 mg Furosemide (Lasix) 20 mg IVPUSH ONETIME ONE Stop: 08/07/18 05:49 Last Admin: 08/07/18 06:06 Dose: 20 mg Hydralazine HCl (Apresoline) 10 mg IVPUSH Q4H PRN PRN Reason: Other Hydralazine HCl (Apresoline) 100 mg PO BID [facility] Last Admin: 08/05/18 11:55 Dose: 50 mg Hydralazine HCl (Apresoline) 10 mg IVPUSH Q4H PRN PRN Reason: Other Last Admin: 08/06/18 04:13 Dose: 10 mg Sodium Chloride (Normal Saline) 1,000 mls @ 999 mls/hr IV STAT ONE Stop: 08/02/18 18:37 Last Admin: 08/02/18 18:32 Dose: 999 mls/hr Potassium Chloride 40 meq/ (Premix) 100 mls @ 25 mls/hr IV ONETIME ONE Stop: 08/02/18 23:30 Last Admin: 08/02/18 20:55 Dose: 25 mls/hr Sodium Chloride (Normal Saline) 1,000 mls @ 75 mls/hr IV ASDIRECTED [facility] Last Admin: 08/06/18 18:14 Dose: 75 mls/hr Magnesium Sulfate 2 gm/ Premix 50 mls @ 25 mls/hr IV ONETIME ONE Stop: 08/03/18 15:50 Last Admin: 08/03/18 14:29 Dose: 25 mls/hr Magnesium Sulfate 2 gm/ Premix 50 mls @ 25 mls/hr IV ONETIME ONE Stop: 08/04/18 09:15 Last Admin: 08/04/18 08:29 Dose: 25 mls/hr Magnesium Sulfate 2 gm/ Premix 50 mls @ 50 mls/hr IV ONETIME ONE Stop: 08/06/18 07:42 Last Admin: 08/06/18 09:34 Dose: 50 mls/hr Piperacillin Sod/Tazobactam (Sod 3.375 gm/ Sodium Chloride) 50 mls @ 100 mls/ hr IV Q8H [facility] Last Admin: 08/07/18 09:50 Dose: Not Given Clindamycin Phosphate 300 mg/ (Premix) 50 mls @ 150 mls/hr IV Q8H [facility] Last Admin: 08/07/18 06:42 Dose: 150 mls/hr Piperacillin Sod/Tazobactam (Sod 3.375 gm/ Sodium Chloride) 50 mls @ 100 mls/ hr IV Q6H [facility] Last Admin: 08/08/18 07:30 Dose: 100 mls/hr Clindamycin Phosphate 600 mg/ (Premix) 50 mls @ 150 mls/hr IV Q8H [facility] Last Admin: 08/08/18 05:45 Dose: 150 mls/hr Sodium Chloride (Normal Saline) 1,000 mls @ 100 mls/hr IV STAT [facility] Last Admin: 08/08/18 22:55 Dose: 100 mls/hr Ceftriaxone Sodium/Dextrose 1 (gm/ Premix) 50 mls @ 100 mls/hr IV Q24H [facility] Last Admin: 08/08/18 17:49 Dose: Not Given Metronidazole 500 mg/ Premix 100 mls @ 100 mls/hr IV Q8H [facility] Last Admin: 08/08/18 17:49 Dose: Not Given Dextrose/Water (Dextrose 5% In Water) 1,000 mls @ 100 mls/hr IV ASDIRECTED [facility] Last Admin: 08/10/18 23:29 Dose: 100 mls/hr Sodium Chloride (Normal Saline) 1,000 mls @ 100 mls/hr IV ASDIRECTED [facility] Last Admin: 08/12/18 08:19 Dose: 100 mls/hr Dextrose/Water (Dextrose 5% In Water) 1,000 mls @ 50 mls/hr IV ASDIRECTED [facility] Last Admin: 08/13/18 10:10 Dose: 100 mls/hr Magnesium Sulfate 2 gm/ Premix 50 mls @ 50 mls/hr IV ONETIME ONE Stop: 08/13/18 10:17 Last Admin: 08/13/18 10:04 Dose: 50 mls/hr Metronidazole (Flagyl 500 Mg In Ns 100 Ml) Confirm Administered Dose 100 mls @ as directed .ROUTE .STK-MED ONE Stop: 08/15/18 02:23 Last Admin: 08/15/18 04:44 Dose: Not Given Loperamide HCl (Imodium) 2 mg PO Q4H PRN PRN Reason: Diarrhea Last Admin: 08/05/18 11:47 Dose: 2 mg Loperamide HCl (Imodium) 2 mg PO BID PRN PRN Reason: Diarrhea Last Admin: 08/10/18 11:46 Dose: 2 mg Losartan Potassium (Cozaar) 50 mg PO DAILY [facility] Last Admin: 08/08/18 15:25 Dose: Not Given Metoprolol Tartrate (Lopressor) 50 mg PO BID [facility] Last Admin: 08/08/18 15:25 Dose: Not Given Omeprazole (Omeprazole) 20 mg PO DAILY [facility] Last Admin: 08/05/18 11:38 Dose: Not Given Ondansetron HCl (Zofran) 4 mg IVPUSH ONETIME ONE Stop: 08/02/18 18:37 Last Admin: 08/02/18 18:42 Dose: 4 mg Potassium Chloride 8 (Meq Tab.Er) 5 each PO ONETIME ONE Stop: 08/05/18 21:01 Last Admin: 08/05/18 21:00 Dose: 5 each Hydralazine 100 Mg (Tab) 1 each PO BID [facility] Last Admin: 08/10/18 08:26 Dose: Not Given Potassium Chloride (Klor-Con M20) 40 meq PO ONETIME ONE Stop: 08/02/18 17:44 Last Admin: 08/02/18 18:33 Dose: 40 meq Potassium Chloride (Klor-Con M20) 40 meq PO ONETIME ONE Stop: 08/03/18 08:26 Last Admin: 08/03/18 09:07 Dose: 40 meq Potassium Chloride (Klor-Con M20) 40 meq PO ONETIME ONE Stop: 08/03/18 12:01 Last Admin: 08/03/18 12:09 Dose: 40 meq Potassium Chloride (Klor-Con M20) 40 meq PO ONETIME ONE Stop: 08/04/18 09:01 Last Admin: 08/04/18 08:27 Dose: 40 meq Potassium Chloride (Klor-Con M20) 40 meq PO ONETIME ONE Stop: 08/04/18 21:01 Last Admin: 08/04/18 20:30 Dose: 40 meq Potassium Chloride (Klor-Con M20) 40 meq PO ONETIME ONE Stop: 08/04/18 15:01 Potassium Chloride (Klor-Con M20) 40 meq PO ONETIME ONE Stop: 08/05/18 09:01 Last Admin: 08/05/18 12:01 Dose: Not Given Potassium Chloride (Klor-Con M20) 40 meq PO ONETIME ONE Stop: 08/13/18 09:19 Last Admin: 08/13/18 10:01 Dose: 40 meq Promethazine HCl (Phenergan) 25 mg IM ONETIME ONE Stop: 08/04/18 18:45 Last Admin: 08/04/18 19:11 Dose: 25 mg Promethazine HCl (Phenergan) 25 mg IM ONETIME ONE Stop: 08/04/18 19:04 Last Admin: 08/04/18 19:13 Dose: Not Given - Exam Quality Assessment: Denies: Supplemental Oxygen General: Reports: Alert, Oriented, Cooperative, No Acute Distress HEENT: Reports: Pupils Equal, Pupils Reactive. Denies: Mucous Membr. Moist/ [place] (Dry) Neck: Reports: Supple, Trachea Midline Lungs: Reports: Clear to Auscultation, Normal Respiratory Effort Cardiovascular: Reports: Regular Rate, Regular Rhythm, Murmurs GI/Abdominal Exam: Normal Bowel Sounds, Soft, No Distention (Male) Exam: Deferred Rectal (Males) Exam: Deferred Back Exam: Reports: Normal Inspection (Age related changes) Extremities: Normal Inspection, No Pedal Edema Skin: Reports: Warm, Dry, Other (Skin tears, thin skin) Neurological: Reports: No New Focal Deficit Psy/Mental Status: Reports: Alert, Normal Affect, Normal Mood
[2018-08-16] MEDS: Calcium Citrate 950 MG Tab PO SCH (09:45)
[2018-08-16] MEDS: Aspirin 81 MG Tab.EC PO SCH (09:45)
[2018-08-16] MEDS: Potassium Chloride 8 MEQ Tab.ER PO SCH (09:46)
[2018-08-16] MEDS: Cholestyramine/Aspartame Powder 239.4 GM Jar PO SCH (09:46)
[2018-08-16] MEDS: Ferrous Sulfate 325 MG Tab PO SCH ×2 (09:46→14:45)
[2018-08-16] MEDS: Metoprolol Tartrate 50 MG Tab PO SCH (10:22)
== END 2018-08-16 14:00 | DRG 371 ==
LOC: MW.ED 17:05 → MW.MS 19:55 → OBSVTOIN 08-04 08:18
PROVIDERS: ADMIT Internal Medicine; ATTEND Internal Medicine
PROC: 02HV33Z Insertion of Infusion Device into Superior Vena Cava, Percutaneous Approach (ICD-10-PCS; principal; 2018-08-08)
PROC: B5181ZA Fluoroscopy of Superior Vena Cava using Low Osmolar Contrast, Guidance (ICD-10-PCS; 2018-08-08)
PROC: 0D9670Z Drainage of Stomach with Drainage Device, Via Natural or Artificial Opening (ICD-10-PCS; 2018-08-11)
DX: A04.5 Campylobacter enteritis (principal); R53.1 Weakness; J69.0 Pneumonitis due to inhalation of food and vomit; I10 Essential (primary) hypertension; K52.1 Toxic gastroenteritis and colitis; D64.9 Anemia, unspecified; C19 Malignant neoplasm of rectosigmoid junction; N17.9 Acute kidney failure, unspecified; K56.7 Ileus, unspecified; E87.0 Hyperosmolality and hypernatremia; E87.8 Other disorders of electrolyte and fluid balance, not elsewhere classified; E87.6 Hypokalemia; E83.42 Hypomagnesemia; K21.9 Gastro-esophageal reflux disease without esophagitis; D63.8 Anemia in other chronic diseases classified elsewhere; I12.9 Hypertensive chronic kidney disease with stage 1 through stage 4 chronic kidney disease, or unspecified chronic kidney disease; N18.3 Chronic kidney disease, stage 3 (moderate); E86.0 Dehydration; T45.1X5A Adverse effect of antineoplastic and immunosuppressive drugs, initial encounter; R32 Unspecified urinary incontinence; M35.3 Polymyalgia rheumatica; Z85.828 Personal history of other malignant neoplasm of skin; Z79.82 Long term (current) use of aspirin; Z79.899 Other long term (current) drug therapy; Z98.52 Vasectomy status; Z90.49 Acquired absence of other specified parts of digestive tract; W07.XXXA Fall from chair, initial encounter
CPT/HCPCS: 36415 ×3; 71045; 80048 ×2; 80053; 81001; 83630; 83735 ×3; 84484; 85025 ×3; 87046; 87086; 87324; 87899 ×3; 93005; 96361; 96374; 97161; 99285; A9270 ×12; J1650; J2405 ×2; J3475; J3480; J7040 ×4; 36410; 36569; 74018; 74018-26; 74019; 74019-26; 74176; 74176-26; 74230; 74230-26; 76937; 76937-26; 77001; 77001-26; 82728; 82962; 83550; 92526-GN; 92610-GN; 92611-GN; 94640; 96365; 96366; 96375; 97530-GP; G0378; J0360; J0696; J1644; J2543; J2550; J3490; J7030; J7050; J7060; J7620-GY; Q0164

== ENCOUNTER 2018-08-30 13:00 | Inpatient (IN) | payer MEDICARE, OTHER ==
[2018-08-30] MEDS ORDERED: Sodium Chloride 0.9% 2.5 ML Syringe FLUSH PRN (13:40)
[2018-08-30] MEDS ORDERED: Heparin Sodium 5,000 Units/ML Vial SUBCUT SCH (13:45)
[2018-08-30] MEDS ORDERED: Sodium Chloride 0.9% 1,000 ML IV SCH (13:45)
--- NOTE | 2018-08-30 13:54 | PCM.HP ---
H&P History of Present Illness - General Date of Service: 08/30/18 Admit Problem/Dx: Admission Diagnosis/Problem Admission Diagnosis/Problem Dehydration Source of Information: Patient, Old Records History Limitations: Reports: No Limitations - History of Present Illness Initial Comments - Free Text/Narative: This 83 year old male admitted with pmh of colorectal ca post resection, HTN, and BPH presented to follow up with Onocologist, Dr Thomas. At this appointment he was noted to be hypotensive and reported dizziness and weakness. He was recently discharged from the hospital, he was admitted then for diarrhea, dehydration, and hypokalemia secondary to oral adjuvant chemotherapy. He was discharged to [place] for rehabilitation with hopes of returning home. He reports diarrhea is slowly improving, having approximately 4 stools daily, which are incontinent. He reports he can feel when they are happening but is so weak and needs help he isn't able to get to bathroom in time. reports bottom and groin feel very raw. He denies chest pain or palpitations. No fever. Intermittent cramping to abdomen, no overt pain, mild tenderness. NO heartburn or N/V. No black or bloody BMs. reports some burning with urination. Again reports dizziness and lightheadedness especially with ambulation. In the clinic WBC 8,2000, hgb 10.3, HCT 33, platelets 33, K+ 4.2 BUN 20 and Cr 1.5. He will admitted observation for dehydration, weakness and hypotension. PCP Dr Watson Oncologist, Dr Thomas - Related Data Allergies/Adverse Reactions: Allergies Allergy/AdvReac Type Severity Reaction Status Date / Time No Known Allergies Allergy Verified 08/02/18 17:36 Home Medications: Home Meds Losartan/Hydrochlorothiazide [Losartan-HCTZ 100-12.5 MG] 12.5 - 100 mg PO DAILY 03/08/18 [History] Calcium Carbonate/Vitamin D3 [Calcium 600 + Vit D Tablet] 1 tab PO DAILY [History] Carboxymethylcellulos/Glycerin [Refresh Optive Gel Eye Drops] 1 applic EYEBOTH BEDTIME 03/23/18 [History] Dextran 70/Hypromellose [Artificial Tears] 1 drop EYEBOTH BID PRN 03/23/18 [ History] Erythromycin Base [Erythromycin 0.5% Ophth Oint] 1 applic EYEBOTH ASDIRECTED [History] Potassium Chloride 8 meq PO DAILY 03/23/18 [History] hydrALAZINE [Apresoline] 100 mg PO BID 08/03/18 [History] Albuterol/Ipratropium [DuoNeb 3.0-0.5 MG/3 ML] 3 ml NEB Q6HRRT PRN neb [Rx] Aspirin [Halfprin] 81 mg PO DAILY tab.ec 08/16/18 [Rx] Cholestyramine/Aspartame [Cholestyramine Light] 4 gm PO BID #60 jar 08/16/18 [Rx ] Ferrous Sulfate 325 mg PO TIDMEALS tablet 08/16/18 [Rx] Magnesium Oxide [Magnesium] 200 mg PO DAILY #30 tab.chew 08/16/18 [Rx] Metoprolol Tartrate [Lopressor] 50 mg PO BID tablet 08/16/18 [Rx] Omeprazole 20 mg PO ACBREAKFAST cap.cr 08/16/18 [Rx] Phenol [Chloraseptic Throat [place]] 5 ml MUCMEM Q2H PRN bottle 08/16/18 [Rx] Past Medical History HEENT History: Reports: Other (See Below) Other HEENT History: top and bottom denture Cardiovascular History: Reports: Heart Murmur, Hypertension. Denies: Afib, Blood Clots/VTE/DVT, [place] Respiratory History: Reports: None. Denies: COPD Gastrointestinal History: Reports: None Genitourinary History: Reports: BPH, Prostate Disorder Musculoskeletal History: Reports: Other (See Below) Other Musculoskeletal History: polymyalgia rheumatica Neurological History: Reports: None Psychiatric History: Reports: None Endocrine/Metabolic History: Reports: None Hematologic History: Reports: Anemia Immunologic History: Reports: None Oncologic (Cancer) History: Reports: Basal Cell Carcinoma (face), Colon Dermatologic History: Reports: None - Infectious Disease History Infectious Disease History: Reports: Chicken Pox, Measles, Mumps - Past Surgical History Head Surgeries/Procedures: Reports: None HEENT Surgical History: Reports: Cataract Surgery Cardiovascular Surgical History: Reports: None GI Surgical History: Reports: Colon (resection due to cancer.), Colonoscopy, Hernia, Abdominal Male Surgical History: Reports: TURP-Transurethral Resection of Prostate, Vasectomy Dermatological Surgical History: Reports: Skin Biopsy Social & Family History - Family History Family Medical History: Unobtainable - Tobacco Use Smoking Status *Q: Former Smoker Used Tobacco, but Quit: Yes Month/Year Tobacco Last Used: 1963 - Caffeine Use Caffeine Use: Reports: Coffee - Recreational Drug Use Recreational Drug Use: No - Living Situation & Occupation Living situation: Reports: , Extended Care Facility H&P Review of Systems - Review of Systems: Review Of Systems: See Below General: Reports: Weakness (generalized). Denies: Fever, Chills, Malaise HEENT: Reports: Vertigo. Denies: Ear Pain, Headaches, Sinus Congestion Pulmonary: Reports: No Symptoms. Denies: Shortness of Breath, Wheezing, Cough, Sputum Cardiovascular: Reports: Lightheadedness, Blood Pressure Problem (lower). Denies: Chest Pain, Edema, Syncope Gastrointestinal: Reports: Abdominal Pain (intermittent cramping, mainly to LLQ) , Diarrhea (improving, 4x daily), Stool Incontinence. Denies: Black Stool, Bloody Stool, Nausea, Vomiting Genitourinary: Reports: Burning, Incontinence. Denies: Urgency Musculoskeletal: Reports: No Symptoms Skin: Reports: Erythema (groin and bottom, "feels raw".) Hematologic/Lymphatic: Reports: No Symptoms Immunologic: Reports: No Symptoms Exam - Exam Exam: See Below - Vital Signs Weight: 75.7 kg - Exam General: Alert, Oriented, Cooperative HEENT: Conjunctiva Clear, Mucosa Moist & [place], Pupils Equal Neck: Supple Lungs: Clear to Auscultation, Normal Respiratory Effort Cardiovascular: Regular Rate, Regular Rhythm, Systolic Murmur GI/Abdominal Exam: Normal Bowel Sounds, Soft, No Mass, Tender (scnat tenderness to LLQ) Back Exam: Normal Inspection, Full Range of Motion Extremities: Normal Inspection, Normal Range of Motion, Non-Tender, No Pedal Edema Skin: Warm, Dry, Other (erythema and irritation to groin and bottom.) Neuro Extensive - Mental Status: Alert, Oriented x3 Neuro Extensive - Motor, Sensory, Reflexes: CN II-XII Intact Psychiatric: Alert, Normal Affect, Normal Mood *Q Meaningful Use (ADM) - VTE Risk Assess *Q Each Risk Factor Represents 1 Point: None Total Score 1 Point Risk Factors: 0 Each Risk Factor Represents 2 Points: Malignancy (present or previous) Total Score 2 Point Risk Factors: 2 Each Risk Factor Represents 3 Points: Age 75 Years or Greater Total Score 3 Point Risk Factors: 3 Each Risk Factor Represents 5 Points: None Total Score 5 Point Risk Factors: 0 Venous Thromboembolism Risk Factor Score *Q: 5 - Problem List (1) Dehydration SNOMED Code(s): 63657271 ICD Code: E86.0 - DEHYDRATION Status: Acute Current Visit: Yes (2) Hypotension SNOMED Code(s): 37725069 ICD Code: I95.9 - HYPOTENSION, UNSPECIFIED Status: Acute Current Visit: Yes (3) MARGARITA (acute kidney injury) SNOMED Code(s): 06336937 ICD Code: N17.9 - ACUTE KIDNEY FAILURE, UNSPECIFIED Status: Acute Priority: High Current Visit: No (4) Weakness generalized SNOMED Code(s): 79523197 ICD Code: R53.1 - WEAKNESS Status: Acute Priority: High Current Visit: No (5) HTN (hypertension) SNOMED Code(s): 38334087 ICD Code: I10 - ESSENTIAL (PRIMARY) HYPERTENSION Status: Chronic Current Visit: Yes Qualifiers: Hypertension type: essential hypertension Qualified Code(s): I10 - Essential (primary) hypertension (6) Colorectal cancer SNOMED Code(s): 353247938 ICD Code: C19 - MALIGNANT NEOPLASM OF RECTOSIGMOID JUNCTION Status: Chronic Priority: High Current Visit: No Problem List Initiated/Reviewed/Updated: Yes Orders Last 24hrs: Active Orders 24 hr Category Date Time Status Patient Status [ADT] Routine ADT 08/30/18 13:40 Active Ambulate [RC] ASDIRECTED Care 08/30/18 13:40 Active Height and Weight [RC] DAILY Care 08/30/18 13:40 Active Intake and Output [RC] QSHIFT Care 08/30/18 13:41 Active May Shower [RC] ASDIRECTED Care 08/30/18 13:40 Active Oxygen Therapy [RC] PRN Care 08/30/18 13:40 Active Up With Assistance [RC] ASDIRECTED Care 08/30/18 13:40 Active VTE/DVT Education [RC] PER UNIT ROUTINE Care 08/30/18 13:40 Active Vital Signs [RC] Q4H Care 08/30/18 13:40 Active PT Evaluation and Treatment [CONS] Routine Cons 08/30/18 13:40 Active Regular Diet [DIET] Diet 08/30/18 Lunch Active BASIC METABOLIC PANEL,BMP [CHEM] AM Lab 08/31/18 05:11 Ordered BASIC METABOLIC PANEL,BMP [CHEM] AM Lab 09/01/18 05:11 Ordered BASIC METABOLIC PANEL,BMP [CHEM] AM Lab 09/02/18 05:11 Ordered CBC WITH AUTO DIFF [HEME] AM Lab 08/31/18 05:11 Ordered CBC WITH AUTO DIFF [HEME] AM Lab 09/01/18 05:11 Ordered CBC WITH AUTO DIFF [HEME] AM Lab 09/02/18 05:11 Ordered CDIFF TOX A+B [OP] Routine Lab 08/30/18 13:40 Ordered CULTURE STOOL + CAMPY+SHIGATOX [RM] Routine Lab 08/30/18 13:40 Ordered MAGNESIUM [CHEM] AM Lab 08/31/18 05:11 Ordered MAGNESIUM [CHEM] AM Lab 09/01/18 05:11 Ordered MAGNESIUM [CHEM] AM Lab 09/02/18 05:11 Ordered OVA & PARASITES BY IMMUNOASSAY [MREF] Routine Lab 08/30/18 13:40 Ordered Heparin Sodium Med 08/30/18 13:45 Active 5,000 units SUBCUT Q12H Ondansetron [Zofran] Med 08/30/18 13:40 Active 4 mg IVPUSH Q4H PRN Sodium Chloride 0.9% [Normal Saline] 1,000 ml Med 08/30/18 13:45 Active IV ASDIRECTED Sodium Chloride 0.9% [Saline Flush] Med 08/30/18 13:40 Active 2.5 ml FLUSH ASDIRECTED PRN Isolation [COMM] Stat Oth 08/30/18 13:44 Ordered Saline Lock Insert [OM.PC] Routine Oth 08/30/18 13:40 Ordered Resuscitation Status Routine Resus Stat 08/30/18 13:40 Ordered Medication Orders Heparin Sodium (Porcine) (Heparin Sodium) 5,000 units SUBCUT Q12H KATHERINE Sodium Chloride (Normal Saline) 1,000 mls @ 125 mls/hr IV ASDIRECTED KATHERINE Ondansetron HCl (Zofran) 4 mg IVPUSH Q4H PRN PRN Reason: Nausea Sodium Chloride (Saline Flush) 2.5 ml FLUSH ASDIRECTED PRN PRN Reason: Keep Vein Open Assessment/Plan Comment:: This 83 year old male admitted with dehydration, diarrhea, and hypotension 1. Dehydration: MARGARITA mild, almost near baseline. Will treat with NS 100 overnight and monitor. 2. Hypotension: Monitor with IVFs, hold anti-hypertensives for now. Will monitor 3. Diarrhea: reports that it has improved, just very slowly. Will check stool cultures and Cdiff. No anti-motility medications, previous admission he had ileus. Monitor 4. Generalized weakness: Consult PT tomorrow morning. Hydrate today. 5. HTN: Monitor, holding anti-hypertensives for now. VTE prophylaxis: Heparin Dispo: 1-2 days pending improvement.
[2018-08-30] MEDS ORDERED: Albuterol/Ipratropium 3.0-0.5 MG/3 ML Neb Soln NEB PRN (14:07)
[2018-08-30] MEDS: Heparin Sodium 5,000 Units/ML Vial SUBCUT SCH ×2 (14:10→22:28)
[2018-08-30] MEDS ORDERED: Erythromycin Base 0.5% Ophth Oint 1 GM Tube EYEBOTH SCH (14:15)
[2018-08-30] MEDS: Sodium Chloride 0.9% 1,000 ML IV SCH (15:10)
[2018-08-30] MEDS ORDERED: Magnesium Sulfate/Water 2 GM in Premix Bag 1 BAG IV ONE (16:24)
[2018-08-30] MEDS: Levofloxacin 250 MG Tab PO SCH (17:31)
[2018-08-30] MEDS: Ferrous Sulfate 325 MG Tab PO SCH (17:32)
[2018-08-30] MEDS: Carboxymethylcellulose Sodium 0.5% Ophth Soln 0.4 ML UD Box of 30 EYEBOTH SCH (22:28)
[2018-08-31] MEDS: Sodium Chloride 0.9% 1,000 ML IV SCH ×2 (00:29→09:40)
[2018-08-31] MEDS: Heparin Sodium 5,000 Units/ML Vial SUBCUT SCH ×4 (07:24→21:16)
[2018-08-31] MEDS: Omeprazole 20 MG Cap.CR PO SCH (07:25)
[2018-08-31] MEDS: Aspirin 81 MG Tab.EC PO SCH (08:11)
[2018-08-31] MEDS: Ferrous Sulfate 325 MG Tab PO SCH ×3 (08:11→18:03)
[2018-08-31] MEDS: Calcium Carbonate/Vitamin D3 1500 MG-400 Units Tab PO SCH (08:12)
--- NOTE | 2018-08-31 08:57 | PCM.PN ---
- General Info Date of Service: 08/31/18 Admission Dx/Problem (Free Text): Admission Diagnosis/Problem Admission Diagnosis/Problem Dehydration, hypotension Subjective Update: Baljit is feeling much improved today. Sitting up in bed visiting with daughters. No chest pain or SOB. reports no stools overnight. Incontinent of urine overnight. No further abdominal cramping or pain Daughters report at [facility] they were "restricting" his fluid intake as well as honey thick liquids. Unsure if this is true or not. But they report he never is given a lot of water there. Which concerned them. Functional Status: Reports: Pain Controlled, Tolerating Diet, Urinating. Denies : Ambulating - Review of Systems General: Reports: Weakness (generalized). Denies: Fever Pulmonary: Reports: No Symptoms. Denies: Shortness of Breath, Cough, Sputum Cardiovascular: Reports: No Symptoms. Denies: Chest Pain, Palpitations, Edema Gastrointestinal: Reports: No Symptoms. Denies: Abdominal Pain, Nausea, Vomiting Genitourinary: Reports: No Symptoms. Denies: Dysuria, Frequency, Burning Musculoskeletal: Reports: No Symptoms Skin: Reports: No Symptoms Neurological: Reports: No Symptoms Psychiatric: Reports: No Symptoms - Patient Data Vitals - Most Recent: Last Vital Signs Temp 97.6 F 08/31/18 07:55 Pulse 65 08/31/18 07:55 Resp 18 08/31/18 07:55 BP 135/62 08/31/18 07:55 Pulse Ox 98 08/31/18 07:55 Orthostatic Blood Pressure [ 88/45 Sitting] Orthostatic Blood Pressure [ 98/56 Supine] Weight - Most Recent: 75.7 kg I&O - Last 24 Hours: Intake & Output 08/30/18 08/31/18 08/31/18 22:59 06:59 14:59 Intake Total 200 575 Balance 200 575 Lab Results Last 24 Hours: Laboratory Results - last 24 hr 08/30/18 08/30/18 08/31/18 Range/Units 14:26 17:20 05:43 WBC 3.64 L (4.0-11.0) K/uL RBC 3.49 L (4.50-5.90) M/uL Hgb 8.9 L (13.0-17.0) g/dL Hct 29.1 L (38.0-50.0) % MCV 83.4 (80.0-98.0) fL MCH 25.5 L (27.0-32.0) pg MCHC 30.6 L (31.0-37.0) g/dL Plt Count 186 (150-400) K/uL MPV 9.70 (7.40-12.00) fL Neut % (Auto) 45.7 L (48.0-80.0) % Lymph % (Auto) 35.4 (16.0-40.0) % [place] % (Auto) 10.7 (0.0-15.0) % Eos % (Auto) 7.1 H (0.0-7.0) % Baso % (Auto) 1.1 (0.0-1.5) % Neut # (Auto) 1.7 (1.4-5.7) K/uL Lymph # (Auto) 1.3 (0.6-2.4) K/uL [place] # (Auto) 0.4 (0.0-0.8) K/uL Eos # (Auto) 0.3 (0.0-0.7) K/uL Baso # (Auto) 0.0 (0.0-0.1) K/uL Nucleated RBC % 0.0 /100WBC Nucleated RBCs # 0 K/uL Sodium (136-148) mmol/L Potassium (3.5-5.1) mmol/L Chloride (98-107) mmol/L Carbon Dioxide (21.0-32.0) mmol/L BUN (7.0-18.0) mg/dL Creatinine (0.8-1.3) mg/dL Est Cr Clr Drug Dosing mL/min Estimated GFR (MDRD) ml/min Glucose (74-106) mg/dL Calcium (8.5-10.1) mg/dL Magnesium 1.7 L (1.8-2.4) mg/dL Urine Color YELLOW Urine Appearance CLEAR Urine pH 5.0 (5.0-8.0) Ur Specific [place] 1.015 (1.001-1.035) Urine Protein NEGATIVE (NEGATIVE) mg/dL Urine Glucose (UA) NEGATIVE (NEGATIVE) mg/dL Urine Ketones NEGATIVE (NEGATIVE) mg/dL Urine Occult Blood NEGATIVE (NEGATIVE) Urine Nitrite NEGATIVE (NEGATIVE) Urine Bilirubin NEGATIVE (NEGATIVE) Urine Urobilinogen 0.2 (<2.0) EU/dL Ur Leukocyte Esterase NEGATIVE (NEGATIVE) 08/31/18 Range/Units 05:43 WBC (4.0-11.0) K/uL RBC (4.50-5.90) M/uL Hgb (13.0-17.0) g/dL Hct (38.0-50.0) % MCV (80.0-98.0) fL MCH (27.0-32.0) pg MCHC (31.0-37.0) g/dL Plt Count (150-400) K/uL MPV (7.40-12.00) fL Neut % (Auto) (48.0-80.0) % Lymph % (Auto) (16.0-40.0) % [place] % (Auto) (0.0-15.0) % Eos % (Auto) (0.0-7.0) % Baso % (Auto) (0.0-1.5) % Neut # (Auto) (1.4-5.7) K/uL Lymph # (Auto) (0.6-2.4) K/uL [place] # (Auto) (0.0-0.8) K/uL Eos # (Auto) (0.0-0.7) K/uL Baso # (Auto) (0.0-0.1) K/uL Nucleated RBC % /100WBC Nucleated RBCs # K/uL Sodium 139 (136-148) mmol/L Potassium 4.2 (3.5-5.1) mmol/L Chloride 108 H (98-107) mmol/L Carbon Dioxide 22.4 (21.0-32.0) mmol/L BUN 12 (7.0-18.0) mg/dL Creatinine 1.2 (0.8-1.3) mg/dL Est Cr Clr Drug Dosing 46.64 mL/min Estimated GFR (MDRD) 57.8 ml/min Glucose 83 (74-106) mg/dL Calcium 8.0 L (8.5-10.1) mg/dL Magnesium 1.9 (1.8-2.4) mg/dL Urine Color Urine Appearance Urine pH (5.0-8.0) Ur Specific [place] (1.001-1.035) Urine Protein (NEGATIVE) mg/dL Urine Glucose (UA) (NEGATIVE) mg/dL Urine Ketones (NEGATIVE) mg/dL Urine Occult Blood (NEGATIVE) Urine Nitrite (NEGATIVE) Urine Bilirubin (NEGATIVE) Urine Urobilinogen (<2.0) EU/dL Ur Leukocyte Esterase (NEGATIVE) Hector Results Last 24 Hours: Microbiology 08/30/18 14:00 Clostridium difficile Toxin A & B - Final Stool / Feces Negative for C.Diff Toxin/AG 08/30/18 14:00 Campylobacter Antigen Assay - Final Stool / Feces Positive Campylobacter Ag Med Orders - Current: Current Medications Acetaminophen (Tylenol) 650 mg PO Q6H PRN PRN Reason: Pain Albuterol/Ipratropium (Duoneb 3.0-0.5 Mg/3 Ml) 3 ml NEB Q6HRRT PRN PRN Reason: SOB/wheezing Artificial Tears (Refresh Plus 0.5%) 1 each EYEBOTH BEDTIME [facility] Last Admin: 08/30/18 22:28 Dose: 1 drop Artificial Tears (Liquitears 1.4% Ophth Soln) 1 ml EYEBOTH BID PRN PRN Reason: Dry Eyes Aspirin (Halfprin) 81 mg PO DAILY [facility] Last Admin: 08/31/18 08:11 Dose: 81 mg Calcium Carbonate (Caltrate 600+D 1500 Mg-400 Units) 1 tab PO DAILY [facility] Last Admin: 08/31/18 08:12 Dose: 1 tab Erythromycin (Erythromycin 0.5% Ophth Oint) 1 gm EYEBOTH ASDIRECTED [facility] Ferrous Sulfate (Ferrous Sulfate) 325 mg PO TIDMEALS [facility] Last Admin: 08/31/18 08:11 Dose: 325 mg Heparin Sodium (Porcine) (Heparin Sodium) 5,000 units SUBCUT Q8H [facility] Last Admin: 08/31/18 07:24 Dose: 5,000 units Sodium Chloride (Normal Saline) 1,000 mls @ 100 mls/hr IV ASDIRECTED [facility] Last Admin: 08/31/18 00:29 Dose: 100 mls/hr Levofloxacin (Levaquin) 750 mg PO Q48H [facility] Last Admin: 08/30/18 17:31 Dose: 750 mg Omeprazole (Omeprazole) 20 mg PO ACBREAKFAST [facility] Last Admin: 08/31/18 07:25 Dose: 20 mg Ondansetron HCl (Zofran) 4 mg IVPUSH Q4H PRN PRN Reason: Nausea Sodium Chloride (Saline Flush) 2.5 ml FLUSH ASDIRECTED PRN PRN Reason: Keep Vein Open Discontinued Medications Heparin Sodium (Porcine) (Heparin Sodium) 5,000 units SUBCUT Q12H [facility] Last Admin: 08/30/18 14:13 Dose: Not Given Sodium Chloride (Normal Saline) 1,000 mls @ 125 mls/hr IV ASDIRECTED [facility] Last Admin: 08/30/18 14:07 Dose: 125 mls/hr Magnesium Sulfate 2 gm/ Premix 50 mls @ 50 mls/hr IV ONETIME ONE Stop: 08/30/18 17:23 Last Admin: 08/30/18 17:23 Dose: 50 mls/hr - Exam General: Alert, Oriented, Cooperative, No Acute Distress Lungs: Clear to Auscultation, Normal Respiratory Effort Cardiovascular: Regular Rate, Regular Rhythm, Murmurs (holosystolic grade 4 murmur) GI/Abdominal Exam: Normal Bowel Sounds, Soft, Non-Tender, No Distention, No Mass Extremities: Normal Inspection, Normal Range of Motion, Non-Tender, No Pedal Edema Neurological: No New Focal Deficit Psy/Mental Status: Alert, Normal Affect, Normal Mood - Problem List & Annotations (1) Dehydration SNOMED Code(s): 11738646 Code(s): E86.0 - DEHYDRATION Status: Acute Current Visit: Yes (2) Hypotension SNOMED Code(s): 53243015 Code(s): I95.9 - HYPOTENSION, UNSPECIFIED Status: Acute Current Visit: Yes (3) MARGARITA (acute kidney injury) SNOMED Code(s): 47787129 Code(s): N17.9 - ACUTE KIDNEY FAILURE, UNSPECIFIED Status: Acute Priority : High Current Visit: No (4) Weakness generalized SNOMED Code(s): 67289560 Code(s): R53.1 - WEAKNESS Status: Acute Priority: High Current Visit: No (5) HTN (hypertension) SNOMED Code(s): 92195647 Code(s): I10 - ESSENTIAL (PRIMARY) HYPERTENSION Status: Chronic Current Visit: Yes Qualifiers: Hypertension type: essential hypertension Qualified Code(s): I10 - Essential (primary) hypertension (6) Colorectal cancer SNOMED Code(s): 171445590 Code(s): C19 - MALIGNANT NEOPLASM OF RECTOSIGMOID JUNCTION Status: Chronic Priority: High Current Visit: No (7) Aortic stenosis SNOMED Code(s): 59342152 Code(s): I35.0 - NONRHEUMATIC AORTIC (VALVE) STENOSIS Status: Chronic Current Visit: Yes Qualifiers: Cardiac valve disease etiology: nonrheumatic Qualified Code(s): I35.0 - Nonrheumatic aortic (valve) stenosis - Problem List Review Problem List Initiated/Reviewed/Updated: Yes - My Orders Last 24 Hours: My Active Orders 08/30/18 13:40 Patient Status [ADT] Routine Ambulate [RC] ASDIRECTED Height and Weight [RC] DAILY May Shower [RC] ASDIRECTED Oxygen Therapy [RC] PRN Up With Assistance [RC] ASDIRECTED VTE/DVT Education [RC] PER UNIT ROUTINE Vital Signs [RC] Q4H PT Evaluation and Treatment [CONS] Routine Ondansetron [Zofran] 4 mg IVPUSH Q4H PRN Sodium Chloride 0.9% [Saline Flush] 2.5 ml FLUSH ASDIRECTED PRN Saline Lock Insert [OM.PC] Routine Resuscitation Status Routine 08/30/18 13:41 Intake and Output [RC] Q12H 08/30/18 13:44 Isolation [COMM] Stat 08/30/18 14:00 CULTURE STOOL + CAMPY+SHIGATOX [RM] Routine OVA & PARASITES BY IMMUNOASSAY [MREF] Routine Heparin Sodium 5,000 units SUBCUT Q8H 08/30/18 14:06 Orthostatic Vital Signs [RC] ASDIRECTED 08/30/18 14:07 Albuterol/Ipratropium [DuoNeb 3.0-0.5 MG/3 ML] 3 ml NEB Q6HRRT PRN Polyvinyl Alcohol [LiquiTears 1.4% Ophth Soln] 1 ml EYEBOTH BID PRN 08/30/18 14:08 Acetaminophen [Tylenol] 650 mg PO Q6H PRN 08/30/18 14:15 Erythromycin Base [Erythromycin 0.5% Ophth Oint] 1 gm EYEBOTH ASDIRECTED 08/30/18 14:24 Sodium Chloride 0.9% [Normal Saline] 1,000 ml IV ASDIRECTED 08/30/18 16:30 levoFLOXacin [Levaquin] 750 mg PO Q48H 08/30/18 17:30 Ferrous Sulfate 325 mg PO TIDMEALS 08/30/18 21:00 Carboxymethylcellulose Sodium [Refresh Plus 0.5%] 1 each EYEBOTH BEDTIME 08/30/18 Lunch Regular Diet [DIET] 08/31/18 07:30 Omeprazole 20 mg PO ACBREAKFAST 08/31/18 09:00 Aspirin [Halfprin] 81 mg PO DAILY Calcium Carbonate/Vitamin D3 [Caltrate 600+D 1500 MG-400 Units] 1 tab PO DAILY 09/01/18 05:11 BASIC METABOLIC PANEL,BMP [CHEM] AM CBC WITH AUTO DIFF [HEME] AM MAGNESIUM [CHEM] AM 09/02/18 05:11 BASIC METABOLIC PANEL,BMP [CHEM] AM CBC WITH AUTO DIFF [HEME] AM MAGNESIUM [CHEM] AM - Plan Plan:: This 83 year old male admitted with dehydration, diarrhea, and hypotension 1. Dehydration: Much improved today. Will monitor BP today, repeat orthostatics this morning. 2. Hypotension: Improved. Slowly restart anti-hypertensives if Orthostatic BP improved. Reports dizziness has been an issue for some months, especially when he stands up. He does have significant aortic murmur. No recent ECHO, will obtain for evaluation of this. Will also arrange outpatient cardiology appointment, reports he hasn't seen a cardiologies in 2 years, daughters confirm this. 3. Diarrhea: One small stool overnight. Campylobacter positive again, Levaquin 750 mg Q48 added. Monitor, no anti-motility medications due to hx ileus. 4. Generalized weakness: Consult PT for evaluation and treatment. He is reporting he does not want to return to [facility], but has not been out ambulating at all. Daughters do not feel safe with him returning home due to his weakness and dizziness. 5. HTN: Stable. Monitor, holding anti-hypertensives for now, may slowly restart. VTE prophylaxis: Heparin Dispo: 1-2 days pending improvement.
[2018-08-31] MEDS: Nystatin Topical Powder 15 GM Bottle TOP SCH ×3 (15:27→21:17)
[2018-08-31] MEDS: Carboxymethylcellulose Sodium 0.5% Ophth Soln 0.4 ML UD Box of 30 EYEBOTH SCH (21:00)
[2018-09-01] MEDS ORDERED: Omeprazole 20 MG Cap.CR PO ONE (05:06)
[2018-09-01] MEDS: Heparin Sodium 5,000 Units/ML Vial SUBCUT SCH ×3 (05:28→21:00)
[2018-09-01] MEDS: Nystatin Topical Powder 15 GM Bottle TOP SCH ×3 (05:28→21:00)
[2018-09-01] MEDS: Omeprazole 20 MG Cap.CR PO SCH (06:37)
[2018-09-01] MEDS: Ondansetron 4 MG/2 ML SDV IVPUSH PRN ×2 (07:50→12:33)
[2018-09-01] MEDS: Ferrous Sulfate 325 MG Tab PO SCH ×3 (08:33→17:00)
[2018-09-01] MEDS: Aspirin 81 MG Tab.EC PO SCH (08:34)
[2018-09-01] MEDS: Calcium Carbonate/Vitamin D3 1500 MG-400 Units Tab PO SCH (08:35)
--- NOTE | 2018-09-01 10:24 | PCM.PN ---
- General Info Date of Service: 09/01/18 Admission Dx/Problem (Free Text): Admission Diagnosis/Problem Admission Diagnosis/Problem Dehydration, hypotension Subjective Update: Not feeling well this morning, having nausea and stomach cramping. Passing gas, BM yesterday afternoon. NO chest pain or SOB. Functional Status: Reports: Pain Controlled, Tolerating Diet, Ambulating, Urinating - Review of Systems General: Reports: No Symptoms. Denies: Fever, Weakness, Fatigue HEENT: Reports: No Symptoms. Denies: Headaches, Sore Throat Pulmonary: Reports: No Symptoms. Denies: Shortness of Breath, Cough, Sputum Cardiovascular: Reports: No Symptoms. Denies: Chest Pain, Edema Gastrointestinal: Reports: Abdominal Pain, Flatus, Nausea, Vomiting. Denies: Diarrhea Genitourinary: Reports: No Symptoms Musculoskeletal: Reports: No Symptoms Skin: Reports: No Symptoms Neurological: Reports: No Symptoms Psychiatric: Reports: No Symptoms - Patient Data Vitals - Most Recent: Last Vital Signs Temp 97.7 F 09/01/18 09:00 Pulse 98 09/01/18 09:00 Resp 17 09/01/18 09:00 BP 176/94 H 09/01/18 09:00 Pulse Ox 97 09/01/18 09:00 Orthostatic Blood Pressure [ 104/54 Standing] Orthostatic Blood Pressure [ 117/57 Sitting] Orthostatic Blood Pressure [ 143/67 Supine] Weight - Most Recent: 76.8 kg I&O - Last 24 Hours: Intake & Output 08/31/18 09/01/18 09/01/18 22:59 06:59 14:59 Intake Total 3110 1786 Balance 3110 1786 Hector Results Last 24 Hours: Microbiology 08/30/18 14:00 Cryptosporidium/Giardia - Final Stool / Feces 08/30/18 14:00 Campylobacter Antigen Assay - Final Stool / Feces Positive Campylobacter Ag Shiga Toxin I - Final NEGATIVE FOR SHIGA TOXIN 1 Shiga Toxin II - Final NEGATIVE FOR SHIGA TOXIN 2 Med Orders - Current: Current Medications Acetaminophen (Tylenol) 650 mg PO Q6H PRN PRN Reason: Pain Albuterol/Ipratropium (Duoneb 3.0-0.5 Mg/3 Ml) 3 ml NEB Q6HRRT PRN PRN Reason: SOB/wheezing Artificial Tears (Refresh Plus 0.5%) 1 each EYEBOTH BEDTIME [facility] Last Admin: 04/25/19 21:00 Dose: 1 drop Artificial Tears (Liquitears 1.4% Ophth Soln) 1 ml EYEBOTH BID PRN PRN Reason: Dry Eyes Aspirin (Halfprin) 81 mg PO DAILY [facility] Last Admin: 09/01/18 08:34 Dose: 81 mg Calcium Carbonate (Caltrate 600+D 1500 Mg-400 Units) 1 tab PO DAILY [facility] Last Admin: 09/01/18 08:35 Dose: 1 tab Calcium Carbonate/Glycine (Tums) 1,000 mg PO Q2HR PRN PRN Reason: Indigestion Erythromycin (Erythromycin 0.5% Ophth Oint) 1 gm EYEBOTH ASDIRECTED [facility] Ferrous Sulfate (Ferrous Sulfate) 325 mg PO TIDMEALS [facility] Last Admin: 09/01/18 08:33 Dose: 325 mg Heparin Sodium (Porcine) (Heparin Sodium) 5,000 units SUBCUT Q8H [facility] Last Admin: 09/01/18 05:28 Dose: 5,000 units Sodium Chloride (Normal Saline) 1,000 mls @ 100 mls/hr IV ASDIRECTED [facility] Last Admin: 08/31/18 09:40 Dose: 100 mls/hr Levofloxacin (Levaquin) 750 mg PO Q48H [facility] Last Admin: 08/30/18 17:31 Dose: 750 mg Nystatin (Nystop) 1 gm TOP TID [facility] Last Admin: 09/01/18 05:28 Dose: 1 gm Omeprazole (Omeprazole) 20 mg PO ACBREAKFAST [facility] Last Admin: 09/01/18 06:37 Dose: Not Given Ondansetron HCl (Zofran) 4 mg IVPUSH Q4H PRN PRN Reason: Nausea Last Admin: 09/01/18 07:50 Dose: 4 mg Sodium Chloride (Saline Flush) 2.5 ml FLUSH ASDIRECTED PRN PRN Reason: Keep Vein Open Discontinued Medications Heparin Sodium (Porcine) (Heparin Sodium) 5,000 units SUBCUT Q12H [facility] Last Admin: 08/30/18 14:13 Dose: Not Given Sodium Chloride (Normal Saline) 1,000 mls @ 125 mls/hr IV ASDIRECTED [facility] Last Admin: 08/30/18 14:07 Dose: 125 mls/hr Magnesium Sulfate 2 gm/ Premix 50 mls @ 50 mls/hr IV ONETIME ONE Stop: 08/30/18 17:23 Last Admin: 08/30/18 17:23 Dose: 50 mls/hr Omeprazole (Omeprazole) 20 mg PO ONETIME ONE Stop: 09/01/18 05:07 Last Admin: 09/01/18 05:28 Dose: 20 mg - Exam General: Alert, Oriented, Cooperative Neck: Supple Lungs: Clear to Auscultation, Normal Respiratory Effort Cardiovascular: Regular Rate, Regular Rhythm, Murmurs (holosystolic grade 4) GI/Abdominal Exam: Normal Bowel Sounds, Soft, Non-Tender, No Distention, No Mass Extremities: Normal Inspection, Normal Range of Motion, Non-Tender, No Pedal Edema Neurological: No New Focal Deficit Psy/Mental Status: Alert, Normal Affect, Normal Mood - Problem List & Annotations (1) Dehydration SNOMED Code(s): 57961280 Code(s): E86.0 - DEHYDRATION Status: Acute Current Visit: Yes (2) Hypotension SNOMED Code(s): 00368319 Code(s): I95.9 - HYPOTENSION, UNSPECIFIED Status: Acute Current Visit: Yes (3) MARGARITA (acute kidney injury) SNOMED Code(s): 35755121 Code(s): N17.9 - ACUTE KIDNEY FAILURE, UNSPECIFIED Status: Acute Priority : High Current Visit: No (4) Weakness generalized SNOMED Code(s): 40556214 Code(s): R53.1 - WEAKNESS Status: Acute Priority: High Current Visit: No (5) HTN (hypertension) SNOMED Code(s): 17753796 Code(s): I10 - ESSENTIAL (PRIMARY) HYPERTENSION Status: Chronic Current Visit: Yes Qualifiers: Hypertension type: essential hypertension Qualified Code(s): I10 - Essential (primary) hypertension (6) Colorectal cancer SNOMED Code(s): 889741884 Code(s): C19 - MALIGNANT NEOPLASM OF RECTOSIGMOID JUNCTION Status: Chronic Priority: High Current Visit: No (7) Aortic stenosis SNOMED Code(s): 52173946 Code(s): I35.0 - NONRHEUMATIC AORTIC (VALVE) STENOSIS Status: Chronic Current Visit: Yes Qualifiers: Cardiac valve disease etiology: nonrheumatic Qualified Code(s): I35.0 - Nonrheumatic aortic (valve) stenosis - Problem List Review Problem List Initiated/Reviewed/Updated: Yes - My Orders Last 24 Hours: My Active Orders 08/31/18 14:00 Nystatin [Nystop] 1 gm TOP TID 09/01/18 05:11 BASIC METABOLIC PANEL,BMP [CHEM] AM CBC WITH AUTO DIFF [HEME] AM MAGNESIUM [CHEM] AM 09/01/18 07:51 Calcium Carbonate [Tums] 1,000 mg PO Q2HR PRN 09/02/18 05:11 BASIC METABOLIC PANEL,BMP [CHEM] AM CBC WITH AUTO DIFF [HEME] AM MAGNESIUM [CHEM] AM - Plan Plan:: This 83 year old male admitted with dehydration, diarrhea, and hypotension 1. Dehydration: Much improved today. Will monitor BP today, Continues to be orthostatic, but improved with IVFs. ay be due to deconditioning. 2. Hypotension:resolved. Slowly restart anti-hypertensives if Orthostatic BP improved. Reports dizziness has been an issue for some months, especially when he stands up. He does have significant aortic murmur. No recent ECHO, will obtain for evaluation of this. Will also arrange outpatient cardiology appointment, reports he hasn't seen a cardiologies in 2 years, daughters confirm this. 3. Diarrhea: No stool overnight. Campylobacter positive again, Levaquin 750 mg Q48 Monitor, no anti-motility medications due to hx ileus. 4. Generalized weakness: Consult PT for evaluation and treatment. He is reporting he does not want to return to [place], but has not been out ambulating at all. Daughters do not feel safe with him returning home due to his weakness and dizziness. 5. HTN: Stable. Monitor, holding anti-hypertensives for now, may slowly restart. VTE prophylaxis: Heparin Dispo: 1-2 days pending improvement.
[2018-09-01 11:31] LABS: CHLORIDE,CL 109 mmol/L (98-107); SODIUM,NA 140 mmol/L (136-148)
[2018-09-01] MEDS: Acetaminophen 325 MG Tab PO PRN (14:41)
[2018-09-01] MEDS: Sodium Chloride 0.9% 1,000 ML IV SCH (15:09)
[2018-09-01] MEDS: Levofloxacin 250 MG Tab PO SCH (16:59)
[2018-09-01] MEDS: Carboxymethylcellulose Sodium 0.5% Ophth Soln 0.4 ML UD Box of 30 EYEBOTH SCH (21:00)
[2018-09-01] MEDS: Calcium Carbonate 500 MG Tab.Chew PO PRN (21:17)
[2018-09-02] MEDS: Sodium Chloride 0.9% 1,000 ML IV SCH ×3 (01:27→21:08)
[2018-09-02] MEDS: Acetaminophen 325 MG Tab PO PRN (01:27)
[2018-09-02] MEDS: Calcium Carbonate 500 MG Tab.Chew PO PRN (01:27)
[2018-09-02] MEDS: Ondansetron 4 MG/2 ML SDV IVPUSH PRN (01:28)
[2018-09-02] MEDS: Heparin Sodium 5,000 Units/ML Vial SUBCUT SCH ×3 (05:36→21:03)
[2018-09-02] MEDS: Omeprazole 20 MG Cap.CR PO SCH ×2 (05:36→06:32)
[2018-09-02] MEDS: Nystatin Topical Powder 15 GM Bottle TOP SCH ×3 (05:36→21:03)
[2018-09-02 06:43] LABS: CHLORIDE,CL 109 mmol/L (98-107); SODIUM,NA 141 mmol/L (136-148)
[2018-09-02] MEDS: Calcium Carbonate/Vitamin D3 1500 MG-400 Units Tab PO SCH (09:21)
[2018-09-02] MEDS: Ferrous Sulfate 325 MG Tab PO SCH ×3 (09:21→16:49)
[2018-09-02] MEDS: Aspirin 81 MG Tab.EC PO SCH (09:21)
--- NOTE | 2018-09-02 14:06 | PCM.PN ---
- General Info Date of Service: 09/02/18 - Review of Systems Systems Review Comment:: feeling better, stool more formed, abdominal pain resolved - Patient Data Vitals - Most Recent: Last Vital Signs Temp 35.8 C 09/02/18 12:00 Pulse 89 09/02/18 12:00 Resp 22 H 09/02/18 12:00 BP 131/85 09/02/18 12:00 Pulse Ox 98 09/02/18 12:00 Orthostatic Blood Pressure [ 104/54 Standing] Orthostatic Blood Pressure [ 117/57 Sitting] Orthostatic Blood Pressure [ 143/67 Supine] Weight - Most Recent: 76.8 kg I&O - Last 24 Hours: Intake & Output 09/01/18 09/02/18 09/02/18 22:59 06:59 14:59 Intake Total 1645 50 Output Total 1140 347 Balance 505 -297 Lab Results Last 24 Hours: Laboratory Results - last 24 hr 09/02/18 09/02/18 Range/Units 06:20 06:20 WBC 4.99 (4.0-11.0) K/uL RBC 3.68 L (4.50-5.90) M/uL Hgb 9.5 L (13.0-17.0) g/dL Hct 30.5 L (38.0-50.0) % MCV 82.9 (80.0-98.0) fL MCH 25.8 L (27.0-32.0) pg MCHC 31.1 (31.0-37.0) g/dL Plt Count 218 (150-400) K/uL MPV 9.10 (7.40-12.00) fL Neut % (Auto) 67.8 (48.0-80.0) % Lymph % (Auto) 19.8 (16.0-40.0) % [place] % (Auto) 10.8 (0.0-15.0) % Eos % (Auto) 1.0 (0.0-7.0) % Baso % (Auto) 0.6 (0.0-1.5) % Neut # (Auto) 3.4 (1.4-5.7) K/uL Lymph # (Auto) 1.0 (0.6-2.4) K/uL [place] # (Auto) 0.5 (0.0-0.8) K/uL Eos # (Auto) 0.1 (0.0-0.7) K/uL Baso # (Auto) 0.0 (0.0-0.1) K/uL Nucleated RBC % 0.0 /100WBC Nucleated RBCs # 0 K/uL Sodium 141 (136-148) mmol/L Potassium 3.7 (3.5-5.1) mmol/L Chloride 109 H (98-107) mmol/L Carbon Dioxide 23.4 (21.0-32.0) mmol/L BUN 7 (7.0-18.0) mg/dL Creatinine 1.1 (0.8-1.3) mg/dL Est Cr Clr Drug Dosing 50.88 mL/min Estimated GFR (MDRD) > 60.0 ml/min Glucose 121 H (74-106) mg/dL Calcium 8.2 L (8.5-10.1) mg/dL Magnesium 1.5 L (1.8-2.4) mg/dL Hector Results Last 24 Hours: Microbiology 08/30/18 14:00 Stool Culture - Final Stool / Feces NO SALMONELLA, SHIGELLA,OR E.COLI O157 ISOLATED Campylobacter Antigen Assay - Final Positive Campylobacter Ag Shiga Toxin I - Final NEGATIVE FOR SHIGA TOXIN 1 Shiga Toxin II - Final NEGATIVE FOR SHIGA TOXIN 2 08/30/18 14:00 Cryptosporidium/Giardia - Final Stool / Feces Med Orders - Current: Current Medications Acetaminophen (Tylenol) 650 mg PO Q6H PRN PRN Reason: Pain Last Admin: 09/02/18 01:27 Dose: 650 mg Albuterol/Ipratropium (Duoneb 3.0-0.5 Mg/3 Ml) 3 ml NEB Q6HRRT PRN PRN Reason: SOB/wheezing Artificial Tears (Refresh Plus 0.5%) 1 each EYEBOTH BEDTIME [facility] Last Admin: 09/01/18 21:00 Dose: 1 drop Artificial Tears (Liquitears 1.4% Ophth Soln) 1 ml EYEBOTH BID PRN PRN Reason: Dry Eyes Aspirin (Halfprin) 81 mg PO DAILY [facility] Last Admin: 09/02/18 09:21 Dose: 81 mg Calcium Carbonate (Caltrate 600+D 1500 Mg-400 Units) 1 tab PO DAILY [facility] Last Admin: 09/02/18 09:21 Dose: 1 tab Calcium Carbonate/Glycine (Tums) 1,000 mg PO Q2HR PRN PRN Reason: Indigestion Last Admin: 09/02/18 01:27 Dose: 1,000 mg Erythromycin (Erythromycin 0.5% Ophth Oint) 1 gm EYEBOTH ASDIRECTED [facility] Ferrous Sulfate (Ferrous Sulfate) 325 mg PO TIDMEALS [facility] Last Admin: 09/02/18 13:07 Dose: 325 mg Heparin Sodium (Porcine) (Heparin Sodium) 5,000 units SUBCUT Q8H [facility] Last Admin: 09/02/18 13:07 Dose: 5,000 units Sodium Chloride (Normal Saline) 1,000 mls @ 100 mls/hr IV ASDIRECTED [facility] Last Admin: 09/02/18 09:22 Dose: 100 mls/hr Levofloxacin (Levaquin) 750 mg PO Q48H [facility] Last Admin: 09/01/18 16:59 Dose: 750 mg Nystatin (Nystop) 1 gm TOP TID [facility] Last Admin: 09/02/18 13:07 Dose: 1 applic Omeprazole (Omeprazole) 20 mg PO ACBREAKFAST [facility] Last Admin: 09/02/18 06:32 Dose: Not Given Ondansetron HCl (Zofran) 4 mg IVPUSH Q4H PRN PRN Reason: Nausea Last Admin: 09/02/18 01:28 Dose: 4 mg Sodium Chloride (Saline Flush) 2.5 ml FLUSH ASDIRECTED PRN PRN Reason: Keep Vein Open Discontinued Medications Heparin Sodium (Porcine) (Heparin Sodium) 5,000 units SUBCUT Q12H [facility] Last Admin: 08/30/18 14:13 Dose: Not Given Sodium Chloride (Normal Saline) 1,000 mls @ 125 mls/hr IV ASDIRECTED [facility] Last Admin: 08/30/18 14:07 Dose: 125 mls/hr Magnesium Sulfate 2 gm/ Premix 50 mls @ 50 mls/hr IV ONETIME ONE Stop: 08/30/18 17:23 Last Admin: 08/30/18 17:23 Dose: 50 mls/hr Omeprazole (Omeprazole) 20 mg PO ONETIME ONE Stop: 09/01/18 05:07 Last Admin: 09/01/18 05:28 Dose: 20 mg - Exam General: Alert, Oriented Neck: Supple Lungs: Clear to Auscultation, Normal Respiratory Effort Cardiovascular: Regular Rate, Regular Rhythm GI/Abdominal Exam: Normal Bowel Sounds, Soft, Non-Tender, No Organomegaly Extremities: Non-Tender, No Pedal Edema Skin: Warm, Dry, Intact Neurological: No New Focal Deficit - Problem List Review Problem List Initiated/Reviewed/Updated: Yes - My Orders Last 24 Hours: My Active Orders 09/03/18 05:11 BASIC METABOLIC PANEL,BMP [CHEM] AM CBC WITH AUTO DIFF [HEME] AM 09/04/18 05:11 BASIC METABOLIC PANEL,BMP [CHEM] AM CBC WITH AUTO DIFF [HEME] AM - Plan Plan:: This 83 year old male admitted with dehydration, diarrhea, and hypotension. Resolving. We will continue Levaquin for campylobacter. Discharge pending placement at [facility].
[2018-09-02] MEDS ORDERED: Magnesium Sulfate/Water 2 GM in Premix Bag 1 BAG IV ONE (18:14)
[2018-09-02] MEDS: Carboxymethylcellulose Sodium 0.5% Ophth Soln 0.4 ML UD Box of 30 EYEBOTH SCH (21:03)
[2018-09-03] MEDS: Heparin Sodium 5,000 Units/ML Vial SUBCUT SCH ×3 (05:45→21:03)
[2018-09-03] MEDS: Nystatin Topical Powder 15 GM Bottle TOP SCH ×3 (05:46→21:03)
[2018-09-03] MEDS: Omeprazole 20 MG Cap.CR PO SCH (06:31)
[2018-09-03 07:49] LABS: CHLORIDE,CL 109 mmol/L (98-107); SODIUM,NA 140 mmol/L (136-148)
[2018-09-03] MEDS: Aspirin 81 MG Tab.EC PO SCH (08:28)
[2018-09-03] MEDS: Calcium Carbonate/Vitamin D3 1500 MG-400 Units Tab PO SCH (08:28)
[2018-09-03] MEDS: Ferrous Sulfate 325 MG Tab PO SCH ×3 (08:28→17:27)
[2018-09-03] MEDS: Polyvinyl Alcohol 1.4% Ophth Soln 15 ML Bottle EYEBOTH PRN (08:41)
--- NOTE | 2018-09-03 11:59 | PCM.PN ---
- General Info Date of Service: 09/03/18 - Review of Systems Systems Review Comment:: reports gas pains - Patient Data Vitals - Most Recent: Last Vital Signs Temp 36.7 C 09/03/18 08:00 Pulse 82 09/03/18 08:00 Resp 16 09/03/18 08:00 BP 181/91 H 09/03/18 08:00 Pulse Ox 96 09/03/18 10:53 Orthostatic Blood Pressure [ 104/54 Standing] Orthostatic Blood Pressure [ 117/57 Sitting] Orthostatic Blood Pressure [ 143/67 Supine] Weight - Most Recent: 76.8 kg I&O - Last 24 Hours: Intake & Output 09/02/18 09/03/18 09/03/18 22:59 06:59 14:59 Intake Total 2851 200 Output Total 100 Balance 2851 100 Lab Results Last 24 Hours: Laboratory Results - last 24 hr 09/03/18 09/03/18 Range/Units 07:07 07:07 WBC 6.08 (4.0-11.0) K/uL RBC 3.38 L (4.50-5.90) M/uL Hgb 8.8 L (13.0-17.0) g/dL Hct 28.0 L (38.0-50.0) % MCV 82.8 (80.0-98.0) fL MCH 26.0 L (27.0-32.0) pg MCHC 31.4 (31.0-37.0) g/dL Plt Count 239 (150-400) K/uL MPV 9.80 (7.40-12.00) fL Neut % (Auto) 65.8 (48.0-80.0) % Lymph % (Auto) 21.2 (16.0-40.0) % [place] % (Auto) 8.6 (0.0-15.0) % Eos % (Auto) 2.8 (0.0-7.0) % Baso % (Auto) 1.6 H (0.0-1.5) % Neut # (Auto) 4.0 (1.4-5.7) K/uL Lymph # (Auto) 1.3 (0.6-2.4) K/uL [place] # (Auto) 0.5 (0.0-0.8) K/uL Eos # (Auto) 0.2 (0.0-0.7) K/uL Baso # (Auto) 0.1 (0.0-0.1) K/uL Nucleated RBC % 0.9 /100WBC Nucleated RBCs # 0 K/uL Sodium 140 (136-148) mmol/L Potassium 4.0 (3.5-5.1) mmol/L Chloride 109 H (98-107) mmol/L Carbon Dioxide 19.4 L (21.0-32.0) mmol/L BUN 6 L (7.0-18.0) mg/dL Creatinine 0.9 (0.8-1.3) mg/dL Est Cr Clr Drug Dosing 62.19 mL/min Estimated GFR (MDRD) > 60.0 ml/min Glucose 97 (74-106) mg/dL Calcium 7.7 L (8.5-10.1) mg/dL Magnesium 1.8 (1.8-2.4) mg/dL Med Orders - Current: Current Medications Acetaminophen (Tylenol) 650 mg PO Q6H PRN PRN Reason: Pain Last Admin: 09/02/18 01:27 Dose: 650 mg Albuterol/Ipratropium (Duoneb 3.0-0.5 Mg/3 Ml) 3 ml NEB Q6HRRT PRN PRN Reason: SOB/wheezing Artificial Tears (Refresh Plus 0.5%) 1 each EYEBOTH BEDTIME [facility] Last Admin: 09/02/18 21:03 Dose: 1 drop Artificial Tears (Liquitears 1.4% Ophth Soln) 1 ml EYEBOTH BID PRN PRN Reason: Dry Eyes Last Admin: 09/03/18 08:41 Dose: 1 drop Aspirin (Halfprin) 81 mg PO DAILY [facility] Last Admin: 09/03/18 08:28 Dose: 81 mg Calcium Carbonate (Caltrate 600+D 1500 Mg-400 Units) 1 tab PO DAILY [facility] Last Admin: 09/03/18 08:28 Dose: 1 tab Calcium Carbonate/Glycine (Tums) 1,000 mg PO Q2HR PRN PRN Reason: Indigestion Last Admin: 09/02/18 01:27 Dose: 1,000 mg Erythromycin (Erythromycin 0.5% Ophth Oint) 1 gm EYEBOTH ASDIRECTED [facility] Ferrous Sulfate (Ferrous Sulfate) 325 mg PO TIDMEALS [facility] Last Admin: 04/28/19 08:28 Dose: 325 mg Heparin Sodium (Porcine) (Heparin Sodium) 5,000 units SUBCUT Q8H [facility] Last Admin: 09/03/18 05:45 Dose: 5,000 units Sodium Chloride (Normal Saline) 1,000 mls @ 100 mls/hr IV ASDIRECTED [facility] Last Admin: 09/02/18 21:08 Dose: 100 mls/hr Levofloxacin (Levaquin) 750 mg PO Q48H [facility] Last Admin: 09/01/18 16:59 Dose: 750 mg Nystatin (Nystop) 1 gm TOP TID [facility] Last Admin: 09/03/18 05:46 Dose: 1 gm Omeprazole (Omeprazole) 20 mg PO ACBREAKFAST [facility] Last Admin: 09/03/18 06:31 Dose: Not Given Ondansetron HCl (Zofran) 4 mg IVPUSH Q4H PRN PRN Reason: Nausea Last Admin: 09/02/18 01:28 Dose: 4 mg Sodium Chloride (Saline Flush) 2.5 ml FLUSH ASDIRECTED PRN PRN Reason: Keep Vein Open Discontinued Medications Heparin Sodium (Porcine) (Heparin Sodium) 5,000 units SUBCUT Q12H [facility] Last Admin: 08/30/18 14:13 Dose: Not Given Sodium Chloride (Normal Saline) 1,000 mls @ 125 mls/hr IV ASDIRECTED [facility] Last Admin: 08/30/18 14:07 Dose: 125 mls/hr Magnesium Sulfate 2 gm/ Premix 50 mls @ 50 mls/hr IV ONETIME ONE Stop: 08/30/18 17:23 Last Admin: 08/30/18 17:23 Dose: 50 mls/hr Magnesium Sulfate 2 gm/ Premix 50 mls @ 50 mls/hr IV ONETIME ONE Stop: 09/02/18 19:13 Last Admin: 09/02/18 18:52 Dose: 50 mls/hr Omeprazole (Omeprazole) 20 mg PO ONETIME ONE Stop: 09/01/18 05:07 Last Admin: 09/01/18 05:28 Dose: 20 mg - Exam General: Alert, Oriented Neck: Supple Lungs: Clear to Auscultation, Normal Respiratory Effort Cardiovascular: Regular Rate, Regular Rhythm GI/Abdominal Exam: Normal Bowel Sounds, Soft, Non-Tender Extremities: Non-Tender, No Pedal Edema - Problem List Review Problem List Initiated/Reviewed/Updated: Yes - My Orders Last 24 Hours: My Active Orders 09/04/18 05:11 BASIC METABOLIC PANEL,BMP [CHEM] AM CBC WITH AUTO DIFF [HEME] AM - Plan Plan:: This 83 year old male admitted with dehydration, diarrhea, and hypotension. Resolving. We will continue Levaquin for campylobacter. Discharge to [facility] tomorrow.
[2018-09-03] MEDS: Sodium Chloride 0.9% 1,000 ML IV SCH (15:12)
[2018-09-03] MEDS: Levofloxacin 250 MG Tab PO SCH (17:26)
[2018-09-03] MEDS: Calcium Carbonate 500 MG Tab.Chew PO PRN (21:03)
[2018-09-03] MEDS: Carboxymethylcellulose Sodium 0.5% Ophth Soln 0.4 ML UD Box of 30 EYEBOTH SCH (21:04)
[2018-09-04] MEDS: Heparin Sodium 5,000 Units/ML Vial SUBCUT SCH (05:54)
[2018-09-04] MEDS: Omeprazole 20 MG Cap.CR PO SCH ×2 (05:54→10:18)
[2018-09-04] MEDS: Nystatin Topical Powder 15 GM Bottle TOP SCH (05:55)
[2018-09-04 06:47] LABS: CHLORIDE,CL 110 mmol/L (98-107); SODIUM,NA 142 mmol/L (136-148)
[2018-09-04] MEDS: Calcium Carbonate/Vitamin D3 1500 MG-400 Units Tab PO SCH (08:33)
[2018-09-04] MEDS: Aspirin 81 MG Tab.EC PO SCH (08:36)
[2018-09-04] MEDS ORDERED: Metoprolol Tartrate 50 MG Tab PO SCH (10:00)
--- NOTE | 2018-09-04 10:07 | PCM.DCSUM1 ---
Discharge Summary - Hospital Course Brief History: This 83 year old male admitted with pmh of colorectal ca post resection, HTN, and BPH presented to follow up with Onocologist, Dr Thomas. At this appointment he was noted to be hypotensive and reported dizziness and weakness. He was recently discharged from the hospital, he was admitted then for diarrhea, dehydration, and hypokalemia secondary to oral adjuvant chemotherapy. He was discharged to [facility] for rehabilitation with hopes of returning home. He reports diarrhea is slowly improving, having approximately 4 stools daily, which are incontinent. He reports he can feel when they are happening but is so weak and needs help he isn't able to get to bathroom in time. reports bottom and groin feel very raw. He denies chest pain or palpitations. No fever. Intermittent cramping to abdomen, no overt pain, mild tenderness. NO heartburn or N/V. No black or bloody BMs. reports some burning with urination. Again reports dizziness and lightheadedness especially with ambulation. In the clinic WBC 8,2000, hgb 10.3, HCT 33, platelets 33, K+ 4.2 BUN 20 and Cr 1.5. He will admitted observation for dehydration, weakness and hypotension. PCP Dr Watson. Oncologist, Dr Thomas Diagnosis: Stroke: No - Discharge Data Discharge Date: 09/04/18 Discharge Disposition: Home, Self-Care 01 Condition: Good - Discharge Diagnosis/Problem(s) (1) Dehydration SNOMED Code(s): 06403117 ICD Code: E86.0 - DEHYDRATION Status: Acute (2) Hypotension SNOMED Code(s): 52851464 ICD Code: I95.9 - HYPOTENSION, UNSPECIFIED Status: Acute (3) MARGARITA (acute kidney injury) SNOMED Code(s): 15681055 ICD Code: N17.9 - ACUTE KIDNEY FAILURE, UNSPECIFIED Status: Acute Priority: High (4) Weakness generalized SNOMED Code(s): 71017005 ICD Code: R53.1 - WEAKNESS Status: Acute Priority: High (5) HTN (hypertension) SNOMED Code(s): 34259780 ICD Code: I10 - ESSENTIAL (PRIMARY) HYPERTENSION Status: Chronic Qualifiers: Hypertension type: essential hypertension Qualified Code(s): I10 - Essential (primary) hypertension (6) Colorectal cancer SNOMED Code(s): 361411866 ICD Code: C19 - MALIGNANT NEOPLASM OF RECTOSIGMOID JUNCTION Status: Chronic Priority: High (7) Aortic stenosis SNOMED Code(s): 62963804 ICD Code: I35.0 - NONRHEUMATIC AORTIC (VALVE) STENOSIS Status: Chronic Qualifiers: Cardiac valve disease etiology: nonrheumatic Qualified Code(s): I35.0 - Nonrheumatic aortic (valve) stenosis - Patient Summary/Data Consults: Consultations 08/30/18 13:40 PT Evaluation and Treatment [CONS] Routine - Patient Instructions Diet: Regular Diet as Tolerated Activity: Cough & Deep Breathe Driving: Do Not Drive Showering/Bathing: May Shower Notify Provider of: Fever, Increased Pain, Swelling and Redness, Drainage, Nausea and/or Vomiting Other/Special Instructions: PT/OT to evaluate and treat - Discharge Plan *PRESCRIPTION DRUG MONITORING PROGRAM REVIEWED*: Not Applicable *COPY OF PRESCRIPTION DRUG MONITORING REPORT IN PATIENT TYSHAWN: Not Applicable Prescriptions/Med Rec: Nystatin [Nystop] 100,000 unit TOP TID #1 bottle Home Medications: Home Meds Losartan/Hydrochlorothiazide [Losartan-HCTZ 100-12.5 MG] 12.5 - 100 mg PO DAILY 03/08/18 [History] Calcium Carbonate/Vitamin D3 [Calcium 600 + Vit D Tablet] 1 tab PO DAILY [History] Carboxymethylcellulos/Glycerin [Refresh Optive Gel Eye Drops] 1 applic EYEBOTH BID 03/23/18 [History] Dextran 70/Hypromellose [Artificial Tears] 1 drop EYEBOTH BID PRN 03/23/18 [ History] Erythromycin Base [Erythromycin 0.5% Ophth Oint] 1 applic EYEBOTH ASDIRECTED [History] Potassium Chloride 8 meq PO DAILY 03/23/18 [History] Albuterol/Ipratropium [DuoNeb 3.0-0.5 MG/3 ML] 3 ml NEB Q6HRRT PRN neb [Rx] Aspirin [Halfprin] 81 mg PO DAILY tab.ec 08/16/18 [Rx] Ferrous Sulfate 325 mg PO TIDMEALS tablet 08/16/18 [Rx] Magnesium Oxide [Magnesium] 200 mg PO DAILY #30 tab.chew 08/16/18 [Rx] Omeprazole 20 mg PO ACBREAKFAST cap.cr 08/16/18 [Rx] Capecitabine 2,000 mg PO BID 09/03/18 [History] Loperamide HCl [Imodium A-D] 2 mg PO BID PRN 09/03/18 [History] Metoprolol Tartrate [Lopressor] 50 mg PO BID 09/03/18 [History] Multivitamin [Multi-Vitamin Daily] 1 each PO DAILY 09/03/18 [History] Ondansetron [Zofran] 8 mg PO Q8H PRN 09/03/18 [History] Prochlorperazine Maleate [Compazine] 10 mg PO TID 09/03/18 [History] Nystatin [Nystop] 100,000 unit TOP TID #1 bottle 09/04/18 [Rx] Oxygen Therapy Mode: Room Air Referrals: Jere Burnett MD [Physician] - 09/07/18 - Discharge Summary/Plan Comment DC Time >30 min.: No Discharge Summary/Plan Comment: Admitting Diagnoses: Dehydration Hypotension MARGARITA Diarrhea Discharge Diagnoses: Deconditioning Diarrhea-improved Orthostatic Hypotension Campylobacter-treated Other PMH: Colorectal CA HTN Aortic stenosis Baljit was admitted and treated with IVFs due to continued diarrhea causing dehydration and MARGARITA. He slowly improved. BP medications were held due to orthostatic BPs as well as hypotension. With IVFs, BP improved and were noted today to be 180/80s. He will be restart on Losartan and HCTZ, but Hydralazine will be held. He was asymptomatic today and feeling well. He reports diarrhea is much improved and he was eating well. He was treated with Levaquin due to Campylobacter noted in stools again. He will be discharged back to [facility] today for rehabilitation with hopes of returning home when stronger. He is to return to ED or clinic if concerns should arise. He is to follow up with PCP in 1 week. - General Info Date of Service: 09/04/18 Admission Dx/Problem (Free Text: Admission Diagnosis/Problem Admission Diagnosis/Problem Dehydration, hypotension Subjective Update: Doing well today. No concerns. Feels ready to go back to [facility]. No chest pain or SOB. Currently not complaining of dizziness. Functional Status: Reports: Pain Controlled, Tolerating Diet, Ambulating - Review of Systems General: Reports: No Symptoms. Denies: Fever, Weakness, Fatigue HEENT: Reports: No Symptoms. Denies: Headaches, Sinus Congestion Pulmonary: Reports: No Symptoms. Denies: Shortness of Breath Cardiovascular: Reports: No Symptoms. Denies: Chest Pain, Lightheadedness Gastrointestinal: Reports: No Symptoms. Denies: Abdominal Pain, Nausea, Vomiting Genitourinary: Reports: No Symptoms. Denies: Dysuria, Frequency, Burning Musculoskeletal: Reports: No Symptoms Skin: Reports: No Symptoms Neurological: Reports: No Symptoms Psychiatric: Reports: No Symptoms - Patient Data Vitals - Most Recent: Last Vital Signs Temp 98 F 09/04/18 07:09 Pulse 62 09/04/18 07:09 Resp 15 09/04/18 07:09 BP 186/78 H 09/04/18 07:09 Pulse Ox 96 09/04/18 07:09 Orthostatic Blood Pressure [ 104/54 Standing] Orthostatic Blood Pressure [ 117/57 Sitting] Orthostatic Blood Pressure [ 143/67 Supine] Weight - Most Recent: 79.9 kg I&O - Last 24 hours: Intake & Output 09/03/18 09/04/18 09/04/18 22:59 06:59 14:59 Intake Total 4093 400 Output Total 400 712 Balance 3693 -312 Lab Results - Last 24 hrs: Laboratory Results - last 24 hr 09/04/18 09/04/18 Range/Units 06:14 06:14 WBC 4.08 (4.0-11.0) K/uL RBC 3.47 L (4.50-5.90) M/uL Hgb 9.0 L (13.0-17.0) g/dL Hct 28.9 L (38.0-50.0) % MCV 83.3 (80.0-98.0) fL MCH 25.9 L (27.0-32.0) pg MCHC 31.1 (31.0-37.0) g/dL Plt Count 215 (150-400) K/uL MPV 9.20 (7.40-12.00) fL Neut % (Auto) 51.8 (48.0-80.0) % Lymph % (Auto) 31.9 (16.0-40.0) % [place] % (Auto) 12.7 (0.0-15.0) % Eos % (Auto) 2.9 (0.0-7.0) % Baso % (Auto) 0.7 (0.0-1.5) % Neut # (Auto) 2.1 (1.4-5.7) K/uL Lymph # (Auto) 1.3 (0.6-2.4) K/uL [place] # (Auto) 0.5 (0.0-0.8) K/uL Eos # (Auto) 0.1 (0.0-0.7) K/uL Baso # (Auto) 0.0 (0.0-0.1) K/uL Nucleated RBC % 0.0 /100WBC Nucleated RBCs # 0 K/uL Sodium 142 (136-148) mmol/L Potassium 3.1 L (3.5-5.1) mmol/L Chloride 110 H (98-107) mmol/L Carbon Dioxide 25.4 (21.0-32.0) mmol/L BUN 4 L (7.0-18.0) mg/dL Creatinine 0.9 (0.8-1.3) mg/dL Est Cr Clr Drug Dosing 62.19 mL/min Estimated GFR (MDRD) > 60.0 ml/min Glucose 91 (74-106) mg/dL Calcium 7.8 L (8.5-10.1) mg/dL Med Orders - Current: Current Medications Acetaminophen (Tylenol) 650 mg PO Q6H PRN PRN Reason: Pain Last Admin: 09/02/18 01:27 Dose: 650 mg Albuterol/Ipratropium (Duoneb 3.0-0.5 Mg/3 Ml) 3 ml NEB Q6HRRT PRN PRN Reason: SOB/wheezing Artificial Tears (Refresh Plus 0.5%) 1 each EYEBOTH BEDTIME [facility] Last Admin: 09/03/18 21:04 Dose: 1 drop Artificial Tears (Liquitears 1.4% Ophth Soln) 1 ml EYEBOTH BID PRN PRN Reason: Dry Eyes Last Admin: 09/03/18 08:41 Dose: 1 drop Aspirin (Halfprin) 81 mg PO DAILY [facility] Last Admin: 09/04/18 08:36 Dose: 81 mg Calcium Carbonate (Caltrate 600+D 1500 Mg-400 Units) 1 tab PO DAILY [facility] Last Admin: 09/04/18 08:33 Dose: 1 tab Calcium Carbonate/Glycine (Tums) 1,000 mg PO Q2HR PRN PRN Reason: Indigestion Last Admin: 09/03/18 21:03 Dose: 1,000 mg Erythromycin (Erythromycin 0.5% Ophth Oint) 1 gm EYEBOTH ASDIRECTED [facility] Ferrous Sulfate (Ferrous Sulfate) 325 mg PO TIDMEALS [facility] Last Admin: 09/03/18 17:27 Dose: 325 mg Heparin Sodium (Porcine) (Heparin Sodium) 5,000 units SUBCUT Q8H [facility] Last Admin: 09/04/18 05:54 Dose: 5,000 units Hydrochlorothiazide (Hydrochlorothiazide) 12.5 mg PO DAILY [facility] Sodium Chloride (Normal Saline) 1,000 mls @ 100 mls/hr IV ASDIRECTED [facility] Last Admin: 09/03/18 15:12 Dose: 100 mls/hr Levofloxacin (Levaquin) 750 mg PO Q48H [facility] Last Admin: 09/03/18 17:26 Dose: 750 mg Losartan Potassium (Cozaar) 100 mg PO DAILY [facility] Metoprolol Tartrate (Lopressor) 50 mg PO BID [facility] Nystatin (Nystop) 1 gm TOP TID [facility] Last Admin: 09/04/18 05:55 Dose: 1 gm Omeprazole (Omeprazole) 20 mg PO ACBREAKFAST [facility] Last Admin: 09/04/18 05:54 Dose: 20 mg Ondansetron HCl (Zofran) 4 mg IVPUSH Q4H PRN PRN Reason: Nausea Last Admin: 09/02/18 01:28 Dose: 4 mg Sodium Chloride (Saline Flush) 2.5 ml FLUSH ASDIRECTED PRN PRN Reason: Keep Vein Open Discontinued Medications Heparin Sodium (Porcine) (Heparin Sodium) 5,000 units SUBCUT Q12H [facility] Last Admin: 08/30/18 14:13 Dose: Not Given Sodium Chloride (Normal Saline) 1,000 mls @ 125 mls/hr IV ASDIRECTED [facility] Last Admin: 08/30/18 14:07 Dose: 125 mls/hr Magnesium Sulfate 2 gm/ Premix 50 mls @ 50 mls/hr IV ONETIME ONE Stop: 08/30/18 17:23 Last Admin: 08/30/18 17:23 Dose: 50 mls/hr Magnesium Sulfate 2 gm/ Premix 50 mls @ 50 mls/hr IV ONETIME ONE Stop: 09/02/18 19:13 Last Admin: 09/02/18 18:52 Dose: 50 mls/hr Non-Formulary Medication (Losartan/Hydrochlorothiazide [Losartan-Hctz 100-12.5 Mg]) 12.5 - 100 mg PO DAILY [facility]ATH[facility]INE Omeprazole (Omeprazole) 20 mg PO ONETIME ONE Stop: 09/01/18 05:07 Last Admin: 09/01/18 05:28 Dose: 20 mg - Exam General: Reports: Alert, Oriented, Cooperative Neck: Reports: Supple Lungs: Reports: Clear to Auscultation, Normal Respiratory Effort Cardiovascular: Reports: Regular Rate, Regular Rhythm, Murmurs GI/Abdominal Exam: Normal Bowel Sounds, Soft, Non-Tender Back Exam: Reports: Normal Inspection, Full Range of Motion Extremities: Normal Inspection Wound/Incisions: Reports: Healing Well Neurological: Reports: No New Focal Deficit Psy/Mental Status: Reports: Alert, Normal Affect, Normal Mood
[2018-09-04] MEDS: Ferrous Sulfate 325 MG Tab PO SCH ×2 (10:17→12:38)
[2018-09-04] MEDS: Polyvinyl Alcohol 1.4% Ophth Soln 15 ML Bottle EYEBOTH PRN (10:19)
--- NOTE | 2018-09-04 14:07 | ECHO ---
EXAM DATE: 09/03/18 PATIENT'S AGE: 83 The echocardiogram report can be seen in this patient's EMR (Electronic Medical Record) in the Reports section. The report has also been scanned into PACs. CHARLES
[2018-09-05] MEDS ORDERED: Losartan 50 MG Tab PO SCH (10:00)
[2018-09-05] MEDS ORDERED: Hydrochlorothiazide 12.5 MG Cap PO SCH (10:00)
== END 2018-09-04 12:45 | disposition home or self-care (01) | DRG 641 ==
LOC: MW.MS 13:00 → OBSVTOIN 09-03 13:00
PROVIDERS: ADMIT Internal Medicine; ATTEND Internal Medicine
DX: I95.9 Hypotension, unspecified (principal); R19.7 Diarrhea, unspecified; E86.0 Dehydration; R42 Dizziness and giddiness; N17.9 Acute kidney failure, unspecified; C18.2 Malignant neoplasm of ascending colon; A04.5 Campylobacter enteritis; I10 Essential (primary) hypertension; R15.9 Full incontinence of feces; R53.1 Weakness; I35.0 Nonrheumatic aortic (valve) stenosis; I95.1 Orthostatic hypotension; M35.3 Polymyalgia rheumatica; D64.9 Anemia, unspecified; Z87.891 Personal history of nicotine dependence; Z85.828 Personal history of other malignant neoplasm of skin; Z92.3 Personal history of irradiation; Z79.899 Other long term (current) drug therapy; Z90.49 Acquired absence of other specified parts of digestive tract; Z86.010 Personal history of colon polyps
CPT/HCPCS: 36415 ×5; 80048 ×4; 81003; 83735 ×5; 85025 ×4; 87046; 87324; 87328; 87329; 87899 ×3; 93306; 97110 ×3; 97161; 97530; A9270 ×30; J1644 ×12; J2405 ×3; J3475 ×2; J7040 ×8; 80053

== ENCOUNTER 2020-02-17 10:27 | Emergency (ER) | payer MEDICARE, OTHER ==
[2020-02-17] MEDS ORDERED: Sodium Chloride 0.9% 2.5 ML Syringe FLUSH PRN (10:37)
[2020-02-17] MEDS ORDERED: Sodium Chloride 0.9% 10 ML Syringe FLUSH PRN (10:37)
[2020-02-17] MEDS ORDERED: Sodium Chloride 0.9% 1,000 ML IV ONE ×2 (10:38→14:05)
[2020-02-17] MEDS ORDERED: Morphine 2 MG/ML SYRINGE IVPUSH ONE (10:58)
--- NOTE | 2020-02-17 11:03 | PCM.SN.2 ---
- Free Text/Narrative Note: 12-Lead ECG Interpretation Acquired: 10:52 AM Rhythm: Sinus tachycardia Rate: 104 beats/minute [place]: Normal Intervals: Right bundle branch block, previously demonstrated. Ectopy: None RV Strain: No obvious RV strain pattern. ST Segments/T-Waves: Subtle nondiagnostic ST depression in V2 and 3 and lead I - less than 1 mm, this was seen on most recent ECG from 2019. Acute Ischemic Changes: None apparent Interpretation: No STEMI Compared to 08/09/2018, no significant changes.
--- NOTE | 2020-02-17 11:10 | EDM.PDOC ---
ED HPI GENERAL MEDICAL PROBLEM - General Chief Complaint: General Stated Complaint: FALL Time Seen by Provider: 02/17/20 10:30 Source of Information: Reports: Patient, EMS History Limitations: Reports: No Limitations - History of Present Illness INITIAL COMMENTS - FREE TEXT/NARRATIVE: HISTORY AND PHYSICAL: History of present illness: Patient is an 84-year-old male who presents to the ED today via EMS after a fall that occurred about 6 PM last night from standing height. Patient states he was walking to the bathroom when he tripped on the step of a stool and fell to the ground. Patient states he did not hit his head or lose consciousness but has had generalized weakness of his legs and has been having difficulties with ambulating. Patient states that he does live at home alone in an apartment and this morning he heard somebody walking by his apartment door so he yelled for help. Patient states that the manager workers compensation of the apartment building came in and called his daughter who wanted the ambulance called to come to the emergency room to be evaluated. Patient states that after the fall he had right knee pain. Patient states he did not have any other pain until he was lying on the ground for so long and then developed low back pain, and left shoulder pain and states he is "stiff" all over from laying on the ground. Patient states that he did urinate himself throughout the night as he was unable to get up. Patient states he is not on any blood thinning medication. Patient states that he has had generalized lower leg weakness is in physical therapy for this and is on a trial of prednisone to see if this would improve his leg weakness. Patient has a history of chronic kidney disease, hypertension, aortic stenosis, and colon cancer. Patient states that he had the colon cancer resected 2 years ago and is unsure about current cancer status at this time but believes he is in remission but is unsure of this as well. Patient denies fever, chills, chest p ain, shortness of breath, or cough. Denies headache, neck stiff ness, change in vision, syncope, or near syncope. Denies nausea, vomiting, abdominal pain, diarrhea, constipation, or dysuria. Has not noted any blood in urine or stool. Patient has been eating and drinking appropriately prior to fall. Review of systems: As per history of present illness and below otherwise all systems reviewed and negative. Past medical history: As per history of present illness and as reviewed below otherwise noncontributory. Surgical history: As per history of present illness and as reviewed below otherwise noncontributory. Social history: See social history for further information Family history: As per history of present illness and as reviewed below otherwise noncontributory. Physical exam: General: Patient is alert, oriented, and in no acute distress. Patient laying comfortably on exam table. Vital stable and reviewed by me. HEENT: Atraumatic, normocephalic, pupils equal and reactive bilaterally, negative for conjunctival pallor or scleral icterus, mucous membranes dry and tacky, throat clear with chew tobacco present in mouth, neck supple, nontender, trachea midline. No drooling or trismus noted. No meningeal signs. No hot potato voice noted. Lungs: Clear to auscultation, breath sounds equal bilaterally, chest nontender. Heart: S1S2, regular rate and rhythm without systolic ejection murmur Abdomen: Soft, nondistended, nontender. Negative for masses or hepatosplenomegaly. Negative for costovertebral tenderness. Pelvis: Stable nontender. Genitourinary: Shop Tailor at bedside, Isabela Koenig Patient is incontinent of urine upon arrival. No obvious masses, pain, penile drainage, and skin intact. Rectal: Tone intact. No obvious hemorrhoids, fissures, pain, or masses. Skin: Intact, warm, dry. No lesions or rashes noted. Extremities: No obvious deformity of the complete spine. No step-offs, crepitus to palpation of the complete spine. Patient does have mild to moderate pain wi th palpation of the generalized thoracic spine and does have moderate to severe pain with range of motion of the spine. Patient limited mobility of back due to pain. Patient does have ROM of the bilateral knees and shoulders but does express pain of these areas. Radial pulses are grossly intact bilaterally with capillary refill less than 2 seconds. Dorsalis pedis and posterior tibial pulses are grossly intact bilaterally with capillary refill less than 2 seconds. Otherwise, Atraumatic, negative for cords or calf pain. Neurovascular unremarkable. Neuro: Awake, alert, oriented. Cranial nerves II through XII unremarkable. Cerebellum unremarkable. Motor exam is limited due to pain. Sensory unremarkable throughout. Exam nonfocal. Notes: On initial exam, patient is uncomfortable with back pain, and limited ROM due to this. He is alert and comfortable as long as he is not moving. Patient more comfortable following therapeutics today. Admission for observation was encouraged but patient declines. All risks vs benefits discussed with patient and expresses understanding. Does agree to sign out AMA. And symptoms that would prompt return to the ED thoroughly discussed with patient. Discussed importance for follow-up with a primary care provider. Diagnostics: EKG, CBC, CMP, UA, chest x-ray, troponin, head CT, cervical spine CT, thoracic CT, lumbar CT, pelvic x-ray, bilateral knee x-ray, left shoulder x-ray, CPK (COVID for admission) Therapeutics: NS, Morphine 2mg IV Impression: Fall Thoracic back pain Head injury with subgaleal hematoma Dehydration Left shoulder injury Right knee injury Fall Risk Plan: Definitive disposition and diagnosis as appropriate pending reevaluation and review of above. left shoulder, mid back, R knee Pain Score (Numeric/FACES): 8 - Related Data Allergies Allergy/AdvReac Type Severity Reaction Status Date / Time No Known Allergies Allergy Verified 02/17/20 10:42 Home Meds: Home Meds Losartan/Hydrochlorothiazide [Losartan-HCTZ 100-12.5 MG] 12.5 - 100 mg PO DAILY 03/08/18 [History] Calcium Carbonate/Vitamin D3 [Calcium 600 + Vit D Tablet] 1 tab PO DAILY 03/23/18 [History] Carboxymethylcellulos/Glycerin [Refresh Optive Gel Eye Drops] 1 applic EYEBOTH BID 03/23/18 [History] Dextran 70/Hypromellose [Artificial Tears] 1 drop EYEBOTH BID PRN 03/23/18 [History] Erythromycin Base [Erythromycin 0.5% Ophth Oint] 1 applic EYEBOTH ASDIRECTED 03/23/18 [History] Potassium Chloride 8 meq PO DAILY 03/23/18 [History] Metoprolol Tartrate [Lopressor] 50 mg PO BID 09/03/18 [History] Multivitamin [Multi-Vitamin Daily] 1 each PO DAILY 09/03/18 [History] hydrALAZINE [Apresoline] 1 tab PO BID 02/17/20 [History] predniSONE [Prednisone] 12.5 mg PO DAILY 02/17/20 [History] Past Medical History HEENT History: Reports: Other (See Below) Other HEENT History: top and bottom denture Cardiovascular History: Reports: Heart Murmur, Hypertension Respiratory History: Reports: None Gastrointestinal History: Reports: None Genitourinary History: Reports: BPH, Prostate Disorder Musculoskeletal History: Reports: Other (See Below) Other Musculoskeletal History: polymyalgia rheumatica Neurological History: Reports: None Psychiatric History: Reports: None Endocrine/Metabolic History: Reports: None Hematologic History: Reports: Anemia Immunologic History: Reports: None Oncologic (Cancer) History: Reports: Basal Cell Carcinoma, Colon Other Oncologic History: 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 Dermatologic History: Reports: None - Infectious Disease History Infectious Disease History: Reports: Chicken Pox, Measles, Mumps - Past Surgical History Head Surgeries/Procedures: Reports: None HEENT Surgical History: Reports: Cataract Surgery Cardiovascular Surgical History: Reports: None GI Surgical History: Reports: Colon, Colonoscopy, Hernia, Abdominal Male Surgical History: Reports: TURP-Transurethral Resection of Prostate, Vasectomy Dermatological Surgical History: Reports: Skin Biopsy Social & Family History - Family History Family Medical History: Unobtainable - Tobacco Use Years of Tobacco use: 59 Packs/Tins Daily: 0.2 - Caffeine Use Caffeine Use: Reports: Coffee - Recreational Drug Use Recreational Drug Use: No - Living Situation & Occupation Living situation: Reports: , Extended Care Facility ED ROS GENERAL - Review of Systems Review Of Systems: Comprehensive ROS is negative, except as noted in HPI. ED EXAM, GENERAL - Physical Exam Exam: See Below (See dictation) Course - Vital Signs Last Recorded V/S: Last Vital Signs Temp 97.5 F 02/17/20 10:39 Pulse 93 02/17/20 13:02 Resp 17 02/17/20 13:02 BP 131/67 02/17/20 13:02 Pulse Ox 93 L 02/17/20 13:02 - Orders/Labs/Meds Orders: Active Orders 24 hr Category Date Time Status EKG Documentation Completion [RC] STAT Care 02/17/20 10:37 Active Sodium Chloride 0.9% [Saline Flush] Med 02/17/20 10:37 Active 10 ml FLUSH ASDIRECTED PRN Sodium Chloride 0.9% [Saline Flush] Med 02/17/20 10:37 Active 2.5 ml FLUSH ASDIRECTED PRN Saline Lock Insert [OM.PC] Stat Oth 02/17/20 10:37 Ordered Medication Orders Sodium Chloride (Saline Flush) 10 ml FLUSH ASDIRECTED PRN PRN Reason: Keep Vein Open Last Admin: 02/17/20 10:55 Dose: 10 ml Documented by: LUIS A Sodium Chloride (Saline Flush) 2.5 ml FLUSH ASDIRECTED PRN PRN Reason: Keep Vein Open Last Admin: 02/17/20 10:56 Dose: 2.5 ml Documented by: LUIS A Labs: Laboratory Tests 02/17/20 02/17/20 02/17/20 Range/Units 10:48 10:48 10:48 WBC 12.36 H (4.0-11.0) K/uL RBC 5.22 (4.50-5.90) M/uL Hgb 15.9 (13.0-17.0) g/dL Hct 48.0 (38.0-50.0) % MCV 92.0 (80.0-98.0) fL MCH 30.5 (27.0-32.0) pg MCHC 33.1 (31.0-37.0) g/dL RDW Std Deviation 48.8 (28.0-62.0) fl RDW Coeff of Salvador 15 (11.0-15.0) % Plt Count 182 (150-400) K/uL MPV 9.10 (7.40-12.00) fL Neut % (Auto) 81.8 H (48.0-80.0) % Lymph % (Auto) 6.7 L (16.0-40.0) % [place] % (Auto) 11.2 (0.0-15.0) % Eos % (Auto) 0.1 (0.0-7.0) % Baso % (Auto) 0.2 (0.0-1.5) % Neut # (Auto) 10.1 H (1.4-5.7) K/uL Lymph # (Auto) 0.8 (0.6-2.4) K/uL [place] # (Auto) 1.4 H (0.0-0.8) K/uL Eos # (Auto) 0.0 (0.0-0.7) K/uL Baso # (Auto) 0.0 (0.0-0.1) K/uL Nucleated RBC % 0.0 /100WBC Nucleated RBCs # 0 K/uL INR 0.94 Sodium 140 (136-148) mmol/L Potassium 4.0 (3.5-5.1) mmol/L Chloride 100 (98-107) mmol/L Carbon Dioxide 27.6 (21.0-32.0) mmol/L BUN 33 H (7.0-18.0) mg/dL Creatinine 1.5 H (0.8-1.3) mg/dL Est Cr Clr Drug Dosing 36.66 mL/min Estimated GFR (MDRD) 44.6 ml/min Glucose 118 H (74-106) mg/dL Calcium 9.0 (8.5-10.1) mg/dL Total Bilirubin 1.4 H (0.2-1.0) mg/dL AST 26 (15-37) IU/L ALT 33 (14-63) IU/L Alkaline Phosphatase 92 (46-116) U/L Creatine Kinase 165 (26-308) U/L Troponin I 0.051 (0.000-0.056) ng/mL Total Protein 7.2 (6.4-8.2) g/dL Albumin 3.5 (3.4-5.0) g/dL Globulin 3.7 (2.6-4.0) g/dL Albumin/Globulin Ratio 0.9 (0.9-1.6) Meds: Medications Generic Name Dose Route Start Last Admin Trade Name Freq PRN Reason Stop Dose Admin Sodium Chloride 10 ml 02/17/20 10:37 02/17/20 10:55 Saline Flush FLUSH 10 ml ASDIRECTED PRN Administration Keep Vein Open Sodium Chloride 2.5 ml 02/17/20 10:37 02/17/20 10:56 Saline Flush FLUSH 2.5 ml ASDIRECTED PRN Administration Keep Vein Open Discontinued Medications Generic Name Dose Route Start Last Admin Trade Name Freq PRN Reason Stop Dose Admin Sodium Chloride 1,000 mls @ 999 mls/hr 02/17/20 10:38 02/17/20 10:55 Normal Saline IV 02/17/20 11:38 999 mls/hr .BOLUS ONE Administration Sodium Chloride 1,000 mls @ 120 mls/hr 02/17/20 14:05 Normal Saline IV 02/17/20 22:24 STAT ONE Morphine Sulfate 2 mg 02/17/20 10:58 02/17/20 11:04 Morphine IVPUSH 02/17/20 10:59 2 mg ONETIME ONE Administration Departure - Departure Time of Disposition: 14:14 Disposition: Against Medical Advice 07 Clinical Impression: Dehydration, Risk for falls Fall Qualifiers: Encounter type: initial encounter Qualified Code(s): W19.XXXA - Unspecified fall, initial encounter Back injury Qualifiers: Encounter type: initial encounter Qualified Code(s): S39.92XA - Unspecified injury of lower back, initial encounter Knee injury Qualifiers: Encounter type: initial encounter Laterality: right Qualified Code(s): S89.91XA - Unspecified injury of right lower leg, initial encounter Shoulder injury Qualifiers: Encounter type: initial encounter Laterality: left Qualified Code(s): S49.92XA - Unspecified injury of left shoulder and upper arm, initial encounter Head injury Qualifiers: Encounter type: initial encounter Qualified Code(s): S09.90XA - Unspecified injury of head, initial encounter - Discharge Information Instructions: Dehydration, Adult, [id number], Knee Sprain, Adult Referrals: Cole Watson MD [Primary Care Provider] - Forms: ED Department Discharge Additional Instructions: The following information is given to patients seen in the emergency department who are being discharged to home. This information is to outline your options for follow-up care. We provide all patients seen in our emergency department with a follow-up referral. The need for follow-up, as well as the timing and circumstances, are variable depending upon the specifics of your emergency department visit. If you don't have a primary care physician on staff, we will provide you with a referral. We always advise you to contact your personal physician following an emergency department visit to inform them of the circumstance of the visit and for follow-up with them and/or the need for any referrals to a consulting specialist. The emergency department will also refer you to a specialist when appropriate. This referral assures that you have the opportunity for follow-up care with a specialist. All of these measure are taken in an effort to provide you with optimal care, which includes your follow-up. Under all circumstances we always encourage you to contact your private physician who remains a resource for coordinating your care. When calling for follow-up care, please make the office aware that this follow-up is from your recent emergency room visit. If for any reason you are refused follow-up, please contact the [facility] Emergency Department at and asked to speak to the emergency department charge nurse. [facility] [address] [place] [address] [facility] [address] [place] [address] 1. Encourage small frequent sips of fluid to prevent dehydration 2 you can use Tylenol as directed for pain and discomfort. 3. Follow-up with a primary care provider as discussed. Return to the ED as needed and as discussed. Sepsis Event Note (ED) - Evaluation Sepsis Screening Result: No Definite Risk - Focused Exam Vital Signs: Vital Signs Temp Pulse Resp BP Pulse Ox 02/17/20 13:02 93 17 131/67 93 L 02/17/20 12:32 102 H 150/76 H 94 L 02/17/20 11:32 100 17 140/72 94 L 02/17/20 11:03 18 136/60 95 02/17/20 10:39 97.5 F 86 16 150/90 H 94 L - My Orders Last 24 Hours: My Active Orders 02/17/20 10:37 EKG Documentation Completion [RC] STAT Sodium Chloride 0.9% [Saline Flush] 10 ml FLUSH ASDIRECTED PRN Sodium Chloride 0.9% [Saline Flush] 2.5 ml FLUSH ASDIRECTED PRN Saline Lock Insert [OM.PC] Stat - Assessment/Plan Last 24 Hours: My Active Orders 02/17/20 10:37 EKG Documentation Completion [RC] STAT Sodium Chloride 0.9% [Saline Flush] 10 ml FLUSH ASDIRECTED PRN Sodium Chloride 0.9% [Saline Flush] 2.5 ml FLUSH ASDIRECTED PRN Saline Lock Insert [OM.PC] Stat
[2020-02-17 11:19] LABS: CARBON DIOXIDE,CO2 27.6 mmol/L (21.0-32.0)
--- NOTE | 2020-02-17 12:47 | CR ---
Indication: Pain. Technique: AP view of the pelvis. Comparison: None Findings: Both femoral heads are seated within the acetabula. Degenerative changes of both hips and the lower lumbar spine are identified. No fracture or subluxation is identified. Impression: Degenerative change. No fracture. Dictated by Martina Salinas MD @ Feb 17 2020 12:45PM Signed by Dr. Martina Salinas @ Feb 17 2020 12:45PM
--- NOTE | 2020-02-17 12:47 | CR ---
Indication: Pain. Technique: Three views of the left shoulder. Comparison: None Findings: The humeral head is high riding which can be seen with rotator cuff pathology. The humeral head is seated within the glenoid. Degenerative changes are identified at the acromioclavicular and glenohumeral joint spaces. Impression: Degenerative change. Dictated by Martina Salinas MD @ Feb 17 2020 12:40PM Signed by Dr. Martina Salinas @ Feb 17 2020 12:45PM
--- NOTE | 2020-02-17 12:47 | CR ---
Indication: Pain. Shortness of breath. Technique: AP portable view of the chest. Comparison: August 07, 2018. Findings: The heart is normal in size. Trace bilateral pleural effusions are identified. Increased opacities are identified in both lung bases, but no focal infiltrate is identified. No pneumothorax is identified. Impression: Trace bilateral pleural effusions Dictated by Martina Salinas MD @ Feb 17 2020 12:46PM Signed by Dr. Martina Salinas @ Feb 17 2020 12:46PM
--- NOTE | 2020-02-17 12:49 | CR ---
Indication: Knee pain. Technique: Three views of the left knee. Comparison: None Findings: Moderate severe narrowing of the medial and lateral compartments are identified. Spurring of the tibial spines is identified. Narrowing of the patellofemoral articulation is identified. A small joint effusion is seen. No fracture or subluxation is identified. Vascular calcifications are identified. Impression: Degenerative change. Dictated by Martina Salinas MD @ Feb 17 2020 12:46PM Signed by Dr. Martina Salinas @ Feb 17 2020 12:47PM
--- NOTE | 2020-02-17 12:49 | CR ---
Indication: Knee pain. Technique: Three views of the right knee. Comparison: None Findings: Small joint effusion is identified. Mild to moderate narrowing of the medial lateral compartments are identified. Moderate narrowing of the medial patellofemoral articulation is identified. No fracture or subluxation is identified. Impression: Degenerative change. Dictated by Martina Salinas MD @ Feb 17 2020 12:47PM Signed by Dr. Martina Salinas @ Feb 17 2020 12:48PM
--- NOTE | 2020-02-17 12:59 | CT ---
INDICATION: Fall today. TECHNIQUE: CT of the head without contrast. Coronal and sagittal reformats. Bone and soft tissue algorithms. COMPARISON: 03/08/2018 FINDINGS: No acute intracranial hemorrhage or extra-axial collection. No evidence of acute cortical infarction. No mass effect or midline shift. Mild generalized cerebral/cerebellar parenchymal volume loss. Mild regions of decreased attenuation within the periventricular and subcortical white matter of both cerebral hemispheres most likely reflects chronic microvascular ischemic disease and age related change in this patient. Vascular calcifications within the carotid siphons. Orbital contents are normal. No calvarial fractures. No lytic or sclerotic osseous lesions within the calvarium or skull base. Diffuse thin subgaleal hematoma along the bilateral parietal scalp. Mastoid air cells are clear. Minimal polypoid mucosal thickening right maxillary sinus and right ethmoid air cells. IMPRESSION: 1. No evidence of acute intracranial abnormality. 2. Diffuse thin subgaleal hematoma along the bilateral parietal scalp. Please note that all CT scans at this facility use dose modulation, iterative reconstruction, and/or weight-based dosing when appropriate to reduce radiation dose to as low as reasonably achievable. Dictated by Carmelo Goodson MD @ Feb 17 2020 12:54PM Signed by Dr. Carmelo Goodson @ Feb 17 2020 12:58PM
--- NOTE | 2020-02-17 13:12 | CT ---
Indication: Fall, neck pain. Technique: Noncontrast axial CT of the cervical spine with coronal and sagittal reformats are provided. Comparison: No prior studies available for comparison at this institution. Findings: The overall stature, alignment of the cervical spine is within normal limits. No convincing evidence of suspicious bony fragments narrowing the central canal or neural foramina. Prevertebral soft tissues, cervical airway, dens and lateral masses are within normal limits. Mild to moderate scattered degenerative changes of the cervical spine. Impression: 1. No convincing radiographic evidence of acute osseous injury. 2. Scattered degenerative changes of the cervical spine. Please note that all CT scans at this facility use dose modulation, iterative reconstruction, and/or weight-based dosing when appropriate to reduce radiation dose to as low as reasonably achievable. Dictated by Carmelo Goodson MD @ Feb 17 2020 1:03PM Signed by Dr. Carmelo Goodson @ Feb 17 2020 1:10PM
--- NOTE | 2020-02-17 13:33 | CT ---
Indication: Fall today. Neck pain. Technique: Multiple contiguous axial images were obtained through the level of the thoracic spine. Sagittal and coronal reformatted images were performed. Please note that all CT scans at this facility use dose modulation, iterative reconstruction, and/or weight-based dosing when appropriate to reduce radiation dose to as low as reasonably achievable. Comparison: None Findings: Mild kyphosis of the thoracic spine is identified. The vertebral body heights are well maintained. Intervertebral disc space narrowing is identified throughout. Anterior osteophytes are seen extending throughout. No fracture subluxation is identified. A small to moderate right pleural effusion is identified is small left pleural effusion is identified. Aortic calcifications are identified. A small hiatal hernia is identified. Visualized portions of the liver, spleen, adrenals, and kidneys are grossly normal. The heart is enlarged. No pericardial effusion is identified. Coronary artery calcifications are identified. Bibasilar atelectasis is identified. Questionable posterior pleural plaque is identified along the left posterior chest wall. Impression: Degenerative changes of the thoracic spine. No fracture identified. Bilateral pleural effusions, greater on the right than the left. The basilar atelectasis. Suggestion of a questionable calcified pleural plaque on the left posterior chest wall. Please note that all CT scans at this facility use dose modulation, iterative reconstruction, and/or weight-based dosing when appropriate to reduce radiation dose to as low as reasonably achievable. Dictated by Martina Salinas MD @ Feb 17 2020 1:16PM Signed by Dr. Martina Salinas @ Feb 17 2020 1:30PM
--- NOTE | 2020-02-17 13:37 | CT ---
Indication: A fall today. Neck pain. Technique: Multiple contiguous axial images were obtained through the lumbar spine. Sagittal and coronal reformatted images were performed. Please note that all CT scans at this facility use dose modulation, iterative reconstruction, and/or weight-based dosing when appropriate to reduce radiation dose to as low as reasonably achievable. Comparison: None Findings: The vertebral body heights are well maintained. There is perhaps mild compression of L3, stable. Anterior osteophytes are seen extending throughout. Mild intervertebral disc space narrowing is identified throughout. Facet joint arthropathy is identified. Calcification of the abdominal aorta is identified. No fracture or subluxation is identified. Posterior intervertebral disc space herniation and ligamentum flavum hypertrophy are identified at multiple levels. This results in central canal stenosis at nearly every level. Incidentally noted is prostatic hypertrophy. Degenerative changes of both hips. Impression: Degenerative changes of the lumbar spine. Mild chronic compression of L3. No acute fracture. Please note that all CT scans at this facility use dose modulation, iterative reconstruction, and/or weight-based dosing when appropriate to reduce radiation dose to as low as reasonably achievable. Dictated by Martina Salinas MD @ Feb 17 2020 1:30PM Signed by Dr. Martina Salinas @ Feb 17 2020 1:35PM
== END 2020-02-17 14:40 | disposition left against medical advice (07) ==
LOC: MW.ED 10:27
DX: S00.03XA Contusion of scalp, initial encounter (principal); S49.92XA Unspecified injury of left shoulder and upper arm, initial encounter; S29.9XXA Unspecified injury of thorax, initial encounter; S89.91XA Unspecified injury of right lower leg, initial encounter; E86.0 Dehydration; I10 Essential (primary) hypertension; F17.220 Nicotine dependence, chewing tobacco, uncomplicated; W01.0XXA Fall on same level from slipping, tripping and stumbling without subsequent striking against object, initial encounter; Y93.01 Activity, walking, marching and hiking; Y92.009 Unspecified place in unspecified non-institutional (private) residence as the place of occurrence of the external cause
CPT/HCPCS: 36415; 70450; 71045; 72125; 72128; 72131; 72170; 73030; 73562; 80053; 82550; 84484; 85025; 85610; 93005; 96374; 99285; J2270; J7030; 99283

== ENCOUNTER 2020-08-10 03:10 | Observation (INO) | payer MEDICARE, OTHER ==
[2020-08-10] MEDS ORDERED: Aspirin 81 MG Tab.Chew PO ONE (03:18)
[2020-08-10 04:14] LABS: BLOOD UREA NITROGEN,BUN 28 mg/dL (7.0-18.0); CHLORIDE,CL 104 mmol/L (98-107); GLUCOSE RANDOM 112 mg/dL (74-106); POTASSIUM,K 3.5 mmol/L (3.5-5.1); SODIUM,NA 143 mmol/L (136-148)
--- NOTE | 2020-08-10 05:16 | CR ---
INDICATION: Dyspnea TECHNIQUE: AP view of the chest COMPARISON: None FINDINGS/IMPRESSION: Small bilateral pleural effusions, slightly larger on the right. Mild bibasilar atelectasis. No focal consolidation. No pneumothorax. Borderline enlarged cardiac silhouette. No significant osseous abnormality. Dictated by Dariana Dorman MD @ Aug 10 2020 5:14AM Signed by Dr. Dariana Dorman @ Aug 10 2020 5:15AM
--- NOTE | 2020-08-10 05:36 | EDM.PDOC ---
ED HPI GENERAL MEDICAL PROBLEM - General Chief Complaint: Respiratory Problem Stated Complaint: SOB Time Seen by Provider: 08/10/20 03:41 - History of Present Illness INITIAL COMMENTS - FREE TEXT/NARRATIVE: CHIEF COMPLAINT(S): Shortness of breath HISTORY OF PRESENT ILLNESS: This is a 85-year-old man with a past medical history of hypertension, colorectal cancer status post resection, BPH who comes to the emergency department with a chief complaint of shortness of breath. The patient states that approximately 4 hours prior to arrival he started to experience shortness of breath which she describes as shallow breathing. He denies any cough, runny nose, congestion. He denies any chest pain, abdominal pain, nausea or vomiting. He states that it just happened all of a sudden. He denies any headache, blurry vision, numbness but states that he does have some lower extremity weakness which is chronic. He states that he does have an echocardiogram scheduled this Tuesday and that he does have some fluid in his lungs that is being worked up outpatient. He denies any fevers or chills. REVIEW OF SYSTEMS: Constitutional: Denies fever, chills. Eyes: Denies eye pain Ears, Nose, Mouth, & Throat: Denies earache Cardiovascular: Denies chest pain Respiratory: Positive for shortness of breath Gastrointestinal: Denies Nausea, vomiting, diarrhea, hematochezia. Genitourinary: Denies hematuria Skin:Denies a rash MSK: Denies joint pain Neurological: Denies blurred vision Psychiatric: Denies depression PAST MEDICAL HISTORY: As per history of present illness and as reviewed below otherwise noncontributory. SURGICAL HISTORY: As per history of present illness and as reviewed below otherwise noncontributory. SOCIAL HISTORY: As per history of present illness and as reviewed below otherwise noncontributory. FAMILY HISTORY: As per history of present illness and as reviewed below otherwise noncontributory. EXAMINATION OF ORGAN SYSTEMS/BODY AREAS: Constitutional: Blood pressure was 169/80, heart rate 56, respiratory rate 19 with an oxygen saturation 94% on room air. Temperature 36.0 General: Elderly gentleman who does not appear to be in acute distress Psychiatric: Appropriate mood and affect. Eyes: Bilateral conjunctival injection with some yellow drainage. Pupils are equal and round and reactive to light. ENMT: Moist mucous membranes. No pharyngeal erythema Cardiovascular: Bradycardic but regular no gallops, murmurs, or rubs. Bilateral upper extremity pulses symmetric and intact. No peripheral edema. No JVD. Respiratory: Lungs clear to auscultation bilaterally. No wheezes, rales, or rho nchi. Gastrointestinal: Soft, non-tender, non-distended. Normoactive bowel sounds Genitourinary: No suprapubic tenderness Musculoskeletal: Normal range of motion. Skin: No lesions or abrasions. Neurological: Alert, GCS 15 MEDICAL DECISION MAKING AND COURSE IN THE ED WITH INTERPRETATION/REVIEW OF DIAGNOSTIC STUDIES: This is a 85-year-old man with a past medical history of hypertension, colorectal cancer status post resection, BPH who comes to the emergency department with a chief complaint of shortness of breath who is not tachypneic, speaking in full sentences and mildly bradycardic and hypertensive. We did obtain an EKG which revealed right bundle branch block without any evidence of heart block. We will obtain CBC, BMP, magnesium, troponin, TSH and T4. Will obtain a Covid swab. Patient appears to be stable, is mentating appropriately and is not tachypneic we will reevaluate. Time: 0328 Twelve-lead EKG interpreted by myself. Normal sinus rhythm at a rate of 52beats per minute. Normal axis. NV interval is 186ms. QRS duration is approximately 100ms. ST segments are normal without elevations or depressions. No T wave inversions no Q waves present. There is a right bundle branch block. Hypertrophy not noted. No changes demonstrated from prior EKG dated August 09, 2018. Interpretation: Sinus rhythm with right bundle branch block Laboratory: CBC is unremarkable. BMP reveals metabolic alkalosis with a bicarbonate of 33, elevated BUN at 28 and a creatinine at 1.4 which is unchanged from prior. Hyperglycemia at 112. Troponin is negative. TSH is 1.76, T4 1.35. Covid is negative. The radiological images were viewed by myself along with reading the report from the radiologist. Chest x-ray reveals small bilateral pleural effusion slightly larger on the right with mild bibasilar atelectasis. This appears to be unchanged from prior chest x-ray. While being observed in the emergency department the patient did have continued bradycardia dipping into the low 50s. Patient's blood pressure continued to remain stable and the patient was not short of breath. Patient is on metoprolol and review of the chart the patient has never been this bradycardic. This could be secondary to medication. At this time I did discuss with patient that given the bradycardia like to admit him to the hospital for observation. He was amenable to this plan. I contacted Dr. Hoffman who accepted the patient for observation admission. Time: 538 Twelve-lead EKG interpreted by myself. Normal sinus rhythm at a rate of 63beats per minute. Normal axis. NV interval is 195ms. QRS duration is approximately [address] segments are normal without elevations or depressions. No T wave inversions no Q waves present. Right bundle branch block. Occasional PAC. No changes from EKG dated today . Interpretation: Sinus rhythm with right bundle branch block and occasional PAC DISPOSITION: Patient was admitted to telemetry observation in stable condition CONDITION: Fair PROCEDURES: None FINAL IMPRESSION(S)/DIAGNOSES: 1. Acute bradycardia Vipul Palacios M.D. - Related Data Allergies Allergy/AdvReac Type Severity Reaction Status Date / Time No Known Allergies Allergy Verified 02/17/20 10:42 Home Meds: Home Meds Losartan/Hydrochlorothiazide [Losartan-HCTZ 100-12.5 MG] 12.5 - 100 mg PO DAILY 03/08/18 [History] Calcium Carbonate/Vitamin D3 [Calcium 600 + Vit D Tablet] 1 tab PO DAILY 03/23/18 [History] Carboxymethylcellulos/Glycerin [Refresh Optive Gel Eye Drops] 1 applic EYEBOTH BID 03/23/18 [History] Dextran 70/Hypromellose [Artificial Tears] 1 drop EYEBOTH BID PRN 03/23/18 [History] Erythromycin Base [Erythromycin 0.5% Ophth Oint] 1 applic EYEBOTH ASDIRECTED 03/23/18 [History] Potassium Chloride 8 meq PO DAILY 03/23/18 [History] Metoprolol Tartrate [Lopressor] 50 mg PO BID 09/03/18 [History] Multivitamin [Multi-Vitamin Daily] 1 each PO DAILY 09/03/18 [History] hydrALAZINE [Apresoline] 1 tab PO BID 02/17/20 [History] predniSONE [Prednisone] 12.5 mg PO DAILY 02/17/20 [History] Past Medical History HEENT History: Reports: Other (See Below) Other HEENT History: top and bottom denture Cardiovascular History: Reports: Heart Murmur, Hypertension Respiratory History: Reports: None Gastrointestinal History: Reports: None Genitourinary History: Reports: BPH, Prostate Disorder Musculoskeletal History: Reports: Other (See Below) Other Musculoskeletal History: polymyalgia rheumatica Neurological History: Reports: None Psychiatric History: Reports: None Endocrine/Metabolic History: Reports: None Hematologic History: Reports: Anemia Immunologic History: Reports: None Oncologic (Cancer) History: Reports: Basal Cell Carcinoma, Colon Other Oncologic History: 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 Dermatologic History: Reports: None - Infectious Disease History Infectious Disease History: Reports: Chicken Pox, Measles, Mumps - Past Surgical History Head Surgeries/Procedures: Reports: None HEENT Surgical History: Reports: Cataract Surgery Cardiovascular Surgical History: Reports: None GI Surgical History: Reports: Colon, Colonoscopy, Hernia, Abdominal Male Surgical History: Reports: TURP-Transurethral Resection of Prostate, Vasectomy Musculoskeletal Surgical History: Reports: None Dermatological Surgical History: Reports: Skin Biopsy Social & Family History - Family History Family Medical History: No Pertinent Family History - Tobacco Use Tobacco Use Status *Q: Never Tobacco User Second Hand Smoke Exposure: No - Caffeine Use Caffeine Use: Reports: None - Living Situation & Occupation Living situation: Reports: , Extended Care Facility ED ROS GENERAL - Review of Systems Review Of Systems: See Below ED EXAM, GENERAL - Physical Exam Exam: See Below Course - Vital Signs Last Recorded V/S: Last Vital Signs Temp 36.0 C L 08/10/20 03:41 Pulse 56 L 08/10/20 04:30 Resp 18 08/10/20 04:30 BP 149/61 H 08/10/20 04:30 Pulse Ox 95 08/10/20 04:30 - Orders/Labs/Meds Orders: Active Orders 24 hr Category Date Time Status Admission Status [Patient Status] [ADT] Stat ADT 08/10/20 05:42 Active Cardiac Monitoring [RC] . DIRECTED Care 08/10/20 05:42 Active EKG Documentation Completion [RC] STAT Care 08/10/20 03:18 Active Labs: Laboratory Tests 08/10/20 08/10/20 08/10/20 Range/Units 03:35 03:35 04:20 WBC 8.25 (4.0-11.0) K/uL RBC 4.53 (4.50-5.90) M/uL Hgb 13.4 (13.0-17.0) g/dL Hct 41.1 (38.0-50.0) % MCV 90.7 (80.0-98.0) fL MCH 29.6 (27.0-32.0) pg MCHC 32.6 (31.0-37.0) g/dL RDW Std Deviation 43.6 (28.0-62.0) fl RDW Coeff of Salvador 13 (11.0-15.0) % Plt Count 220 (150-400) K/uL MPV 9.20 (7.40-12.00) fL Neut % (Auto) 65.1 (48.0-80.0) % Lymph % (Auto) 20.5 (16.0-40.0) % Trigg % (Auto) 9.9 (0.0-15.0) % Eos % (Auto) 3.9 (0.0-7.0) % Baso % (Auto) 0.6 (0.0-1.5) % Neut # (Auto) 5.4 (1.4-5.7) K/uL Lymph # (Auto) 1.7 (0.6-2.4) K/uL [place] # (Auto) 0.8 (0.0-0.8) K/uL Eos # (Auto) 0.3 (0.0-0.7) K/uL Baso # (Auto) 0.1 (0.0-0.1) K/uL Sodium 143 (136-148) mmol/L Potassium 3.5 (3.5-5.1) mmol/L Chloride 104 (98-107) mmol/L Carbon Dioxide 33.0 H (21.0-32.0) mmol/L BUN 28 H (7.0-18.0) mg/dL Creatinine 1.4 H (0.8-1.3) mg/dL Est Cr Clr Drug Dosing 38.45 mL/min Estimated GFR (MDRD) 48.2 ml/min Glucose 112 H (74-106) mg/dL Calcium 9.0 (8.5-10.1) mg/dL Magnesium 2.0 (1.8-2.4) mg/dL Troponin I < 0.050 (0.000-0.056) ng/mL Free T4 1.35 (0.76-1.46) ng/dL TSH 3rd Generation 1.76 (0.36-3.74) uIU/mL SARS-CoV-2 RNA (JEVON) NEGATIVE (NEGATIVE) Meds: Medications Discontinued Medications Generic Name Dose Route Start Last Admin Trade Name Freq PRN Reason Stop Dose Admin Aspirin 324 mg 08/10/20 03:18 08/10/20 04:21 Aspirin 81 Mg Tab.Chew PO 08/10/20 03:19 324 mg ONETIME ONE Administration Departure - Departure Time of Disposition: 05:36 Disposition: Refer to Observation Condition: Fair Clinical Impression: Bradycardia - Discharge Information Referrals: PCP,Not In Area [Primary Care Provider] - Forms: ED Department Discharge Sepsis Event Note (ED) - Evaluation Sepsis Screening Result: No Definite Risk - Focused Exam Vital Signs: Vital Signs Temp Pulse Resp BP Pulse Ox 08/10/20 04:30 56 L 18 149/61 H 95 08/10/20 03:41 36.0 C L 56 L 19 169/80 H 94 L - My Orders Last 24 Hours: My Active Orders 08/10/20 03:18 EKG Documentation Completion [RC] STAT 08/10/20 05:42 Admission Status [Patient Status] [ADT] Stat Cardiac Monitoring [RC] . DIRECTED - Assessment/Plan Last 24 Hours: My Active Orders 08/10/20 03:18 EKG Documentation Completion [RC] STAT 08/10/20 05:42 Admission Status [Patient Status] [ADT] Stat Cardiac Monitoring [RC] . DIRECTED
[2020-08-10] MEDS ORDERED: HYPROMELLOSE EYEBOTH PRN (08:44)
[2020-08-10] MEDS ORDERED: DEXTRAN EYEBOTH PRN (08:44)
--- NOTE | 2020-08-10 08:47 | PCM.HP.2 ---
H&P History of Present Illness - General Date of Service: 08/10/20 Admit Problem/Dx: Admission Diagnosis/Problem Admission Diagnosis/Problem Bradycardia - History of Present Illness Initial Comments - Free Text/Narative: 85 yo male with pmh of colorectal ca post resection, HTN, and BPH who presented to the ED with complaints of shortness of breath. Patient reports last night between 10pm and 2-am patient suddenly became short of breath. Patient also for past year reports shortness of breath with walking. He has known small bilateral pleural effusions and is scheduled for echocardiogram next week. Patient reports muscle pains in the legs while walking which limits his mobility with a walker. - Related Data Allergies/Adverse Reactions: Allergies Allergy/AdvReac Type Severity Reaction Status Date / Time No Known Allergies Allergy Verified 08/10/20 06:40 Home Medications: Home Meds Calcium Carbonate/Vitamin D3 [Calcium 600 + Vit D Tablet] 1 tab PO DAILY 03/23/18 [History] Dextran 70/Hypromellose [Artificial Tears] 1 drop EYEBOTH BID PRN 03/23/18 [History] Erythromycin Base [Erythromycin 0.5% Ophth Oint] 1 applic EYEBOTH BEDTIME 03/23/18 [History] Potassium Chloride 8 meq PO DAILY 03/23/18 [History] Metoprolol Tartrate [Lopressor] 50 mg PO BID 09/03/18 [History] Multivitamin [Multi-Vitamin Daily] 1 each PO DAILY 09/03/18 [History] hydrALAZINE [Apresoline] 100 mg PO BID 02/17/20 [History] predniSONE [Prednisone] 2.5 mg PO DAILY 02/17/20 [History] Losartan [Cozaar] 100 mg PO DAILY 08/11/20 [History] hydroCHLOROthiazide [Hydrochlorothiazide] 12.5 mg PO DAILY 08/11/20 [History] Past Medical History HEENT History: Reports: Other (See Below) Other HEENT History: top and bottom denture Cardiovascular History: Reports: Heart Murmur, Hypertension Respiratory History: Reports: None Gastrointestinal History: Reports: None Genitourinary History: Reports: BPH, Prostate Disorder Musculoskeletal History: Reports: Other (See Below) Other Musculoskeletal History: polymyalgia rheumatica Neurological History: Reports: None Psychiatric History: Reports: None Endocrine/Metabolic History: Reports: None Hematologic History: Reports: Anemia Immunologic History: Reports: None Oncologic (Cancer) History: Reports: Basal Cell Carcinoma, Colon Other Oncologic History: 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 Dermatologic History: Reports: None - Infectious Disease History Infectious Disease History: Reports: Chicken Pox, Measles, Mumps - Past Surgical History Head Surgeries/Procedures: Reports: None HEENT Surgical History: Reports: Cataract Surgery Cardiovascular Surgical History: Reports: None GI Surgical History: Reports: Colon, Colonoscopy, Hernia, Abdominal Male Surgical History: Reports: TURP-Transurethral Resection of Prostate, Vasectomy Musculoskeletal Surgical History: Reports: None Dermatological Surgical History: Reports: Skin Biopsy Social & Family History - Family History Family Medical History: No Pertinent Family History - Tobacco Use Tobacco Use Status *Q: Never Tobacco User Second Hand Smoke Exposure: No - Caffeine Use Caffeine Use: Reports: Coffee - Recreational Drug Use Recreational Drug Use: No - Living Situation & Occupation Living situation: Reports: , Extended Care Facility H&P Review of Systems - Review of Systems: Review Of Systems: Comprehensive ROS is negative, except as noted in HPI. Exam - Exam Exam: See Below - Vital Signs Vital Signs: Last Vital Signs Temp 36.1 C 08/10/20 07:54 Pulse 67 08/10/20 07:54 Resp 14 08/10/20 07:54 BP 162/74 H 08/10/20 07:54 Pulse Ox 97 08/10/20 07:54 Weight: 103 kg - Exam General: Alert, Oriented HEENT: Mucosa Moist & [place] Neck: No: JVD Lungs: Clear to Auscultation, Normal Respiratory Effort Cardiovascular: Regular Rate, Regular Rhythm GI/Abdominal Exam: Normal Bowel Sounds, Soft, Non-Tender Extremities: Non-Tender, No Pedal Edema Skin: Warm, Dry, Intact Neurological: Cranial Nerves Intact - Patient Data Lab Results Last 24 hrs: Laboratory Results - last 24 hr 08/10/20 08/10/20 08/10/20 Range/Units 03:35 03:35 04:20 WBC 8.25 (4.0-11.0) K/uL RBC 4.53 (4.50-5.90) M/uL Hgb 13.4 (13.0-17.0) g/dL Hct 41.1 (38.0-50.0) % MCV 90.7 (80.0-98.0) fL MCH 29.6 (27.0-32.0) pg MCHC 32.6 (31.0-37.0) g/dL RDW Std Deviation 43.6 (28.0-62.0) fl RDW Coeff of [place] 13 (11.0-15.0) % Plt Count 220 (150-400) K/uL MPV 9.20 (7.40-12.00) fL Neut % (Auto) 65.1 (48.0-80.0) % Lymph % (Auto) 20.5 (16.0-40.0) % Bailey % (Auto) 9.9 (0.0-15.0) % Eos % (Auto) 3.9 (0.0-7.0) % Baso % (Auto) 0.6 (0.0-1.5) % Neut # (Auto) 5.4 (1.4-5.7) K/uL Lymph # (Auto) 1.7 (0.6-2.4) K/uL Bailey # (Auto) 0.8 (0.0-0.8) K/uL Eos # (Auto) 0.3 (0.0-0.7) K/uL Baso # (Auto) 0.1 (0.0-0.1) K/uL Sodium 143 (136-148) mmol/L Potassium 3.5 (3.5-5.1) mmol/L Chloride 104 (98-107) mmol/L Carbon Dioxide 33.0 H (21.0-32.0) mmol/L BUN 28 H (7.0-18.0) mg/dL Creatinine 1.4 H (0.8-1.3) mg/dL Est Cr Clr Drug Dosing 38.45 mL/min Estimated GFR (MDRD) 48.2 ml/min Glucose 112 H (74-106) mg/dL Calcium 9.0 (8.5-10.1) mg/dL Magnesium 2.0 (1.8-2.4) mg/dL Troponin I < 0.050 (0.000-0.056) ng/mL Free T4 1.35 (0.76-1.46) ng/dL TSH 3rd Generation 1.76 (0.36-3.74) uIU/mL SARS-CoV-2 RNA (JEVON) NEGATIVE (NEGATIVE) Result Diagrams: 08/10/20 03:35 08/10/20 03:35 Sepsis Event Note - Evaluation Sepsis Screening Result: No Definite Risk - Focused Exam Vital Signs: Vital Signs Temp Pulse Resp BP Pulse Ox 08/10/20 07:54 36.1 C 67 14 162/74 H 97 08/10/20 06:33 36.1 C 58 L 17 159/74 H 94 L 08/10/20 04:30 56 L 18 149/61 H 95 08/10/20 03:41 36.0 C L 56 L 19 169/80 H 94 L Problem List Initiated/Reviewed/Updated: Yes Orders Last 24hrs: Active Orders 24 hr Category Date Time Status Admission Status [Patient Status] [ADT] Stat ADT 08/10/20 05:42 Active Cardiac Monitoring [RC] . DIRECTED Care 08/10/20 05:42 Active EKG Documentation Completion [RC] STAT Care 08/10/20 03:18 Active Telemetry Monitoring [Cardiac Monitoring] [RC] . Care 08/10/20 05:45 Active DIRECTED Calcium Carbonate/Vitamin D3 [Calcium 600 + Vit D Med 08/10/20 09:00 Ordered Tablet] 1 tab PO DAILY Carboxymethylcellulos/Glycerin [Refresh Optive Gel Eye Med 08/10/20 09:00 Ordered Drops] 1 applic EYEBOTH BID Dextran 70/Hypromellose [Artificial Tears] Med 08/10/20 08:44 Ordered 1 drop EYEBOTH BID PRN Losartan/Hydrochlorothiazide [Losartan-HCTZ 100-12.5 MG Med 08/10/20 09:00 Ordered ] 12.5 - 100 mg PO DAILY Metoprolol Tartrate [Lopressor] Med 08/10/20 09:00 Ordered 25 mg PO BID hydrALAZINE [Apresoline] Med 08/10/20 09:00 Ordered 1 tab PO BID predniSONE Med 08/10/20 09:00 Ordered 2.5 mg PO DAILY Medication Orders Metoprolol Tartrate (Metoprolol Tartrate 50 Mg Tab) 25 mg PO BID KATHERINE Non-Formulary Medication (Hydralazine [Apresoline]) 1 tab PO BID KATHERINE Non-Formulary Medication (Losartan/Hydrochlorothiazide [Losartan-Hctz 100-12.5 Mg]) 12.5 - 100 mg PO DAILY KATHERINE Non-Formulary Medication (Dextran 70/Hypromellose [Artificial Tears]) 1 drop EYEBOTH BID PRN PRN Reason: Dry Eyes Non-Formulary Medication (Carboxymethylcellulos/Glycerin [Refresh Optive Gel Eye Drops]) 1 applic EYEBOTH BID KATHERINE Non-Formulary Medication (Calcium Carbonate/Vitamin D3 [Calcium 600 + Vit D Tablet]) 1 tab PO DAILY KATHERINE Prednisone (Prednisone 10 Mg Tab) 2.5 mg PO DAILY KATHERINE Assessment/Plan Comment:: 85 yo male admitted for shortness of breath and bradycardia. Patient's symptoms have resolved. We will hold metoprolol dose, monitor overnight on telemetry and obtain echocardiogram when available.
[2020-08-10] MEDS ORDERED: Metoprolol Tartrate 25 MG Tab PO SCH (09:00)
[2020-08-10] MEDS: predniSONE 5 MG Tab PO SCH (09:22)
[2020-08-10] MEDS: hydrALAZINE 25 MG Tab PO SCH ×2 (09:22→21:40)
[2020-08-10] MEDS: CALCIUM CARBONATE PO SCH (10:20)
[2020-08-10] MEDS: VITAMIN D3 PO SCH (10:20)
[2020-08-10] MEDS: LOSARTAN HCTZ PO SCH (10:21)
[2020-08-10] MEDS: GLYCERIN EYEBOTH SCH ×2 (11:56→21:42)
[2020-08-10] MEDS: CARBOXYMETHYLCELLULOS EYEBOTH SCH ×2 (11:56→21:42)
[2020-08-10] MEDS ORDERED: Sodium Chloride 0.65% Nasal Spray 45 ML Bottle NAS PRN (14:49)
[2020-08-10] MEDS ORDERED: Metoprolol Tartrate 25 MG Tab PO ONE (18:50)
[2020-08-10] MEDS ORDERED: ERYTHROMYCIN BASE 0.5% EYEBOTH SCH (22:00)
[2020-08-10] MEDS ORDERED: POTASSIUM CHLORIDE PO SCH (22:00)
[2020-08-11] MEDS: hydrALAZINE 25 MG Tab PO SCH (09:19)
[2020-08-11] MEDS: predniSONE 5 MG Tab PO SCH (09:19)
[2020-08-11] MEDS: CALCIUM CARBONATE PO SCH (09:24)
[2020-08-11] MEDS: VITAMIN D3 PO SCH (09:24)
[2020-08-11] MEDS ORDERED: DEXTRAN EYEBOTH PRN (09:41)
[2020-08-11] MEDS ORDERED: HYPROMELLOSE EYEBOTH PRN (09:41)
[2020-08-11] MEDS ORDERED: PREDNISONE 2.5 MG PO SCH (09:45)
[2020-08-11] MEDS ORDERED: LOSARTAN 100 MG PO SCH (09:45)
[2020-08-11] MEDS ORDERED: HYDROCHLOROTHIAZIDE 12.5 MG TABLET PO SCH (09:45)
[2020-08-11] MEDS ORDERED: Metoprolol Tartrate 50 MG Tab PO SCH (10:00)
[2020-08-11] MEDS: CARBOXYMETHYLCELLULOS EYEBOTH SCH (10:04)
[2020-08-11] MEDS: GLYCERIN EYEBOTH SCH (10:04)
--- NOTE | 2020-08-11 10:13 | PCM.DCSUM1 ---
Discharge Summary - Discharge Data Discharge Date: 08/11/20 Discharge Disposition: Home, Self-Care 01 Condition: Fair - Referral to Home Health Primary Care Physician: PCP Not In Area - Patient Summary/Data Hospital Course: 85 yo male with pmh of colorectal ca post resection, HTN, and BPH who presented to the ED with complaints of shortness of breath. Patient reports last night between 10pm and 2-am patient suddenly became short of breath. Patient also for past year reports shortness of breath with walking. He has known small bilateral pleural effusions. Patient reports muscle pains in the legs while walking which limits his mobility with a walker. On arrival to ED his shortness of breath had resolved. Lab work and chest x-ray were unremarkable. Patient was satting 92% on room air. Patient was noted to bradycardic with HR in the 40s-50s. ER physician requested admission due to history of shortness of breath and bradycardia. His metoprolol was held the first morning. That evening he developed sinus tachycardia with heart rate went to the 120s-160s so his metoprolol was restarted. Today he is requesting discharge. The plan is to obtain an echocardiogram prior to discharge and then send him home with Zio patch. He is to follow up with Dr. Watson and Dr. De La Rosa. - Discharge Plan Home Medications: Home Meds Calcium Carbonate/Vitamin D3 [Calcium 600 + Vit D Tablet] 1 tab PO DAILY 03/23/18 [History] Dextran 70/Hypromellose [Artificial Tears] 1 drop EYEBOTH BID PRN 03/23/18 [History] Erythromycin Base [Erythromycin 0.5% Ophth Oint] 1 applic EYEBOTH BEDTIME 03/23/18 [History] Potassium Chloride 8 meq PO DAILY 03/23/18 [History] Metoprolol Tartrate [Lopressor] 50 mg PO BID 09/03/18 [History] Multivitamin [Multi-Vitamin Daily] 1 each PO DAILY 09/03/18 [History] hydrALAZINE [Apresoline] 100 mg PO BID 02/17/20 [History] predniSONE [Prednisone] 2.5 mg PO DAILY 02/17/20 [History] Losartan [Cozaar] 100 mg PO DAILY 08/11/20 [History] hydroCHLOROthiazide [Hydrochlorothiazide] 12.5 mg PO DAILY 08/11/20 [History] Patient Handouts: Bradycardia, Adult Referrals: Cole Watson MD [Ordering Only Provider] - 08/19/20 1:00 pm - Discharge Summary/Plan Comment DC Time >30 min.: No - Patient Data Vitals - Most Recent: Last Vital Signs Temp 36.6 C 08/11/20 09:00 Pulse 82 08/11/20 09:00 Resp 16 08/11/20 09:00 BP 136/60 08/11/20 09:19 Pulse Ox 92 L 08/11/20 09:00 Weight - Most Recent: 103 kg I&O - Last 24 hours: Intake & Output 08/10/20 08/11/20 08/11/20 22:59 06:59 14:59 Intake Total 500 450 Output Total 350 300 Balance 150 150 Med Orders - Current: Current Medications Artificial Tears (Dextran 70/Hypromellose [Artificial Tears] 15 Ml Drops) 1 each EYEBOTH BID PRN PRN Reason: Dry Eyes Hydralazine HCl (Hydralazine 25 Mg Tab) 100 mg PO BID [facility] Last Admin: 08/11/20 09:19 Dose: 100 mg Documented by: Metoprolol Tartrate (Metoprolol Tartrate 50 Mg Tab) 50 mg PO Q12H [facility] Carboxymethylcellulo s/Glycerin [Refresh Optive Gel Eye Dr 1 each EYEBOTH BID [facility] Last Admin: 08/11/20 10:04 Dose: Not Given Documented by: Potassium Chloride Er8 Meq Capsule Own Med 1 each PO BEDTIME [facility] Erythromycin Base 0. 5% Ophth Oint 1 Gm Tube Own Med 1 each EYEBOTH BEDTIME [facility] Losartan 100 Mg 1 each PO DAILY [facility] Last Admin: 08/11/20 10:05 Dose: 1 each Documented by: Hydrochlorothiazide (12.5 Mg Tablet) 1 each PO DAILY [facility] Last Admin: 08/11/20 10:04 Dose: 1 each Documented by: Prednisone 2.5 Mg 1 each PO DAILY [facility] Last Admin: 08/11/20 10:07 Dose: Not Given Documented by: Sodium Chloride (Sodium Chloride 0.65% Nasal [place] 45 Ml Bottle) 0 ml ANUEL BID PRN PRN Reason: Dry nose Discontinued Medications Aspirin (Aspirin 81 Mg Tab.Chew) 324 mg PO ONETIME ONE Stop: 08/10/20 03:19 Last Admin: 08/10/20 04:21 Dose: 324 mg Documented by: Metoprolol Tartrate (Metoprolol Tartrate 25 Mg Tab) 25 mg PO BID [facility] Metoprolol Tartrate (Metoprolol Tartrate 25 Mg Tab) 25 mg PO ONETIME ONE Stop: 08/10/20 18:51 Last Admin: 08/10/20 19:05 Dose: 25 mg Documented by: Erythromycin Base 0. 5% Ophth Oint 1 Gm Tube Own Med 1 applic EYEBOTH BEDTIME [facility] Last Admin: 08/10/20 21:58 Dose: 1 applic Documented by: Potassium Chloride Er8 Meq Capsule Own Med 8 meq PO BEDTIME [facility] Last Admin: 08/10/20 21:57 Dose: 8 meq Documented by: Losartan-Hctz 100-12 (.5 Mg) 1 each PO DAILY [facility] Last Admin: 08/10/20 10:21 Dose: Not Given Documented by: Dextran 70/Hypromellose [ Artificial Tears] 15 Ml Drops 1 each EYEBOTH BID PRN PRN Reason: Dry Eyes Calcium Carbonate/Vitamin D3 [Calcium 600 + Vit D Tablet] 1 each PO DAILY [facility] Last Admin: 08/11/20 09:24 Dose: Not Given Documented by: Prednisone (Prednisone 5 Mg Tab) 2.5 mg PO DAILY [facility] Last Admin: 08/11/20 09:19 Dose: 2.5 mg Documented by:
[2020-08-11] MEDS: LOSARTAN HCTZ PO SCH (10:33)
[2020-08-11] MEDS ORDERED: POTASSIUM CHLORIDE PO SCH (21:00)
[2020-08-11] MEDS ORDERED: ERYTHROMYCIN BASE 0.5% EYEBOTH SCH (21:00)
--- NOTE | 2020-08-13 13:44 | ECHO ---
EXAM DATE: 08/10/20 PATIENT'S AGE: 85 The ECHO report has been scanned into [employer] and can be seen in this patient's EMR (Electronic Medical Record) under the REPORTS section. The report has also been scanned into PACS. CHARLES
== END 2020-08-11 15:05 | disposition home or self-care (01) ==
LOC: MW.ED 03:10 → INTOOBSV 05:42 → MW.MS 05:42
PROVIDERS: ADMIT Internal Medicine; ATTEND Internal Medicine
DX: R00.1 Bradycardia, unspecified (principal); R06.02 Shortness of breath; I10 Essential (primary) hypertension; N40.0 Benign prostatic hyperplasia without lower urinary tract symptoms; Z90.49 Acquired absence of other specified parts of digestive tract; Z79.899 Other long term (current) drug therapy; Z98.890 Other specified postprocedural states; Z20.822 Contact with and (suspected) exposure to COVID-19
CPT/HCPCS: 36415; 71045; 80048; 83735; 83880; 84439; 84443; 84484; 85025; 93005; 93306; 99285; A9270; G0378; J7512; U0002; 93010; 99283

== ENCOUNTER 2020-08-24 07:50 | Emergency (ER) | payer MEDICARE, OTHER ==
[2020-08-24] MEDS ORDERED: Sodium Chloride 0.9% 2.5 ML Syringe FLUSH PRN (08:08)
[2020-08-24] MEDS ORDERED: Sodium Chloride 0.9% 10 ML Syringe FLUSH PRN (08:08)
--- NOTE | 2020-08-24 08:11 | EDM.PDOC ---
ED HPI GENERAL MEDICAL PROBLEM - General Chief Complaint: Respiratory Problem Stated Complaint: BREATHING PROBLEM Time Seen by Provider: 08/24/20 07:53 - History of Present Illness INITIAL COMMENTS - FREE TEXT/NARRATIVE: 85-year-old male with a remote history of colorectal cancer presenting with shortness of breath. Patient reports gradually worsening shortness of breath over the last 3 weeks. Patient was seen here at the beginning of August and admitted overnight. At that time he was short of breath and bradycardic. He had heart rates in the 40s. His metoprolol was held he had some sinus tachycardia overnight and so was metoprolol was restarted. An echocardiogram showed an EF of around 50%. He has an appointment on September 04 to have a thoracentesis to drain right-sided pleural effusion. However he reports gradual ly worsening shortness of breath worsens with exertion he is unable to lay flat because of the severity of the symptoms. No chest pain no syncope or near syncope. He has subjective shortness of breath even at rest at this point. - Related Data Allergies Allergy/AdvReac Type Severity Reaction Status Date / Time No Known Allergies Allergy Verified 08/24/20 08:06 Home Meds: Home Meds Calcium Carbonate/Vitamin D3 [Calcium 600 + Vit D Tablet] 1 tab PO DAILY 03/23/18 [History] Dextran 70/Hypromellose [Artificial Tears] 1 drop EYEBOTH BID PRN 03/23/18 [History] Erythromycin Base [Erythromycin 0.5% Ophth Oint] 1 applic EYEBOTH BEDTIME 03/23/18 [History] Potassium Chloride 8 meq PO DAILY 03/23/18 [History] Metoprolol Tartrate [Lopressor] 50 mg PO BID 09/03/18 [History] Multivitamin [Multi-Vitamin Daily] 1 each PO DAILY 09/03/18 [History] hydrALAZINE [Apresoline] 100 mg PO BID 02/17/20 [History] Losartan [Cozaar] 100 mg PO DAILY 08/11/20 [History] hydroCHLOROthiazide [Hydrochlorothiazide] 12.5 mg PO DAILY 08/11/20 [History] Past Medical History HEENT History: Reports: Other (See Below) Other HEENT History: top and bottom denture Cardiovascular History: Reports: Heart Murmur, Hypertension Respiratory History: Reports: None Gastrointestinal History: Reports: None Genitourinary History: Reports: BPH, Prostate Disorder Musculoskeletal History: Reports: Other (See Below) Other Musculoskeletal History: polymyalgia rheumatica Neurological History: Reports: None Psychiatric History: Reports: None Endocrine/Metabolic History: Reports: None Hematologic History: Reports: Anemia Immunologic History: Reports: None Oncologic (Cancer) History: Reports: Basal Cell Carcinoma, Colon Other Oncologic History: 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 Dermatologic History: Reports: None - Infectious Disease History Infectious Disease History: Reports: Chicken Pox, Measles, Mumps - Past Surgical History Head Surgeries/Procedures: Reports: None HEENT Surgical History: Reports: Cataract Surgery Cardiovascular Surgical History: Reports: None GI Surgical History: Reports: Colon, Colonoscopy, Hernia, Abdominal Male Surgical History: Reports: TURP-Transurethral Resection of Prostate, Vasectomy Musculoskeletal Surgical History: Reports: None Dermatological Surgical History: Reports: Skin Biopsy Social & Family History - Family History Family Medical History: No Pertinent Family History - Caffeine Use Caffeine Use: Reports: Coffee - Living Situation & Occupation Living situation: Reports: , Extended Care Facility ED ROS GENERAL - Review of Systems Review Of Systems: See Below Free Text/Narrative/Comment: General: No fever. Skin: No rash. Eyes: No vision problems. ENT: No sore throat. Neck: No neck stiffness. Respiratory: Per HPI Cardiac: No chest pain. Gastrointestinal: No nausea, vomiting or abdominal pain. Urinary: No dysuria. Musculoskeletal: No myalgias/arthralgias. Neurologic: No headache. ED EXAM, GENERAL - Physical Exam Exam: See Below Free Text/Narrative:: General Appearance: No acute distress, appears comfortable Skin: No rash HEENT: Normocephalic/atraumatic, sclera anicteric, mucous membranes moist Neck: Normal range of motion Chest and Lungs: Bilateral breath sounds, clear to auscultation, distant at the bilateral bases but no rhonchi or wheezing no crackles Cardiovascular: Regular rate and rhythm, no murmur Abdomen: Soft, non-tender Back: Normal Musculoskeletal: No edema or tenderness Neurologic: Awake, alert, no obvious deficits, moving all extremities Psychiatric: Appropriate, cooperative #1 Interpretation EKG Date: 08/24/20 Time: 08:10 EKG Interpretation Comments: Normal sinus rhythm rate of 76 right bundle branch block no acute ischemia unchanged from prior of earlier this month. Course - Vital Signs Last Recorded V/S: Last Vital Signs Temp 98.5 F 08/24/20 07:51 Pulse 58 L 08/24/20 09:30 Resp 17 08/24/20 09:30 BP 134/60 08/24/20 09:30 Pulse Ox 95 08/24/20 09:30 - Orders/Labs/Meds Orders: Active Orders 24 hr Category Date Time Status Sodium Chloride 0.9% [Saline Flush] Med 08/24/20 08:08 Active 10 ml FLUSH ASDIRECTED PRN Sodium Chloride 0.9% [Saline Flush] Med 08/24/20 08:08 Active 2.5 ml FLUSH ASDIRECTED PRN Saline Lock Insert [OM.PC] Stat Oth 08/24/20 08:08 Ordered Medication Orders Sodium Chloride (Sodium Chloride 0.9% 10 Ml Syringe) 10 ml FLUSH ASDIRECTED PRN PRN Reason: Keep Vein Open Last Admin: 08/24/20 08:14 Dose: 10 ml Documented by: LUIS A Sodium Chloride (Sodium Chloride 0.9% 2.5 Ml Syringe) 2.5 ml FLUSH ASDIRECTED PRN PRN Reason: Keep Vein Open Last Admin: 08/24/20 08:14 Dose: 2.5 ml Documented by: LUIS A Labs: Laboratory Tests 08/24/20 08/24/20 08/24/20 Range/Units 08:10 08:10 08:10 WBC 7.72 (4.0-11.0) K/uL RBC 4.53 (4.50-5.90) M/uL Hgb 13.6 (13.0-17.0) g/dL Hct 40.6 (38.0-50.0) % MCV 89.6 (80.0-98.0) fL MCH 30.0 (27.0-32.0) pg MCHC 33.5 (31.0-37.0) g/dL RDW Std Deviation 44.9 (28.0-62.0) fl RDW Coeff of Salvador 14 (11.0-15.0) % Plt Count 236 (150-400) K/uL MPV 9.50 (7.40-12.00) fL Neut % (Auto) 64.7 (48.0-80.0) % Lymph % (Auto) 20.3 (16.0-40.0) % Overton % (Auto) 11.4 (0.0-15.0) % Eos % (Auto) 3.2 (0.0-7.0) % Baso % (Auto) 0.4 (0.0-1.5) % Neut # (Auto) 5.0 (1.4-5.7) K/uL Lymph # (Auto) 1.6 (0.6-2.4) K/uL Overton # (Auto) 0.9 H (0.0-0.8) K/uL Eos # (Auto) 0.3 (0.0-0.7) K/uL Baso # (Auto) 0.0 (0.0-0.1) K/uL Nucleated RBC % 0.0 /100WBC Nucleated RBCs # 0 K/uL Sodium 138 (136-148) mmol/L Potassium 3.7 (3.5-5.1) mmol/L Chloride 102 (98-107) mmol/L Carbon Dioxide 25.9 (21.0-32.0) mmol/L BUN 22 H (7.0-18.0) mg/dL Creatinine 1.3 (0.8-1.3) mg/dL Est Cr Clr Drug Dosing TNP Estimated GFR (MDRD) 52.5 ml/min Glucose 108 H (74-106) mg/dL Calcium 8.9 (8.5-10.1) mg/dL Total Bilirubin 0.7 (0.2-1.0) mg/dL AST 15 (15-37) IU/L ALT 16 (14-63) IU/L Alkaline Phosphatase 98 (46-116) U/L Troponin I < 0.050 (0.000-0.056) ng/mL B-Natriuretic Peptide 68 (<100) PG/ML Total Protein 7.3 (6.4-8.2) g/dL Albumin 3.1 L (3.4-5.0) g/dL Globulin 4.2 H (2.6-4.0) g/dL Albumin/Globulin Ratio 0.7 L (0.9-1.6) Meds: Medications Generic Name Dose Route Start Last Admin Trade Name Freq PRN Reason Stop Dose Admin Sodium Chloride 10 ml 08/24/20 08:08 08/24/20 08:14 Sodium Chloride 0.9% 10 Ml Syringe FLUSH 10 ml ASDIRECTED PRN Administration Keep Vein Open Sodium Chloride 2.5 ml 08/24/20 08:08 08/24/20 08:14 Sodium Chloride 0.9% 2.5 Ml Syringe FLUSH 2.5 ml ASDIRECTED PRN Administration Keep Vein Open Departure - Departure Time of Disposition: 09:42 Disposition: Home, Self-Care 01 Condition: Good Clinical Impression: Nasal congestion - Discharge Information *PRESCRIPTION DRUG MONITORING PROGRAM REVIEWED*: Not Applicable *COPY OF PRESCRIPTION DRUG MONITORING REPORT IN PATIENT TYSHAWN: Not Applicable Instructions: Nonallergic Rhinitis Referrals: Cole Watson MD [Primary Care Provider] - 1 Day Forms: ED Department Discharge Additional Instructions: Please throw out the four-way nasal spray. For the next 48 hours you can use Afrin no more nostril and no more frequently than every 12 hours. Do not use the Afrin for longer than this. Please also add Mucinex. Do not use Mucinex D or any other combination medicine use only the basic form of Mucinex. Do not take more than is prescribed on the bottle. This will help thin the mucus. Just like four-way, Afrin can cause habituation and dependence if used for too many days in a row. If you continue to have trouble breathing or significant anxiety you could talk to your primary care doctor about potentially adding an antianxiety medicine such as a very low-dose of Ativan or Seroquel. However, both these medicines come with significant side effects and so we should try and direct our treatment towards your nasal congestion first. Your x-ray today was stable and your labs did not show any new abnormality. It is possible that a right-sided thorace ntesis will improve your breathing some. Please discuss potentially looking for other places to have this procedure done with your primary care doctor. The following information is given to patients seen in the emergency department who are being discharged to home. This information is to outline your options for follow-up care. We provide all patients seen in our emergency department with a follow-up referral. The need for follow-up, as well as the timing and circumstances, are variable depending upon the specifics of your emergency department visit. If you don't have a primary care physician on staff, we will provide you with a referral. We always advise you to contact your personal physician following an emergency department visit to inform them of the circumstance of the visit and f or follow-up with them and/or the need for any referrals to a consulting specialist. The emergency department will also refer you to a specialist when appropriate. This referral assures that you have the opportunity for follow-up care with a specialist. All of these measure are taken in an effort to provide you with optimal care, which includes your follow-up. Under all circumstances we always encourage you to contact your private physician who remains a resource for coordinating your care. When calling for follow-up care, please make the office aware that this follow-up is from your recent emergency room visit. If for any reason you are refused follow-up, please contact the [facility] Emergency Department at and asked to speak to the emergency department charge nurse. Sepsis Event Note (ED) - Evaluation Sepsis Screening Result: No Definite Risk - Focused Exam Vital Signs: Vital Signs Temp Pulse Resp BP Pulse Ox 08/24/20 09:30 58 L 17 134/60 95 08/24/20 09:00 62 17 152/64 H 94 L 08/24/20 07:51 98.5 F 79 20 183/72 H 95 - My Orders Last 24 Hours: My Active Orders 08/24/20 08:08 Sodium Chloride 0.9% [Saline Flush] 10 ml FLUSH ASDIRECTED PRN Sodium Chloride 0.9% [Saline Flush] 2.5 ml FLUSH ASDIRECTED PRN Saline Lock Insert [OM.PC] Stat - Assessment/Plan Last 24 Hours: My Active Orders 08/24/20 08:08 Sodium Chloride 0.9% [Saline Flush] 10 ml FLUSH ASDIRECTED PRN Sodium Chloride 0.9% [Saline Flush] 2.5 ml FLUSH ASDIRECTED PRN Saline Lock Insert [OM.PC] Stat Assessment:: 85-year-old male presenting with shortness of breath paroxysmal nocturnal dyspnea and dyspnea on exertion. Worsening pleural effusions is a consideration CHF is a consideration of worsening valvular disease is a consideration. ACS felt very unlikely that this is not an acute process and there is no chest pain associated with it. EKG is without acute ischemia single troponin should be sufficient to rule out active cardiac ischemia. Patient had an echo during his most recent admission earlier this month. At that time his EF was 55 to 60% and he had only minimal valvular disease. He is wearing a Zio patch to assess if any bradycardia may be contributing to his symptoms. That is due to be removed tomorrow. Acute infectious process felt very unlikely. CBC CMP BNP ordered as well chest x-ray to assess for any effusions pneumonia etc. Right now patient's heart rate is in the 70s his oxygen is normal on room air. Work of breathing is normal. 1533: Patient's labs are without acute finding. Chest x-ray stable. Patient has a small right-sided pleural effusion. However is not clear to what extent this is contributing to his symptoms. On repeat interview and assessment patient clarifies that his primary issue is nasal congestion. He reports being unable to breathe through his nose which is what causes him to have difficulty sleeping. The patient has a history of heavy four-way nasal spray use he reports that he was dependent on this in the past. Over the last 2 days he has been doing approximately 4 to 5 sprays in each nostril each day. Given this new information I think this nasal congestion is the primary cause of his dyspnea. The rest of his evaluation seems to be at his baseline. We discussed the importance of not using nasal sprays more often than directed. Patient will do no more than 48 hours of Afrin to try and open his nasal passages will also add Mucinex. Strict return precautions were discussed and understood patient will follow up with his primary care doctor. Given this additional history ACS felt unlikely. No signs of worsening heart failure clinically on blood work.
[2020-08-24 08:43] LABS: BLOOD UREA NITROGEN,BUN 22 mg/dL (7.0-18.0); CARBON DIOXIDE,CO2 25.9 mmol/L (21.0-32.0); CHLORIDE,CL 102 mmol/L (98-107); GLUCOSE RANDOM 108 mg/dL (74-106); POTASSIUM,K 3.7 mmol/L (3.5-5.1); SODIUM,NA 138 mmol/L (136-148)
--- NOTE | 2020-08-24 08:59 | CR ---
INDICATION: Progressive dyspnea. COMPARISON: Portable chest dated 08/10/2020 TECHNIQUE: Two view chest. FINDINGS: There is a persistent small right pleural effusion and a trace amount of pleural fluid blunting the left costophrenic angle. There is subtle ground-glass opacity within the contracted right lower lobe. Heart and pulmonary vessels are normal in size. There is no evidence of pneumothorax. IMPRESSION: Stable small right pleural effusion and atelectasis within the right lower lobe. Dictated by Villa Thompson MD @ Aug 24 2020 8:56AM Signed by Dr. Villa Thompson @ Aug 24 2020 8:58AM
== END 2020-08-24 09:56 | disposition home or self-care (01) ==
LOC: MW.ED 07:50
DX: R09.81 Nasal congestion (principal); I10 Essential (primary) hypertension; Z79.899 Other long term (current) drug therapy
CPT/HCPCS: 36415; 71046; 71046-26; 80053; 83880; 84484; 85025; 93005; 93010; 99283; 99285-25

== ENCOUNTER 2020-10-07 15:50 | Emergency (ER) | payer MEDICARE, OTHER ==
[2020-10-07] MEDS ORDERED: Sodium Chloride 0.9% 2.5 ML Syringe FLUSH PRN (16:00)
[2020-10-07] MEDS ORDERED: Sodium Chloride 0.9% 10 ML Syringe FLUSH PRN (16:00)
--- NOTE | 2020-10-07 16:08 | EDM.PDOC ---
ED HPI GENERAL MEDICAL PROBLEM - General Chief Complaint: Cardiovascular Problem Stated Complaint: SOB Time Seen by Provider: 10/07/20 15:55 Source of Information: Reports: Patient, EMS, Family History Limitations: Reports: No Limitations - History of Present Illness INITIAL COMMENTS - FREE TEXT/NARRATIVE: History of present illness: 85-year-old male presents to ER today via EMS accompanied by his daughter complaining of progressive shortness of breath and progressive weakness primarily in his legs that has been ongoing for the past 2 months approximately. He reports a history of hypertension, skin cancer and colon cancer status post resection and chemotherapy (2019). Daughter reports that chemotherapy was discontinued after adverse reaction to chemotherapy occurred in 2019. Patient has not followed up with his oncologist since then. Patient reports that he had shortness of breath both on exertion and at rest. The shortness of breath got worse last night and into this morning. Daughter reports that she was speaking to him on the phone today and his responses seemed slower. Daughter then called her to check up on her father at home. Patient son-in-law checked up on him at home and then decided to call EMS. There was no witnessed loss of consciousness and patient denies any loss of consciousness. Patient reports that he has felt dizzy throughout the day today. He also complains of decreased appetite that has been ongoing for some time now. He also complains of shortness of breath that is worse when lying down and occasional cough with thi ck phlegm. PCP is Dr. Watson at [facility] who he last followed-up with last week. Reports that his PCP has been working up his worsening leg weakness and pain. Review of systems: As per history of present illness and below otherwise all systems reviewed and negative. Past medical history: As per history of present illness and as reviewed below otherwise noncontributory. Surgical history: As per history of present illness and as reviewed below otherwise noncontributory. Social history: No reported history of drug or alcohol abuse. Family history: As per history of present illness and as reviewed below otherwise noncontributory. Physical exam: Constitutional - frail-appearing, NAD. HEENT - normocephalic, no evidence of trauma - external nose has lesion. Mouth normal - no mass in neck and no JVD - mucosae moist EYES - full EOM, PERRL, no icterus. Respiratory - no respiratory distress, equal bilateral expansion, lungs clear to auscultation and no abnormal lung sounds. Cardiovascular - Bradycardic, with S1 and S2 appreciated. No murmur, gallop or rub appreciated. GI - abdomen soft without distension or organomegaly - normal bowel sounds - no guard or rebound. Musculoskeletal no gross deformity of long bones or joints - no tenderness, swelling or edema. Neurologic - Alert and oriented times four - CN II-XII grossly intact - motor sensory and coordination symmetrically normal. Psychiatric - appropriate mood and affect with normal thought content. Hematologic - No petechiae or purpura - mucosa appropriate color and sclera not pale. Diagnostics: [] Therapeutics: [] Impression: [] Plan: [] Definitive disposition and diagnosis as appropriate pending reevaluation and review of above. - Related Data Allergies Allergy/AdvReac Type Severity Reaction Status Date / Time No Known Allergies Allergy Verified 08/24/20 08:06 Home Meds: Home Meds Calcium Carbonate/Vitamin D3 [Calcium 600 + Vit D Tablet] 1 tab PO DAILY 03/23/18 [History] Dextran 70/Hypromellose [Artificial Tears] 1 drop EYEBOTH BID PRN 03/23/18 [History] Erythromycin Base [Erythromycin 0.5% Ophth Oint] 1 applic EYEBOTH BEDTIME 03/23/18 [History] Potassium Chloride 8 meq PO DAILY 03/23/18 [History] Metoprolol Tartrate [Lopressor] 50 mg PO BID 09/03/18 [History] Multivitamin [Multi-Vitamin Daily] 1 each PO DAILY 09/03/18 [History] hydrALAZINE [Apresoline] 100 mg PO BID 02/17/20 [History] Losartan [Cozaar] 100 mg PO DAILY 08/11/20 [History] hydroCHLOROthiazide [Hydrochlorothiazide] 12.5 mg PO DAILY 08/11/20 [History] Past Medical History HEENT History: Reports: Other (See Below) Other HEENT History: top and bottom denture Cardiovascular History: Reports: Heart Murmur, Hypertension Respiratory History: Reports: None Gastrointestinal History: Reports: None Genitourinary History: Reports: BPH, Prostate Disorder Musculoskeletal History: Reports: Other (See Below) Other Musculoskeletal History: polymyalgia rheumatica Neurological History: Reports: None Psychiatric History: Reports: None Endocrine/Metabolic History: Reports: None Hematologic History: Reports: Anemia Immunologic History: Reports: None Oncologic (Cancer) History: Reports: Basal Cell Carcinoma, Colon Other Oncologic History: 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 Dermatologic History: Reports: None - Infectious Disease History Infectious Disease History: Reports: Chicken Pox, Measles, Mumps - Past Surgical History Head Surgeries/Procedures: Reports: None HEENT Surgical History: Reports: Cataract Surgery Cardiovascular Surgical History: Reports: None GI Surgical History: Reports: Colon, Colonoscopy, Hernia, Abdominal Male Surgical History: Reports: TURP-Transurethral Resection of Prostate, Vasectomy Musculoskeletal Surgical History: Reports: None Oncologic Surgical History: Reports: None Dermatological Surgical History: Reports: Skin Biopsy Social & Family History - Family History Family Medical History: No Pertinent Family History - Tobacco Use Tobacco Use Status *Q: Never Tobacco User - Caffeine Use Caffeine Use: Reports: None - Recreational Drug Use Recreational Drug Use: No - Living Situation & Occupation Living situation: Reports: , Extended Care Facility ED ROS GENERAL - Review of Systems Review Of Systems: Comprehensive ROS is negative, except as noted in HPI. ED EXAM, GENERAL - Physical Exam Exam: See Below Free Text/Narrative:: My physical exam is in the HPI #1 Interpretation EKG Interpretation Comments: KG sinus rhythm heart rate 81 PA interval 216. QT duration is 490 axis of 61. There are multiple ventricular premature complexes. There is a right bundle branch block. An EKG the patient only has compensatory pauses after the QRS of the PVCs. In the rhythm strip brought by EMS he has pauses with a slow heart rate and normal irregular R to R suggesting junctional rhythm and loss of his sinus initiation. Impression this patient has significant arrhythmia including bradycardia and sinus arrest. He may need a pacemaker but he is on a beta- judith. Plan to consult cardiology and have the patient observe while beta-bl ockers held and pacemaker decision to be made Course - Vital Signs Text/Narrative:: 1706 hrs. the patient has a positive troponin. His strip from EMS shows bradycardia arrhythmia down to a heart rate of 30 with no P waves. RR is regular. My interpretation is junctional rhythm rather than complete heart block. Discussed with Dr. Jarvis at [facility] he accepted the patient in transfer people. Will arrange ALS transfer and this is agreeable to the patient. Due to a high probability of clinically significant, life threatening deterioration, the patient required my highest level of preparedness to intervene emergently and I personally spent this critical care time directly and personally managing the patient. This critical care time included obtaining a history; examining the patient; pulse oximetry; ordering and review of studies; arranging urgent treatment with development of a management plan; evaluation of patient's response to treatment; frequent reassessment; and, discussions with other providers. This critical care time was performed to assess and manage the high probability of imminent, life-threatening deterioration that could result in multi-organ failure. It was exclusive of separately billable procedures and treating other patients and teaching time. Total time 37 minutes This patient was seen and evaluated during the 2019 SARS-CoV-2 novel coronavirus pandemic period. Community viral transmission is ongoing at time of this encounter and the emergency department is operating under pandemic response procedures. Last Recorded V/S: Last Vital Signs Temp 36.3 C 10/07/20 15:54 Pulse 66 10/07/20 15:54 Resp 20 10/07/20 15:54 BP 181/102 H 10/07/20 15:54 Pulse Ox 96 10/07/20 15:54 - Orders/Labs/Meds Orders: Active Orders 24 hr Category Date Time Status EKG Documentation Completion [RC] AM Care 10/07/20 16:00 Active Telemetry Monitoring [Cardiac Monitoring] [RC] . Care 10/07/20 16:12 Active DIRECTED CORONAVIRUS COVID-19 JEVON [MOLEC] Stat Lab 10/07/20 16:57 Ordered Sodium Chloride 0.9% [Saline Flush] Med 10/07/20 16:00 Active 10 ml FLUSH ASDIRECTED PRN Sodium Chloride 0.9% [Saline Flush] Med 10/07/20 16:00 Active 2.5 ml FLUSH ASDIRECTED PRN Saline Lock Insert [OM.PC] Stat Oth 10/07/20 16:01 Ordered Medication Orders Sodium Chloride (Sodium Chloride 0.9% 10 Ml Syringe) 10 ml FLUSH ASDIRECTED PRN PRN Reason: Keep Vein Open Last Admin: 10/07/20 16:13 Dose: 10 ml Documented by: LUIS A Sodium Chloride (Sodium Chloride 0.9% 2.5 Ml Syringe) 2.5 ml FLUSH ASDIRECTED PRN PRN Reason: Keep Vein Open Last Admin: 10/07/20 16:13 Dose: 2.5 ml Documented by: LUIS A Labs: Laboratory Tests 10/07/20 10/07/2010/07/21 Range/Units 16:00 16:00 16:10 WBC 7.64 (4.0-11.0) K/uL RBC 4.64 (4.50-5.90) M/uL Hgb 13.4 (13.0-17.0) g/dL Hct 42.0 (38.0-50.0) % MCV 90.5 (80.0-98.0) fL MCH 28.9 (27.0-32.0) pg MCHC 31.9 (31.0-37.0) g/dL RDW Std Deviation 46.4 (28.0-62.0) fl RDW Coeff of Salvador 14 (11.0-15.0) % Plt Count 238 (150-400) K/uL MPV 9.70 (7.40-12.00) fL Neut % (Auto) 73.8 (48.0-80.0) % Lymph % (Auto) 14.7 L (16.0-40.0) % Ness % (Auto) 8.8 (0.0-15.0) % Eos % (Auto) 2.2 (0.0-7.0) % Baso % (Auto) 0.5 (0.0-1.5) % Neut # (Auto) 5.6 (1.4-5.7) K/uL Lymph # (Auto) 1.1 (0.6-2.4) K/uL Ness # (Auto) 0.7 (0.0-0.8) K/uL Eos # (Auto) 0.2 (0.0-0.7) K/uL Baso # (Auto) 0.0 (0.0-0.1) K/uL Nucleated RBC % 0.0 /100WBC Nucleated RBCs # 0 K/uL INR 1.04 Sodium 143 (136-148) mmol/L Potassium 3.6 (3.5-5.1) mmol/L Chloride 104 (98-107) mmol/L Carbon Dioxide 30.7 (21.0-32.0) mmol/L BUN 22 H (7.0-18.0) mg/dL Creatinine 1.5 H (0.8-1.3) mg/dL Est Cr Clr Drug Dosing 34.83 mL/min Estimated GFR (MDRD) 44.5 ml/min Glucose 115 H (74-106) mg/dL Calcium 9.1 (8.5-10.1) mg/dL Magnesium 1.8 (1.8-2.4) mg/dL Total Bilirubin 0.5 (0.2-1.0) mg/dL AST 15 (15-37) IU/L ALT 13 L (14-63) IU/L Alkaline Phosphatase 99 (46-116) U/L Troponin I 0.110 H* (0.000-0.056) ng/mL Total Protein 7.2 (6.4-8.2) g/dL Albumin 2.8 L (3.4-5.0) g/dL Globulin 4.4 H (2.6-4.0) g/dL Albumin/Globulin Ratio 0.6 L (0.9-1.6) TSH 3rd Generation 1.51 (0.36-3.74) uIU/mL Meds: Medications Generic Name Dose Route Start Last Admin Trade Name Freq PRN Reason Stop Dose Admin Sodium Chloride 10 ml 10/07/20 16:00 10/07/20 16:13 Sodium Chloride 0.9% 10 Ml Syringe FLUSH 10 ml ASDIRECTED PRN Administration Keep Vein Open Sodium Chloride 2.5 ml 10/07/20 16:00 10/07/20 16:13 Sodium Chloride 0.9% 2.5 Ml Syringe FLUSH 2.5 ml ASDIRECTED PRN Administration Keep Vein Open Departure - Departure Time of Disposition: 18:00 Disposition: DC/Tfer to Acute Hospital 02 Reason for Transfer *Q: Other (Needs cardiology and possible pacemaker) Condition: Good Clinical Impression: Bradycardia, Weakness, Near syncope, Dyspnea, Troponin I above reference range Forms: ED Department Discharge Sepsis Event Note (ED) - Evaluation Sepsis Screening Result: No Definite Risk - Focused Exam Vital Signs: Vital Signs Temp Pulse Resp BP Pulse Ox 10/07/20 15:54 36.3 C 66 20 181/102 H 96 - My Orders Last 24 Hours: My Active Orders 10/07/20 16:00 EKG Documentation Completion [RC] AM Sodium Chloride 0.9% [Saline Flush] 10 ml FLUSH ASDIRECTED PRN Sodium Chloride 0.9% [Saline Flush] 2.5 ml FLUSH ASDIRECTED PRN 10/07/20 16:01 Saline Lock Insert [OM.PC] Stat 10/07/20 16:12 Telemetry Monitoring [Cardiac Monitoring] [RC] . DIRECTED 10/07/20 16:57 CORONAVIRUS COVID-19 JEVON [MOLEC] Stat - Assessment/Plan Last 24 Hours: My Active Orders 10/07/20 16:00 EKG Documentation Completion [RC] AM Sodium Chloride 0.9% [Saline Flush] 10 ml FLUSH ASDIRECTED PRN Sodium Chloride 0.9% [Saline Flush] 2.5 ml FLUSH ASDIRECTED PRN 10/07/20 16:01 Saline Lock Insert [OM.PC] Stat 10/07/20 16:12 Telemetry Monitoring [Cardiac Monitoring] [RC] . DIRECTED 10/07/20 16:57 CORONAVIRUS COVID-19 JEVON [MOLEC] Stat
[2020-10-07 16:45] LABS: CARBON DIOXIDE,CO2 30.7 mmol/L (21.0-32.0); POTASSIUM,K 3.6 mmol/L (3.5-5.1)
--- NOTE | 2020-10-07 18:40 | CR ---
For Patients: As a result of the Century Cures Act, medical imaging exams and procedure reports are released immediately into your electronic medical record. You may view this report before your referring provider. If you have questions, please contact your health care provider. Indication: Bradycardia Comparison: Two-view chest August 24, 2020 Technique: Single AP view chest Findings: There is hyperinflation and chronic interstitial change. There are basilar pleural effusions with adjacent compressive atelectasis versus infiltrates with increased interstitial markings from remote comparison exam. There is no pneumothorax. The cardiac silhouette is stably enlarged. The bony thorax is grossly intact. Impression: Persistent basilar pleural effusions with likely increased pulmonary edema from comparison exam. Dictated by Bernabe Stubbs MD @ 10/07/2020 6:40:[address] Bernabe Stubbs @ Oct 07 2020 6:40PM
== END 2020-10-07 18:00 ==
LOC: MW.ED 15:50
DX: R53.1 Weakness (principal); R55 Syncope and collapse; R06.02 Shortness of breath; R00.1 Bradycardia, unspecified; R79.89 Other specified abnormal findings of blood chemistry; I10 Essential (primary) hypertension; Z79.899 Other long term (current) drug therapy
CPT/HCPCS: 36415; 71045; 80053; 83735; 84443; 84484; 85025; 85610; 93005; 99285; U0002